=== PATIENT | female | born 1955 | race Caucasian/White ===

== ENCOUNTER → 2017-06-08 | Outpatient (CLI) | payer OTHER ==
[~2017-06-08] MED LIST: ATV/1 PO; FLUO40CA8 PO; HYDR-5688 PO; HYZ/10015 PO; IBUP-103 PO; LEVO75TA5 PO; MCRK20 PO; METO25TA56 PO; OLAN-111 PO; SDMC1 PO; ZOLP5TAB6 PO
[2017-06-08 17:36] LABS: BASO % 0.5 %; BASO ABS # 0.07 K/uL (0-0.2); COMPLETE YES; EOS % 1.4 %; IG% 0.3 %; LYMPH % 11.7 %; LYMPH ABS # 1.63 K/uL (1.2-3.4); MEAN CELL VOLUME 84.7 fL (80-100); MEAN CORPUSCULAR HEMOGLOBIN 28.7 pg (25-34); MEAN CORPUSCULAR HGB CONC 33.9 g/dl (32-36); MEAN PLATELET VOLUME 10.4 fL (7.4-10.4); MONO % 6.4 %; NEUT % 79.7 %; PLATELET COUNT 408 K/uL (130-400); RED BLOOD COUNT 4.84 M/uL (4.2-5.4); WHITE BLOOD COUNT 13.99 K/uL (4.8-10.8)
[2017-06-08 17:52] LABS: BLOOD UREA NITROGEN 14 mg/dl (7-18); BUN/CREATININE RATIO 10.7 (10-20); CALCIUM 9.6 mg/dl (8.5-10.1); CARBON DIOXIDE 23 mmol/L (21-32); CHLORIDE 100 mmol/L (98-107); GLUCOSE 103 mg/dl (70-99); POTASSIUM 3.4 mmol/L (3.5-5.1); SODIUM 132 mmol/L (136-145)
[2017-06-08 18:03] LABS: ALB/GLOB RATIO 1.1 (0.9-2); ALKALINE PHOSPHATASE 142 U/L (45-117); ALT/SGPT 18 U/L (12-78); AST/SGOT 12 U/L (15-37); CHOLESTEROL 125 mg/dl (0-200); HDL CHOLESTEROL 64 mg/dl; LDL CHOLESTEROL CALCULATED 40 mg/dl; TRIGLYCERIDES 103 mg/dl (0-150); VERY LOW DENSITY LIPOPROT CALC 21 mg/dl
== END | disposition home or self-care (01) ==
LOC: C.LABPBG 15:35
PROVIDERS: ATTEND Neuromusculoskeletal Medicine & OMM
DX: Z00.00 Encounter for general adult medical examination without abnormal findings (principal); Z01.818 Encounter for other preprocedural examination

== ENCOUNTER 2017-07-04 16:07 | Emergency (ER) | payer OTHER ==
[~2017-07-04] VITALS: Ht 167.6 cm; Wt 66.0 kg
[2017-07-04 16:11] VITALS: TEMP 36.5; Ht 167.6 cm; Wt 66.0 kg
[2017-07-04] MEDS ORDERED: ATV/1 PO (16:51)
[2017-07-04] MEDS ORDERED: HYDR-5688 PO (16:51)
[2017-07-04] MEDS ORDERED: FLUO40CA8 PO (16:51)
[2017-07-04] MEDS ORDERED: OLAN-111 PO (16:51)
[2017-07-04] MEDS ORDERED: LEVO75TA5 PO (16:51)
[2017-07-04] MEDS ORDERED: METO25TA56 PO (16:56)
[2017-07-04] MEDS ORDERED: ZOLP5TAB6 PO (16:56)
[2017-07-04] MEDS ORDERED: HYZ/10015 PO (16:56)
[2017-07-04] MEDS ORDERED: IBUP-103 PO (17:12)
--- NOTE | 2017-07-04 17:15 | DIAGNOSTIC IMAGING REPORT ---
LEFT KNEE 3 VIEWS CLINICAL HISTORY: Left knee replacement 10 yrs. Ago, recent fall, knee pain trauma. Pain. COMPARISON: None. DISCUSSION: Fracture distal femur with evidence for prior total joint replacement. Lateral displacement of the medial femoral condyle. Joint effusion with multiple radiopaque densities present. Probable mild impaction of the distal femur in relation to the femoral prosthetic. Mild lucency surrounding the tibial prosthetic possibly secondary to a component of early loosening. IMPRESSION: Comminuted fracture distal femur with evidence for a total left knee prosthetic. Joint effusion with multiple radiopaque loose bodies within the effusion. Potential early loosening of the tibial prosthetic. The above report was generated using voice recognition software. It may contain grammatical, syntax or spelling errors. Electronically signed by: Hernan Thrasher M.D. 07/04/2017 5:14 PM Dictated Date/Time: 07/04/2017 5:12 PM
[2017-07-04 18:32] VITALS: BP 142/94; PULSE 78; O2SAT 96
--- NOTE | 2017-07-04 18:44 | EMERGENCY ROOM VISIT NOTE ---
History First contact with patient: 16:24 Chief Complaint: KNEEPAIN Stated Complaint: LEFT KNEE FX History of Present Illness The patient is a 62 year old female who presents to the Emergency Room via private vehicle with complaints of "left knee fracture". The patient states that she has a left knee total joint replacement which was performed 10 years ago in [place]. She states that she has been following with Dr. Hernan Hatfield DO. The patient states that this past Monday, she was tried use her walker, and twisted her left knee causing her to fall. She notes pain in the left knee rated as an 8/10. She states that she is to follow-up with [facility] as recommended by Dr. Hatfield. She indicated that he does not feel comfortable with the complexity of the fracture, therefore recommended higher level of care. Review of Systems A complete 6-point Review of Systems was discussed with the patient, with pertinent positives and negatives listed in the History of Present Illness. All remaining Review of Systems questions can be considered negative unless otherwise specified. Past Medical/Surgical History Total left knee replacement Family History No pertinent. Social History Smoking Status: Current Every Day Smoker Patient lives locally and has recently moved to the area. Current/Historical Medications Scheduled Fluoxetine (Prozac), 40 MG PO DAILY Hctz/Losartan (Hyzaar 25MG/100MG), 1 TAB PO DAILY Levothyroxine Sodium (Levothyroxine Sodium), 75 MCG PO DAILY Metoprolol Tartrate (Lopressor) (Lopressor), 25 MG PO DAILY Zolpidem Tartrate (Zolpidem Tartrate), 5 MG PO HS Scheduled PRN Hydrocodone/Acetaminophen 5MG/325MG ([place] 5MG/325MG), 1 TABLET PO Q4H PRN for Pain Ibuprofen Tab (Advil), 600-800 MG PO Q8 PRN for Pain Lorazepam (Ativan), 1 MG PO Q8 PRN for Anxiety Physical Exam Vital Signs Date Time Temp Pulse Resp B/P (MAP) Pulse Ox O2 Delivery O2 Flow Rate FiO2 07/04/17 18:32 78 20 142/94 96 Room Air 07/04/17 16:11 36.5 89 18 130/84 95 Room Air Physical Exam VITAL SIGNS - Vital signs and nursing notes were reviewed. Afebrile, blood pressure 130/84, non-tachycardic and is saturating well on room air at 95%. GENERAL -62-year-old female appearing her stated age who is in no acute distress. Communicates well with provider and answers questions appropriately. SKIN - Without rashes. Skin overlying the left knee is edematous, but not erythematous. EXTREMITIES - obvious deformity of the left knee secondary to diffuse edema. The leg is in anatomical alignment. There is warmth to touch of the left knee joint. No evidence of infection. She is neurovascularly intact in this region. Limited range of motion. +5/5 strength noted in UE/LE bilaterally. Medical Decision & Procedures ER Provider Diagnostic Interpretation: LEFT KNEE 3 VIEWS CLINICAL HISTORY: Left knee replacement 10 yrs. Ago, recent fall, knee pain trauma. Pain. COMPARISON: None. DISCUSSION: Fracture distal femur with evidence for prior total joint replacement. Lateral displacement of the medial femoral condyle. Joint effusion with multiple radiopaque densities present. Probable mild impaction of the distal femur in relation to the femoral prosthetic. Mild lucency surrounding the tibial prosthetic possibly secondary to a component of early loosening. IMPRESSION: Comminuted fracture distal femur with evidence for a total left knee prosthetic. Joint effusion with multiple radiopaque loose bodies within the effusion. Potential early loosening of the tibial prosthetic. The above report was generated using voice recognition software. It may contain grammatical, syntax or spelling errors. Electronically signed by: Hernan Thrasher M.D. 07/04/2017 5:14 PM Dictated Date/Time: 07/04/2017 5:12 PM Medical Decision Patient was seen and evaluated as above. She presents to us today with left knee pain. She notes that she took one of her prescribed pain medications prior to coming here therefore declines pain medication. X-ray was obtained with results as above. There is a periprosthetic knee fracture. Case was discussed with the on-call orthopedic doctor, Dr. Dobbins who indicated that the current plan by Dr. Hatfield is appropriate, and he indicates he does not feel comfortable intervening in the patient's care. I do believe that follow-up with the indicated individuals is appropriate, and after a good deal of time into the patient's stay she indicated that she has an appointment on the seventh with a person in [place] which was set up by Dr. Hatfield. The people that accompanying her thought that that was a long drive, and brought her here instead. I informed that although I was sorry that it is a long drive to those places, I believe that the orthopedic surgeon that they've seen previously referred him there as they're able to provide a higher level of care in complexity for this joint. They then verbalizes understanding. She appears stable for outpatient management. She'll he has any immobilizer which appears appropriate. She is to be nonweightbearing and was given a walker. She is to return with worsening. There appears to be no emergent surgery necessary today. She was educated upon worrisome symptoms which to return, had questions by discharge, and was discharged home in good condition. In the evaluation and treatment of this patient, the following differential diagnoses were considered: Patellar Fracture, Tibial Plateau Fracture, Distal Femur Fracture, ACL Injury, PCL Injury, Collateral Ligament Injury, Pes Anserine Bursitis, [place]uve Fracture. Impression Primary Impression: Knee fracture Departure Information Dispostion Home / Self-Care Condition GOOD Referrals Berto Meza D.OCuong (PCP) Patient Instructions My [facility] Additional Instructions You have been treated in the Emergency Department for Knee Pain. If this is a recent injury (<24 hrs), ice can be applied to the area of pain for the first 3 days to help decrease pain and inflammation. Ice massages can be performed by freezing water in a paper cup, peeling back the cup to expose the ice and then massaging over the affected area. You have been provided the number for an Orthopaedic Surgeon. You should call this number as soon as possible to establish a follow-up visit from today's Emergency Department visit. Keep the knee brace in place until cleared by Orthopedics. Use the walker you have been provided to keep ALL weight off of the knee until weight bearing is tolerable. Please call the knee doctor at [place] tomorrow to verify your appointment. Please also call [place] to verify your appointment. Return to the Emergency Department if your current symptoms worsen despite treatment course outlined above. Please return to emergency department with any new/concerning symptoms.
== END 2017-07-04 18:56 | disposition home or self-care (01) ==
LOC: C.EDB 16:08 → C.EDD 18:56
DX: S72.402A Unspecified fracture of lower end of left femur, initial encounter for closed fracture (principal); Z96.652 Presence of left artificial knee joint; W19.XXXA Unspecified fall, initial encounter; Y92.9 Unspecified place or not applicable; F17.210 Nicotine dependence, cigarettes, uncomplicated; Z79.899 Other long term (current) drug therapy

== ENCOUNTER 2017-07-20 10:40 | Inpatient (IN) | payer OTHER ==
[~2017-07-20] VITALS: Ht 167.6 cm; Wt 66.0 kg
[~2017-07-20 10:40] MED LIST changes: -MCRK20 PO; -OLAN-111 PO; -SDMC1 PO
[2017-07-20] MEDS ORDERED: SODIUM CHLORIDE 0.9% 1000ML 1,000 ML IV STA (10:46)
--- NOTE | 2017-07-20 11:36 | EMERGENCY ROOM VISIT NOTE ---
History First contact with patient: 10:45 Chief Complaint: ABNORMAL LABS Stated Complaint: ABNORMAL LABS History of Present Illness The patient is a 62 year old female who presents to the Emergency Room with complaints of abnormal labs. The patient also notes the following associated symptoms, left knee pain. The patient had a knee replacement 10yrs ago. She fell 10 months ago and loosened the hardware. She then suffered femur fx 3 weeks ago. She denied trauma for the event. She went to [place] and was told the fracture occurred because of loose hardware. This visit was 2 days ago. She had the knee aspirated and was told it was infected. She was scheduled for surgery today. She had preop labs done and was told the labs were all abnormal. The patient has been using percocet for relieving factors. Pt denies LOC, headache, fevers, chills, diaphoresis, visual changes, neck pain, chest pain, breathing difficulties, nausea, vomiting, abdominal pain, back pain, melena, hematochezia, urinary symptoms, numbness, weakness, lymphadenopathy, rash, or other complaints. Review of Systems See HPI for pertinent positives and negatives. A total of ten systems were reviewed and were otherwise negative. Past Medical/Surgical History Medical Problems: (1) Hyponatremia Social History Smoking Status: Unknown if Ever Smoked Current/Historical Medications Scheduled Fluoxetine (Prozac), 40 MG PO DAILY Hctz/Losartan (Hyzaar 25MG/100MG), 1 TAB PO DAILY Levothyroxine Sodium (Levothyroxine Sodium), 75 MCG PO DAILY Metoprolol Tartrate (Lopressor) (Lopressor), 25 MG PO DAILY Zolpidem Tartrate (Zolpidem Tartrate), 5 MG PO HS Scheduled PRN Hydrocodone/Acetaminophen 5MG/325MG ([place] 5MG/325MG), 1 TABLET PO Q4H PRN for Pain Ibuprofen Tab (Advil), 600-800 MG PO Q8 PRN for Pain Lorazepam (Ativan), 1 MG PO Q8 PRN for Anxiety Physical Exam Vital Signs Date Time Temp Pulse Resp B/P (MAP) Pulse Ox O2 Delivery O2 Flow Rate FiO2 07/20/17 13:44 72 20 125/80 97 Room Air 07/20/17 12:19 70 14 119/79 97 Room Air 07/20/17 11:12 72 07/20/17 11:09 74 16 113/74 97 Room Air 07/20/17 10:38 37.1 75 18 126/76 97 Room Air Physical Exam GENERAL: Awake, alert, uncomfortable appearing, in no distress HENT: Normocephalic, atraumatic. Oropharynx unremarkable. EYES: Normal conjunctiva. Sclera non-icteric. NECK: Supple. No nuchal rigidity. FROM. No JVD. RESPIRATORY: Clear to auscultation. CARDIAC: Regular rate, normal rhythm. Extremities warm and well perfused. Pulses equal. ABDOMEN: Soft, non-distended. No tenderness to palpation. No rebound or guarding. No masses. RECTAL: Deferred. MUSCULOSKELETAL: Chest examination reveals no tenderness. The back is symmetrical on inspection without obvious abnormality. There is no CVA tenderness to palpation. No joint edema. LOWER EXTREMITIES: Calves are equal size bilaterally and non-tender. No edema. No discoloration. TTP of the left knee without erythema. NEURO: Normal sensorium. No sensory or motor deficits noted. SKIN: No rash or jaundice noted. Medical Decision & Procedures Laboratory Results 07/20/17 11:08 Red Blood Count 4.61, Mean Corpuscular Volume 80.5, Mean Corpuscular Hemoglobin 28.0, Mean Corpuscular Hemoglobin Concent 34.8, Mean Platelet Volume 10.2, Neutrophils (%) (Auto) 76.6, Lymphocytes (%) (Auto) 11.1, Monocytes (%) (Auto) 8.7, Eosinophils (%) (Auto) 2.8, Basophils (%) (Auto) 0.5, Neutrophils # (Auto) 9.66, Lymphocytes # (Auto) 1.40, Monocytes # (Auto) 1.09, Eosinophils # (Auto) 0.35, Basophils # (Auto) 0.06 07/20/17 11:08 Test 07/20/17 11:08 07/20/17 15:12 White Blood Count 12.60 K/uL (4.8-10.8) Red Blood Count 4.61 M/uL (4.2-5.4) Hemoglobin 12.9 g/dL (12.0-16.0) Hematocrit 37.1 % (37-47) Mean Corpuscular Volume 80.5 fL (80-100) Mean Corpuscular Hemoglobin 28.0 pg (25-34) Mean Corpuscular Hemoglobin Concent 34.8 g/dl (32-36) Platelet Count 345 K/uL (130-400) Mean Platelet Volume 10.2 fL (7.4-10.4) Neutrophils (%) (Auto) 76.6 % Lymphocytes (%) (Auto) 11.1 % Monocytes (%) (Auto) 8.7 % Eosinophils (%) (Auto) 2.8 % Basophils (%) (Auto) 0.5 % Neutrophils # (Auto) 9.66 K/uL (1.4-6.5) Lymphocytes # (Auto) 1.40 K/uL (1.2-3.4) Monocytes # (Auto) 1.09 K/uL (0.11-0.59) Eosinophils # (Auto) 0.35 K/uL (0-0.5) Basophils # (Auto) 0.06 K/uL (0-0.2) RDW Standard Deviation 40.4 fL (36.4-46.3) RDW Coefficient of Variation 13.7 % (11.5-14.5) Immature Granulocyte % (Auto) 0.3 % Immature Granulocyte # (Auto) 0.04 K/uL (0.00-0.02) Anion Gap 11.0 mmol/L (3-11) Est Creatinine Clear Calc Drug Dose 39.0 ml/min Estimated GFR () 46.6 Estimated GFR (Non- 40.2 BUN/Creatinine Ratio 9.6 (10-20) Calcium Level 9.2 mg/dl (8.5-10.1) Total Bilirubin 0.5 mg/dl (0.2-1) Direct Bilirubin 0.2 mg/dl (0-0.2) Aspartate Amino Transf (AST/SGOT) 26 U/L (15-37) Alanine Aminotransferase (ALT/SGPT) 20 U/L (12-78) Alkaline Phosphatase 203 U/L (45-117) Total Protein 6.8 gm/dl (6.4-8.2) Albumin 3.6 gm/dl (3.4-5.0) Lipase 253 U/L (73-393) Medications Administered Medications (Trade) Dose Ordered Sig/Juliocesar Route Start Time Stop Time Status Last Admin Dose Admin Sodium Chloride 1,000 ml @ 125 mls/hr Q8H STAT IV 07/20/17 10:46 07/20/17 18:45 07/20/17 11:15 125 MLS/HR Hydromorphone HCl (Dilaudid Inj) 0.5 mg NOW STAT IV 07/20/17 12:22 07/20/17 12:23 DC 07/20/17 12:37 0.5 MG Potassium Chloride (Kcl 10 Meq / Wtr) 10 meq NOW STAT IV 07/20/17 12:23 07/20/17 12:24 DC 07/20/17 12:37 10 MEQ Potassium Chloride (Klor-Con M10) 20 meq NOW STAT PO 07/20/17 12:23 07/20/17 12:24 DC 07/20/17 12:37 20 MEQ ECG Indication: other (abnormal labs) Rate (beats per minute): 69 Rhythm: normal sinus Findings: nonspecific-ST abn, no acute ischemic change, no ectopy Medical Decision Triage Nursing notes reviewed. The patient's presentation and history were concerning for abnormal labs. Etiologies such as metabolic, infection, hypo/hyperglycemia, electrolyte abnormalities, cardiac sources, intracerebral event, toxicologic, neurologic, as well as others were entertained. The patient was evaluated. Blood work was obtained and old records were pulled from the [facility] EMR. She had a sodium of 121 and potassium of 2.6 as an outpatient. Blood work from today revealed that she had a slight leukocytosis as well as hyponatremia of 124 and a potassium of 2.8. The patient was hydrated with normal saline gently and was given IV and oral potassium. She received IV Dilaudid for pain control. The patient was reassessed. She was doing well. The patient was scheduled for surgery however this cannot be completed as she has significant laboratory abnormalities that need corrected. Because of this internal medicine was consulted. The patient was evaluated in the emergency department and admitted for further treatment. Impression Primary Impression: Hypokalemia Additional Impressions: Hyponatremia Periprosthetic fracture around internal prosthetic left knee joint, subsequent encounter Departure Information Dispostion Being Evaluated By Hospitalist Referrals Berto Meza D.O. (PCP) Patient Instructions My [facility] Problem Qualifiers
[2017-07-20 11:38] LABS: BUN/CREATININE RATIO 9.6 (10-20); CALCIUM 9.2 mg/dl (8.5-10.1); CREATININE 1.4 mg/dl (0.60-1.20); POTASSIUM 2.8 mmol/L (3.5-5.1)
[2017-07-20 11:56] LABS: BASO % 0.5 %; BASO ABS # 0.06 K/uL (0-0.2); COMPLETE YES; EOS % 2.8 %; HEMATOCRIT 37.1 % (37-47); IG% 0.3 %; LYMPH % 11.1 %; MEAN CELL VOLUME 80.5 fL (80-100); MEAN CORPUSCULAR HGB CONC 34.8 g/dl (32-36); MEAN PLATELET VOLUME 10.2 fL (7.4-10.4); MONO % 8.7 %; NEUT % 76.6 %; PLATELET COUNT 345 K/uL (130-400); RED BLOOD COUNT 4.61 M/uL (4.2-5.4)
[2017-07-20] MEDS ORDERED: HYDROmorphone INJ 0.5 MG/0.5 ML SYR IV STA (12:22)
[2017-07-20] MEDS ORDERED: POTASSIUM CHLORIDE 10 MEQ TABCR PO STA (12:23)
[2017-07-20] MEDS ORDERED: POTASSIUM CHLORIDE 10 MEQ / 100ML WTR IV STA (12:23)
[2017-07-20] MEDS ORDERED: ONDANSETRON INJ 2 MG/ML 2 ML VIAL IV PRN (14:30)
--- NOTE | 2017-07-20 14:32 | History and Physical ---
History & Physical Date & Time of Service: Jul 20, 2017 at 14:21 Chief Complaint: Abnormal Labs Primary Care Physician: Berto Meza D.O. History of Present Illness Source: patient Pt is a 62 yo female who presents to the ER as a referral for abnormals labs from [place]. Pt has a hx of a left knee replacement 10 yrs ago and follows up at [place] for follow up care as pt sustained a fall 10 months ago and loosened the hardware. Pt reports she also suffered a femur fx but is uncertain of the cause. She followed up at [place] 2 days in which at that time she had her left knee aspirated and was told it was infected. She was schedule for surgery tomorrow but was told her preop labs were abnormal for low sodium and low potassium in addition to kidney and was referred to go to ER for further evaluation. Pt reports left knee pain and hip pain. Denies any fevers, chills, N/V/D, abd pain or urinary sx. Pt reports poor PO intake and dehydration past few days. Social History Smoking Status: Current Every Day Smoker (1 ppd for past 30 yrs) Alcohol Use: socially Drug Use: none Marital Status: single Housing status: lives alone Allergies Coded Allergies: No Known Allergies (Unverified , 07/20/17) Home Medications Scheduled Fluoxetine (Prozac), 40 MG PO DAILY Hctz/Losartan (Hyzaar 25MG/100MG), 1 TAB PO DAILY Levothyroxine Sodium (Levothyroxine Sodium), 75 MCG PO DAILY Metoprolol Tartrate (Lopressor) (Lopressor), 25 MG PO DAILY Zolpidem Tartrate (Zolpidem Tartrate), 5 MG PO HS Scheduled PRN Hydrocodone/Acetaminophen 5MG/325MG ([place] 5MG/325MG), 1 TABLET PO Q4H PRN for Pain Ibuprofen Tab (Advil), 600-800 MG PO Q8 PRN for Pain Lorazepam (Ativan), 1 MG PO Q8 PRN for Anxiety Review of Systems Constitutional: + weakness, + fatigue, No fever, No chills, No sweats ENT: No hearing loss, No unusual epistaxis, No nasal symptoms, No sore throat Respiratory: No cough, No sputum, No wheezing, No shortness of breath Cardiovascular: No chest pain, No orthopnea, No PND, No edema Abdomen: No pain, No nausea, No vomiting, No diarrhea Musculoskeletal: + joint pain (left knee pain, left hip pain), No muscle pain, No swelling, No calf pain Genitourinary - Female: No dysuria, No urinary frequency, No urinary urgency, No urinary incontinence Neurologic: No memory loss, No paralysis, No weakness, No numbness/tingling Psychiatric: No depression symptoms, No anhedonism, No anxiety Endocrine: No fatigue, No excessive thirst, No excessive urination Hematologic / Lymphatic: No abnormal bleeding/bruising, No clotting problems Integumentary: No rash, No itch Physical Exam Vital Signs Date Time Temp Pulse Resp B/P (MAP) Pulse Ox O2 Delivery O2 Flow Rate FiO2 07/20/17 13:44 72 20 125/80 97 Room Air 07/20/17 12:19 70 14 119/79 97 Room Air 07/20/17 11:12 72 07/20/17 11:09 74 16 113/74 97 Room Air 07/20/17 10:38 37.1 75 18 126/76 97 Room Air General Appearance: WD/WN, + mild distress Head: normocephalic, atraumatic Eyes: normal inspection, PERRL, EOMI, sclerae normal Neck: supple, no adenopathy, thyroid normal, no JVD Respiratory/Chest: chest non-tender, lungs clear, normal breath sounds, no respiratory distress Cardiovascular: no edema, no gallop, no JVD, no murmur Abdomen/GI: normal bowel sounds, non tender, soft, no organomegaly Extremities/Musculoskelatal: no calf tenderness, no pedal edema, + pertinent finding (left knee pain on palpation) Neurologic/Psych: no motor/sensory deficits, alert, normal mood/affect, oriented x 3 Skin: normal color, warm/dry, no rash Lymphatic: no adenopathy Diagnostics Laboratory Results Results Past 24 Hours Test 07/20/17 11:08 Range/Units White Blood Count 12.60 4.8-10.8 K/uL Red Blood Count 4.61 4.2-5.4 M/uL Hemoglobin 12.9 12.0-16.0 g/dL Hematocrit 37.1 37-47 % Mean Corpuscular Volume 80.5 80-100 fL Mean Corpuscular Hemoglobin 28.0 25-34 pg Mean Corpuscular Hemoglobin Concent 34.8 32-36 g/dl Platelet Count 345 130-400 K/uL Mean Platelet Volume 10.2 7.4-10.4 fL Neutrophils (%) (Auto) 76.6 % Lymphocytes (%) (Auto) 11.1 % Monocytes (%) (Auto) 8.7 % Eosinophils (%) (Auto) 2.8 % Basophils (%) (Auto) 0.5 % Neutrophils # (Auto) 9.66 1.4-6.5 K/uL Lymphocytes # (Auto) 1.40 1.2-3.4 K/uL Monocytes # (Auto) 1.09 0.11-0.59 K/uL Eosinophils # (Auto) 0.35 0-0.5 K/uL Basophils # (Auto) 0.06 0-0.2 K/uL RDW Standard Deviation 40.4 36.4-46.3 fL RDW Coefficient of Variation 13.7 11.5-14.5 % Immature Granulocyte % (Auto) 0.3 % Immature Granulocyte # (Auto) 0.04 0.00-0.02 K/uL Sodium Level 124 136-145 mmol/L Potassium Level 2.8 3.5-5.1 mmol/L Chloride Level 87 98-107 mmol/L Carbon Dioxide Level 26 21-32 mmol/L Anion Gap 11.0 3-11 mmol/L Blood Urea Nitrogen 13 7-18 mg/dl Creatinine 1.40 0.60-1.20 mg/dl Est Creatinine Clear Calc Drug Dose 39.0 ml/min Estimated GFR () 46.6 Estimated GFR (Non- 40.2 BUN/Creatinine Ratio 9.6 10-20 Random Glucose 93 70-99 mg/dl Calcium Level 9.2 8.5-10.1 mg/dl Total Bilirubin 0.5 0.2-1 mg/dl Direct Bilirubin 0.2 0-0.2 mg/dl Aspartate Amino Transf (AST/SGOT) 26 15-37 U/L Alanine Aminotransferase (ALT/SGPT) 20 12-78 U/L Alkaline Phosphatase 203 45-117 U/L Total Protein 6.8 6.4-8.2 gm/dl Albumin 3.6 3.4-5.0 gm/dl Lipase 253 73-393 U/L Impression Assessment and Plan Pt is a 62 yo female referred to ER for abnormal preop labs Hyponatremia/hypokalemia in the setting of acute on CKD stage 3 likely related to dehydration. Will place on observation at this time. Will hold HCTZ/losartan at this time. Likely prerenal in nature. Start on IVF at this time. Cont to trend PRP Left knee pain - pt reports recent aspiration at [place] 2 days ago and was told it was infected. Edema noted around joint. No redness but pain on palpation. [place] 5/325 q 4hrs PRN pain. Obtain records from [place]. Surgery will have to be rescheduled due to above. Anxiety/Depression - Cont prozac HTN - Controlled, cont metoprolol only, cont to hold losartan/hctz. Pt is DNR VTE Prophylaxis VTE Risk Assessment Done? Y/N: Yes Risk Level: Moderate
[2017-07-20 15:44] LABS: PARTIAL THROMBOPLASTIN RATIO 1.2; PROTHROMBIN TIME (PATIENT) 10.7 SECONDS (9.0-12.0)
[2017-07-20 15:46] VITALS: BP 143/89; PULSE 71; TEMP 36.7; TEMP 39.7; O2SAT 97
[2017-07-20] MEDS ORDERED: IV FLUIDS COMPLETED PRN (16:15)
[2017-07-20 16:17] LABS: URINE APPEARANCE CLEAR (CLEAR); URINE BILIRUBIN NEG (NEG); URINE COLOR YELLOW; URINE NITRITE NEG (NEG); URINE PH 6.5 (4.5-7.5); URINE SPECIFIC GRAVITY 1.011 (1.000-1.030); UROBILINOGEN NEG (NEG); ZZUR CULT IF INDIC CLEAN CATCH NO
[2017-07-20 16:20] VITALS: BP 143/89; PULSE 71; TEMP 36.7; TEMP 39.7; Ht 167.6 cm; Wt 66.0 kg
[2017-07-20 16:20] LABS: MANUAL MICROSCOPIC REQUIRED? NO; REVIEW REQ? NO
[2017-07-20] MEDS ORDERED: POTASSIUM CHLORIDE 20 MEQ TABCR PO ONE (17:00)
[2017-07-20] MEDS: SODIUM CHLORIDE 0.9% 1000ML 1,000 ML IV SCH (17:16)
[2017-07-20] MEDS: HYDROCODONE/ACETAMOPHEN 5/325MG TAB PO PRN ×2 (17:18→21:20)
[2017-07-20] MEDS: HEPARIN SOD 5000 UNIT/0.5 ML CARP SQ SCH (21:06)
[2017-07-20] MEDS: LORAZEPAM 1 MG TAB PO PRN (21:07)
[2017-07-20] MEDS: POTASSIUM CHLORIDE 20 MEQ TABCR PO SCH (21:36)
[2017-07-20] MEDS: ZOLPIDEM TARTRATE 5 MG TAB PO SCH (21:36)
[2017-07-20 23:33] VITALS: BP 144/79; PULSE 70; TEMP 36.4; O2SAT 98
[2017-07-21] MEDS: SODIUM CHLORIDE 0.9% 1000ML 1,000 ML IV SCH ×2 (00:43→10:46)
[2017-07-21] MEDS: HYDROCODONE/ACETAMOPHEN 5/325MG TAB PO PRN ×5 (02:27→21:02)
[2017-07-21] MEDS: LEVOTHYROXINE 75 MCG TAB PO SCH (05:50)
[2017-07-21] MEDS: HEPARIN SOD 5000 UNIT/0.5 ML CARP SQ SCH ×3 (05:53→21:04)
[2017-07-21 07:22] VITALS: BP 125/77; PULSE 78; TEMP 36.6; O2SAT 96
[2017-07-21 07:44] LABS: BASO % 0.9 %; BASO ABS # 0.07 K/uL (0-0.2); COMPLETE YES; EOS % 7.2 %; HEMATOCRIT 32.3 % (37-47); IG% 0.1 %; LYMPH % 24.4 %; LYMPH ABS # 1.94 K/uL (1.2-3.4); MEAN CELL VOLUME 80.5 fL (80-100); MEAN CORPUSCULAR HEMOGLOBIN 27.9 pg (25-34); MEAN CORPUSCULAR HGB CONC 34.7 g/dl (32-36); MEAN PLATELET VOLUME 9.8 fL (7.4-10.4); MONO % 10.2 %; NEUT % 57.2 %; PLATELET COUNT 272 K/uL (130-400); RED BLOOD COUNT 4.01 M/uL (4.2-5.4); WHITE BLOOD COUNT 7.95 K/uL (4.8-10.8)
[2017-07-21 07:50] VITALS: O2SAT 96
[2017-07-21] MEDS: POTASSIUM CHLORIDE 20 MEQ TABCR PO SCH ×2 (07:58→21:03)
[2017-07-21] MEDS: METOPROLOL TARTRATE 25 MG TAB PO SCH (07:58)
[2017-07-21] MEDS: FLUOXETINE HCL 20 MG CAP PO SCH (07:58)
[2017-07-21 08:15] LABS: BUN/CREATININE RATIO 10.4 (10-20); CALCIUM 8.1 mg/dl (8.5-10.1); POTASSIUM 3.2 mmol/L (3.5-5.1)
[2017-07-21] MEDS ORDERED: SODIUM CHLORIDE 1 GM TAB PO ONE (10:00)
[2017-07-21] MEDS ORDERED: POTASSIUM CHLORIDE 20 MEQ TABCR PO STA (10:00)
--- NOTE | 2017-07-21 13:00 | Hospitalist Progress Note ---
Hospitalist Progress Note Date of Service Jul 21, 2017. Subjective Pt evaluation today including: conversation w/ patient, physical exam, chart review, lab review, review of studies, review of inpatient medication list Patient seen and evaluated. Na and K slowly improving. Reports no previous issues with electrolytes Serum osm low with urine osm pending. May possibly be SIADH given SSRI use. Reporting that she was due for surgery today but couldn't due to labs. She states she was told her knee is infected but has not been on antibiotics. Constitutional: No fever, No chills Respiratory: No cough, No shortness of breath Cardiovascular: No chest pain Abdomen: No pain, No nausea, No vomiting, No diarrhea, No constipation Musculoskeletal: + joint pain (L knee pain), No calf pain Female : No dysuria Heme: No abnormal bleeding/bruising Medications Current Inpatient Medications Medications (Trade) Dose Ordered Sig/Juliocesar Route Start Time Stop Time Status Last Admin Dose Admin Heparin Sodium (Porcine) (Heparin Sq 5000 Unit/0.5ml) 5,000 unit Q8 SQ 07/20/17 22:00 08/19/17 21:59 07/21/17 05:53 5,000 UNIT Acetaminophen (Tylenol Tab) 650 mg Q4H PRN PO 07/20/17 14:30 08/19/17 14:29 Ondansetron HCl (Zofran Inj) 4 mg Q6H PRN IV 07/20/17 14:30 08/19/17 14:29 Sodium Chloride 1,000 ml @ 100 mls/hr Q10H IV 07/20/17 14:30 08/19/17 14:29 07/21/17 10:46 100 MLS/HR Potassium Chloride (Klor-Con Tab) 20 meq BID PO 07/20/17 20:00 08/19/17 20:59 07/21/17 07:58 20 MEQ Fluoxetine HCl (Prozac Cap) 40 mg DAILY PO 07/21/17 08:00 08/20/17 08:59 07/21/17 07:58 40 MG Acetaminophen/ Hydrocodone Bitart ([place] 5/325 Tab) 1 tab Q4H PRN PO 07/20/17 14:30 08/03/17 14:29 07/21/17 12:30 1 TAB Levothyroxine Sodium (Synthroid Tab) 75 mcg DAILYBB PO 07/21/17 06:30 08/20/17 06:59 07/21/17 05:50 75 MCG Lorazepam (Ativan Tab) 1 mg Q8 PRN PO 07/20/17 14:30 08/19/17 14:29 07/20/17 21:07 1 MG Metoprolol Tartrate (Lopressor Tab) 25 mg DAILY PO 07/21/17 08:00 08/20/17 08:59 07/21/17 07:58 25 MG Zolpidem Tartrate (Ambien Tab) 5 mg HS PO 07/20/17 21:00 08/19/17 20:59 07/20/17 21:36 5 MG Miscellaneous (Iv Fluids Completed) 1 ea PRN PRN N/A 07/20/17 16:15 07/20/18 16:14 Sodium Chloride (Sodium Chloride Tab) 1 gm DAILY PO 07/22/17 08:00 08/21/17 07:59 Objective Vital Signs Date Time Temp Pulse Resp B/P (MAP) Pulse Ox O2 Delivery O2 Flow Rate FiO2 07/21/17 07:50 96 Room Air 07/21/17 07:22 36.6 78 16 125/77 (93) 96 Room Air 07/20/17 23:45 Room Air 07/20/17 23:33 36.4 70 18 144/79 (100) 98 Room Air 07/20/17 16:20 36.7 71 20 143/89 07/20/17 15:46 36.7 71 20 143/89 (107) 97 Room Air 07/20/17 15:29 69 14 134/83 96 07/20/17 15:24 69 14 134/83 96 Room Air 07/20/17 13:44 72 20 125/80 97 Room Air Physical Exam General Appearance: WD/WN, no apparent distress Eyes: sclerae normal ENT: hearing grossly normal Neck: supple, no JVD, trachea midline Respiratory/Chest: lungs clear, normal breath sounds, no respiratory distress, no accessory muscle use Laboratory Results Last 24 Hours Test 07/20/17 15:50 07/21/17 07:26 07/21/17 10:10 Urine Color YELLOW Urine Appearance CLEAR Urine pH 6.5 Urine Specific [place] 1.011 Urine Protein NEG Urine Glucose (UA) NEG Urine Ketones NEG Urine Occult Blood NEG Urine Nitrite NEG Urine Bilirubin NEG Urine Urobilinogen NEG Urine Leukocyte Esterase NEG White Blood Count 7.95 K/uL Red Blood Count 4.01 M/uL Hemoglobin 11.2 g/dL Hematocrit 32.3 % Mean Corpuscular Volume 80.5 fL Mean Corpuscular Hemoglobin 27.9 pg Mean Corpuscular Hemoglobin Concent 34.7 g/dl Platelet Count 272 K/uL Mean Platelet Volume 9.8 fL Neutrophils (%) (Auto) 57.2 % Lymphocytes (%) (Auto) 24.4 % Monocytes (%) (Auto) 10.2 % Eosinophils (%) (Auto) 7.2 % Basophils (%) (Auto) 0.9 % Neutrophils # (Auto) 4.55 K/uL Lymphocytes # (Auto) 1.94 K/uL Monocytes # (Auto) 0.81 K/uL Eosinophils # (Auto) 0.57 K/uL Basophils # (Auto) 0.07 K/uL RDW Standard Deviation 40.5 fL RDW Coefficient of Variation 13.7 % Immature Granulocyte % (Auto) 0.1 % Immature Granulocyte # (Auto) 0.01 K/uL Sodium Level 126 mmol/L Potassium Level 3.2 mmol/L Chloride Level 94 mmol/L Carbon Dioxide Level 25 mmol/L Anion Gap 7.0 mmol/L Blood Urea Nitrogen 10 mg/dl Creatinine 1.00 mg/dl Est Creatinine Clear Calc Drug Dose 54.6 ml/min Estimated GFR () 69.9 Estimated GFR (Non- 60.3 BUN/Creatinine Ratio 10.4 Random Glucose 80 mg/dl Calcium Level 8.1 mg/dl Osmolality 259 mOsm/kg Assessment and Plan Pt is a 62 yo female referred to ER for abnormal preop labs Hyponatremia/Hypokalemia: - Improving slowly with fluids and will replete orally - May be SIADH given SSRI use and may be related to HCTZ Acute on Chronic CKD Stage III: RESOLVED - Continue to monitor - likely prerenal L Knee Pain: Possible Infection? - Awaiting records from [place] - minimal redness of knee but significant edema - reports not placed on Abx Anxiety/Depression: - Prozac 40 mg daily HTN: - Lopressor 25 mg daily Disposition: - Repeat labs this afternoon - possible D/C today vs tomorrow Continued [facility] stay due to: multiple IV medications needed Discharge planning: home
[2017-07-21 15:02] LABS: BUN/CREATININE RATIO 12.1 (10-20); CALCIUM 8.2 mg/dl (8.5-10.1); CREATININE 0.9 mg/dl (0.60-1.20); MAGNESIUM 1.7 mg/dl (1.8-2.4); POTASSIUM 3.6 mmol/L (3.5-5.1)
[2017-07-21 15:16] VITALS: BP 118/79; PULSE 67; TEMP 36.4; O2SAT 97
[2017-07-21] MEDS: ZOLPIDEM TARTRATE 5 MG TAB PO SCH (21:49)
[2017-07-21] MEDS: LORAZEPAM 1 MG TAB PO PRN (21:49)
[2017-07-21 23:38] VITALS: BP 133/80; PULSE 73; TEMP 36.6; O2SAT 96
[2017-07-22] MEDS: HYDROCODONE/ACETAMOPHEN 5/325MG TAB PO PRN ×5 (03:23→22:36)
[2017-07-22] MEDS: HEPARIN SOD 5000 UNIT/0.5 ML CARP SQ SCH ×3 (06:23→21:19)
[2017-07-22] MEDS: LEVOTHYROXINE 75 MCG TAB PO SCH (06:24)
[2017-07-22 07:02] VITALS: BP 147/93; PULSE 66; TEMP 36.6; O2SAT 96
[2017-07-22] MEDS ORDERED: SODIUM CHLORIDE 1 GM TAB PO SCH (08:00)
[2017-07-22] MEDS: FLUOXETINE HCL 20 MG CAP PO SCH (08:55)
[2017-07-22] MEDS: POTASSIUM CHLORIDE 20 MEQ TABCR PO SCH ×2 (08:55→20:52)
[2017-07-22] MEDS: LORAZEPAM 1 MG TAB PO PRN ×2 (08:55→20:52)
[2017-07-22] MEDS: METOPROLOL TARTRATE 25 MG TAB PO SCH (08:56)
[2017-07-22 09:08] LABS: BASO % 0.8 %; BASO ABS # 0.07 K/uL (0-0.2); COMPLETE YES; EOS % 7.1 %; HEMATOCRIT 38.7 % (37-47); IG% 0.1 %; LYMPH % 27.3 %; LYMPH ABS # 2.43 K/uL (1.2-3.4); MEAN CORPUSCULAR HEMOGLOBIN 27.5 pg (25-34); MEAN CORPUSCULAR HGB CONC 33.6 g/dl (32-36); MEAN PLATELET VOLUME 9.6 fL (7.4-10.4); MONO % 8.9 %; NEUT % 55.8 %; PLATELET COUNT 350 K/uL (130-400); RED BLOOD COUNT 4.72 M/uL (4.2-5.4); WHITE BLOOD COUNT 8.91 K/uL (4.8-10.8)
[2017-07-22 09:49] LABS: BUN/CREATININE RATIO 9.4 (10-20); CALCIUM 9.2 mg/dl (8.5-10.1); CREATININE 0.82 mg/dl (0.60-1.20); POTASSIUM 3.9 mmol/L (3.5-5.1)
--- NOTE | 2017-07-22 14:28 | Progress Note ---
Subjective Date of Service: Jul 22, 2017. Subjective Pt evaluation today including: conversation w/ patient, physical exam, chart review, lab review, review of studies, review of inpatient medication list Pain: none PO Intake: restricted because of hyponatermia Voiding: no voiding problems, no incontinence pt is seen and examined by me. Pt is completely asymptomatic. Pt is setting comfortably in bed and eating her lunch. Pt denies nausea, vomiting, muscle weakness, dizziness, palpitation, and would like to know if she can go home today. Problem List Medical Problems: (1) Hypokalemia Status: Acute (2) Knee fracture Status: Acute (3) Periprosthetic fracture around internal prosthetic left knee joint, subsequent encounter Status: Acute Review of Systems All Other Systems: Reviewed and Negative Medications Medications (Trade) Dose Ordered Sig/Juliocesar Route Start Time Stop Time Status Last Admin Dose Admin Sodium Chloride (Sodium Chloride Tab) 1 gm DAILY PO 07/22/17 08:00 08/21/17 07:59 07/22/17 08:55 1 GM Objective Vital Signs Date Time Temp Pulse Resp B/P (MAP) Pulse Ox O2 Delivery O2 Flow Rate FiO2 07/22/17 08:00 Room Air 07/22/17 07:02 36.6 66 18 147/93 (111) 96 Room Air 07/22/17 00:00 Room Air 07/21/17 23:38 36.6 73 16 133/80 (97) 96 Room Air 07/21/17 17:39 Room Air 07/21/17 15:16 36.4 67 20 118/79 (92) 97 Room Air Physical Exam General Appearance: WD/WN, no apparent distress Cardiovascular: regular rate, rhythm, no edema, no murmur Abdomen: normal bowel sounds, non tender, soft Extremities: non-tender, no pedal edema Neurologic/Psychiatric: alert, normal mood/affect, oriented x 3 Skin: no rash Lymphatic: no adenopathy Laboratory Results Last 24 Hours Test 07/22/17 08:44 White Blood Count 8.91 K/uL Red Blood Count 4.72 M/uL Hemoglobin 13.0 g/dL Hematocrit 38.7 % Mean Corpuscular Volume 82.0 fL Mean Corpuscular Hemoglobin 27.5 pg Mean Corpuscular Hemoglobin Concent 33.6 g/dl Platelet Count 350 K/uL Mean Platelet Volume 9.6 fL Neutrophils (%) (Auto) 55.8 % Lymphocytes (%) (Auto) 27.3 % Monocytes (%) (Auto) 8.9 % Eosinophils (%) (Auto) 7.1 % Basophils (%) (Auto) 0.8 % Neutrophils # (Auto) 4.98 K/uL Lymphocytes # (Auto) 2.43 K/uL Monocytes # (Auto) 0.79 K/uL Eosinophils # (Auto) 0.63 K/uL Basophils # (Auto) 0.07 K/uL RDW Standard Deviation 41.7 fL RDW Coefficient of Variation 13.8 % Immature Granulocyte % (Auto) 0.1 % Immature Granulocyte # (Auto) 0.01 K/uL Sodium Level 126 mmol/L Potassium Level 3.9 mmol/L Chloride Level 94 mmol/L Carbon Dioxide Level 29 mmol/L Anion Gap 3.0 mmol/L Blood Urea Nitrogen 8 mg/dl Creatinine 0.82 mg/dl Est Creatinine Clear Calc Drug Dose 66.5 ml/min Estimated GFR () 88.9 Estimated GFR (Non- 76.7 BUN/Creatinine Ratio 9.4 Random Glucose 83 mg/dl Calcium Level 9.2 mg/dl Assessment and Plan Pt is a 62 yo female referred to ER for abnormal preop labs Hyponatremia: - unclear etiology maybe primary polydispsia vs medications such as SSRI. - Na trended downward from 130 to 126, pt completely asymptomatic, renal is consulted. - Pt is taking same blood pressure for years with out any problems. Acute on Chronic CKD Stage III: RESOLVED - Continue to monitor - likely prerenal L Knee Pain: Possible Infection? - Awaiting records from [place] - minimal redness of knee but significant edema - reports not placed on Abx Anxiety/Depression: - Prozac 40 mg daily HTN: - Lopressor 25 mg daily Continued [facility] stay due to: multiple IV medications needed Discharge planning: home
--- NOTE | 2017-07-22 14:52 | Nephrology Consultation ---
Nephrology Consultation Date & Providers Date of Consultation: Jul 22, 2017. Primary Care Provider: Berto Meza D.O. Referring Provider: Reason for Consultation Hyponatremia History of Present Illness Sulma Greenwood is a 62-year-old female who was admitted to [facility] on 07/20/17 with acute renal insufficiency, hypokalemia and hyponatremia. Nephrology consultation was requested today to assist with management of hyponatremia. Inpatient and office medical records were reviewed today. These include evaluation by her PCP (Dr. Meza) in May. As well as preoperative cardiac evaluation. Laboratory abnormalities were identified on blood work obtained for preoperative testing. Sulma has infection and loosening of hardware in her left knee. She was scheduled washout and revision. Preoperative testing including DSE/echocardiogram were completed. Surgery was postponed due laboratory abnormalities. Hypokalemia improved with replacement. KYLE was consistent with prerenal azotemia and improved with IVF. Hyponatremia initially showed improvement with IVF saline. Unfortunately, serum sodium dropped within the past 24 hours. Urine osmolality was checked yesterday and found to be 280. Sulma feels well. She reports recent loose stool. Approximately 2 loose bowel movements per day. Her appetite has been decreased but overall acceptable. She is eating 3 meals per day. She denies any nausea. She denies abdominal pain. She denies lightheadedness or dizziness. Activities are limited due to knee pain. She has not experienced shortness of breath. She denies palpitations or chest pain. Medical history is notable for a reported history of PTSD. Sulma has anxiety and depression which she manages with Prozac and lorazepam PRN. Neither of these medications are new. She did recently start zolpidem for insomnia. She has hypertension. She had been maintained on Losartan/HCTZ for several years. Metoprolol was recently added in May. She has been on a stable dose of levothyroxine. Sulma is a smoker. She states that she quit approximately 1 week ago. Past Medical/Surgical History Medical: Hypertension, generalized anxiety disorder/depression, PTSD, osteoarthritis, tobacco abuse, hypothyroidism Surgical: L TKA Allergies Coded Allergies: No Known Allergies (Unverified , 07/20/17) Inpatient Medications Current Inpatient Medications Medications (Trade) Dose Ordered Sig/Juliocesar Route Start Time Stop Time Status Last Admin Dose Admin Heparin Sodium (Porcine) (Heparin Sq 5000 Unit/0.5ml) 5,000 unit Q8 SQ 07/20/17 22:00 08/19/17 21:59 07/22/17 13:39 5,000 UNIT Acetaminophen (Tylenol Tab) 650 mg Q4H PRN PO 07/20/17 14:30 08/19/17 14:29 Ondansetron HCl (Zofran Inj) 4 mg Q6H PRN IV 07/20/17 14:30 08/19/17 14:29 Potassium Chloride (Klor-Con Tab) 20 meq BID PO 07/20/17 20:00 08/19/17 20:59 07/22/17 08:55 20 MEQ Fluoxetine HCl (Prozac Cap) 40 mg DAILY PO 07/21/17 08:00 08/20/17 08:59 07/22/17 08:55 40 MG Acetaminophen/ Hydrocodone Bitart ([place] 5/325 Tab) 1 tab Q4H PRN PO 07/20/17 14:30 08/03/17 14:29 07/22/17 13:38 1 TAB Levothyroxine Sodium (Synthroid Tab) 75 mcg DAILYBB PO 07/21/17 06:30 08/20/17 06:59 07/22/17 06:24 75 MCG Lorazepam (Ativan Tab) 1 mg Q8 PRN PO 07/20/17 14:30 08/19/17 14:29 07/22/17 08:55 1 MG Metoprolol Tartrate (Lopressor Tab) 25 mg DAILY PO 07/21/17 08:00 08/20/17 08:59 07/22/17 08:56 25 MG Zolpidem Tartrate (Ambien Tab) 5 mg HS PO 07/20/17 21:00 08/19/17 20:59 07/21/17 21:49 5 MG Miscellaneous (Iv Fluids Completed) 1 ea PRN PRN N/A 07/20/17 16:15 07/20/18 16:14 07/21/17 13:04 1 EA Sodium Chloride (Sodium Chloride Tab) 1 gm DAILY PO 07/22/17 08:00 08/21/17 07:59 07/22/17 08:55 1 GM Social History Smoking Status: Current Every Day Smoker Alcohol Use: socially Drug Use: none Marital Status: single Housing Status: lives alone Review of Systems A complete review of systems was performed. Pertinent positives are noted above. All other systems are negative. Physical Exam Date Time Temp Pulse Resp B/P (MAP) Pulse Ox O2 Delivery O2 Flow Rate FiO2 07/22/17 08:00 Room Air 07/22/17 07:02 36.6 66 18 147/93 (111) 96 Room Air 07/22/17 00:00 Room Air 07/21/17 23:38 36.6 73 16 133/80 (97) 96 Room Air 07/21/17 17:39 Room Air 07/21/17 15:16 36.4 67 20 118/79 (92) 97 Room Air General Appearance: no apparent distress, + thin Head: normocephalic, atraumatic Eyes: normal inspection, sclerae normal, + pertinent finding (conjunctiva slightly dry) ENT: normal ENT inspection, pharynx normal Neck: supple, no JVD Respiratory/Chest: lungs clear, no respiratory distress, no accessory muscle use Cardiovascular: regular rate, rhythm, no gallop, no murmur Abdomen/GI: non tender, soft Back: no CVA tenderness Extremities/Musculoskelatal: normal inspection, no pedal edema Neurologic/Psych: alert, normal mood/affect Skin: warm/dry Laboratory Results Last 24 Hours Test 07/22/17 08:44 White Blood Count 8.91 K/uL Red Blood Count 4.72 M/uL Hemoglobin 13.0 g/dL Hematocrit 38.7 % Mean Corpuscular Volume 82.0 fL Mean Corpuscular Hemoglobin 27.5 pg Mean Corpuscular Hemoglobin Concent 33.6 g/dl Platelet Count 350 K/uL Mean Platelet Volume 9.6 fL Neutrophils (%) (Auto) 55.8 % Lymphocytes (%) (Auto) 27.3 % Monocytes (%) (Auto) 8.9 % Eosinophils (%) (Auto) 7.1 % Basophils (%) (Auto) 0.8 % Neutrophils # (Auto) 4.98 K/uL Lymphocytes # (Auto) 2.43 K/uL Monocytes # (Auto) 0.79 K/uL Eosinophils # (Auto) 0.63 K/uL Basophils # (Auto) 0.07 K/uL RDW Standard Deviation 41.7 fL RDW Coefficient of Variation 13.8 % Immature Granulocyte % (Auto) 0.1 % Immature Granulocyte # (Auto) 0.01 K/uL Sodium Level 126 mmol/L Potassium Level 3.9 mmol/L Chloride Level 94 mmol/L Carbon Dioxide Level 29 mmol/L Anion Gap 3.0 mmol/L Blood Urea Nitrogen 8 mg/dl Creatinine 0.82 mg/dl Est Creatinine Clear Calc Drug Dose 66.5 ml/min Estimated GFR () 88.9 Estimated GFR (Non- 76.7 BUN/Creatinine Ratio 9.4 Random Glucose 83 mg/dl Calcium Level 9.2 mg/dl Impression (1) KYLE (acute kidney injury) (2) Hypokalemia (3) Hypothyroidism (4) Hyponatremia Sulma Greenwood is a 62-year-old female with a history of hypertension, hypothyroidism, depression/CARLOS ALBERTO, history of tobacco abuse and osteoarthritis. She was admitted with KYLE, hypokalemia and hyponatremia. Presentation consistent with dehydration and poor oral intake. KYLE consistent with prerenal azotemia improved with IVF. Hypokalemia responded to oral replacement. She describes some loose stools recently but no significant diarrhea. Appetite is reported as good. She does not have orthostatic symptoms. Physical exam suggests that she remains slightly hypovolemic. At this time, it is difficult to say if she has SAIDH or persistent volume depletion. She has been started on oral NaCl tablets. I would avoid excessive fluid restriction at this time as long as sodium/solute intake is good. Urine osmolality was no dramatically elevated. Repeat laboratory studies including renal profile and TSH have been ordered for this afternoon. Thiazide diuretic should continue to be held. I would also suggest continuing to hold the ARB. Blood pressure is acceptable. Recommendations -- NaCl 2 grams twice daily -- Liberalize fluid restriction -- Document I/O's (including monitoring bowel movement frequency) -- Repeat metabolic profile this afternoon -- Encourage nutrition -- Hold HCTZ/losartan -- Avoid NSAIDs -- Check TSH with next blood work
[2017-07-22 14:58] VITALS: BP 126/82; PULSE 67; TEMP 36.6; O2SAT 99
[2017-07-22 17:41] LABS: BUN/CREATININE RATIO 13.3 (10-20); CALCIUM 8.8 mg/dl (8.5-10.1); CREATININE 0.83 mg/dl (0.60-1.20); POTASSIUM 4.3 mmol/L (3.5-5.1)
[2017-07-22 17:52] LABS: PHOSPHORUS 3.2 mg/dl (2.5-4.9); THYROID STIMULATING HORMONE 2.3 uIu/ml (0.300-4.500)
[2017-07-22 19:45] LABS: BUN/CREATININE RATIO 14.3 (10-20); CALCIUM 9.3 mg/dl (8.5-10.1); CREATININE 0.88 mg/dl (0.60-1.20); POTASSIUM 4.2 mmol/L (3.5-5.1)
[2017-07-22] MEDS: ZOLPIDEM TARTRATE 5 MG TAB PO SCH (20:52)
[2017-07-22] MEDS: SODIUM CHLORIDE 1 GM TAB PO SCH (20:53)
[2017-07-22] MEDS: ACETAMINOPHEN 325 MG TAB PO PRN (20:58)
[2017-07-22 23:27] VITALS: BP 130/76; PULSE 66; TEMP 36.6; O2SAT 95
[2017-07-23] MEDS: HYDROCODONE/ACETAMOPHEN 5/325MG TAB PO PRN ×3 (02:57→11:53)
[2017-07-23] MEDS: HEPARIN SOD 5000 UNIT/0.5 ML CARP SQ SCH ×3 (06:16→21:43)
[2017-07-23] MEDS: LEVOTHYROXINE 75 MCG TAB PO SCH (06:17)
[2017-07-23 07:22] VITALS: BP 151/85; PULSE 65; TEMP 36.6; O2SAT 98
[2017-07-23] MEDS: METOPROLOL TARTRATE 25 MG TAB PO SCH (07:33)
[2017-07-23] MEDS: FLUOXETINE HCL 20 MG CAP PO SCH (07:33)
[2017-07-23] MEDS: POTASSIUM CHLORIDE 20 MEQ TABCR PO SCH ×2 (07:33→21:41)
[2017-07-23 08:09] LABS: BASO % 1.3 %; COMPLETE YES; EOS % 8.5 %; HEMATOCRIT 35.4 % (37-47); IG% 0.1 %; LYMPH % 29.7 %; MEAN CELL VOLUME 81.6 fL (80-100); MEAN CORPUSCULAR HEMOGLOBIN 27.9 pg (25-34); MEAN CORPUSCULAR HGB CONC 34.2 g/dl (32-36); MEAN PLATELET VOLUME 9.4 fL (7.4-10.4); MONO % 9.4 %; PLATELET COUNT 299 K/uL (130-400); RED BLOOD COUNT 4.34 M/uL (4.2-5.4); WHITE BLOOD COUNT 7.41 K/uL (4.8-10.8)
[2017-07-23] MEDS: SODIUM CHLORIDE 1 GM TAB PO SCH ×2 (08:21→21:39)
[2017-07-23 08:38] LABS: BUN/CREATININE RATIO 12.8 (10-20); CALCIUM 9.1 mg/dl (8.5-10.1); CREATININE 0.81 mg/dl (0.60-1.20)
[2017-07-23 08:54] LABS: POTASSIUM 4.4 mmol/L (3.5-5.1)
[2017-07-23 09:54] VITALS: BP 128/80; PULSE 60
[2017-07-23 09:55] VITALS: BP 138/86; PULSE 66
[2017-07-23 09:56] VITALS: BP 121/79; PULSE 64
--- NOTE | 2017-07-23 11:57 | Nephrology Progress Note ---
Nephrology Progress Note Date of Service Jul 23, 2017. Chief Complaint Hyponatremia Subjective No acute events overnight. Sulma continues to struggle with pain control but overall feels well. She is not orthostatic. Appetite is good. She denies nausea. She is breathing comfortably. She had another loose stool this morning but denies significant diarrhea. Review of Systems A complete review of systems was performed. Pertinent positives are noted above. All other systems are negative. Vital Signs Last 8 Hrs Date Time Temp Pulse Resp B/P (MAP) Pulse Ox O2 Delivery O2 Flow Rate FiO2 07/23/17 09:56 64 121/79 (93) 07/23/17 09:55 66 138/86 (103) 07/23/17 09:54 60 128/80 (96) 07/23/17 08:00 Room Air 07/23/17 07:22 36.6 65 18 151/85 (107) 98 Room Air Last Recorded Weight Weight (Kilograms): 66.000 Physical Exam General Appearance: WD/WN, no apparent distress Head: normocephalic, atraumatic Eyes: normal inspection, sclerae normal ENT: normal ENT inspection, pharynx normal Neck: supple, no JVD Respiratory/Chest: lungs clear, no respiratory distress, no accessory muscle use Cardiovascular: regular rate, rhythm, no gallop Abdomen/GI: non tender, soft Extremities/Musculoskelatal: normal inspection, no pedal edema Neurologic/Psych: alert, oriented x 3 Social History Alcohol Use: socially Drug Use: none Marital Status: single Housing Status: lives alone Laboratory Results Past 24 Hours 07/23/17 07:46 Red Blood Count 4.34, Mean Corpuscular Volume 81.6, Mean Corpuscular Hemoglobin 27.9, Mean Corpuscular Hemoglobin Concent 34.2, Mean Platelet Volume 9.4, Neutrophils (%) (Auto) 51.0, Lymphocytes (%) (Auto) 29.7, Monocytes (%) (Auto) 9.4, Eosinophils (%) (Auto) 8.5, Basophils (%) (Auto) 1.3, Neutrophils # (Auto) 3.77, Lymphocytes # (Auto) 2.20, Monocytes # (Auto) 0.70, Eosinophils # (Auto) 0.63, Basophils # (Auto) 0.10 07/22/17 16:57 07/22/17 18:49 07/23/17 07:46 Test 07/22/17 16:57 07/22/17 18:49 07/23/17 07:46 Anion Gap 7.0 mmol/L (3-11) 7.0 mmol/L (3-11) 8.0 mmol/L (3-11) Est Creatinine Clear Calc Drug Dose 65.7 ml/min 62.0 ml/min 67.4 ml/min Estimated GFR () 87.6 81.6 90.2 Estimated GFR (Non- 75.6 70.4 77.8 BUN/Creatinine Ratio 13.3 (10-20) 14.3 (10-20) 12.8 (10-20) Calcium Level 8.8 mg/dl (8.5-10.1) 9.3 mg/dl (8.5-10.1) 9.1 mg/dl (8.5-10.1) Phosphorus Level 3.2 mg/dl (2.5-4.9) Albumin 2.9 gm/dl (3.4-5.0) Thyroid Stimulating Hormone (TSH) 2.300 uIu/ml (0.300-4.500) White Blood Count 7.41 K/uL (4.8-10.8) Red Blood Count 4.34 M/uL (4.2-5.4) Hemoglobin 12.1 g/dL (12.0-16.0) Hematocrit 35.4 % (37-47) Mean Corpuscular Volume 81.6 fL (80-100) Mean Corpuscular Hemoglobin 27.9 pg (25-34) Mean Corpuscular Hemoglobin Concent 34.2 g/dl (32-36) Platelet Count 299 K/uL (130-400) Mean Platelet Volume 9.4 fL (7.4-10.4) Neutrophils (%) (Auto) 51.0 % Lymphocytes (%) (Auto) 29.7 % Monocytes (%) (Auto) 9.4 % Eosinophils (%) (Auto) 8.5 % Basophils (%) (Auto) 1.3 % Neutrophils # (Auto) 3.77 K/uL (1.4-6.5) Lymphocytes # (Auto) 2.20 K/uL (1.2-3.4) Monocytes # (Auto) 0.70 K/uL (0.11-0.59) Eosinophils # (Auto) 0.63 K/uL (0-0.5) Basophils # (Auto) 0.10 K/uL (0-0.2) RDW Standard Deviation 42.6 fL (36.4-46.3) RDW Coefficient of Variation 14.1 % (11.5-14.5) Immature Granulocyte % (Auto) 0.1 % Immature Granulocyte # (Auto) 0.01 K/uL (0.00-0.02) Allergies Coded Allergies: No Known Allergies (Unverified , 07/20/17) Medications Current Inpatient Medications Medications (Trade) Dose Ordered Sig/Juliocesar Route Start Time Stop Time Status Last Admin Dose Admin Heparin Sodium (Porcine) (Heparin Sq 5000 Unit/0.5ml) 5,000 unit Q8 SQ 07/20/17 22:00 08/19/17 21:59 07/23/17 06:16 5,000 UNIT Acetaminophen (Tylenol Tab) 650 mg Q4H PRN PO 07/20/17 14:30 08/19/17 14:29 07/22/17 20:58 650 MG Ondansetron HCl (Zofran Inj) 4 mg Q6H PRN IV 07/20/17 14:30 08/19/17 14:29 Potassium Chloride (Klor-Con Tab) 20 meq BID PO 07/20/17 20:00 08/19/17 20:59 07/23/17 07:33 20 MEQ Fluoxetine HCl (Prozac Cap) 40 mg DAILY PO 07/21/17 08:00 08/20/17 08:59 07/23/17 07:33 40 MG Acetaminophen/ Hydrocodone Bitart ([place] 5/325 Tab) 1 tab Q4H PRN PO 07/20/17 14:30 08/03/17 14:29 07/23/17 07:32 1 TAB Levothyroxine Sodium (Synthroid Tab) 75 mcg DAILYBB PO 07/21/17 06:30 08/20/17 06:59 07/23/17 06:17 75 MCG Lorazepam (Ativan Tab) 1 mg Q8 PRN PO 07/20/17 14:30 08/19/17 14:29 07/22/17 20:52 1 MG Metoprolol Tartrate (Lopressor Tab) 25 mg DAILY PO 07/21/17 08:00 08/20/17 08:59 07/23/17 07:33 25 MG Zolpidem Tartrate (Ambien Tab) 5 mg HS PO 07/20/17 21:00 08/19/17 20:59 07/22/17 20:52 5 MG Miscellaneous (Iv Fluids Completed) 1 ea PRN PRN N/A 07/20/17 16:15 07/20/18 16:14 07/21/17 13:04 1 EA Sodium Chloride (Sodium Chloride Tab) 1 gm BID PO 07/22/17 20:00 08/21/17 07:59 07/23/17 08:21 1 GM Impression (1) KYLE (acute kidney injury) (2) Hypokalemia (3) Hypothyroidism (4) Hyponatremia Sulma Gerenwood is a 62-year-old female with a history of hypertension, hypothyroidism, depression/CARLOS ALBERTO, history of tobacco abuse and osteoarthritis. She was admitted with KYLE, hypokalemia and hyponatremia. Presentation consistent with dehydration and poor oral intake. KYLE consistent with prerenal azotemia improved with IVF. Hypokalemia responded to oral replacement. She describes some loose stools recently but no significant diarrhea. Appetite is reported as good. She does not have orthostatic changes in vitals. Physical exam today appears more euvolemic. At this time, it is difficult to say if she has SAIDH or persistent volume depletion. She continues on oral NaCl supplements. Repeat laboratory have been ordered for this afternoon. Thiazide diuretic should continue to be held. I would also suggest continuing to hold the ARB. Blood pressure is acceptable. Recommendations -- NaCl 1 grams twice daily -- Maintain 2L daily fluid restriction -- Document I/O's (including monitoring bowel movement frequency) -- Repeat metabolic profile this afternoon -- Encourage nutrition -- Hold HCTZ/losartan -- Avoid NSAIDs -- TSH appropriate
[2017-07-23] MEDS ORDERED: MoRPHine SULFATE 2 MG/ML CARP IV STA (13:30)
--- NOTE | 2017-07-23 13:36 | Progress Note ---
Subjective Date of Service: Jul 23, 2017. Subjective Pt evaluation today including: conversation w/ patient, conversation w/ family , physical exam, chart review, lab review, review of studies, review of inpatient medication list Pain: left knee pain Voiding: no voiding problems Pt is seen and examined by me. Pt is c/o of left knee pain 05/08. pt is schedule for surgery on , pending medical clearance. Nephro saw the patient for hyponatremia . Na is stable.Pt denies nausea, vomiting and diarrhea. Problem List Medical Problems: (1) Hypokalemia Status: Acute (2) Knee fracture Status: Acute (3) Periprosthetic fracture around internal prosthetic left knee joint, subsequent encounter Status: Acute Review of Systems All Other Systems: Reviewed and Negative Objective Vital Signs Date Time Temp Pulse Resp B/P (MAP) Pulse Ox O2 Delivery O2 Flow Rate FiO2 07/23/17 09:56 64 121/79 (93) 07/23/17 09:55 66 138/86 (103) 07/23/17 09:54 60 128/80 (96) 07/23/17 08:00 Room Air 07/23/17 07:22 36.6 65 18 151/85 (107) 98 Room Air 07/23/17 00:10 Room Air 07/22/17 23:27 36.6 66 18 130/76 (94) 95 Room Air 07/22/17 18:30 Room Air 07/22/17 14:58 36.6 67 18 126/82 (97) 99 Room Air Physical Exam Comments: eneral Appearance: WD/WN, no apparent distress Head: normocephalic, atraumatic Eyes: normal inspection, sclerae normal ENT: normal ENT inspection, pharynx normal Neck: supple, no JVD Respiratory/Chest: lungs clear, no respiratory distress, no accessory muscle use Cardiovascular: regular rate, rhythm, no gallop Abdomen/GI: non tender, soft Extremities/Musculoskelatal: normal inspection, no pedal edema Neurologic/Psych: alert, oriented x 3 Laboratory Results Last 24 Hours Test 07/22/17 16:57 07/22/17 18:49 07/23/17 07:46 Sodium Level 129 mmol/L 130 mmol/L 129 mmol/L Potassium Level 4.3 mmol/L 4.2 mmol/L 4.4 mmol/L Chloride Level 97 mmol/L 96 mmol/L 97 mmol/L Carbon Dioxide Level 25 mmol/L 27 mmol/L 24 mmol/L Anion Gap 7.0 mmol/L 7.0 mmol/L 8.0 mmol/L Blood Urea Nitrogen 11 mg/dl 13 mg/dl 10 mg/dl Creatinine 0.83 mg/dl 0.88 mg/dl 0.81 mg/dl Est Creatinine Clear Calc Drug Dose 65.7 ml/min 62.0 ml/min 67.4 ml/min Estimated GFR () 87.6 81.6 90.2 Estimated GFR (Non- 75.6 70.4 77.8 BUN/Creatinine Ratio 13.3 14.3 12.8 Random Glucose 101 mg/dl 94 mg/dl 80 mg/dl Calcium Level 8.8 mg/dl 9.3 mg/dl 9.1 mg/dl Phosphorus Level 3.2 mg/dl Albumin 2.9 gm/dl Thyroid Stimulating Hormone (TSH) 2.300 uIu/ml White Blood Count 7.41 K/uL Red Blood Count 4.34 M/uL Hemoglobin 12.1 g/dL Hematocrit 35.4 % Mean Corpuscular Volume 81.6 fL Mean Corpuscular Hemoglobin 27.9 pg Mean Corpuscular Hemoglobin Concent 34.2 g/dl Platelet Count 299 K/uL Mean Platelet Volume 9.4 fL Neutrophils (%) (Auto) 51.0 % Lymphocytes (%) (Auto) 29.7 % Monocytes (%) (Auto) 9.4 % Eosinophils (%) (Auto) 8.5 % Basophils (%) (Auto) 1.3 % Neutrophils # (Auto) 3.77 K/uL Lymphocytes # (Auto) 2.20 K/uL Monocytes # (Auto) 0.70 K/uL Eosinophils # (Auto) 0.63 K/uL Basophils # (Auto) 0.10 K/uL RDW Standard Deviation 42.6 fL RDW Coefficient of Variation 14.1 % Immature Granulocyte % (Auto) 0.1 % Immature Granulocyte # (Auto) 0.01 K/uL Assessment and Plan Pt is a 62 yo female referred to ER for abnormal preop labs Hyponatremia: - unclear etiology maybe primary polydipsia vs medications such as SSRI. - Na trended downward from 130 to 126 and slightly improved 129, pt completely asymptomatic, renal recommendation appreciated - Hold ARB and HCTZ. - salt tablet 1 mg po bid, fluid restriction, encourage diet. Acute on Chronic CKD Stage III: RESOLVED - Continue to monitor - likely prerenal L Knee Pain: Possible Infection? 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
[2017-07-23 15:01] VITALS: BP 147/90; PULSE 63; TEMP 36.3; O2SAT 98
[2017-07-23 17:56] LABS: BUN/CREATININE RATIO 12.9 (10-20); CALCIUM 9.8 mg/dl (8.5-10.1); CREATININE 0.86 mg/dl (0.60-1.20)
[2017-07-23 18:01] LABS: PHOSPHORUS 4.2 mg/dl (2.5-4.9)
[2017-07-23] MEDS: ZOLPIDEM TARTRATE 5 MG TAB PO SCH (21:39)
[2017-07-23] MEDS: LORAZEPAM 1 MG TAB PO PRN (21:40)
[2017-07-23 23:14] VITALS: BP 143/88; PULSE 66; TEMP 36.3; O2SAT 97
[2017-07-24] MEDS: HEPARIN SOD 5000 UNIT/0.5 ML CARP SQ SCH ×3 (05:47→21:52)
[2017-07-24] MEDS: LEVOTHYROXINE 75 MCG TAB PO SCH (05:48)
[2017-07-24] MEDS: HYDROCODONE/ACETAMOPHEN 5/325MG TAB PO PRN ×4 (05:54→20:30)
[2017-07-24 07:20] VITALS: BP 137/83; PULSE 67; TEMP 36.6; O2SAT 97
[2017-07-24 08:00] VITALS: O2SAT 97
[2017-07-24] MEDS ORDERED: SODIUM CHLORIDE 1 GM TAB PO SCH (08:00)
[2017-07-24] MEDS: FLUOXETINE HCL 20 MG CAP PO SCH (08:36)
[2017-07-24] MEDS: POTASSIUM CHLORIDE 20 MEQ TABCR PO SCH ×2 (08:36→20:25)
[2017-07-24] MEDS: METOPROLOL TARTRATE 25 MG TAB PO SCH (08:36)
[2017-07-24 08:41] LABS: BASO ABS # 0.09 K/uL (0-0.2); COMPLETE YES; EOS % 5.7 %; HEMATOCRIT 36.2 % (37-47); IG% 0.2 %; LYMPH % 18.5 %; LYMPH ABS # 1.65 K/uL (1.2-3.4); MEAN CELL VOLUME 82.6 fL (80-100); MEAN CORPUSCULAR HEMOGLOBIN 28.5 pg (25-34); MEAN CORPUSCULAR HGB CONC 34.5 g/dl (32-36); MEAN PLATELET VOLUME 9.5 fL (7.4-10.4); MONO % 8.2 %; NEUT % 66.4 %; PLATELET COUNT 300 K/uL (130-400); RED BLOOD COUNT 4.38 M/uL (4.2-5.4); WHITE BLOOD COUNT 8.93 K/uL (4.8-10.8)
[2017-07-24 09:04] LABS: BUN/CREATININE RATIO 12.3 (10-20); CALCIUM 9.3 mg/dl (8.5-10.1); CREATININE 0.83 mg/dl (0.60-1.20); POTASSIUM 4.8 mmol/L (3.5-5.1)
--- NOTE | 2017-07-24 10:08 | Nephrology Progress Note ---
Nephrology Progress Note Date of Service Jul 24, 2017. Chief Complaint Hyponatremia Subjective No acute events overnight. Sulma reports that pain is reasonably controlled. Appetite fair but not great. Sulma denies abdominal pain or nausea. No bowel movement in past 24 hours. No fevers or chills. Voiding urine without difficulty. Review of Systems A complete review of systems was performed. Pertinent positives are noted above. All other systems are negative. Vital Signs Last 8 Hrs Date Time Temp Pulse Resp B/P (MAP) Pulse Ox O2 Delivery O2 Flow Rate FiO2 07/24/17 08:00 97 Room Air 07/24/17 07:20 36.6 67 18 137/83 (101) 97 Room Air Last Recorded Weight Weight (Kilograms): 66.000 Physical Exam General Appearance: WD/WN, no apparent distress Head: normocephalic, atraumatic Eyes: normal inspection, sclerae normal ENT: normal ENT inspection, pharynx normal Neck: supple, no JVD Respiratory/Chest: lungs clear, no respiratory distress, no accessory muscle use Cardiovascular: regular rate, rhythm, no gallop, no murmur Abdomen/GI: non tender, soft Extremities/Musculoskelatal: normal inspection, no pedal edema Neurologic/Psych: alert, normal mood/affect Social History Alcohol Use: socially Drug Use: none Marital Status: single Housing Status: lives alone Laboratory Results Past 24 Hours 07/24/17 08:25 Red Blood Count 4.38, Mean Corpuscular Volume 82.6, Mean Corpuscular Hemoglobin 28.5, Mean Corpuscular Hemoglobin Concent 34.5, Mean Platelet Volume 9.5, Neutrophils (%) (Auto) 66.4, Lymphocytes (%) (Auto) 18.5, Monocytes (%) (Auto) 8.2, Eosinophils (%) (Auto) 5.7, Basophils (%) (Auto) 1.0, Neutrophils # (Auto) 5.93, Lymphocytes # (Auto) 1.65, Monocytes # (Auto) 0.73, Eosinophils # (Auto) 0.51, Basophils # (Auto) 0.09 07/23/17 17:17 07/24/17 08:25 Test 07/23/17 17:17 07/24/17 08:25 Anion Gap 8.0 mmol/L (3-11) 7.0 mmol/L (3-11) Est Creatinine Clear Calc Drug Dose 63.5 ml/min 65.7 ml/min Estimated GFR () 83.9 87.6 Estimated GFR (Non- 72.4 75.6 BUN/Creatinine Ratio 12.9 (10-20) 12.3 (10-20) Calcium Level 9.8 mg/dl (8.5-10.1) 9.3 mg/dl (8.5-10.1) Phosphorus Level 4.2 mg/dl (2.5-4.9) Albumin 3.4 gm/dl (3.4-5.0) White Blood Count 8.93 K/uL (4.8-10.8) Red Blood Count 4.38 M/uL (4.2-5.4) Hemoglobin 12.5 g/dL (12.0-16.0) Hematocrit 36.2 % (37-47) Mean Corpuscular Volume 82.6 fL (80-100) Mean Corpuscular Hemoglobin 28.5 pg (25-34) Mean Corpuscular Hemoglobin Concent 34.5 g/dl (32-36) Platelet Count 300 K/uL (130-400) Mean Platelet Volume 9.5 fL (7.4-10.4) Neutrophils (%) (Auto) 66.4 % Lymphocytes (%) (Auto) 18.5 % Monocytes (%) (Auto) 8.2 % Eosinophils (%) (Auto) 5.7 % Basophils (%) (Auto) 1.0 % Neutrophils # (Auto) 5.93 K/uL (1.4-6.5) Lymphocytes # (Auto) 1.65 K/uL (1.2-3.4) Monocytes # (Auto) 0.73 K/uL (0.11-0.59) Eosinophils # (Auto) 0.51 K/uL (0-0.5) Basophils # (Auto) 0.09 K/uL (0-0.2) RDW Standard Deviation 42.4 fL (36.4-46.3) RDW Coefficient of Variation 14.0 % (11.5-14.5) Immature Granulocyte % (Auto) 0.2 % Immature Granulocyte # (Auto) 0.02 K/uL (0.00-0.02) Allergies Coded Allergies: No Known Allergies (Unverified , 07/20/17) Medications Current Inpatient Medications Medications (Trade) Dose Ordered Sig/Juliocesar Route Start Time Stop Time Status Last Admin Dose Admin Heparin Sodium (Porcine) (Heparin Sq 5000 Unit/0.5ml) 5,000 unit Q8 SQ 07/20/17 22:00 08/19/17 21:59 07/24/17 05:47 5,000 UNIT Acetaminophen (Tylenol Tab) 650 mg Q4H PRN PO 07/20/17 14:30 08/19/17 14:29 07/22/17 20:58 650 MG Ondansetron HCl (Zofran Inj) 4 mg Q6H PRN IV 07/20/17 14:30 08/19/17 14:29 07/23/17 21:40 4 MG Potassium Chloride (Klor-Con Tab) 20 meq BID PO 07/20/17 20:00 08/19/17 20:59 07/24/17 08:36 20 MEQ Fluoxetine HCl (Prozac Cap) 40 mg DAILY PO 07/21/17 08:00 08/20/17 08:59 07/24/17 08:36 40 MG Acetaminophen/ Hydrocodone Bitart ([place] 5/325 Tab) 1 tab Q4H PRN PO 07/20/17 14:30 08/03/17 14:29 07/24/17 05:54 1 TAB Levothyroxine Sodium (Synthroid Tab) 75 mcg DAILYBB PO 07/21/17 06:30 08/20/17 06:59 07/24/17 05:48 75 MCG Lorazepam (Ativan Tab) 1 mg Q8 PRN PO 07/20/17 14:30 08/19/17 14:29 07/23/17 21:40 1 MG Metoprolol Tartrate (Lopressor Tab) 25 mg DAILY PO 07/21/17 08:00 08/20/17 08:59 07/24/17 08:36 25 MG Zolpidem Tartrate (Ambien Tab) 5 mg HS PO 07/20/17 21:00 08/19/17 20:59 07/23/17 21:39 5 MG Miscellaneous (Iv Fluids Completed) 1 ea PRN PRN N/A 07/20/17 16:15 07/20/18 16:14 07/21/17 13:04 1 EA Sodium Chloride (Sodium Chloride Tab) 2 gm BID PO 07/24/17 08:00 08/21/17 07:59 07/24/17 08:36 2 GM Sodium Chloride 340 meq/Sterile Water 1,136 ml @ 100 mls/hr [id number] IV 07/24/17 10:00 07/25/17 09:59 UNV Impression (1) KYLE (acute kidney injury) (2) Hypokalemia (3) Hypothyroidism (4) Hyponatremia Sulma Greenwood is a 62-year-old female with a history of hypertension, hypothyroidism, depression/CARLOS ALBERTO, history of tobacco abuse and osteoarthritis. She was admitted with KYLE, hypokalemia and hyponatremia. Presentation consistent with dehydration, thiazide diuretic use and poor oral intake. I cannot exclude underlying SIADH. KYLE consistent with prerenal azotemia improved with IVF. Hypokalemia responded to oral replacement. She describes some loose stools recently but no significant diarrhea. Appetite is reported as good. She does not have orthostatic changes in vitals. Physical exam today appears euvolemic. This would be consistent with SIADH. Unfortunately, serum sodium continues to fall despite oral NaCl tablets and fluid restriction. Less than 1 L daily fluid restriction and 3 grams of oral NaCl yesterday. Reason for decline in serum sodium remains unclear but I would expect with either dehydration or SIADH, there to be response to hypertonic saline. 2% saline @ 100 ml/hr ordered for this morning. Expect serum sodium to correct approximately 5 mEq/L for each liter. Starting rate 100 ml/hr with close monitoring for serum sodium. Level ordered for repeat this afternoon @ 2 PM. Repeat laboratory have been ordered for this afternoon. Thiazide diuretic should continue to be held. I would also suggest continuing to hold the ARB. Blood pressure is acceptable. Recommendations -- Hold oral NaCl tablets -- Start 2% saline @ 100 ml/hr -- Monitor serum sodium closely (~Q4-6 hours while on infusion) -- Repeat metabolic profile ordered for 2 PM -- Repeat urine studies pending -- Document I/O's (including monitoring bowel movement frequency) -- Encourage nutrition -- Hold HCTZ/losartan -- Avoid NSAIDs
[2017-07-24] MEDS: STERILE WATER IV SCH ×2 (11:22→21:53)
[2017-07-24] MEDS: SODI CHLOR IV SCH ×2 (11:22→21:53)
[2017-07-24] MEDS: LORAZEPAM 1 MG TAB PO PRN ×2 (11:24→20:26)
--- NOTE | 2017-07-24 14:07 | Hospitalist Progress Note ---
Hospitalist Progress Note Date of Service Jul 24, 2017. Subjective Pt evaluation today including: conversation w/ patient, physical exam, lab review, review of studies, conversation w/ architecture consultant (Dr. Downs ), review of inpatient medication list Voiding: no voiding problems Patient states she is feeling well. Eating and drinking OK. Denies h/o hyponatremia. Had diarrhea last week, but has since resolved. States last BM was before the weekend. Prolonged h/o on/off diarrhea. Denies recent antibiotic treatment. No h/o c.diff Was planning for knee surgery last , but was cancelled due to hyponatremia. Planning for this , 07/26 in [place]. Patient denies any fever, chills, sweats, lightheadedness, dizziness, vision changes, CP, palpitations, edema, SOB, wheezing, cough, abdominal pain, nausea, vomiting, diarrhea, urinary symptoms, melena, numbness/tingling, weakness, muscle/joint pain, anxiety/depression, active bleeding, or new skin discoloration/changes. Medications Current Inpatient Medications Medications (Trade) Dose Ordered Sig/Juliocesar Route Start Time Stop Time Status Last Admin Dose Admin Heparin Sodium (Porcine) (Heparin Sq 5000 Unit/0.5ml) 5,000 unit Q8 SQ 07/20/17 22:00 08/19/17 21:59 07/24/17 05:47 5,000 UNIT Acetaminophen (Tylenol Tab) 650 mg Q4H PRN PO 07/20/17 14:30 08/19/17 14:29 07/22/17 20:58 650 MG Ondansetron HCl (Zofran Inj) 4 mg Q6H PRN IV 07/20/17 14:30 08/19/17 14:29 07/23/17 21:40 4 MG Potassium Chloride (Klor-Con Tab) 20 meq BID PO 07/20/17 20:00 08/19/17 20:59 07/24/17 08:36 20 MEQ Fluoxetine HCl (Prozac Cap) 40 mg DAILY PO 07/21/17 08:00 08/20/17 08:59 07/24/17 08:36 40 MG Acetaminophen/ Hydrocodone Bitart ([place] 5/325 Tab) 1 tab Q4H PRN PO 07/20/17 14:30 08/03/17 14:29 07/24/17 11:30 1 TAB Levothyroxine Sodium (Synthroid Tab) 75 mcg DAILYBB PO 07/21/17 06:30 08/20/17 06:59 07/24/17 05:48 75 MCG Lorazepam (Ativan Tab) 1 mg Q8 PRN PO 07/20/17 14:30 08/19/17 14:29 07/24/17 11:24 1 MG Metoprolol Tartrate (Lopressor Tab) 25 mg DAILY PO 07/21/17 08:00 08/20/17 08:59 07/24/17 08:36 25 MG Zolpidem Tartrate (Ambien Tab) 5 mg HS PO 07/20/17 21:00 08/19/17 20:59 07/23/17 21:39 5 MG Miscellaneous (Iv Fluids Completed) 1 ea PRN PRN N/A 07/20/17 16:15 07/20/18 16:14 07/21/17 13:04 1 EA Sodium Chloride (Sodium Chloride Tab) 2 gm BID PO 07/24/17 08:00 08/21/17 07:59 Future Hold 07/24/17 08:36 2 GM Sodium Chloride 340 meq/Sterile Water 1,136 ml @ 100 mls/hr [id number] IV 07/24/17 11:00 07/25/17 09:59 07/24/17 11:22 100 MLS/HR Objective Vital Signs Date Time Temp Pulse Resp B/P (MAP) Pulse Ox O2 Delivery O2 Flow Rate FiO2 07/24/17 08:00 97 Room Air 07/24/17 07:20 36.6 67 18 137/83 (101) 97 Room Air 07/23/17 23:50 Room Air 07/23/17 23:14 36.3 66 18 143/88 (106) 97 Room Air 07/23/17 18:00 Room Air 07/23/17 15:01 36.3 63 20 147/90 (109) 98 Room Air Physical Exam General Appearance: no apparent distress Eyes: normal inspection, PERRL ENT: hearing grossly normal Neck: supple Respiratory/Chest: lungs clear, no respiratory distress, no accessory muscle use Cardiovascular: regular rate, rhythm Abdomen: normal bowel sounds, non tender, soft Extremities: no pedal edema, no calf tenderness Neurologic/Psychiatric: alert, normal mood/affect, oriented x 3 Skin: normal color, warm/dry, no rash Laboratory Results Last 24 Hours Test 07/23/17 17:17 07/24/17 08:25 07/24/17 11:32 Sodium Level 127 mmol/L 126 mmol/L Potassium Level 5.0 mmol/L 4.8 mmol/L Chloride Level 94 mmol/L 94 mmol/L Carbon Dioxide Level 25 mmol/L 25 mmol/L Anion Gap 8.0 mmol/L 7.0 mmol/L Blood Urea Nitrogen 11 mg/dl 10 mg/dl Creatinine 0.86 mg/dl 0.83 mg/dl Est Creatinine Clear Calc Drug Dose 63.5 ml/min 65.7 ml/min Estimated GFR () 83.9 87.6 Estimated GFR (Non- 72.4 75.6 BUN/Creatinine Ratio 12.9 12.3 Random Glucose 88 mg/dl 84 mg/dl Calcium Level 9.8 mg/dl 9.3 mg/dl Phosphorus Level 4.2 mg/dl Albumin 3.4 gm/dl White Blood Count 8.93 K/uL Red Blood Count 4.38 M/uL Hemoglobin 12.5 g/dL Hematocrit 36.2 % Mean Corpuscular Volume 82.6 fL Mean Corpuscular Hemoglobin 28.5 pg Mean Corpuscular Hemoglobin Concent 34.5 g/dl Platelet Count 300 K/uL Mean Platelet Volume 9.5 fL Neutrophils (%) (Auto) 66.4 % Lymphocytes (%) (Auto) 18.5 % Monocytes (%) (Auto) 8.2 % Eosinophils (%) (Auto) 5.7 % Basophils (%) (Auto) 1.0 % Neutrophils # (Auto) 5.93 K/uL Lymphocytes # (Auto) 1.65 K/uL Monocytes # (Auto) 0.73 K/uL Eosinophils # (Auto) 0.51 K/uL Basophils # (Auto) 0.09 K/uL RDW Standard Deviation 42.4 fL RDW Coefficient of Variation 14.0 % Immature Granulocyte % (Auto) 0.2 % Immature Granulocyte # (Auto) 0.02 K/uL Urine Osmolality 349 mOms/kg Urine Random Sodium 102 mEq/L Urine Random Potassium 33.0 mEq/L Assessment and Plan Patient is a 62 yo female referred to ER for abnormal preop labs. Hyponatremia, etiology uncertain- ?SIADH vs dehydration: - Nephrology consulted, appreciate recommendations -- 2% saline @ 100 ml/hr -- Hold HCTZ/Losartan -- Avoid NSAIDs - Follow PRP Hypokalemia- RESOLVED: Continue Klor-Con 20 mEq BID Acute KYLE on CKD, stage III: RESOLVED: Follow PRP Anxiety/depression: Prozac 40 mg daily and Ativan q8 hrs PRN HTN- STABLE: Lopressor 25 mg daily Hypothyroidism: Continue Synthroid 75 mcg daily DVT Prophylaxis: Heparin SQ TID Code Status: LEVEL V, DNR Disposition: Discharge to home once medically stable
[2017-07-24 14:38] LABS: CALCIUM 9.3 mg/dl (8.5-10.1); CREATININE 0.89 mg/dl (0.60-1.20); POTASSIUM 4.8 mmol/L (3.5-5.1)
[2017-07-24 15:24] VITALS: BP 138/85; PULSE 68; TEMP 36.1; O2SAT 95
[2017-07-24 19:47] LABS: BUN/CREATININE RATIO 13.1 (10-20); CALCIUM 8.9 mg/dl (8.5-10.1); CREATININE 0.89 mg/dl (0.60-1.20)
[2017-07-24] MEDS: ZOLPIDEM TARTRATE 5 MG TAB PO SCH (20:26)
[2017-07-25 00:32] VITALS: BP_SYST 108; BP_SYST 130; BP_SYST 142; BP_DIAS 69; BP_DIAS 78; BP_DIAS 90; PULSE 67; PULSE 73; PULSE 74; TEMP 36.6; O2SAT 96
[2017-07-25] MEDS: HYDROCODONE/ACETAMOPHEN 5/325MG TAB PO PRN ×4 (02:44→22:12)
[2017-07-25] MEDS: LEVOTHYROXINE 75 MCG TAB PO SCH (05:33)
[2017-07-25] MEDS: HEPARIN SOD 5000 UNIT/0.5 ML CARP SQ SCH ×3 (05:34→21:11)
[2017-07-25] MEDS: LORAZEPAM 1 MG TAB PO PRN ×2 (05:34→16:18)
[2017-07-25 07:36] VITALS: BP 145/83; PULSE 68; TEMP 36.6; O2SAT 100
[2017-07-25 08:00] VITALS: O2SAT 100
[2017-07-25] MEDS: METOPROLOL TARTRATE 25 MG TAB PO SCH (08:35)
[2017-07-25] MEDS: POTASSIUM CHLORIDE 20 MEQ TABCR PO SCH ×2 (08:35→20:03)
[2017-07-25] MEDS: FLUOXETINE HCL 20 MG CAP PO SCH (08:35)
[2017-07-25 09:04] LABS: BASO % 0.9 %; BASO ABS # 0.07 K/uL (0-0.2); COMPLETE YES; EOS % 7.4 %; HEMATOCRIT 37.8 % (37-47); IG% 0.1 %; LYMPH % 20.7 %; LYMPH ABS # 1.63 K/uL (1.2-3.4); MEAN CELL VOLUME 82.7 fL (80-100); MEAN CORPUSCULAR HEMOGLOBIN 28.4 pg (25-34); MEAN CORPUSCULAR HGB CONC 34.4 g/dl (32-36); MEAN PLATELET VOLUME 9.4 fL (7.4-10.4); MONO % 8.1 %; NEUT % 62.8 %; PLATELET COUNT 303 K/uL (130-400); RED BLOOD COUNT 4.57 M/uL (4.2-5.4); WHITE BLOOD COUNT 7.86 K/uL (4.8-10.8)
[2017-07-25 09:27] LABS: BUN/CREATININE RATIO 12.7 (10-20); CALCIUM 9.2 mg/dl (8.5-10.1); CREATININE 0.83 mg/dl (0.60-1.20); POTASSIUM 4.7 mmol/L (3.5-5.1)
--- NOTE | 2017-07-25 10:41 | Nephrology Progress Note ---
Nephrology Progress Note Date of Service Jul 25, 2017. Chief Complaint Hyponatremia Subjective No acute events overnight. No complaints this morning. Denies pain. Appetite remains poor. Denies nausea. No shortness of breath. Continues to struggle with knee pain. No fevers or chills. Review of Systems A complete review of systems was performed. Pertinent positives are noted above. All other systems are negative. Vital Signs Last 8 Hrs Date Time Temp Pulse Resp B/P (MAP) Pulse Ox O2 Delivery O2 Flow Rate FiO2 07/25/17 08:00 100 Room Air 07/25/17 07:36 36.6 68 18 145/83 (103) 100 Last Recorded Weight Weight (Kilograms): 66.000 Physical Exam General Appearance: no apparent distress, + thin Head: normocephalic, atraumatic Eyes: normal inspection, sclerae normal ENT: normal ENT inspection, pharynx normal Neck: supple, no JVD Respiratory/Chest: lungs clear, no respiratory distress, no accessory muscle use Cardiovascular: regular rate, rhythm, no gallop Abdomen/GI: non tender, soft Extremities/Musculoskelatal: normal inspection, no pedal edema Neurologic/Psych: alert, normal mood/affect Social History Alcohol Use: socially Drug Use: none Marital Status: single Housing Status: lives alone Laboratory Results Past 24 Hours 07/25/17 08:48 Red Blood Count 4.57, Mean Corpuscular Volume 82.7, Mean Corpuscular Hemoglobin 28.4, Mean Corpuscular Hemoglobin Concent 34.4, Mean Platelet Volume 9.4, Neutrophils (%) (Auto) 62.8, Lymphocytes (%) (Auto) 20.7, Monocytes (%) (Auto) 8.1, Eosinophils (%) (Auto) 7.4, Basophils (%) (Auto) 0.9, Neutrophils # (Auto) 4.93, Lymphocytes # (Auto) 1.63, Monocytes # (Auto) 0.64, Eosinophils # (Auto) 0.58, Basophils # (Auto) 0.07 07/24/17 14:02 07/24/17 19:07 07/25/17 08:48 Test 07/24/17 11:32 07/24/17 14:02 07/24/17 19:07 07/25/17 08:48 Urine Osmolality 349 mOms/kg (500-800) Urine Random Sodium 102 mEq/L Urine Random Potassium 33.0 mEq/L Anion Gap 9.0 mmol/L (3-11) 7.0 mmol/L (3-11) 8.0 mmol/L (3-11) Est Creatinine Clear Calc Drug Dose 61.3 ml/min 61.3 ml/min 65.7 ml/min Estimated GFR () 80.5 80.5 87.6 Estimated GFR (Non- 69.5 69.5 75.6 BUN/Creatinine Ratio 13.0 (10-20) 13.1 (10-20) 12.7 (10-20) Calcium Level 9.3 mg/dl (8.5-10.1) 8.9 mg/dl (8.5-10.1) 9.2 mg/dl (8.5-10.1) White Blood Count 7.86 K/uL (4.8-10.8) Red Blood Count 4.57 M/uL (4.2-5.4) Hemoglobin 13.0 g/dL (12.0-16.0) Hematocrit 37.8 % (37-47) Mean Corpuscular Volume 82.7 fL (80-100) Mean Corpuscular Hemoglobin 28.4 pg (25-34) Mean Corpuscular Hemoglobin Concent 34.4 g/dl (32-36) Platelet Count 303 K/uL (130-400) Mean Platelet Volume 9.4 fL (7.4-10.4) Neutrophils (%) (Auto) 62.8 % Lymphocytes (%) (Auto) 20.7 % Monocytes (%) (Auto) 8.1 % Eosinophils (%) (Auto) 7.4 % Basophils (%) (Auto) 0.9 % Neutrophils # (Auto) 4.93 K/uL (1.4-6.5) Lymphocytes # (Auto) 1.63 K/uL (1.2-3.4) Monocytes # (Auto) 0.64 K/uL (0.11-0.59) Eosinophils # (Auto) 0.58 K/uL (0-0.5) Basophils # (Auto) 0.07 K/uL (0-0.2) RDW Standard Deviation 43.3 fL (36.4-46.3) RDW Coefficient of Variation 14.4 % (11.5-14.5) Immature Granulocyte % (Auto) 0.1 % Immature Granulocyte # (Auto) 0.01 K/uL (0.00-0.02) Allergies Coded Allergies: No Known Allergies (Unverified , 07/20/17) Medications Current Inpatient Medications Medications (Trade) Dose Ordered Sig/Juliocesar Route Start Time Stop Time Status Last Admin Dose Admin Heparin Sodium (Porcine) (Heparin Sq 5000 Unit/0.5ml) 5,000 unit Q8 SQ 07/20/17 22:00 08/19/17 21:59 07/25/17 05:34 5,000 UNIT Acetaminophen (Tylenol Tab) 650 mg Q4H PRN PO 07/20/17 14:30 08/19/17 14:29 07/22/17 20:58 650 MG Ondansetron HCl (Zofran Inj) 4 mg Q6H PRN IV 07/20/17 14:30 08/19/17 14:29 07/23/17 21:40 4 MG Potassium Chloride (Klor-Con Tab) 20 meq BID PO 07/20/17 20:00 08/19/17 20:59 07/25/17 08:35 20 MEQ Fluoxetine HCl (Prozac Cap) 40 mg DAILY PO 07/21/17 08:00 08/20/17 08:59 07/25/17 08:35 40 MG Acetaminophen/ Hydrocodone Bitart ([place] 5/325 Tab) 1 tab Q4H PRN PO 07/20/17 14:30 08/03/17 14:29 07/25/17 10:08 1 TAB Levothyroxine Sodium (Synthroid Tab) 75 mcg DAILYBB PO 07/21/17 06:30 08/20/17 06:59 07/25/17 05:33 75 MCG Lorazepam (Ativan Tab) 1 mg Q8 PRN PO 07/20/17 14:30 08/19/17 14:29 07/25/17 05:34 1 MG Metoprolol Tartrate (Lopressor Tab) 25 mg DAILY PO 07/21/17 08:00 08/20/17 08:59 07/25/17 08:35 25 MG Zolpidem Tartrate (Ambien Tab) 5 mg HS PO 07/20/17 21:00 08/19/17 20:59 07/24/17 20:26 5 MG Miscellaneous (Iv Fluids Completed) 1 ea PRN PRN N/A 07/20/17 16:15 07/20/18 16:14 07/21/17 13:04 1 EA Sodium Chloride (Sodium Chloride Tab) 2 gm BID PO 07/24/17 08:00 08/21/17 07:59 Future Hold 07/24/17 08:36 2 GM Impression (1) KYLE (acute kidney injury) (2) Hypokalemia (3) Hypothyroidism (4) Hyponatremia Sulma Greenwood is a 62-year-old female with a history of hypertension, hypothyroidism, depression/CARLOS ALBERTO, history of tobacco abuse and osteoarthritis. She was admitted with KYLE, hypokalemia and hyponatremia. Presentation consistent with dehydration, thiazide diuretic use and poor oral intake. I cannot exclude underlying SIADH. KYLE consistent with prerenal azotemia improved with IVF. Hypokalemia responded to oral replacement. She describes some loose stools recently but no significant diarrhea. Appetite is reported as good. She does not have orthostatic changes in vitals. Physical exam continues to suggest euvolemic. This would be consistent with SIADH. Unfortunately, serum sodium continues to fall. She did not respond well to oral NaCl tablets and fluid restriction. Reason for decline in serum sodium remains unclear, but response was appropriate to hypertonic saline. 2% saline @ 100 ml/hr ordered to restart this morning. I would continue the infusion with monitoring of serum sodium q 4-6 hours pending transfer to [facility] [place] her intended [place]. Repeat laboratory have been ordered for this afternoon. Thiazide diuretic should continue to be held. I would also suggest continuing to hold the ARB. Blood pressure is acceptable. Recommendations -- Hold oral NaCl tablets -- Restart 2% saline @ 100 ml/hr -- Monitor serum sodium closely (~Q4-6 hours while on infusion) -- Repeat metabolic profile ordered for 1 PM -- Repeat urine studies pending -- Document I/O's (including monitoring bowel movement frequency) -- Encourage nutrition -- Hold HCTZ/losartan -- Avoid NSAIDs -- Etiology of SIADH may be related to her knee pain and infection, cannot exclude intrapulmonary process (patient does have a smoking history), SSRI also to be considered. At this time, it would be appropriate to check CXR
--- NOTE | 2017-07-25 12:18 | Hospitalist Progress Note ---
Hospitalist Progress Note Date of Service Jul 25, 2017. Subjective Pt evaluation today including: conversation w/ patient, physical exam, lab review, review of inpatient medication list Voiding: no voiding problems Patient states she is feeling well. Eating and drinking OK. +L knee pain. Patient denies any fever, chills, sweats, lightheadedness, dizziness, vision changes, CP, palpitations, edema, SOB, wheezing, cough, abdominal pain, nausea, vomiting, diarrhea, urinary symptoms, melena, numbness/tingling, weakness, anxiety/depression, active bleeding, or new skin discoloration/changes. Received a call from Dr. Nunez (orthopedics surgeon) from [place]. He would like patient to be transferred to [place] on 07/27 to proceed with her L knee surgery due to infection. He will be the accepting physician. Would like her there before 10AM. After procedure, she will be admitted to their hospitalist unit. Patient is in agreement with plan. client services account manager and nurse airfreight loading supervisor aware- will setup transportation tomorrow. Medications Current Inpatient Medications Medications (Trade) Dose Ordered Sig/Juliocesar Route Start Time Stop Time Status Last Admin Dose Admin Heparin Sodium (Porcine) (Heparin Sq 5000 Unit/0.5ml) 5,000 unit Q8 SQ 07/20/17 22:00 08/19/17 21:59 07/25/17 05:34 5,000 UNIT Acetaminophen (Tylenol Tab) 650 mg Q4H PRN PO 07/20/17 14:30 08/19/17 14:29 07/22/17 20:58 650 MG Ondansetron HCl (Zofran Inj) 4 mg Q6H PRN IV 07/20/17 14:30 08/19/17 14:29 07/23/17 21:40 4 MG Potassium Chloride (Klor-Con Tab) 20 meq BID PO 07/20/17 20:00 08/19/17 20:59 07/25/17 08:35 20 MEQ Fluoxetine HCl (Prozac Cap) 40 mg DAILY PO 07/21/17 08:00 08/20/17 08:59 07/25/17 08:35 40 MG Acetaminophen/ Hydrocodone Bitart ([place] 5/325 Tab) 1 tab Q4H PRN PO 07/20/17 14:30 08/03/17 14:29 07/25/17 10:08 1 TAB Levothyroxine Sodium (Synthroid Tab) 75 mcg DAILYBB PO 07/21/17 06:30 08/20/17 06:59 07/25/17 05:33 75 MCG Lorazepam (Ativan Tab) 1 mg Q8 PRN PO 07/20/17 14:30 08/19/17 14:29 07/25/17 05:34 1 MG Metoprolol Tartrate (Lopressor Tab) 25 mg DAILY PO 07/21/17 08:00 08/20/17 08:59 07/25/17 08:35 25 MG Zolpidem Tartrate (Ambien Tab) 5 mg HS PO 07/20/17 21:00 08/19/17 20:59 07/24/17 20:26 5 MG Miscellaneous (Iv Fluids Completed) 1 ea PRN PRN N/A 07/20/17 16:15 07/20/18 16:14 07/21/17 13:04 1 EA Sodium Chloride (Sodium Chloride Tab) 2 gm BID PO 07/24/17 08:00 08/21/17 07:59 Future Hold 07/24/17 08:36 2 GM Sodium Chloride 340 meq/Sterile Water 1,136 ml @ 100 mls/hr [id number] IV 07/25/17 10:45 07/26/17 10:44 UNV Objective Vital Signs Date Time Temp Pulse Resp B/P (MAP) Pulse Ox O2 Delivery O2 Flow Rate FiO2 07/25/17 08:00 100 Room Air 07/25/17 07:36 36.6 68 18 145/83 (103) 100 07/25/17 00:32 36.6 67 18 142/78 (99) 96 Room Air 74 130/90 (103) 73 108/69 (82) 07/24/17 23:36 Room Air 07/24/17 21:00 Room Air 07/24/17 15:24 36.1 68 18 138/85 (102) 95 Room Air Physical Exam General Appearance: no apparent distress Eyes: normal inspection, PERRL ENT: hearing grossly normal Neck: supple Respiratory/Chest: lungs clear, no respiratory distress, no accessory muscle use Cardiovascular: regular rate, rhythm Abdomen: normal bowel sounds, non tender, soft Extremities: no pedal edema, no calf tenderness Neurologic/Psychiatric: alert, normal mood/affect, oriented x 3 Skin: normal color, warm/dry, no rash Laboratory Results Last 24 Hours Test 07/24/17 14:02 07/24/17 19:07 07/25/17 08:48 Sodium Level 129 mmol/L 132 mmol/L 130 mmol/L Potassium Level 4.8 mmol/L 5.0 mmol/L 4.7 mmol/L Chloride Level 97 mmol/L 100 mmol/L 98 mmol/L Carbon Dioxide Level 23 mmol/L 25 mmol/L 24 mmol/L Anion Gap 9.0 mmol/L 7.0 mmol/L 8.0 mmol/L Blood Urea Nitrogen 12 mg/dl 12 mg/dl 11 mg/dl Creatinine 0.89 mg/dl 0.89 mg/dl 0.83 mg/dl Est Creatinine Clear Calc Drug Dose 61.3 ml/min 61.3 ml/min 65.7 ml/min Estimated GFR () 80.5 80.5 87.6 Estimated GFR (Non- 69.5 69.5 75.6 BUN/Creatinine Ratio 13.0 13.1 12.7 Random Glucose 100 mg/dl 97 mg/dl 84 mg/dl Calcium Level 9.3 mg/dl 8.9 mg/dl 9.2 mg/dl White Blood Count 7.86 K/uL Red Blood Count 4.57 M/uL Hemoglobin 13.0 g/dL Hematocrit 37.8 % Mean Corpuscular Volume 82.7 fL Mean Corpuscular Hemoglobin 28.4 pg Mean Corpuscular Hemoglobin Concent 34.4 g/dl Platelet Count 303 K/uL Mean Platelet Volume 9.4 fL Neutrophils (%) (Auto) 62.8 % Lymphocytes (%) (Auto) 20.7 % Monocytes (%) (Auto) 8.1 % Eosinophils (%) (Auto) 7.4 % Basophils (%) (Auto) 0.9 % Neutrophils # (Auto) 4.93 K/uL Lymphocytes # (Auto) 1.63 K/uL Monocytes # (Auto) 0.64 K/uL Eosinophils # (Auto) 0.58 K/uL Basophils # (Auto) 0.07 K/uL RDW Standard Deviation 43.3 fL RDW Coefficient of Variation 14.4 % Immature Granulocyte % (Auto) 0.1 % Immature Granulocyte # (Auto) 0.01 K/uL Assessment and Plan Patient is a 62 yo female referred to ER for abnormal preop labs. Hyponatremia, etiology uncertain- likely secondary to SIADH from ?infected L knee vs intrapulmonary process vs SSRI- STABLE: - Nephrology consulted, appreciate recommendations -- 2% saline @ 100 ml/hr -- Hold HCTZ/Losartan -- Avoid NSAIDs - Follow PRP - CXR to r/o intrapulmonary process- smoking history Hypokalemia- RESOLVED: Continue Klor-Con 20 mEq BID Acute KYLE on CKD, stage III: RESOLVED: Follow PRP Anxiety/depression: Prozac 40 mg daily and Ativan q8 hrs PRN HTN- STABLE: Lopressor 25 mg daily Hypothyroidism: Continue Synthroid 75 mcg daily DVT Prophylaxis: Heparin SQ TID Code Status: LEVEL V, DNR Disposition: Plan is for patient to be transferred to [facility] on 07/27 - accepting physician will be Dr. Nunez- manager social responsibility following Dr. Nunez phone # [phone]
[2017-07-25] MEDS: STERILE WATER IV SCH (13:11)
[2017-07-25] MEDS: SODI CHLOR IV SCH (13:11)
--- NOTE | 2017-07-25 13:21 | DIAGNOSTIC IMAGING REPORT ---
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 Concern for possible paraneoplastic process. COMPARISON: None available. TECHNIQUE: Frontal and lateral views of the chest FINDINGS: Cardiac silhouette is within normal limits. There is atherosclerosis of the aorta. There is no pneumothorax. Reticular opacities are present within the perihilar distributions, upper lobes and bilateral lung bases with hazy lingular opacity suggesting atelectasis or scarring. No definite pulmonary mass identified. Lungs are mildly hyperinflated. Degenerative changes are seen about the bilateral shoulders. Multilevel degenerative changes are seen throughout the spine with bone demineralization. Surgical clips are seen within the right upper abdomen. IMPRESSION: 1. Hyperinflation without acute cardiopulmonary process identified. 2. Reticular opacities within the upper and lower lobes as well as the perihilar distributions suggest chronic interstitial changes, however no comparison is available to assess chronicity. The above report was generated using voice recognition software. It may contain grammatical, syntax or spelling errors. Electronically signed by: Kenn Mackey M.D. 07/25/2017 1:19 PM Dictated Date/Time: 07/25/2017 1:16 PM
[2017-07-25] MEDS: ACETAMINOPHEN 325 MG TAB PO PRN (13:25)
[2017-07-25 14:58] VITALS: BP 129/77; PULSE 64; TEMP 36.7; O2SAT 98
[2017-07-25 17:10] LABS: BUN/CREATININE RATIO 15.2 (10-20); CALCIUM 8.7 mg/dl (8.5-10.1); CREATININE 0.92 mg/dl (0.60-1.20); POTASSIUM 4.8 mmol/L (3.5-5.1)
[2017-07-25] MEDS ORDERED: NURSING VERBAL MED ORDER ONE (17:30)
[2017-07-25] MEDS ORDERED: HYDROCODONE/ACETAMOPHEN 5/325MG TAB PO ONE (17:45)
[2017-07-25] MEDS: ZOLPIDEM TARTRATE 5 MG TAB PO SCH (22:15)
[2017-07-26 00:10] VITALS: BP 143/82; PULSE 73; TEMP 36.7; O2SAT 97
[2017-07-26] MEDS: STERILE WATER IV SCH ×2 (00:16→11:55)
[2017-07-26] MEDS: SODI CHLOR IV SCH ×2 (00:16→11:55)
[2017-07-26] MEDS: LORAZEPAM 1 MG TAB PO PRN ×3 (00:30→22:17)
[2017-07-26] MEDS: HEPARIN SOD 5000 UNIT/0.5 ML CARP SQ SCH ×3 (06:25→22:23)
[2017-07-26] MEDS: LEVOTHYROXINE 75 MCG TAB PO SCH (06:27)
[2017-07-26] MEDS: HYDROCODONE/ACETAMOPHEN 5/325MG TAB PO PRN ×2 (06:29→10:54)
[2017-07-26] MEDS: FLUOXETINE HCL 20 MG CAP PO SCH (07:50)
[2017-07-26] MEDS: POTASSIUM CHLORIDE 20 MEQ TABCR PO SCH ×2 (07:50→19:25)
[2017-07-26] MEDS: METOPROLOL TARTRATE 25 MG TAB PO SCH (07:50)
[2017-07-26 08:00] VITALS: O2SAT 97
[2017-07-26 08:49] LABS: BASO ABS # 0.08 K/uL (0-0.2); COMPLETE YES; EOS % 7.4 %; IG% 0.1 %; LYMPH % 18.3 %; LYMPH ABS # 1.54 K/uL (1.2-3.4); MEAN CELL VOLUME 84.1 fL (80-100); MEAN CORPUSCULAR HEMOGLOBIN 27.9 pg (25-34); MEAN CORPUSCULAR HGB CONC 33.1 g/dl (32-36); MEAN PLATELET VOLUME 9.1 fL (7.4-10.4); MONO % 8.4 %; NEUT % 64.8 %; PLATELET COUNT 292 K/uL (130-400); RED BLOOD COUNT 4.16 M/uL (4.2-5.4); WHITE BLOOD COUNT 8.41 K/uL (4.8-10.8)
[2017-07-26 09:20] LABS: CALCIUM 8.6 mg/dl (8.5-10.1); CREATININE 0.82 mg/dl (0.60-1.20); POTASSIUM 4.8 mmol/L (3.5-5.1)
--- NOTE | 2017-07-26 10:38 | Nephrology Progress Note ---
Nephrology Progress Note Date of Service Jul 26, 2017. Chief Complaint Hyponatremia Subjective No acute events overnight. No complaints this morning. Appetite fair. No diarrhea. Fluid intake reported less than 1 liter per day. Pain control appropriate. Review of Systems A complete review of systems was performed. Pertinent positives are noted above. All other systems are negative. Vital Signs Last 8 Hrs Date Time Temp Pulse Resp B/P (MAP) Pulse Ox O2 Delivery O2 Flow Rate FiO2 07/26/17 08:00 97 Room Air Last Recorded Weight Weight (Kilograms): 66.000 Physical Exam General Appearance: WD/WN, no apparent distress Head: normocephalic, atraumatic Eyes: normal inspection, sclerae normal ENT: normal ENT inspection, pharynx normal Neck: supple, no JVD Respiratory/Chest: lungs clear, no respiratory distress, no accessory muscle use Cardiovascular: regular rate, rhythm, normal peripheral pulses Abdomen/GI: non tender, soft Extremities/Musculoskelatal: no pedal edema, + pertinent finding (knee tender) Neurologic/Psych: alert, normal mood/affect Social History Alcohol Use: socially Drug Use: none Marital Status: single Housing Status: lives alone Laboratory Results Past 24 Hours 07/26/17 08:35 Red Blood Count 4.16, Mean Corpuscular Volume 84.1, Mean Corpuscular Hemoglobin 27.9, Mean Corpuscular Hemoglobin Concent 33.1, Mean Platelet Volume 9.1, Neutrophils (%) (Auto) 64.8, Lymphocytes (%) (Auto) 18.3, Monocytes (%) (Auto) 8.4, Eosinophils (%) (Auto) 7.4, Basophils (%) (Auto) 1.0, Neutrophils # (Auto) 5.45, Lymphocytes # (Auto) 1.54, Monocytes # (Auto) 0.71, Eosinophils # (Auto) 0.62, Basophils # (Auto) 0.08 07/25/17 16:04 07/26/17 08:35 Test 07/25/17 12:50 07/25/17 16:04 07/26/17 08:35 Urine Osmolality 478 mOms/kg (500-800) Urine Random Sodium 158 mEq/L Urine Random Potassium 42.8 mEq/L Anion Gap 8.0 mmol/L (3-11) 7.0 mmol/L (3-11) Est Creatinine Clear Calc Drug Dose 59.3 ml/min 66.5 ml/min Estimated GFR () 77.3 88.9 Estimated GFR (Non- 66.7 76.7 BUN/Creatinine Ratio 15.2 (10-20) 12.0 (10-20) Calcium Level 8.7 mg/dl (8.5-10.1) 8.6 mg/dl (8.5-10.1) White Blood Count 8.41 K/uL (4.8-10.8) Red Blood Count 4.16 M/uL (4.2-5.4) Hemoglobin 11.6 g/dL (12.0-16.0) Hematocrit 35.0 % (37-47) Mean Corpuscular Volume 84.1 fL (80-100) Mean Corpuscular Hemoglobin 27.9 pg (25-34) Mean Corpuscular Hemoglobin Concent 33.1 g/dl (32-36) Platelet Count 292 K/uL (130-400) Mean Platelet Volume 9.1 fL (7.4-10.4) Neutrophils (%) (Auto) 64.8 % Lymphocytes (%) (Auto) 18.3 % Monocytes (%) (Auto) 8.4 % Eosinophils (%) (Auto) 7.4 % Basophils (%) (Auto) 1.0 % Neutrophils # (Auto) 5.45 K/uL (1.4-6.5) Lymphocytes # (Auto) 1.54 K/uL (1.2-3.4) Monocytes # (Auto) 0.71 K/uL (0.11-0.59) Eosinophils # (Auto) 0.62 K/uL (0-0.5) Basophils # (Auto) 0.08 K/uL (0-0.2) RDW Standard Deviation 44.6 fL (36.4-46.3) RDW Coefficient of Variation 14.5 % (11.5-14.5) Immature Granulocyte % (Auto) 0.1 % Immature Granulocyte # (Auto) 0.01 K/uL (0.00-0.02) Allergies Coded Allergies: No Known Allergies (Unverified , 07/20/17) Medications Current Inpatient Medications Medications (Trade) Dose Ordered Sig/Juliocesar Route Start Time Stop Time Status Last Admin Dose Admin Heparin Sodium (Porcine) (Heparin Sq 5000 Unit/0.5ml) 5,000 unit Q8 SQ 07/20/17 22:00 08/19/17 21:59 07/26/17 06:25 5,000 UNIT Acetaminophen (Tylenol Tab) 650 mg Q4H PRN PO 07/20/17 14:30 08/19/17 14:29 07/25/17 13:25 650 MG Ondansetron HCl (Zofran Inj) 4 mg Q6H PRN IV 07/20/17 14:30 08/19/17 14:29 07/23/17 21:40 4 MG Potassium Chloride (Klor-Con Tab) 20 meq BID PO 07/20/17 20:00 08/19/17 20:59 07/26/17 07:50 20 MEQ Fluoxetine HCl (Prozac Cap) 40 mg DAILY PO 07/21/17 08:00 08/20/17 08:59 07/26/17 07:50 40 MG Acetaminophen/ Hydrocodone Bitart ([place] 5/325 Tab) 1 tab Q4H PRN PO 07/20/17 14:30 08/03/17 14:29 07/26/17 06:29 1 TAB Levothyroxine Sodium (Synthroid Tab) 75 mcg DAILYBB PO 07/21/17 06:30 08/20/17 06:59 07/26/17 06:27 75 MCG Lorazepam (Ativan Tab) 1 mg Q8 PRN PO 07/20/17 14:30 08/19/17 14:29 07/26/17 00:30 1 MG Metoprolol Tartrate (Lopressor Tab) 25 mg DAILY PO 07/21/17 08:00 08/20/17 08:59 07/26/17 07:50 25 MG Zolpidem Tartrate (Ambien Tab) 5 mg HS PO 07/20/17 21:00 08/19/17 20:59 07/25/17 22:15 5 MG Miscellaneous (Iv Fluids Completed) 1 ea PRN PRN N/A 07/20/17 16:15 07/20/18 16:14 07/21/17 13:04 1 EA Sodium Chloride (Sodium Chloride Tab) 2 gm BID PO 07/24/17 08:00 08/21/17 07:59 Future Hold 07/24/17 08:36 2 GM Sodium Chloride 340 meq/Sterile Water 1,136 ml @ 100 mls/hr [id number] IV 07/25/17 12:45 07/26/17 12:44 07/26/17 00:16 100 MLS/HR Impression (1) KYLE (acute kidney injury) (2) Hypokalemia (3) Hypothyroidism (4) Hyponatremia Sulma Greenwood is a 62-year-old female with a history of hypertension, hypothyroidism, depression/CARLOS ALBERTO, history of tobacco abuse and osteoarthritis. She was admitted with KYLE, hypokalemia and hyponatremia. Presentation consistent with dehydration, thiazide diuretic use and poor oral intake. I cannot exclude underlying SIADH. KYLE consistent with prerenal azotemia improved with IVF. Hypokalemia responded to oral replacement. She describes some loose stools recently but no significant diarrhea. Appetite is reported as good. She does not have orthostatic changes in vitals. Physical exam continues to suggest euvolemic. This would be consistent with SIADH. Unfortunately, serum sodium continued to fall once IVF was stopped. She did not respond well to oral NaCl tablets and fluid restriction. Reason for decline in serum sodium remains unclear, but response was appropriate to hypertonic saline. 2% saline @ 100 ml/hr provided to normalize serum sodium. Repeat laboratory have been ordered for this afternoon. Thiazide diuretic should continue to be held. I would also suggest continuing to hold the ARB. Blood pressure is acceptable. Recommendations -- Complete IVF once current infusion complete -- Repeat metabolic profile this afternoon -- Once IVF complete, restart oral NaCl -- Document I/O's (including monitoring bowel movement frequency) -- Encourage nutrition -- Hold HCTZ/losartan -- Avoid NSAIDs -- CXR reviewed: no obvious pathology
--- NOTE | 2017-07-26 12:08 | Hospitalist Progress Note ---
Hospitalist Progress Note Date of Service Jul 26, 2017. Subjective Pt evaluation today including: conversation w/ patient, physical exam, lab review, review of studies, review of inpatient medication list Patient feeling well. +L knee discomfort. Eating and drinking OK. Patient denies any fever, chills, sweats, lightheadedness, dizziness, vision changes, CP, palpitations, edema, SOB, wheezing, cough, abdominal pain, nausea, vomiting, diarrhea, urinary symptoms, melena, numbness/tingling, weakness, anxiety/depression, active bleeding, or new skin discoloration/changes. Medications Current Inpatient Medications Medications (Trade) Dose Ordered Sig/Juliocesar Route Start Time Stop Time Status Last Admin Dose Admin Heparin Sodium (Porcine) (Heparin Sq 5000 Unit/0.5ml) 5,000 unit Q8 SQ 07/20/17 22:00 08/19/17 21:59 07/26/17 06:25 5,000 UNIT Acetaminophen (Tylenol Tab) 650 mg Q4H PRN PO 07/20/17 14:30 08/19/17 14:29 07/25/17 13:25 650 MG Ondansetron HCl (Zofran Inj) 4 mg Q6H PRN IV 07/20/17 14:30 08/19/17 14:29 07/23/17 21:40 4 MG Potassium Chloride (Klor-Con Tab) 20 meq BID PO 07/20/17 20:00 08/19/17 20:59 07/26/17 07:50 20 MEQ Fluoxetine HCl (Prozac Cap) 40 mg DAILY PO 07/21/17 08:00 08/20/17 08:59 07/26/17 07:50 40 MG Acetaminophen/ Hydrocodone Bitart ([place] 5/325 Tab) 1 tab Q4H PRN PO 07/20/17 14:30 08/03/17 14:29 07/26/17 10:54 1 TAB Levothyroxine Sodium (Synthroid Tab) 75 mcg DAILYBB PO 07/21/17 06:30 08/20/17 06:59 07/26/17 06:27 75 MCG Lorazepam (Ativan Tab) 1 mg Q8 PRN PO 07/20/17 14:30 08/19/17 14:29 07/26/17 11:55 1 MG Metoprolol Tartrate (Lopressor Tab) 25 mg DAILY PO 07/21/17 08:00 08/20/17 08:59 07/26/17 07:50 25 MG Zolpidem Tartrate (Ambien Tab) 5 mg HS PO 07/20/17 21:00 08/19/17 20:59 07/25/17 22:15 5 MG Miscellaneous (Iv Fluids Completed) 1 ea PRN PRN N/A 07/20/17 16:15 07/20/18 16:14 07/21/17 13:04 1 EA Sodium Chloride (Sodium Chloride Tab) 2 gm BID PO 07/24/17 08:00 08/21/17 07:59 Future Hold 07/24/17 08:36 2 GM Sodium Chloride 340 meq/Sterile Water 1,136 ml @ 100 mls/hr [id number] IV 07/25/17 12:45 07/26/17 12:44 07/26/17 11:55 100 MLS/HR Objective Vital Signs Date Time Temp Pulse Resp B/P (MAP) Pulse Ox O2 Delivery O2 Flow Rate FiO2 07/26/17 08:00 97 Room Air 07/26/17 00:10 36.7 73 18 143/82 (102) 97 Room Air 07/26/17 00:00 Room Air 07/25/17 16:10 Room Air 07/25/17 14:58 36.7 64 20 129/77 (94) 98 Physical Exam General Appearance: no apparent distress Eyes: normal inspection, PERRL ENT: hearing grossly normal Neck: supple Respiratory/Chest: lungs clear, no respiratory distress, no accessory muscle use Cardiovascular: regular rate, rhythm Abdomen: normal bowel sounds, non tender, soft Extremities: no pedal edema, no calf tenderness Neurologic/Psychiatric: alert, normal mood/affect, oriented x 3 Skin: normal color, warm/dry, no rash Laboratory Results Last 24 Hours Test 07/25/17 12:50 07/25/17 16:04 07/26/17 08:35 Urine Osmolality 478 mOms/kg Urine Random Sodium 158 mEq/L Urine Random Potassium 42.8 mEq/L Sodium Level 132 mmol/L 135 mmol/L Potassium Level 4.8 mmol/L 4.8 mmol/L Chloride Level 101 mmol/L 107 mmol/L Carbon Dioxide Level 23 mmol/L 21 mmol/L Anion Gap 8.0 mmol/L 7.0 mmol/L Blood Urea Nitrogen 14 mg/dl 10 mg/dl Creatinine 0.92 mg/dl 0.82 mg/dl Est Creatinine Clear Calc Drug Dose 59.3 ml/min 66.5 ml/min Estimated GFR () 77.3 88.9 Estimated GFR (Non- 66.7 76.7 BUN/Creatinine Ratio 15.2 12.0 Random Glucose 95 mg/dl 84 mg/dl Calcium Level 8.7 mg/dl 8.6 mg/dl White Blood Count 8.41 K/uL Red Blood Count 4.16 M/uL Hemoglobin 11.6 g/dL Hematocrit 35.0 % Mean Corpuscular Volume 84.1 fL Mean Corpuscular Hemoglobin 27.9 pg Mean Corpuscular Hemoglobin Concent 33.1 g/dl Platelet Count 292 K/uL Mean Platelet Volume 9.1 fL Neutrophils (%) (Auto) 64.8 % Lymphocytes (%) (Auto) 18.3 % Monocytes (%) (Auto) 8.4 % Eosinophils (%) (Auto) 7.4 % Basophils (%) (Auto) 1.0 % Neutrophils # (Auto) 5.45 K/uL Lymphocytes # (Auto) 1.54 K/uL Monocytes # (Auto) 0.71 K/uL Eosinophils # (Auto) 0.62 K/uL Basophils # (Auto) 0.08 K/uL RDW Standard Deviation 44.6 fL RDW Coefficient of Variation 14.5 % Immature Granulocyte % (Auto) 0.1 % Immature Granulocyte # (Auto) 0.01 K/uL Assessment and Plan Patient is a 62 yo female referred to ER for abnormal preop labs. Hyponatremia, etiology uncertain- likely secondary to SIADH from ?infected L knee vs intrapulmonary process vs SSRI- IMPROVING: - Nephrology consulted, appreciate recommendations -- 2% saline @ 100 ml/hr- resume NaCl supplement after IVF completed -- Hold HCTZ/Losartan -- Avoid NSAIDs - Follow PRP - CXR to r/o intrapulmonary process- smoking history- negative for acute findings L knee pain, secondary to fracture/infection: - [place] PRN for pain management - Transfer to [facility] on 07/27 to proceed with surgical procedure by Dr. Garcia Hypokalemia- RESOLVED: Continue Klor-Con 20 mEq BID Acute KYLE on CKD, stage III: RESOLVED: Follow PRP Anxiety/depression: Prozac 40 mg daily and Ativan q8 hrs PRN HTN- STABLE: Lopressor 25 mg daily Hypothyroidism: Continue Synthroid 75 mcg daily DVT Prophylaxis: Heparin SQ TID Code Status: LEVEL V, DNR Disposition: Transferred to [facility] on 07/27- accepting physician will be Dr. Nunez- social worker clinical following Dr. Nunez phone # [phone]
[2017-07-26] MEDS ORDERED: SDMC1 PO (12:09)
[2017-07-26] MEDS ORDERED: MCRK20 PO (12:09)
--- NOTE | 2017-07-26 12:14 | Discharge Instructions ---
Discharge Instructions Date of Service Jul 26, 2017. Admission Reason for Admission: Hyponatremia Discharge Discharge Diagnosis / Problem: Hyponatremia Discharge Goals Goal(s): Decrease discomfort, Improve function, Improve disease control, Learn about illness, Diagnostic testing, Therapeutic intervention, Prevent Disease Progression Activity Recommendations Activity Limitations: as noted below . Instructions / Follow-Up Instructions / Follow-Up You were admitted to [facility] due to hyponatremia (low sodium) found through preoperative labs. You were treated with IV fluids and sodium tablets. Your sodium level improved. Dr. Garcia, at [facility], suggest you be transferred to their facility on 07/27 to continue with your planned left knee surgery. You were in agreement with plan. At this time, the cause of your low sodium is not known. After your procedure, you will be admitted to their medical facility for continued treatment/investigation of hyponatremia. Please refer to [facility] discharge instructions once discharged from their facility. Current Hospital Diet Patient's current hospital diet: Regular Diet Discharge Diet Recommended Diet: Regular Diet Pending Studies Studies pending at discharge: no Laboratory Results Lipid Panel Test 06/08/17 15:40 Range/Units Triglycerides Level 103 0-150 mg/dl Cholesterol Level 125 0-200 mg/dl HDL Cholesterol 64 mg/dl Cholesterol/HDL Ratio 2.0 LDL Cholesterol, Calculated 40 mg/dl Medical Emergencies . Who to Call and When: Medical Emergencies: If at any time you feel your situation is an emergency, please call 911 immediately. . Non-Emergent Contact Non-Emergency issues call your: Primary Care Provider . . "Provider Documentation" section prepared by Jeannine Denson. . VTE Core Measure Inpt VTE Proph given/why not?: Unfractionated heparin RENEE, Shayne Gallardo, SCD 's
[2017-07-26] MEDS ORDERED: HYDROCODONE/ACETAMOPHEN 5/325MG TAB PO PRN ×2 (12:15→17:15)
--- NOTE | 2017-07-26 12:19 | Discharge Summary ---
Discharge Summary Date of Service Jul 26, 2017. 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 Concern for possible paraneoplastic process. COMPARISON: None available. TECHNIQUE: Frontal and lateral views of the chest FINDINGS: Cardiac silhouette is within normal limits. There is atherosclerosis of the aorta. There is no pneumothorax. Reticular opacities are present within the perihilar distributions, upper lobes and bilateral lung bases with hazy lingular opacity suggesting atelectasis or scarring. No definite pulmonary mass identified. Lungs are mildly hyperinflated. Degenerative changes are seen about the bilateral shoulders. Multilevel degenerative changes are seen throughout the spine with bone demineralization. Surgical clips are seen within the right upper abdomen. IMPRESSION: 1. Hyperinflation without acute cardiopulmonary process identified. 2. Reticular opacities within the upper and lower lobes as well as the perihilar distributions suggest chronic interstitial changes, however no comparison is available to assess chronicity. The above report was generated using voice recognition software. It may contain grammatical, syntax or spelling errors. Electronically signed by: Kenn Mackey M.D. 07/25/2017 1:19 PM Dictated Date/Time: 07/25/2017 1:16 PM The status of this report is Signed. Draft = Not yet reviewed or approved by Radiologist. Signed = Reviewed and approved by Radiologist. Consultations: Nephrology- Dr. Downs Medication Reconciliation New Medications: Potassium Chloride (Klor-Con M20) 20 Meq Tabcr 20 MEQ PO BID for 30 Days Sodium Chloride (Sodium Chloride) 1 Gm Tab 2 GM PO BID for 30 Days, TAB Continued Medications: Fluoxetine (Prozac) 40 Mg Cap 40 MG PO DAILY, CAP Hydrocodone/Acetaminophen 5MG/325MG (Greenwood 5MG/325MG) Tab 1 TABLET PO Q4H PRN for Pain, TAB Levothyroxine Sodium (Levothyroxine Sodium) 75 Mcg Tab 75 MCG PO DAILY, TAB Lorazepam (Ativan) 1 Mg Tab 1 MG PO Q8 PRN for Anxiety, TAB Metoprolol Tartrate (Lopressor) (Lopressor) 25 Mg Tab 25 MG PO DAILY, TAB Zolpidem Tartrate (Zolpidem Tartrate) 5 Mg Tab 5 MG PO HS, TAB Discontinued Medications: Hctz/Losartan (Hyzaar 25MG/100MG) Tab 1 TAB PO DAILY, TAB Ibuprofen Tab (Advil) 200 Mg Tab 600-800 MG PO Q8 PRN for Pain, TAB Hospital Course Admission H&P: Pt is a 62 yo female who presents to the ER as a referral for abnormals labs from [facility]. Pt has a hx of a left knee replacement 10 yrs ago and follows up at [facility] for follow up care as pt sustained a fall 10 months ago and loosened the hardware. Pt reports she also suffered a femur fx but is uncertain of the cause. She followed up at [facility] 2 days in which at that time she had her left knee aspirated and was told it was infected. She was schedule for surgery tomorrow but was told her preop labs were abnormal for low sodium and low potassium in addition to kidney and was referred to go to ER for further evaluation. Pt reports left knee pain and hip pain. Denies any fevers, chills, N/V/D, abd pain or urinary sx. Pt reports poor PO intake and dehydration past few days. Physical Exam Vital Signs Date Time Temp Pulse Resp B/P (MAP) Pulse Ox O2 Delivery O2 Flow Rate FiO2 07/20/17 13:44 72 20 125/80 97 Room Air 07/20/17 12:19 70 14 119/79 97 Room Air 07/20/17 11:12 72 07/20/17 11:09 74 16 113/74 97 Room Air 07/20/17 10:38 37.1 75 18 126/76 97 Room Air General Appearance: WD/WN, + mild distress Head: normocephalic, atraumatic Eyes: normal inspection, PERRL, EOMI, sclerae normal Neck: supple, no adenopathy, thyroid normal, no JVD Respiratory/Chest: chest non-tender, lungs clear, normal breath sounds, no respiratory distress Cardiovascular: no edema, no gallop, no JVD, no murmur Abdomen/GI: normal bowel sounds, non tender, soft, no organomegaly Extremities/Musculoskelatal: no calf tenderness, no pedal edema, + pertinent finding (left knee pain on palpation) Neurologic/Psych: no motor/sensory deficits, alert, normal mood/affect, oriented x 3 Skin: normal color, warm/dry, no rash Lymphatic: no adenopathy Hospital Course: Patient is a 62 yo female referred to ER for abnormal preop labs. Hyponatremia, etiology uncertain- likely secondary to SIADH from ?infected L knee vs intrapulmonary process vs SSRI- IMPROVING: - Nephrology consulted, appreciate recommendations -- 2% saline @ 100 ml/hr- resume NaCl supplement after IVF completed -- Hold HCTZ/Losartan -- Avoid NSAIDs - Follow PRP - CXR to r/o intrapulmonary process- smoking history- negative for acute findings L knee pain, secondary to fracture/infection: - Greenwood PRN for pain management - Transfer to [facility] on 07/27 to proceed with surgical procedure by Dr. Garcia Hypokalemia- RESOLVED: Continue Klor-Con 20 mEq BID Acute KYLE on CKD, stage III: RESOLVED: Follow PRP Anxiety/depression: Prozac 40 mg daily and Ativan q8 hrs PRN HTN- STABLE: Lopressor 25 mg daily Hypothyroidism: Continue Synthroid 75 mcg daily DVT Prophylaxis: Heparin SQ TID Code Status: LEVEL V, DNR Disposition: Transferred [facility]- accepting physician will be Dr. Nunez Total Time Spent: Greater than 30 minutes This includes examination of the patient, discharge planning, medication reconciliation, and communication with other providers. Discharge Instructions Please refer to the electronic Patient Visit Report (Discharge Instructions) for additional information. Follow-Up Follow-up with [facility] provider within 24-48 hours Additional Copies To Berto Meza D.O.
[2017-07-26 15:04] VITALS: BP 156/93; PULSE 75; TEMP 36.7; O2SAT 99
[2017-07-26] MEDS ORDERED: HydrALAZINE HCL 20 MG/ML VIAL IV. PRN (15:30)
[2017-07-26] MEDS ORDERED: SODIUM CHLORIDE 1 GM TAB PO ONE (16:30)
[2017-07-26] MEDS ORDERED: NURSING VERBAL MED ORDER ONE (16:45)
[2017-07-26] MEDS ORDERED: HYDROCODONE/ACETAMOPHEN 5/325MG TAB PO ONE (17:00)
[2017-07-26] MEDS: ZOLPIDEM TARTRATE 5 MG TAB PO SCH (22:17)
[2017-07-27 00:29] VITALS: BP 164/90; PULSE 62; TEMP 36.5; O2SAT 97
[2017-07-27] MEDS: HEPARIN SOD 5000 UNIT/0.5 ML CARP SQ SCH (06:00)
[2017-07-27] MEDS: LEVOTHYROXINE 75 MCG TAB PO SCH (06:14)
[2017-07-27 07:25] VITALS: BP 164/90; PULSE 62; TEMP 36.5; O2SAT 97
[2017-07-27 07:31] VITALS: BP 122/84; PULSE 78; TEMP 36.4; O2SAT 97
[2017-07-27 07:36] VITALS: BP 122/84; PULSE 78; TEMP 36.4; O2SAT 97
[2017-07-27] MEDS ORDERED: SODIUM CHLORIDE 1 GM TAB PO SCH (08:15)
--- NOTE | 2017-07-27 11:13 | Progress Note ---
Progress Note Date of Service Jul 27, 2017. Progress Note Patient discharged before could be seen this AM. Transferred to [facility]. Discharge paperwork completed on 07/26 in preparation for scheduled morning transfer today.
== END 2017-07-27 08:30 | disposition short-term general hospital (02) | DRG 683 ==
LOC: EDBD 10:40 → C.EDC 10:41 → C.MS4W 14:18 → ENRESERV 14:46 → C.MS4W 16:22 → UNDOADMOB 16:22 → OBSVTOIN 07-21 15:48
PROVIDERS: ADMIT Hospitalist; ATTEND Hospitalist
DX: N17.9 Acute kidney failure, unspecified (principal); E87.1 Hypo-osmolality and hyponatremia; M25.562 Pain in left knee; E87.6 Hypokalemia; I12.9 Hypertensive chronic kidney disease with stage 1 through stage 4 chronic kidney disease, or unspecified chronic kidney disease; N18.3 Chronic kidney disease, stage 3 (moderate); F32.9 Major depressive disorder, single episode, unspecified; F41.1 Generalized anxiety disorder; F17.200 Nicotine dependence, unspecified, uncomplicated; Z66 Do not resuscitate; Z79.899 Other long term (current) drug therapy

== ENCOUNTER 2017-11-22 15:31 | Emergency (ER) | payer OTHER ==
[~2017-11-22] VITALS: Ht 167.6 cm; Wt 64.5 kg
[~2017-11-22 15:31] MED LIST changes: -HYZ/10015 PO; -IBUP-103 PO; +MCRK20 PO; +SDMC1 PO
[2017-11-22 15:49] VITALS: TEMP 36.6; Ht 167.6 cm; Wt 64.5 kg
[2017-11-22] MEDS ORDERED: MoRPHine SULFATE 4 MG/ML 1 ML CARP\\VIAL IV STA (17:04)
[2017-11-22] MEDS ORDERED: ASPI81TA28 PO (17:14)
[2017-11-22] MEDS ORDERED: KFL/250 PO (17:16)
[2017-11-22] MEDS ORDERED: [UNRECOGNIZED DRUG - CODE] PO (17:19)
[2017-11-22] MEDS ORDERED: MELA1TAB5 PO (17:20)
[2017-11-22] MEDS ORDERED: OXYC1CAP5 PO (17:22)
[2017-11-22] MEDS ORDERED: ACET-1311 PO (17:23)
[2017-11-22] MEDS ORDERED: ASCO250T5 PO (17:24)
[2017-11-22] MEDS ORDERED: FERR325T5 PO (17:26)
[2017-11-22] MEDS ORDERED: PRENTAB26 PO (17:27)
[2017-11-22] MEDS ORDERED: OLAN-111 PO (17:28)
[2017-11-22] MEDS ORDERED: SENN-61 PO (17:28)
[2017-11-22] MEDS ORDERED: ONDA4TAB46 PO (17:29)
[2017-11-22] MEDS ORDERED: DOXY100C76 PO (17:31)
[2017-11-22] MEDS ORDERED: SULF800T23 PO (17:31)
[2017-11-22 17:39] LABS: BASO % 0.6 %; BASO ABS # 0.07 K/uL (0-0.2); EOS % 6.5 %; EOS ABS # 0.72 K/uL (0-0.5); HEMATOCRIT 34.2 % (37-47); HEMOGLOBIN 11.3 g/dL (12.0-16.0); IG# 0.03 K/uL (0.00-0.02); LYMPH % 15.5 %; LYMPH ABS # 1.71 K/uL (1.2-3.4); MEAN CELL VOLUME 85.3 fL (80-100); MEAN CORPUSCULAR HEMOGLOBIN 28.2 pg (25-34); MEAN PLATELET VOLUME 10.4 fL (7.4-10.4); MONO % 8.5 %; MONO ABS # 0.94 K/uL (0.11-0.59); NEUT % 68.6 %; NEUT ABS # 7.57 K/uL (1.4-6.5); PLATELET COUNT 300 K/uL (130-400); RED CELL DISTRIBUTION WIDTH CV 16.7 % (11.5-14.5); RED CELL DISTRIBUTION WIDTH SD 52.5 fL (36.4-46.3); WHITE BLOOD COUNT 11.04 K/uL (4.8-10.8)
[2017-11-22 17:53] LABS: CALCIUM 9.3 mg/dl (8.5-10.1); CREATININE 1.17 mg/dl (0.60-1.20); POTASSIUM 4.2 mmol/L (3.5-5.1)
--- NOTE | 2017-11-22 18:08 | DIAGNOSTIC IMAGING REPORT ---
LEFT KNEE 3 VIEWS CLINICAL HISTORY: Left knee erythema and swelling. FINDINGS: AP, crosstable lateral, and sunrise views of the left knee are compared to study dated 07/04/2017. The Skeletal structures are osteopenic. Chronic posttraumatic deformity is seen in the distal femur. A hinged left knee arthroplasty is in near-anatomic alignment. There are long femoral and tibial stems. No periprosthetic lucency is identified. There is no evidence of acute fracture. There is no periostitis or bony erosion. There has been undersurface remodeling of the patella which is diminutive. There is a large joint effusion, with small foci of calcific debris in the joint space. Significant soft tissue edema is present around the knee. IMPRESSION: 1. Osteopenia, left knee arthroplasty, and chronic posttraumatic deformity as above. No acute bony abnormality is identified. 2. Marked soft tissue edema is present around the knee. 3. There is a large joint effusion with small foci of calcific debris. Electronically signed by: Duke Johnson M.D. 11/22/2017 6:07 PM Dictated Date/Time: 11/22/2017 6:01 PM
[2017-11-22] MEDS ORDERED: SODIUM CHLORIDE 0.9% 1000ML 1,000 ML IV STA (18:25)
--- NOTE | 2017-11-22 18:31 | EMERGENCY ROOM VISIT NOTE ---
History First contact with patient: 16:56 Chief Complaint: INFECTION Stated Complaint: SWOLLOEN AND PAINFUL KNEE Nursing Triage Summary: Patient c/o of left knee redness, warm, swollen since Monday. Left knee replaced 10/20/17. Developed an infection after the procedure. History of Present Illness The patient is a 62 year old female who presents to the Emergency Room via private vehicle accompanied by male and female with complaints of "swollen painful knee". The patient states that she has undergone surgery of the left knee on 10/20/2017. She states that she had prior to this antibiotic spacer placed between the broken femur in the existing artificial knee, and then states that she had the surgery and has been on IV antibiotics and oral antibiotics. She currently takes Keflex, Bactrim and doxycycline daily. She states that she has been doing well, however notes that she began with redness overlying the left anterior and medial aspect of her left knee that is not warm to the touch. She denies any fevers, chills, chest pain, shortness of breath. Review of Systems A complete 10-point Review of Systems was discussed with the patient, with pertinent positives and negatives listed in the History of Present Illness. All remaining Review of Systems questions can be considered negative unless otherwise specified. Past Medical/Surgical History Medical Problems: (1) KYLE (acute kidney injury) (2) Hypokalemia (3) Hyponatremia (4) Hypothyroidism Social History Smoking Status: Former Smoker Drug Use: none Marital Status: single Current/Historical Medications Scheduled Ascorbic Acid (Ascorbic Acid), 250 MG PO QAM Aspirin (Aspirin Ec), 81 MG PO BID Cephalexin Monohydrate (Keflex), 250 MG PO QID Doxycycline Monohydrate (Monodox), 100 MG PO Q12H Ferrous Sulfate (Ferrous Sulfate), 325 MG PO QAM Fluoxetine (Prozac), 40 MG PO DAILY Levothyroxine Sodium (Levothyroxine Sodium), 75 MCG PO DAILY Melatonin (Kp Melatonin), 3 MG PO HS Metoprolol Tartrate (Lopressor) (Lopressor), 25 MG PO DAILY Multivit/Min/Iron/Fol Ac/Pren ( Vitamin), 1 TAB PO DAILY Olanzapine (Zyprexa), 5 MG PO DAILY Sodium Chloride (Sodium Chloride), 2 GM PO BID Sulfa/Trimethoprim (Bactrim Ds 800MG/160MG), 1 TAB PO BID Zolpidem Tartrate (Zolpidem Tartrate), 5 MG PO HS Scheduled PRN Acetaminophen (Tylenol), 650 MG PO Q4H PRN for Pain Lorazepam (Ativan), 1 MG PO HS PRN for Anxiety Morphine Sulfate (Morphine Sulfate), 30 MG PO Q12H PRN for Pain Ondansetron Hcl (Zofran), 4 MG PO Q4H PRN for Nausea Oxycodone Hcl (Oxycodone Hcl), 10 MG PO Q4H PRN for Pain Senna (Senokot), 2 TAB PO HS PRN for Constipation Physical Exam Vital Signs Date Time Temp Pulse Resp B/P (MAP) Pulse Ox O2 Delivery O2 Flow Rate FiO2 11/22/17 21:08 76 18 122/80 98 11/22/17 18:50 68 18 168/97 100 Room Air 11/22/17 17:42 65 16 114/62 97 11/22/17 15:49 36.6 89 18 120/65 92 Room Air Physical Exam VITAL SIGNS - Vital signs and nursing notes were reviewed. Stable. GENERAL - 62-year-old female appearing her stated age who is in no acute distress. Communicates well with provider and answers questions appropriately. SKIN - Without rashes. L anterior/medial patellar region of L knee reveals erythema, edema and warmth. Incision is healing well. No dehiscence. HEAD - NC/AT. EXTREMITIES - No clubbing or peripheral cyanosis. L leg edema, with localized 5cm in diameter erythema overlying L anterior/medial patella. +5/5 strength noted in UE/LE bilaterally. Medical Decision & Procedures ER Provider Diagnostic Interpretation: LEFT KNEE 3 VIEWS CLINICAL HISTORY: Left knee erythema and swelling. FINDINGS: AP, crosstable lateral, and sunrise views of the left knee are compared to study dated 07/04/2017. The Skeletal structures are osteopenic. Chronic posttraumatic deformity is seen in the distal femur. A hinged left knee arthroplasty is in near-anatomic alignment. There are long femoral and tibial stems. No periprosthetic lucency is identified. There is no evidence of acute fracture. There is no periostitis or bony erosion. There has been undersurface remodeling of the patella which is diminutive. There is a large joint effusion, with small foci of calcific debris in the joint space. Significant soft tissue edema is present around the knee. IMPRESSION: 1. Osteopenia, left knee arthroplasty, and chronic posttraumatic deformity as above. No acute bony abnormality is identified. 2. Marked soft tissue edema is present around the knee. 3. There is a large joint effusion with small foci of calcific debris. Electronically signed by: Duke Johnson M.D. Laboratory Results 11/22/17 17:15 Red Blood Count 4.01, Mean Corpuscular Volume 85.3, Mean Corpuscular Hemoglobin 28.2, Mean Corpuscular Hemoglobin Concent 33.0, Mean Platelet Volume 10.4, Neutrophils (%) (Auto) 68.6, Lymphocytes (%) (Auto) 15.5, Monocytes (%) (Auto) 8.5, Eosinophils (%) (Auto) 6.5, Basophils (%) (Auto) 0.6, Neutrophils # (Auto) 7.57, Lymphocytes # (Auto) 1.71, Monocytes # (Auto) 0.94, Eosinophils # (Auto) 0.72, Basophils # (Auto) 0.07 11/22/17 17:15 Test 11/22/17 17:15 11/22/17 20:29 White Blood Count 11.04 K/uL (4.8-10.8) Red Blood Count 4.01 M/uL (4.2-5.4) Hemoglobin 11.3 g/dL (12.0-16.0) Hematocrit 34.2 % (37-47) Mean Corpuscular Volume 85.3 fL (80-100) Mean Corpuscular Hemoglobin 28.2 pg (25-34) Mean Corpuscular Hemoglobin Concent 33.0 g/dl (32-36) Platelet Count 300 K/uL (130-400) Mean Platelet Volume 10.4 fL (7.4-10.4) Neutrophils (%) (Auto) 68.6 % Lymphocytes (%) (Auto) 15.5 % Monocytes (%) (Auto) 8.5 % Eosinophils (%) (Auto) 6.5 % Basophils (%) (Auto) 0.6 % Neutrophils # (Auto) 7.57 K/uL (1.4-6.5) Lymphocytes # (Auto) 1.71 K/uL (1.2-3.4) Monocytes # (Auto) 0.94 K/uL (0.11-0.59) Eosinophils # (Auto) 0.72 K/uL (0-0.5) Basophils # (Auto) 0.07 K/uL (0-0.2) RDW Standard Deviation 52.5 fL (36.4-46.3) RDW Coefficient of Variation 16.7 % (11.5-14.5) Immature Granulocyte % (Auto) 0.3 % Immature Granulocyte # (Auto) 0.03 K/uL (0.00-0.02) Erythrocyte Sedimentation Rate 28 mm/hr (0-21) Est Creatinine Clear Calc Drug Dose 46.6 ml/min Estimated GFR () 57.8 Estimated GFR (Non- 49.9 BUN/Creatinine Ratio 15.0 (10-20) Lactic Acid Level 0.9 mmol/L (0.4-2.0) Calcium Level 9.3 mg/dl (8.5-10.1) C-Reactive Protein 14.80 mg/dl (0-0.29) Bedside Hemoglobin 10.9 g/dl (12.0-16.0) Bedside Hematocrit 32 % (37-47) Bedside Sodium 132 mEq/L (135-144) Bedside Potassium 4.3 mEq/L (3.3-5.0) Bedside Chloride 101 mEq/L (101-112) Bedside Total CO2 21 mEq/l (24-31) Anion Gap 16.0 mmol/L (16-25) Bedside Blood Urea Nitrogen 17 mg/dl (7-18) Bedside Creatinine 1.2 mg/dl (0.6-1.3) Bedside Glucose (other) 100 mg/dl (70-99) Bedside Ionized Calcium (Monika) 1.11 mmol/l (1.12-1.32) Medications Administered Medications (Trade) Dose Ordered Sig/Juliocesar Route Start Time Stop Time Status Last Admin Dose Admin Morphine Sulfate (MoRPHine SULFATE INJ) 4 mg NOW STAT IV 11/22/17 17:04 11/22/17 17:05 DC 11/22/17 17:41 4 MG Sodium Chloride 1,000 ml @ 999 mls/hr Q1H1M STAT IV 11/22/17 18:25 11/22/17 19:25 DC 11/22/17 18:50 999 MLS/HR Medical Decision Patient was seen and evaluated as above. She presents to us today with left knee pain. She is nontoxic on exam. She is afebrile. She is hemodynamically stable. The concern on exam as there is overlying cellulitis just medial to the incision overlying the left knee. With the amount of edema, and patient stated pain level I question if this could be a septic joint. IV access was initiated, and the above workup was performed. Blood Cultures were obtained. CBC reveals leukocytosis of 11.04. Anemia with hemoglobin 11.3. ESR high at 28. Patient's metabolic panel reveals sodium low at 128. No evidence of kidney failure. C-reactive protein high at 14.8. X-ray results as above. There is a large knee effusion. Ultrasound reveals no evidence of DVT. She was informed upon the findings. I spoke with the attending physician regarding the case also personally evaluated the patient, and the decision was made to contact orthopedic surgeon who was on-call the performed the patient's surgery. I then spoke with Dr. Abner Reyes orthopedic surgery who was telecommunication systems designer for the physician who performed the surgery. We discussed the case. He recommended no antibiotics being added, and discharging the patient home so the patient may call the orthopedic surgeon who performed the surgery first thing tomorrow morning and schedule follow-up in the office during clinic tomorrow. I believe this is reasonable. Vancomycin was canceled. This was so that the patient could have arthrocentesis performed and have appropriate sensitivity and culture results. Blood cultures are pending. She appears stable for outpatient management. She was given morphine here for pain. The patient was educated upon management, educated upon worrisome symptoms in which to return, had questions answered prior to discharge, and was discharged home in good condition. She is to call her family doctor to schedule follow-up and repeat of her hyponatremia. An i-STAT was performed after 1 L of normal saline and it appeared to improve to 132. She is to have basic labs repeated with the family doctor. She is to call both the family doctor and orthopedic surgeon tomorrow. In the evaluation and treatment of this patient the following differential diagnoses were entertained: Septic joint, sepsis, fracture, cellulitis, among others. Medication list reviewed. Blood pressure found to be elevated I believe secondary to situation. Impression Primary Impression: Cellulitis of knee, left Additional Impressions: Anemia Hyponatremia Departure Information Dispostion Home / Self-Care Condition GOOD Referrals Berto Meza D.O. (PCP) Patient Instructions [facility] Additional Instructions You have been treated in the Emergency Department for Knee Pain. You have received pain medicine in the emergency department which impairs your ability to operate a vehicle. It is illegal for you to drive after receiving these medicines. As we discussed I think you have an infection of your knee. I spoke with Dr. Levine of [facility] who was covering for your orthopedic doctor and he recommends no antibiotics from here, and call your orthopedic surgeon first thing tomorrow morning to schedule follow-up. They believe he is in the clinic tomorrow. Phone number they gave me is [phone]. If you have any problems please call back here at [phone] For pain control, you can use the following [id number] medicines (if >12 yo): - Regular strength (325mg/tab) Tylenol (acetaminophen) 2 tabs every 4-6 hours as needed. Do not exceed 12 tablets in a 24 hour period. Avoid taking more than 3 grams (3000 mg) of Tylenol per day. This includes any other sources of acetaminophen you may take on a regular basis. - Regular strength (200 mg/tab) Advil (ibuprofen) 1-2 tabs every 4-6 hours as needed. Do not exceed a dose of 3200 mg per day. If this is a recent injury (<24 hrs), ice can be applied to the area of pain for the first 3 days to help decrease pain and inflammation. Ice massages can be performed by freezing water in a paper cup, peeling back the cup to expose the ice and then massaging over the affected area. Return to the Emergency Department if your current symptoms worsen despite treatment course outlined above. (fevers, more redness, etc) Please return with any new/concerning symptoms. LEFT KNEE 3 VIEWS CLINICAL HISTORY: Left knee erythema and swelling. FINDINGS: AP, crosstable lateral, and sunrise views of the left knee are compared to study dated 07/04/2017. The Skeletal structures are osteopenic. Chronic posttraumatic deformity is seen in the distal femur. A hinged left knee arthroplasty is in near-anatomic alignment. There are long femoral and tibial stems. No periprosthetic lucency is identified. There is no evidence of acute fracture. There is no periostitis or bony erosion. There has been undersurface remodeling of the patella which is diminutive. There is a large joint effusion, with small foci of calcific debris in the joint space. Significant soft tissue edema is present around the knee. IMPRESSION: 1. Osteopenia, left knee arthroplasty, and chronic posttraumatic deformity as above. No acute bony abnormality is identified. 2. Marked soft tissue edema is present around the knee. 3. There is a large joint effusion with small foci of calcific debris. Electronically signed by: Duke Johnson M.D. ULTRASOUND LEFT LOWER EXTREMITY VENOUS CLINICAL HISTORY: Left leg erythema and swelling. COMPARISON STUDY: No priors. TECHNIQUE: Real-time, grayscale, and color Doppler sonography of the deep veins of the left lower extremity was performed from the inguinal crease to the calf. Compression and augmentation were utilized. FINDINGS: There is no sonographic evidence of deep venous thrombosis identified in the left lower extremity. The common femoral, superficial femoral, and popliteal veins are patent and normally compressible. The greater saphenous vein and the profunda femoris vein at the junction with the common femoral vein are clear. There is no flow identified within the proximal greater saphenous vein, likely resenting superficial venous thrombus. The visualized calf veins are patent. Prominent lymph nodes in the left groin are likely reactive. There are indeterminant complex foci identified in the popliteal fossa which measure up to 3.7 cm. The surrounding vascular and may represent complex popliteal cyst. IMPRESSION: 1. There is no sonographic evidence of deep venous thrombosis identified in the left lower extremity. 2. Suspect age indeterminant superficial venous thrombus within the proximal greater saphenous vein. 3. Complex nonvascular foci in the popliteal fossa likely represent complex popliteal cysts. Clinical correlation will be required. 4. Prominent lymph nodes in left groin are likely reactive. Electronically signed by: Duke Johnson M.D. 11/22/2017 6:50 PM Dictated Date/Time: 11/22/2017 6:47 PM Problem Qualifiers
--- NOTE | 2017-11-22 18:51 | DIAGNOSTIC IMAGING REPORT ---
ULTRASOUND LEFT LOWER EXTREMITY VENOUS CLINICAL HISTORY: Left leg erythema and swelling. COMPARISON STUDY: No priors. TECHNIQUE: Real-time, grayscale, and color Doppler sonography of the deep veins of the left lower extremity was performed from the inguinal crease to the calf. Compression and augmentation were utilized. FINDINGS: There is no sonographic evidence of deep venous thrombosis identified in the left lower extremity. The common femoral, superficial femoral, and popliteal veins are patent and normally compressible. The greater saphenous vein and the profunda femoris vein at the junction with the common femoral vein are clear. There is no flow identified within the proximal greater saphenous vein, likely resenting superficial venous thrombus. The visualized calf veins are patent. Prominent lymph nodes in the left groin are likely reactive. There are indeterminant complex foci identified in the popliteal fossa which measure up to 3.7 cm. The surrounding vascular and may represent complex popliteal cyst. IMPRESSION: 1. There is no sonographic evidence of deep venous thrombosis identified in the left lower extremity. 2. Suspect age indeterminant superficial venous thrombus within the proximal greater saphenous vein. 3. Complex nonvascular foci in the popliteal fossa likely represent complex popliteal cysts. Clinical correlation will be required. 4. Prominent lymph nodes in left groin are likely reactive. Electronically signed by: Duke Johnson M.D. 11/22/2017 6:50 PM Dictated Date/Time: 11/22/2017 6:47 PM
[2017-11-22] MEDS ORDERED: VANCOMYCIN 1GM/270ML NSS IV STA (19:09)
[2017-11-22] MEDS ORDERED: VANCOMYCIN INJ 1,500 MG in SODIUM CHLORIDE 0.9% 500ML 500 ML IV ONE (19:30)
[2017-11-22 20:40] LABS: ISTAT CREATININE 1.2 mg/dl (0.6-1.3); ISTAT IONIZED CALCIUM 1.11 mmol/l (1.12-1.32); ISTAT POTASSIUM 4.3 mEq/L (3.3-5.0)
[2017-11-22 21:08] VITALS: BP 122/80; PULSE 76; O2SAT 98
== END 2017-11-22 21:09 | disposition home or self-care (01) ==
LOC: C.EDB 15:32 → C.EDC 21:09
DX: L03.116 Cellulitis of left lower limb (principal); D64.9 Anemia, unspecified; E87.1 Hypo-osmolality and hyponatremia; D72.829 Elevated white blood cell count, unspecified; M25.462 Effusion, left knee; Z96.652 Presence of left artificial knee joint; E87.6 Hypokalemia; E03.9 Hypothyroidism, unspecified; Z79.82 Long term (current) use of aspirin

== ENCOUNTER → 2017-11-30 | Outpatient (CLI) | payer OTHER ==
[~2017-11-30] MED LIST changes: +ACET-1311 PO; +ASCO250T5 PO; +ASPI81TA28 PO; +DOXY100C76 PO; +FERR325T5 PO; -HYDR-5688 PO; +KFL/250 PO; -MCRK20 PO; +MELA1TAB5 PO; +OLAN-111 PO; +ONDA4TAB46 PO; +OXYC1CAP5 PO; +PRENTAB26 PO; +SENN-61 PO; +SULF800T23 PO; +[UNRECOGNIZED DRUG - CODE] PO
[2017-11-30 13:01] LABS: BLOOD UREA NITROGEN 15 mg/dl (7-18); CALCIUM 9.4 mg/dl (8.5-10.1); CARBON DIOXIDE 23 mmol/L (21-32); CREATININE 1.57 mg/dl (0.60-1.20); GLUCOSE 95 mg/dl (70-99); POTASSIUM 4.5 mmol/L (3.5-5.1); SODIUM 129 mmol/L (136-145)
== END | disposition home or self-care (01) ==
LOC: C.LABPBG 09:53
PROVIDERS: ATTEND Family Medicine
DX: E87.1 Hypo-osmolality and hyponatremia (principal); E03.9 Hypothyroidism, unspecified

== ENCOUNTER → 2018-02-15 | Outpatient (CLI) | payer OTHER ==
[2018-02-15 17:37] LABS: BLOOD UREA NITROGEN 11 mg/dl (7-18); CALCIUM 9.3 mg/dl (8.5-10.1); CARBON DIOXIDE 26 mmol/L (21-32); CREATININE 1.15 mg/dl (0.60-1.20); GLUCOSE 99 mg/dl (70-99); SODIUM 138 mmol/L (136-145)
== END | disposition home or self-care (01) ==
LOC: C.LABPBG 14:58
PROVIDERS: ATTEND Family Medicine
DX: E87.6 Hypokalemia (principal)

== ENCOUNTER 2018-10-24 11:45 | Inpatient (IN) ==
--- NOTE | 2018-10-24 12:46 | XRay Report ---
XR chest 1V portable CLINICAL HISTORY: sob COMPARISON STUDY: 07/25/2017 FINDINGS: There is radiographic evidence of underlying pulmonary emphysema. The heart is borderline e nlarged. There is mild elevation interstitium suggesting mild superimposed pulmonary vascular congest ion. There is airspace opacities left lateral lung base, atelectatic versus inflammatory[ IMPRESSION: 1. Emphysema and mild portal vascular congestion 2. Airspace opacity at left lateral lung base, atelectasis versus infectious/inflammatory. Electronically signed by: Noe Chan M.D. 10/24/2018 12:45 PM
[2018-10-24 12:47] LABS: Basophils # (auto) 0.09 K/uL (0-0.2); Basophils % (auto) 0.7 %; Eosinophils # (auto) 0.48 K/uL (0-0.5); Eosinophils % (auto) 3.7 %; Hematocrit (blood only) 38.9 % (37-47); Hemoglobin 13.4 g/dL (12.0-16.0); Immature Granulocytes # (auto) 0.03 K/uL (0.00-0.02); Immature Granulocytes % (auto) 0.2 %; Lymphocytes # (auto) 1.41 K/uL (1.2-3.4); Lymphocytes % (auto) 10.9 %; Mean Corpuscular Hgb Conc 34.4 g/dL (32-36); Mean Corpuscular Volume 87.8 fL (80-100); Mean Platelet Volume 10.3 fL (7.4-10.4); Monocytes # (auto) 0.94 K/uL (0.11-0.59); Monocytes % (auto) 7.3 %; Neutrophils # (auto) 9.94 K/uL (1.4-6.5); Neutrophils % (auto) 77.2 %; Platelet Count 249 K/uL (130-400); RDW Coefficient of Variation 13.3 % (11.5-14.5); RDW Standard Deviation 42.7 fL (36.4-46.3); Red Blood Count 4.43 M/uL (4.2-5.4); White Blood Count 12.89 K/uL (4.8-10.8)
[2018-10-24 13:03] LABS: Albumin Level 3.6 gm/dl (3.4-5.0); Calcium 8.7 mg/dl (8.5-10.1); Creatinine Clr Calc Pharmacy 73.7 ml/min; Est GFR (African American) 92.3; Est GFR (Non-African American) 79.7; Potassium 3.7 mmol/L (3.5-5.1)
[2018-10-24 13:06] LABS: Albumin Globulin Ratio 1.1 (0.9-2); Bilirubin,Total 0.7 mg/dl (0.1-1); Globulin 3.3 gm/dl (2.5-4.0); Total Protein 6.9 gm/dl (6.4-8.2)
[2018-10-24 13:07] LABS: INR 1.1 (0.9-1.1); Partial Thromboplastin Ratio 1.1; Partial Thromboplastin Time 29.7 Seconds (21.0-31.0); Prothrombin Time 10.7 Seconds (9.0-12.0)
[2018-10-24] MEDS ORDERED: ALBUT/IPRATROP 3MG/0.5MG NEB 3 ML VIAL NEB STA (13:13)
[2018-10-24] MEDS ORDERED: methylPREDNISolone 125 MG/2 ML VIAL IV STA (13:35)
[2018-10-24] MEDS ORDERED: MAGNESIUM SULFATE / D5W 1 GM/100 ML BAG IV ONE (13:35)
[2018-10-24] MEDS ORDERED: ALBUT/IPRATROP 3MG/0.5MG NEB 3 ML VIAL NEB ONE (13:35)
[2018-10-24 13:57] LABS: Magnesium 1.9 mg/dl (1.8-2.4); NT Pro B Type Natriuretic Pept 2681 pg/ml (0-900); Troponin I < 0.015 ng/ml (0-0.045)
[2018-10-24] MEDS ORDERED: LEVOFLOXACIN/D5W 750 MG/150 ML BAG IV STA (15:36)
[2018-10-24] MEDS ORDERED: ACETAMINOPHEN 325 MG TAB PO STA (16:01)
[2018-10-24] MEDS ORDERED: FUROSEMIDE 40 MG/4 ML VIAL IV STA (16:01)
[2018-10-24] MEDS ORDERED: POTASSIUM CHLORIDE 20 MEQ TABCR PO STA (16:01)
--- NOTE | 2018-10-24 16:26 | History & Physical Report ---
Date of Service October 24, 2018 Assessment & Plan (1) COPD (chronic obstructive pulmonary disease): Patient is acute on chronic respiratory failure on presentation there is no associated hypoxia at this point in time she is markedly short of breath and dyspneic she has audible expiratory wheezes that were heard She may or may not have a mild left lower lobe infiltrate she will be treated for pneumonia though Patient be given intravenous steroids frequent bronchodilators levofloxacin 750 mg daily and Mucinex (2) Hypertension: Patient typically is treated for hypertension with metoprolol this will be maintained at 25 once a day (3) KYLE (acute kidney injury): (4) Hyponatremia: Patient has chronic hyponatremia usually worsened when she is ill her sodium is 126 today. We will give her some saline overnight and follow this if it is a persistent problem we will fluid restrict her and check her for SIADH (5) DVT prophylaxis: Lovenox will be used for DVT prevention (6) Tobacco abuse counseling: Patient states she smokes about a pack a day. She is interested in stopping we will provide tobacco cessation counseling and a nicotine patch while she is here History of Present Illness Primary Care Provider: Olivia Gomez Patient had a one-month history of increasing shortness of breath nonproductive cough she feels her mucus is thick and she can get it out. Despite this fact she has been smoking at home. She has not had any fevers or chills diarrhea or dysuria she presented today because of inability to catch her breath and wheezing In the ER she has had frequent nebulizers magnesium and Solu-Medrol she is still on have had great improvement. The patient may have some mild pulmonary vascular congestion on her chest x-ray however clinically she appears dehydrated initially were going to use some Lasix therapy but will hold this at this time we will however also get a echocardiogram to evaluate her systolic function and also for pulmonary hypertension Allergies Allergy/AdvReac Type Severity Reaction Status Date / Time No Known Allergies Allergy Unverified 10/24/18 13:57 Home Medications Home Medications Medication Instructions Recorded Confirmed Type PNV cmb#95-ferrous fumarate-FA 1 tab PO DAILY 10/24/18 10/24/18 History [] ascorbic acid (vitamin C) [Vitamin 250 mg PO DAILY 10/24/18 10/24/18 History C] cholecalciferol (vitamin D3) 2,000 unit PO DAILY 10/24/18 10/24/18 History [Vitamin D3] ferrous sulfate 324 mg PO DAILY 10/24/18 10/24/18 History fluoxetine 40 mg PO DAILY 10/24/18 10/24/18 History levothyroxine 75 mcg PO DAILY 10/24/18 10/24/18 History lorazepam 0.5 mg PO DAILYBL 10/24/18 10/24/18 History lorazepam 1 mg PO AMPM 10/24/18 10/24/18 History metoprolol succinate 25 mg PO DAILY 10/24/18 10/24/18 History phentermine 37.5 mg PO DAILY 10/24/18 10/24/18 History Past Med/Surg History Medical History Hypertension (Chronic) COPD (chronic obstructive pulmonary disease) (Chronic) Family History Unknown Hypertension Other No significant family history Social History Feels Safe at Home: Yes Smoking Status: Current every day smoker Review of Systems ROS: well nourished well developed. Patient is obviously having difficulty breathing No double vision blurry vision No problems with speech or swallowing No palpitations, chest pain or pressure Having wheezing dyspnea cannot speak in full sentences No abdominal pain nausea vomiting diarrhea changes in appetite or weight No burning urine urine frequency or changes in color No focal joint pain or muscle pain No skin rashes or oral lesions No unusual bruising or bleeding No focused back pain or numbness or loss of strength No changes in memory or confusion Physical Exam 2 Vital Signs (Past 24 Hours): Last Vital Signs Temp 36.5 C 10/24/18 11:57 Pulse 99 H 10/24/18 15:50 Resp 23 10/24/18 15:50 BP 185/97 H 10/24/18 15:14 Pulse Ox 99 10/24/18 15:20 The patient appeared in mild to moderate distress but well nourished and normally developed. Vital signs as documented. She is tachypneic Head exam is unremarkable. No scleral icterus or corneal arcus noted Neck is with jugular venous distension, thyromegaly, or lymphademopathy Lungs are poor air movement throughout audible wheezing in all lung ferreira no focal air loss no egophony Cardiac exam reveals Rhythm is tachycardic and regular. First and second heart sounds normal. Abdominal exam reveals normal bowel sounds, no masses, no organomegaly Extremities are nonedematous and both pedal pulses are normal. Neurologic exam is A&Ox3, no focal deficits, strength is equal bilateral Skin is warm Dry without bruises or lesions Results & Data Diagnostic Findings Chest x-rayIMPRESSION: 1. Emphysema and mild portal vascular congestion 2. Airspace opacity at left lateral lung base, atelectasis versus infectious/ inflammatory. ECG Rhythm: sinus rhythm
[2018-10-24] MEDS ORDERED: fentaNYL citrate 100 MCG/2 ML VIAL IV STA (16:28)
[2018-10-24] MEDS ORDERED: ONDANSETRON INJ 2 MG/ML 2 ML VIAL IV PRN (18:25)
[2018-10-24] MEDS ORDERED: SODIUM CHLORIDE 0.9% 1000ML 1,000 ML IV SCH (19:30)
[2018-10-24] MEDS: ALBUT/IPRATROP 3MG/0.5MG NEB 3 ML VIAL NEB SCH ×2 (19:39→23:12)
[2018-10-24] MEDS: ACETAMINOPHEN 325 MG TAB PO PRN (19:56)
[2018-10-24] MEDS: FORMOTEROL 20 MCG/2 ML VIAL NEB SCH (20:49)
[2018-10-24] MEDS ORDERED: LORazepam 1 MG TAB PO SCH (21:00)
[2018-10-24] MEDS ORDERED: KETOROLAC TROMETHAMINE 15 MG/ML VIAL IV ONE (21:47)
[2018-10-24] MEDS: LORazepam 2 MG TAB PO SCH (21:58)
[2018-10-24] MEDS: ENOXAPARIN INJ 40 MG/0.4 ML SYR SQ SCH (21:59)
[2018-10-24] MEDS: guaiFENesin 600 MG TABCR PO SCH (22:00)
[2018-10-24] MEDS: methylPREDNISolone 40 MG in SYRINGE 0 ML IV SCH (22:07)
[2018-10-25] MEDS: ALBUT/IPRATROP 3MG/0.5MG NEB 3 ML VIAL NEB SCH ×5 (03:31→19:08)
[2018-10-25] MEDS: LEVOTHYROXINE SODIUM 75 MCG TABLET PO SCH (06:04)
[2018-10-25] MEDS: methylPREDNISolone 40 MG in SYRINGE 0 ML IV SCH ×3 (06:04→20:25)
[2018-10-25 06:31] LABS: Hematocrit (blood only) 37.4 % (37-47); Hemoglobin 12.8 g/dL (12.0-16.0); Mean Corpuscular Hgb Conc 34.2 g/dL (32-36); Mean Corpuscular Volume 87.2 fL (80-100); Mean Platelet Volume 10.3 fL (7.4-10.4); Platelet Count 231 K/uL (130-400); RDW Coefficient of Variation 13.5 % (11.5-14.5); RDW Standard Deviation 42.6 fL (36.4-46.3); Red Blood Count 4.29 M/uL (4.2-5.4); White Blood Count 9.23 K/uL (4.8-10.8)
[2018-10-25] MEDS: ACETAMINOPHEN 325 MG TAB PO PRN (06:43)
[2018-10-25 07:01] LABS: BUN Creatinine Ratio 12.5 (10-20); Calcium 8.5 mg/dl (8.5-10.1); Creatinine Clr Calc Pharmacy 68.5 ml/min; Est GFR (African American) 84.5; Est GFR (Non-African American) 72.9; Potassium 3.4 mmol/L (3.5-5.1)
[2018-10-25] MEDS ORDERED: METOPROLOL SUCC 25MG EXT REL TAB PO SCH (09:00)
[2018-10-25] MEDS: guaiFENesin 600 MG TABCR PO SCH ×2 (09:10→20:25)
[2018-10-25] MEDS: FLUOXETINE HCL 20 MG CAP PO SCH (09:11)
[2018-10-25] MEDS: LORazepam 2 MG TAB PO SCH ×2 (09:11→20:25)
[2018-10-25] MEDS: NICOTINE 14 MG/24 HR PATCH TD SCH (09:16)
[2018-10-25] MEDS: LEVOFLOXACIN/D5W 750 MG/150 ML BAG IV SCH (09:17)
[2018-10-25] MEDS: METOPROLOL SUCC 50MG EXT REL TAB PO SCH (09:49)
[2018-10-25] MEDS ORDERED: LORazepam 1 MG TAB PO SCH (10:30)
[2018-10-25] MEDS ORDERED: MoRPHine SULFATE 4 MG/ML 1 ML CARP\\VIAL IV PRN (10:58)
[2018-10-25] MEDS ORDERED: MoRPHine SULFATE 2 MG/ML CARP IV PRN (10:59)
--- NOTE | 2018-10-25 11:53 | Hospitalist Progress Note ---
Date of Service October 25, 2018 Assessment & Plan (1) COPD (chronic obstructive pulmonary disease): Patient is acute on chronic respiratory failure on presentation there is no associated hypoxia at this point in time she is markedly short of breath and dyspneic she has audible expiratory wheezes that were heard left lower lobe infiltrate treated with levaquin will transition to po 10/25 Patient be given intravenous steroids frequent bronchodilators and Mucinex (2) Hypertension: metoprolol will be increased due to elevated blood pressure and pulse( this maybe due to headache) (3) KYLE (acute kidney injury): (4) Hyponatremia: Patient has chronic hyponatremia her sodium is 126 again 10/25, will check random urine sodium and fluid restrict to 1800 ml a day (5) DVT prophylaxis: Lovenox will be used for DVT prevention (6) Tobacco abuse counseling: Patient states she smokes about a pack a day. She remains interested in stopping we did provide tobacco cessation counseling and a nicotine patch (7) Headache: could be tension or cafiene withdrawal, will treat with prn parenteral opiates Subjective Patient's breathing is improved today although not back to its baseline she is a substantial bifrontal headache. She states she is drinking less caffeine during her hospital stay than she typically drinks at home. She mostly drinks soda or cola type beverages Her cough is nonproductive she has no visual changes diplopia or focal neurological changes with the headache Review of Systems ROS: well nourished well developed. Appears to have moderate pain No double vision blurry vision No problems with speech or swallowing No palpitations, chest pain or pressure Persistent dyspnea and wheezing No abdominal pain nausea vomiting diarrhea changes in appetite or weight No burning urine urine frequency or changes in color No focal joint pain or muscle pain No skin rashes or oral lesions No unusual bruising or bleeding No focused back pain or numbness or loss of strength No changes in memory or confusion Physical Exam 2 Vital Signs (Past 24 Hours): Last Vital Signs Temp 36.4 C L 10/25/18 11:26 Pulse 91 H 10/25/18 11:26 Resp 16 10/25/18 11:26 BP 151/93 H 10/25/18 11:26 Pulse Ox 96 10/25/18 11:26 The patient appeared well nourished and normally developed. She appears to be in mild discomfort from headache Vital signs as documented. Head exam is unremarkable. No scleral icterus or corneal arcus noted Neck is without jugular venous distension, thyromegaly, or lymphademopathy Lungs prolonged expiratory phase with scant wheezing in all lung ferreira but improved from admission Cardiac exam reveals Rhythm is regular. First and second heart sounds normal. Systolic ejection murmur is heard Abdominal exam reveals normal bowel sounds, no masses, no organomegaly Extremities are nonedematous and both pedal pulses are normal. Neurologic exam is A&Ox3, no focal deficits, strength is equal bilateral Skin is warm Dry without bruises or lesions
[2018-10-25] MEDS: FORMOTEROL 20 MCG/2 ML VIAL NEB SCH ×2 (11:57→19:08)
[2018-10-25] MEDS: ENOXAPARIN INJ 40 MG/0.4 ML SYR SQ SCH (20:25)
[2018-10-26] MEDS: ALBUT/IPRATROP 3MG/0.5MG NEB 3 ML VIAL NEB SCH ×6 (00:26→19:31)
[2018-10-26] MEDS: LEVOTHYROXINE SODIUM 75 MCG TABLET PO SCH (05:51)
[2018-10-26] MEDS: methylPREDNISolone 40 MG in SYRINGE 0 ML IV SCH ×2 (05:52→14:26)
[2018-10-26] MEDS: FORMOTEROL 20 MCG/2 ML VIAL NEB SCH ×2 (07:13→19:31)
[2018-10-26 07:36] LABS: Hematocrit (blood only) 41.1 % (37-47); Hemoglobin 14.2 g/dL (12.0-16.0); Mean Corpuscular Hgb Conc 34.5 g/dL (32-36); Mean Corpuscular Volume 87.6 fL (80-100); Mean Platelet Volume 10.5 fL (7.4-10.4); Platelet Count 259 K/uL (130-400); RDW Coefficient of Variation 13.8 % (11.5-14.5); RDW Standard Deviation 43.2 fL (36.4-46.3); Red Blood Count 4.69 M/uL (4.2-5.4); White Blood Count 21.12 K/uL (4.8-10.8)
[2018-10-26 07:59] LABS: BUN Creatinine Ratio 19.5 (10-20); Calcium 8.9 mg/dl (8.5-10.1); Creatinine Clr Calc Pharmacy 68.9 ml/min; Potassium 3.8 mmol/L (3.5-5.1)
[2018-10-26] MEDS: METOPROLOL SUCC 50MG EXT REL TAB PO SCH (08:22)
[2018-10-26] MEDS: guaiFENesin 600 MG TABCR PO SCH (08:22)
[2018-10-26] MEDS: FLUOXETINE HCL 20 MG CAP PO SCH (08:22)
[2018-10-26] MEDS: LEVOFLOXACIN/D5W 750 MG/150 ML BAG IV SCH (08:22)
[2018-10-26] MEDS: LORazepam 2 MG TAB PO SCH (08:25)
[2018-10-26] MEDS: NICOTINE 14 MG/24 HR PATCH TD SCH (09:54)
[2018-10-26 13:06] VITALS: O2SAT 96
--- NOTE | 2018-10-26 13:21 | Discharge Summary ---
Date of Service October 26, 2018 Admission HPI Per Admitting Provider Patient had a one-month history of increasing shortness of breath nonproductive cough she feels her mucus is thick and she can get it out. Despite this fact she has been smoking at home. She has not had any fevers or chills diarrhea or dysuria she presented today because of inability to catch her breath and wheezing In the ER she has had frequent nebulizers magnesium and Solu-Medrol she is still on have had great improvement. The patient may have some mild pulmonary vascular congestion on her chest x-ray however clinically she appears dehydrated initially were going to use some Lasix therapy but will hold this at this time we will however also get a echocardiogram to evaluate her systolic function and also for pulmonary hypertension Principal Diagnosis copd exacerbation, pneumonia, tobacco abuse Discharge Exam The patient appeared well nourished and normally developed. Vital signs as documented. she is dyspneic but not hypoxic Head exam is unremarkable. No scleral icterus or corneal arcus noted Neck is without jugular venous distension, thyromegaly, or lymphademopathy Lungs are clear to auscultation but has some prolongued expiratory phase. Cardiac exam reveals Rhythm is regular. First and second heart sounds normal. No murmurs, rubs or gallops. Abdominal exam reveals normal bowel sounds, no masses, no organomegaly Extremities are nonedematous and both pedal pulses are normal. Neurologic exam is A&Ox3, no focal deficits, strength is equal bilateral Skin is warm Dry without bruises or lesions Discharge Data Allergies Allergy/AdvReac Type Severity Reaction Status Date / Time No Known Allergies Allergy Unverified 10/24/18 13:57 Consultations 10/24/18 15:45 ED Decision to Admit Stat 10/24/18 18:25 Consult Case Management - Discharge Planning Routine Hospital Course (1) COPD (chronic obstructive pulmonary disease): Patient is acute on chronic respiratory failure on presentation there is no associated hypoxia left lower lobe pneumonia treated with levaquin will transition to po 10/25 and Mucinex (2) Hypertension: metoprolol will be increased due to elevated blood pressure and pulse( this maybe due to headache) (3) KYLE (acute kidney injury): (4) Hyponatremia: Patient has chronic hyponatremia (5) Tobacco abuse counseling: Patient states she smokes about a pack a day. She remains interested in stopping we did provide tobacco cessation counseling (6) Headache: could be tension or cafiene withdrawal, improved Total Time Total Time Spent Total Time Spent (In Minutes): greater than 30 minutes were required to prepare discharge Discharge Plan Discharge Items Patient Disposition: Home - Home Health Services Reason For Visit: ACUTE ON CHRONIC RESPIRATORY FAILURE Discharge Diagnosis: copd flare up and bronchitis Discharge Goals: Decrease discomfort Activity: Resume your previous activity Non-emergency contact: Primary Care Provider Call non-emergency contact if: you have any medication questions Diet: Regular Addtl Provider Instructions: please work hard to stop smoking Prescriptions: New ipratropium-albuterol 0.5 mg-3 mg(2.5 mg base)/3 mL Solution For Nebulization 3 ml NEB .qidr Qty: 180 RF: 2 guaifenesin [Mucinex] 600 mg Tablet Extended Release 12hr 1,200 mg PO Q12 Qty: 60 RF: 0 prednisone 10 mg tablet 10 mg PO UD Qty: 42 RF: 0 levofloxacin [Levaquin] 750 mg tablet 750 mg PO DAILY 5 Days Qty: 5 RF: 0 Continue fluoxetine 40 mg capsule 40 mg PO DAILY RF: 0 levothyroxine 75 mcg tablet 75 mcg PO DAILY RF: 0 ascorbic acid (vitamin C) [Vitamin C] 250 mg Tablet 250 mg PO DAILY RF: 0 metoprolol succinate 25 mg tablet extended release 24 hr 25 mg PO DAILY RF: 0 lorazepam 1 mg tablet 1 mg PO AMPM RF: 0 lorazepam 1 mg tablet 0.5 mg PO DAILYBL RF: 0 ferrous sulfate 324 mg (65 mg iron) Tablet,Delayed Release (Dr/Ec) 324 mg PO DAILY RF: 0 cholecalciferol (vitamin D3) [Vitamin D3] 2,000 unit Capsule 2,000 unit PO DAILY RF: 0 PNV cmb#95-ferrous fumarate-FA [] 28 mg iron- 800 mcg Tablet 1 tab PO DAILY RF: 0 Discontinued phentermine 37.5 mg tablet 37.5 mg PO DAILY RF: 0 Stand-Alone Forms: [facility] Discharge Orders: Discharge Order (Routine); Ordered 10/26/18 Ordered By: Alfred Zepeda Admission Data Admit Date/Time: 10/24/18 15:55 Attending Provider: Alfred Zepeda Admit Provider: Alfred Zepeda Primary Care Provider: Olivia Gomez Other Providers: Alfred Zepeda Service: Telemetry
[2018-10-26 14:58] VITALS: BP 143/72; TEMP 97.9
[2018-10-26] MEDS: ACETAMINOPHEN 325 MG TAB PO PRN (15:21)
[2018-10-26 18:05] VITALS: PULSE 75
--- NOTE | 2018-10-27 13:45 | Emergency Department Note ---
Entered by Jennifer Crawford acting as a scribe for Amy Urbina DO History of Present Illness General Chief complaint: Respiratory Problems Stated complaint: CONGESTION, WHEEZING, SOB Time Seen by Provider: 10/24/18 13:03 Source: patient History of Present Illness Onset (ago): month(s) 1 Location: chest (dyspnea) Pain Consistency: + intermittent Maximum Pain Intensity: 8 Relieved By: + none Associated symptoms: + denies other symptoms and + other (leg swelling); no fever/chills The patient is a 63 year old F who presents to the Emergency Room with complaints of intermittent dyspnea occurring one month ago. She states that she did not come into the ED earlier because she thought she would get better. She states that she is not on oxygen at home. She doesn't have any home MDI/nebs. She is still smoking. She notes that she has never had this problem before and she does not have a history of asthma. She states that she has a history of COPD and hypertension. She denies having fevers, leg swelling, or any other problems. No known sick contacts, no recent travel. Home Medications Home Medications Medication Instructions Recorded Confirmed Type PNV cmb#95-ferrous fumarate-FA 1 tab PO DAILY 10/24/18 10/24/18 History [] ascorbic acid (vitamin C) [Vitamin 250 mg PO DAILY 10/24/18 10/24/18 History C] cholecalciferol (vitamin D3) 2,000 unit PO DAILY 10/24/18 10/24/18 History [Vitamin D3] ferrous sulfate 324 mg PO DAILY 10/24/18 10/24/18 History fluoxetine 40 mg PO DAILY 10/24/18 10/24/18 History levothyroxine 75 mcg PO DAILY 10/24/18 10/24/18 History lorazepam 0.5 mg PO DAILYBL 10/24/18 10/24/18 History lorazepam 1 mg PO AMPM 10/24/18 10/24/18 History metoprolol succinate 25 mg PO DAILY 10/24/18 10/24/18 History guaifenesin [Mucinex] 1,200 mg PO Q12 #60 tab 10/26/18 Rx ipratropium-albuterol 3 ml NEB .qidr #180 ml 10/26/18 Rx levofloxacin [Levaquin] 750 mg PO DAILY 5 Days #5 tab 10/26/18 Rx prednisone 10 mg PO UD #42 tab 10/26/18 Rx Allergies Allergy/AdvReac Type Severity Reaction Status Date / Time No Known Allergies Allergy Unverified 10/24/18 13:57 Past Med/Surg History Medical History Hypertension (Chronic) COPD (chronic obstructive pulmonary disease) (Chronic) Family History Unknown Hypertension Other No significant family history Social History marital status: Current Living Situation: Alone Other Information That Helps Us Care for You: No Feels Safe at Home: Yes Safety Concerns: Feels Safe At This Time Smoking Status: Current every day smoker Tobacco Type: cigarettes Cigarettes per Day: 1/2 ppd Do You Dip or Chew Tobacco: No Hx Alcohol Use: Yes Alcohol type: other Alcohol Intake Frequency: holidays/ special occasions only Hx Substance Use: No Beliefs That Will Affect Care: None Preferred Language: [place] Review of Systems See HPI for pertinent positives & negatives. and A total of 10 systems reviewed and were otherwise negative Physical Exam Vital Signs Vital Signs - 24 hr 10/26/18 14:57 10/26/18 15:00 10/26/18 15:38 Temperature 36.6 C Temperature Source Oral Pulse Rate 90 Pulse Rate [Apical] Pulse Rate [Brachial] 86 86 Respiratory Rate 18 18 Respiratory Effort / Characteristics Respiratory Depth Respiratory Pattern Blood Pressure [Left Arm] Blood Pressure [Right Arm] 143/72 H Blood Pressure Mean [Right Arm] 95 Blood Pressure Position [Right Arm] Lying Pulse Oximetry 96 96 Oxygen Delivery Method Room Air Room Air 10/26/18 15:56 10/26/18 18:04 Temperature 36.6 C Temperature Source Pulse Rate Pulse Rate [Apical] 75 Pulse Rate [Brachial] 86 Respiratory Rate 18 Respiratory Effort / Characteristics Non-Labored Respiratory Depth Normal Respiratory Pattern Regular Blood Pressure [Left Arm] 138/86 Blood Pressure [Right Arm] 143/72 H Blood Pressure Mean [Right Arm] Blood Pressure Position [Right Arm] Pulse Oximetry 96 Oxygen Delivery Method Room Air GENERAL: alert, well appearing, well nourished, no distress, non-toxic, appears older than stated age EYE EXAM: normal conjunctiva, PERRL and EOM's grossly intact OROPHARYNX: no exudate, no erythema, lips, buccal mucosa, and tongue normal and mucous membranes are dry NECK: supple, no nuchal rigidity, no adenopathy, non-tender LUNGS: Diffuse bilateral expiratory wheezing, no rhonchi, no rales. Normal chest wall mechanics, barrel chested, increased WOB HEART: no murmurs, S1 normal and S2 normal ABDOMEN: abdomen soft, non-tender, normo-active bowel sounds, no masses, no rebound or guarding. BACK: Back is symmetrical on inspection and there is no deformity, no midline tenderness, no CVA tenderness. SKIN: no rashes and no bruising UPPER EXTREMITIES: upper extremities are grossly normal. FROM, nml pulses b/l. LOWER EXTREMITIES: No pitting edema. FROM, nml pulses b/l. NEURO EXAM: Normal sensorium, cranial nerves II-XII grossly intact, normal speech, no gross weakness of arms, no gross weakness of legs. No drift. Finger to nose intact. Gross sensation intact. Course 1321: Past medical records reviewed. The patient was evaluated in room A3, and a complete history and physical examination were performed. 1525: I re-rechecked the patient. She reports that there are no improvement in her symptoms. She notes significant bilateral wheezing. 1545: I reviewed the patient's case with Dr. Zepeda, [facility] Hospitalist. He will evaluate the patient for further management. Consultations Consultation #1: I reviewed the patient's case with Dr. Zepeda, [facility] Hospitalist. He will evaluate the patient for further management. Time: 15:45 Administered Medications Discontinued Medications Acetaminophen (Tylenol) 650 mg PO NOW STA Stop: 10/24/18 16:02 Last Admin: 10/24/18 16:56 Dose: 650 mg Acetaminophen (Tylenol) 650 mg PO Q4H PRN PRN Reason: Pain or Fever Stop: 11/23/18 18:24 Last Admin: 10/26/18 15:21 Dose: 650 mg Admin: 10/25/18 06:43 Dose: 650 mg Admin: 10/24/18 19:56 Dose: 650 mg Albuterol (Duoneb) 3 ml NEB NOW STA Stop: 10/24/18 13:14 Last Admin: 10/24/18 13:17 Dose: 3 ml Albuterol (Duoneb) 12 ml NEB ONE ONE Stop: 10/24/18 13:36 Last Admin: 10/24/18 14:13 Dose: 12 ml Albuterol (Duoneb) 3 ml NEB Q4R ALAN Stop: 11/23/18 19:59 Last Admin: 10/26/18 19:31 Dose: Not Given Admin: 10/26/18 15:38 Dose: 3 ml Admin: 10/26/18 10:55 Dose: 3 ml Admin: 10/26/18 07:13 Dose: Not Given Admin: 10/26/18 03:31 Dose: Not Given Admin: 10/26/18 00:26 Dose: Not Given Admin: 10/25/18 19:08 Dose: 3 ml Admin: 10/25/18 14:59 Dose: 3 ml Admin: 10/25/18 11:57 Dose: Not Given Admin: 10/25/18 11:07 Dose: 3 ml Admin: 10/25/18 03:31 Dose: 3 ml Admin: 10/24/18 23:12 Dose: 3 ml Admin: 10/24/18 19:39 Dose: 3 ml Enoxaparin Sodium (Lovenox) 40 mg SQ Q24H ALAN Stop: 11/23/18 21:59 Last Admin: 10/25/18 20:25 Dose: 40 mg Admin: 10/24/18 21:59 Dose: 40 mg Fentanyl Citrate (Fentanyl Citrate) 50 mcg IV NOW STA Stop: 10/24/18 16:29 Last Admin: 10/24/18 16:57 Dose: 50 mcg Fluoxetine HCl (Prozac) 40 mg PO DAILY ALAN Stop: 11/24/18 08:59 Last Admin: 10/26/18 08:22 Dose: 40 mg Admin: 10/25/18 09:11 Dose: 40 mg Formoterol Fumarate (Perforomist) 20 mcg NEB BID ALAN Stop: 11/23/18 20:59 Last Admin: 10/26/18 19:31 Dose: Not Given Admin: 10/26/18 07:13 Dose: 20 mcg Admin: 10/25/18 19:08 Dose: 20 mcg Admin: 10/25/18 11:57 Dose: 20 mcg Admin: 10/24/18 20:49 Dose: 20 mcg Furosemide (Lasix) 40 mg IV NOW STA Stop: 10/24/18 16:02 Last Admin: 10/24/18 16:57 Dose: 40 mg Guaifenesin (Mucinex) 1,200 mg PO Q12 ALAN Stop: 11/23/18 20:59 Last Admin: 10/26/18 08:22 Dose: 1,200 mg Admin: 10/25/18 20:25 Dose: 1,200 mg Admin: 10/25/18 09:10 Dose: 1,200 mg Admin: 10/24/18 22:00 Dose: 1,200 mg Magnesium Sulfate/Dextrose (Magnesium Sulfate / D5w) 1 gm in 100 mls @ 100 mls/ hr IV ONE ONE Stop: 10/24/18 14:34 Last Infusion: 10/24/18 15:04 Dose: 0 mls/hr Admin: 10/24/18 14:18 Dose: 100 mls/hr Levofloxacin/Dextrose (Levaquin/D5w) 750 mg in 150 mls @ 100 mls/hr IV ONCE STA Stop: 10/24/18 17:05 Last Infusion: 10/24/18 17:50 Dose: 0 mls/hr Admin: 10/24/18 15:48 Dose: 100 mls/hr Sodium Chloride (Nss 1000ml) 1,000 mls @ 100 mls/hr IV .Q10H ALAN Stop: 10/25/18 05:29 Last Infusion: 10/25/18 06:05 Dose: 0 mls/hr Admin: 10/24/18 19:46 Dose: 100 mls/hr Levofloxacin/Dextrose (Levaquin/D5w) 750 mg in 150 mls @ 100 mls/hr IV Q24H ALAN ; Protocol Stop: 11/01/18 08:59 Last Infusion: 10/26/18 10:00 Dose: 0 mls/hr Admin: 10/26/18 08:22 Dose: 100 mls/hr Infusion: 10/25/18 11:24 Dose: 0 mls/hr Admin: 10/25/18 09:17 Dose: 100 mls/hr Methylprednisolone 40 mg/ (Syringe) 0.64 mls @ 1.5 mls/min IV Q8H ALAN Stop: 11/23/18 21:59 Last Admin: 10/26/18 14:26 Dose: 1.5 mls/min Admin: 10/26/18 05:52 Dose: 1.5 mls/min Admin: 10/25/18 20:25 Dose: 1.5 mls/min Admin: 10/25/18 14:08 Dose: 1.5 mls/min Admin: 10/25/18 06:04 Dose: 1.5 mls/min Admin: 10/24/18 22:07 Dose: 1.5 mls/min Ketorolac Tromethamine (Toradol) 15 mg IV ONE ONE Stop: 10/24/18 21:48 Last Admin: 10/24/18 21:58 Dose: 15 mg Levothyroxine Sodium (Synthroid) 75 mcg PO DAILYBB [facility] Stop: 11/24/18 06:29 Last Admin: 10/26/18 05:51 Dose: 75 mcg Admin: 10/25/18 06:04 Dose: 75 mcg Lorazepam (Ativan) 1 mg PO BID ALAN Stop: 11/23/18 20:59 Last Admin: 10/24/18 23:19 Dose: Not Given Lorazepam (Ativan) 2 mg PO BID [facility] Stop: 11/23/18 21:59 Last Admin: 10/26/18 08:25 Dose: 2 mg Admin: 10/25/18 20:25 Dose: 2 mg Admin: 10/25/18 09:11 Dose: 2 mg Admin: 10/24/18 21:58 Dose: 2 mg Methylprednisolone (Solumedrol) 125 mg IV NOW STA Stop: 10/24/18 13:36 Last Admin: 10/24/18 13:47 Dose: 125 mg Metoprolol Succinate (Toprol Xl) 50 mg PO DAILY [facility] Stop: 11/24/18 08:59 Last Admin: 10/26/18 08:22 Dose: 50 mg Admin: 10/25/18 09:49 Dose: 50 mg Morphine Sulfate (Morphine Sulfate) 2 mg IV Q4 PRN PRN Reason: Pain rating 1-5 Stop: 11/08/18 10:58 Last Admin: 10/25/18 11:24 Dose: 2 mg Nicotine (Nicoderm Cq) 14 mg TD QAM ALAN Stop: 11/24/18 08:59 Last Admin: 10/26/18 09:54 Dose: 14 mg Admin: 10/25/18 09:16 Dose: 14 mg Potassium Chloride (Klor-Con M20) 40 meq PO NOW STA Stop: 10/24/18 16:02 Last Admin: 10/24/18 16:57 Dose: 40 meq Medical Decision Making Differential Diagnosis Differential diagnoses includes but is not limited to pneumonia, bronchitis, COPD/Asthma exacerbation, pneumothorax, pulmonary embolism, congestive heart failure, acute coronary syndrome Medical Records Attestation: I reviewed the patient's medical records. Home Medications Current Medication List: was personally reviewed by me Laboratory Data Attestation: I reviewed the patient's lab results. Result diagrams: 10/26/18 07:05 10/26/18 07:05 Lab Results 10/24/18 10/24/18 10/24/18 Range/Units 12:36 12:36 12:36 WBC 12.89 H (4.8-10.8) K/uL RBC 4.43 (4.2-5.4) M/uL Hgb 13.4 (12.0-16.0) g/dL Hct 38.9 (37-47) % MCV 87.8 (80-100) fL MCH 30.2 (25-34) pg MCHC 34.4 (32-36) g/dL RDW Std Deviation 42.7 (36.4-46.3) fL RDW Coeff of Vahid 13.3 (11.5-14.5) % Plt Count 249 (130-400) K/uL MPV 10.3 (7.4-10.4) fL Immature Gran % (Auto) 0.2 % Neut % (Auto) 77.2 % Lymph % (Auto) 10.9 % Clinch % (Auto) 7.3 % Eos % (Auto) 3.7 % Baso % (Auto) 0.7 % Immature Gran # (Auto) 0.03 H (0.00-0.02) K/uL Neut # (Auto) 9.94 H (1.4-6.5) K/uL Lymph # (Auto) 1.41 (1.2-3.4) K/uL Clinch # (Auto) 0.94 H (0.11-0.59) K/uL Eos # (Auto) 0.48 (0-0.5) K/uL Baso # (Auto) 0.09 (0-0.2) K/uL PT 10.7 (9.0-12.0) Seconds INR 1.1 (0.9-1.1) APTT 29.7 (21.0-31.0) Seconds PTT Ratio 1.1 Sodium 126 L (136-145) mmol/L Potassium 3.7 (3.5-5.1) mmol/L Chloride 92 L (98-107) mmol/L Carbon Dioxide 24 (21-32) mmol/L Anion Gap 10.0 (3-11) BUN 9 (7-18) mg/dl Creatinine 0.79 (0.6-1.2) mg/dl Est Cr Clr Drug Dosing 73.7 ml/min Est GFR ( Amer) 92.3 Est GFR (Non-Af Amer) 79.7 BUN/Creatinine Ratio 11.0 (10-20) Glucose 92 (70-99) mg/dl Calcium 8.7 (8.5-10.1) mg/dl Magnesium (1.8-2.4) mg/dl Total Bilirubin 0.7 (0.1-1) mg/dl AST 30 (15-37) U/L ALT 34 (12-78) U/L Alkaline Phosphatase 152 H (45-117) U/L POC Troponin I (0-0.045) ng/ml Troponin I (0-0.045) ng/ml NT-Pro-B Natriuret Pep (0-900) pg/ml Total Protein 6.9 (6.4-8.2) gm/dl Albumin 3.6 (3.4-5.0) gm/dl Globulin 3.3 (2.5-4.0) gm/dl Albumin/Globulin Ratio 1.1 (0.9-2) Ur Random Sodium mmol/L 10/24/18 10/24/18 10/25/18 Range/Units 12:36 12:41 06:17 WBC 9.23 (4.8-10.8) K/uL RBC 4.29 (4.2-5.4) M/uL Hgb 12.8 (12.0-16.0) g/dL Hct 37.4 (37-47) % MCV 87.2 (80-100) fL MCH 29.8 (25-34) pg MCHC 34.2 (32-36) g/dL RDW Std Deviation 42.6 (36.4-46.3) fL RDW Coeff of Vahid 13.5 (11.5-14.5) % Plt Count 231 (130-400) K/uL MPV 10.3 (7.4-10.4) fL Immature Gran % (Auto) % Neut % (Auto) % Lymph % (Auto) % Clinch % (Auto) % Eos % (Auto) % Baso % (Auto) % Immature Gran # (Auto) (0.00-0.02) K/uL Neut # (Auto) (1.4-6.5) K/uL Lymph # (Auto) (1.2-3.4) K/uL Clinch # (Auto) (0.11-0.59) K/uL Eos # (Auto) (0-0.5) K/uL Baso # (Auto) (0-0.2) K/uL PT (9.0-12.0) Seconds INR (0.9-1.1) APTT (21.0-31.0) Seconds PTT Ratio Sodium (136-145) mmol/L Potassium (3.5-5.1) mmol/L Chloride (98-107) mmol/L Carbon Dioxide (21-32) mmol/L Anion Gap (3-11) BUN (7-18) mg/dl Creatinine (0.6-1.2) mg/dl Est Cr Clr Drug Dosing ml/min Est GFR ( Amer) Est GFR (Non-Af Amer) BUN/Creatinine Ratio (10-20) Glucose (70-99) mg/dl Calcium (8.5-10.1) mg/dl Magnesium 1.9 (1.8-2.4) mg/dl Total Bilirubin (0.1-1) mg/dl AST (15-37) U/L ALT (12-78) U/L Alkaline Phosphatase (45-117) U/L POC Troponin I < 0.03 (0-0.045) ng/ml Troponin I < 0.015 (0-0.045) ng/ml NT-Pro-B Natriuret Pep 2681 H (0-900) pg/ml Total Protein (6.4-8.2) gm/dl Albumin (3.4-5.0) gm/dl Globulin (2.5-4.0) gm/dl Albumin/Globulin Ratio (0.9-2) Ur Random Sodium mmol/L 10/25/18 10/25/18 10/26/18 Range/Units 06:17 12:30 07:05 WBC 21.12 H (4.8-10.8) K/uL RBC 4.69 (4.2-5.4) M/uL Hgb 14.2 (12.0-16.0) g/dL Hct 41.1 (37-47) % MCV 87.6 (80-100) fL MCH 30.3 (25-34) pg MCHC 34.5 (32-36) g/dL RDW Std Deviation 43.2 (36.4-46.3) fL RDW Coeff of Vahid 13.8 (11.5-14.5) % Plt Count 259 (130-400) K/uL MPV 10.5 H (7.4-10.4) fL Immature Gran % (Auto) % Neut % (Auto) % Lymph % (Auto) % Clinch % (Auto) % Eos % (Auto) % Baso % (Auto) % Immature Gran # (Auto) (0.00-0.02) K/uL Neut # (Auto) (1.4-6.5) K/uL Lymph # (Auto) (1.2-3.4) K/uL Clinch # (Auto) (0.11-0.59) K/uL Eos # (Auto) (0-0.5) K/uL Baso # (Auto) (0-0.2) K/uL PT (9.0-12.0) Seconds INR (0.9-1.1) APTT (21.0-31.0) Seconds PTT Ratio Sodium 126 L (136-145) mmol/L Potassium 3.4 L (3.5-5.1) mmol/L Chloride 92 L (98-107) mmol/L Carbon Dioxide 23 (21-32) mmol/L Anion Gap 12.0 H (3-11) BUN 11 (7-18) mg/dl Creatinine 0.85 (0.6-1.2) mg/dl Est Cr Clr Drug Dosing 68.5 ml/min Est GFR ( Amer) 84.5 Est GFR (Non-Af Amer) 72.9 BUN/Creatinine Ratio 12.5 (10-20) Glucose 162 H (70-99) mg/dl Calcium 8.5 (8.5-10.1) mg/dl Magnesium (1.8-2.4) mg/dl Total Bilirubin (0.1-1) mg/dl AST (15-37) U/L ALT (12-78) U/L Alkaline Phosphatase (45-117) U/L POC Troponin I (0-0.045) ng/ml Troponin I (0-0.045) ng/ml NT-Pro-B Natriuret Pep (0-900) pg/ml Total Protein (6.4-8.2) gm/dl Albumin (3.4-5.0) gm/dl Globulin (2.5-4.0) gm/dl Albumin/Globulin Ratio (0.9-2) Ur Random Sodium 58 mmol/L 10/26/18 Range/Units 07:05 WBC (4.8-10.8) K/uL RBC (4.2-5.4) M/uL Hgb (12.0-16.0) g/dL Hct (37-47) % MCV (80-100) fL MCH (25-34) pg MCHC (32-36) g/dL RDW Std Deviation (36.4-46.3) fL RDW Coeff of Vahid (11.5-14.5) % Plt Count (130-400) K/uL MPV (7.4-10.4) fL Immature Gran % (Auto) % Neut % (Auto) % Lymph % (Auto) % Clinch % (Auto) % Eos % (Auto) % Baso % (Auto) % Immature Gran # (Auto) (0.00-0.02) K/uL Neut # (Auto) (1.4-6.5) K/uL Lymph # (Auto) (1.2-3.4) K/uL Clinch # (Auto) (0.11-0.59) K/uL Eos # (Auto) (0-0.5) K/uL Baso # (Auto) (0-0.2) K/uL PT (9.0-12.0) Seconds INR (0.9-1.1) APTT (21.0-31.0) Seconds PTT Ratio Sodium 127 L (136-145) mmol/L Potassium 3.8 (3.5-5.1) mmol/L Chloride 92 L (98-107) mmol/L Carbon Dioxide 24 (21-32) mmol/L Anion Gap 10.0 (3-11) BUN 16 (7-18) mg/dl Creatinine 0.83 (0.6-1.2) mg/dl Est Cr Clr Drug Dosing 68.9 ml/min Est GFR ( Amer) 87.0 Est GFR (Non-Af Amer) 75.0 BUN/Creatinine Ratio 19.5 (10-20) Glucose 119 H (70-99) mg/dl Calcium 8.9 (8.5-10.1) mg/dl Magnesium (1.8-2.4) mg/dl Total Bilirubin (0.1-1) mg/dl AST (15-37) U/L ALT (12-78) U/L Alkaline Phosphatase (45-117) U/L POC Troponin I (0-0.045) ng/ml Troponin I (0-0.045) ng/ml NT-Pro-B Natriuret Pep (0-900) pg/ml Total Protein (6.4-8.2) gm/dl Albumin (3.4-5.0) gm/dl Globulin (2.5-4.0) gm/dl Albumin/Globulin Ratio (0.9-2) Ur Random Sodium mmol/L Imaging Data Radiologist's Impression: Radiology results as stated below per my review and the radiologist's interpretation: XR chest 1V portable CLINICAL HISTORY: sob COMPARISON STUDY: 07/25/2017 FINDINGS: There is radiographic evidence of underlying pulmonary emphysema. The heart is borderline enlarged. There is mild elevation interstitium suggesting mild superimposed pulmonary vascular congestion. There is airspace opacities left lateral lung base, atelectatic versus inflammatory[ IMPRESSION: 1. Emphysema and mild portal vascular congestion 2. Airspace opacity at left lateral lung base, atelectasis versus infectious/ inflammatory. Electronically signed by: Noe Chan M.D. 10/24/2018 12:45 PM Blood Pressure Blood Pressure Findings: Elevated blood pressure Blood Pressure Disposition: further management by hospitalist MDM Narrative Pt ill appearing here with increased WOB. Pt started on hour long nebulizer, solumedrol, magnesium, IVF initially. Labs and imaging performed. Possible pneumonia vs copd exacerbation. Pt is a chronic smoker, no home oxygen, no home MDI/nebs. Given persistence of significant increased expiratory phase and WOB, persistence b/l wheezing, discussed with her use of bipap and additional evaluation by hospitalist. She was in agreement. RT came and placed bipap on the patient. No significant hypoxia, but pt in need of additional airway support to prevent fatigue and respiratory failure. Impression & Plan COPD exacerbation, Hypokalemia, Hyponatremia, Acute dyspnea, Tobacco abuse Critical Care Time I have personally spent 35 minutes of critical care time in the direct management of this patient. This includes bedside care, interpretation of diagnostic studies, and testing, discussion with consultants, patient, and family members, and other required patient management activities. This 35 minutes is in excess of all separately billable procedures. Critical Care Time: Yes Total Critical Care Time: 35 Discharge Plan Visit Data *Final* Discharge Date/Time: 10/24/18 18:15 Chief Complaint: Respiratory Problems Stated Complaint: CONGESTION, WHEEZING, SOB ED Provider: Amy Urbina Discharge Problem: COPD exacerbation, Hypokalemia, Hyponatremia, Acute dyspnea, Tobacco abuse Patient Disposition: Admitted As Inpatient Condition: Fair Discharge Instructions Interventions: ED Discharge Assessment Last Done: 10/24/18 18:15 The scribe's documentation has been prepared under my direction and personally reviewed by me in its entirety. I confirm that the note above accurately reflects all work, treatment, procedures, and medical decision making performed by me.
== END 2018-10-26 19:47 | disposition home or self-care (01) | DRG 190 ==
LOC: ED 11:45 → 2W 15:55

== ENCOUNTER 2019-08-08 17:49 | Inpatient (IN) ==
[2019-08-08] MEDS ORDERED: methylPREDNISolone 125 MG/2 ML VIAL IV STA (18:19)
[2019-08-08] MEDS ORDERED: ALBUT/IPRATROP 3MG/0.5MG NEB 3 ML VIAL INH STA (18:19)
[2019-08-08 18:56] LABS: Basophils # (auto) 0.04 K/uL (0-0.2); Basophils % (auto) 0.2 %; Eosinophils # (auto) 0.04 K/uL (0-0.5); Eosinophils % (auto) 0.2 %; Hematocrit (blood only) 37.5 % (37-47); Hemoglobin 13.1 g/dL (12.0-16.0); Immature Granulocytes # (auto) 0.06 K/uL (0.00-0.02); Immature Granulocytes % (auto) 0.4 %; Lymphocytes # (auto) 1.57 K/uL (1.2-3.4); Lymphocytes % (auto) 9.4 %; Mean Corpuscular Hemoglobin 27.5 pg (25-34); Mean Corpuscular Hgb Conc 34.9 g/dL (32-36); Mean Corpuscular Volume 78.6 fL (80-100); Mean Platelet Volume 10.9 fL (7.4-10.4); Monocytes # (auto) 1.31 K/uL (0.11-0.59); Monocytes % (auto) 7.8 %; Neutrophils # (auto) 13.69 K/uL (1.4-6.5); Platelet Count 352 K/uL (130-400); RDW Coefficient of Variation 16.3 % (11.5-14.5); Red Blood Count 4.77 M/uL (4.2-5.4); White Blood Count 16.71 K/uL (4.8-10.8)
[2019-08-08 18:59] LABS: Alanine Aminotransferase 61 U/L (12-78); Albumin Level 3.2 gm/dl (3.4-5.0); Aspartate Aminotransferase 29 U/L (15-37); BUN Creatinine Ratio 18.1 (10-20); Blood Urea Nitrogen 15 mg/dl (7-18); Calcium 9.1 mg/dl (8.5-10.1); Carbon Dioxide 21 mmol/L (21-32); Chloride 103 mmol/L (98-107); Est GFR (African American) 86.4; Est GFR (Non-African American) 74.5; Glucose 109 mg/dl (70-99); Magnesium 1.5 mg/dl (1.8-2.4); Potassium 3.5 mmol/L (3.5-5.1); Sodium 135 mmol/L (136-145)
[2019-08-08 19:01] LABS: INR 1.2 (0.9-1.1); Partial Thromboplastin Ratio 1.1; Partial Thromboplastin Time 29.6 Seconds (21.0-31.0); Prothrombin Time 11.9 Seconds (9.0-12.0)
[2019-08-08 19:04] LABS: Alkaline Phosphatase 163 U/L (45-117); Bilirubin,Total 1.3 mg/dl (0.2-1); Globulin 3.2 gm/dl (2.5-4.0); Total Protein 6.4 gm/dl (6.4-8.2); Troponin I < 0.015 ng/ml (0-0.045)
--- NOTE | 2019-08-08 19:19 | XRay Report ---
XR chest 1V portable HISTORY: 64 years-old Female Dyspnea acute shortness of breath COMPARISON: Chest radiograph 10/24/2018 TECHNIQUE: Portable AP view the chest FINDINGS: Cardiac silhouette is enlarged. Mild pulmonary vascular congestion. Emphysema with chronic interstiti al coarsening. No pneumothorax or large pleural effusion. Asymmetric hazy opacities of the left midlu ng and left lung base. Degenerative changes of the shoulders and spine. IMPRESSION: 1. Cardiomegaly with pulmonary vascular congestion. 2. Emphysema with chronic fibrosis. 3. Asymmetric hazy opacities of the left midlung and left lung base suggest asymmetric pulmonary kavin a versus pneumonia. The above report was generated using voice recognition software. It may contain grammatical, syntax o r spelling errors. Electronically signed by: Kenn Mackey M.D. 08/08/2019 7:17 PM
[2019-08-08] MEDS ORDERED: MAGNESIUM SULFATE / D5W 1 GM/100 ML BAG IV ONE (19:26)
[2019-08-08] MEDS ORDERED: DOXYCYCLINE HYCLATE 100 MG in DEXTROSE 5% 100 ML IV STA (19:26)
[2019-08-08 19:40] LABS: Base Excess VBG -1.3 mEq/L; HCO3 VBG 21 mmol/L; PCO2 VBG 28 mmHg (38-50); PO2 VBG 28 mmHg; pH VBG 7.49 (7.36-7.41)
[2019-08-08 19:41] LABS: Oxygen Saturation VBG < 60.0 %
--- NOTE | 2019-08-08 20:04 | CT Scan Report ---
ABDOMEN AND PELVIS CT WITHOUT CONTRAST CT DOSE: 296.87 mGy.cm HISTORY: Acute vomiting with generalized abdominal pain vomiting, generalized abd pain, hypoxia TECHNIQUE: Multiaxial CT images of the abdomen and pelvis were performed without contrast. A dose lo wering technique was utilized adhering to the principles of ALARA. COMPARISON STUDY: Chest radiograph of same day. FINDINGS: Emphysema with bibasilar reticular opacities and groundglass densities compatible with fibrosis. Ther e is no pneumatosis or pneumoperitoneum. Study is mildly motion degraded. The imaged inferior cardiac chambers are mildly enlarged with coronary arterial calcifications. Limited evaluation of the solid abdominal organs without the use of IV contrast. Liver appears unremarkable. Cholecystectomy. Dilatio n of the common bile duct is likely on a postsurgical basis. Spleen, pancreas and right adrenal gland are unremarkable. Mild thickening of the left adrenal gland suggests hyperplasia. Kidneys, ureters, uterus and urinary bladder are unremarkable. No adnexal mass lesions identified. Severe calcified ventura que the abdominal aorta without aneurysm. No adenopathy. Small hiatal hernia. No bowel obstruction or bowel wall thickening. Colonic diverticulosis without ac [place] diverticulitis. The appendix appears surgically absent. No ascites or mesenteric inflammation. Th e soft tissues are unremarkable. Degenerative changes of the spine, pelvis and hips. Grade 1 anteroli sthesis L5 on S1 with severe facet arthropathy noted at this interspace. IMPRESSION: 1. No acute intra-abdominal or intrapelvic abnormality. 2. Prior cholecystectomy and appendectomy. 3. Emphysema with bibasilar reticular and groundglass opacities suggestive of chronic interstitial rajat ng disease. 4. Cardiomegaly. 5. Small hiatal hernia. 6. Additional findings as above. Electronically signed by: Kenn Mackey M.D. 08/08/2019 8:02 PM
[2019-08-08] MEDS ORDERED: LORazepam 1 MG TAB ONE (20:27)
[2019-08-08] MEDS ORDERED: LORazepam 1 MG TAB PO STA ×2 (20:28→21:26)
[2019-08-08] MEDS ORDERED: FUROSEMIDE 40 MG/4 ML VIAL IV STA (20:49)
--- NOTE | 2019-08-08 21:22 | History & Physical Report ---
Date of Service August 08, 2019 Assessment & Plan (1) COPD exacerbation: 64-year-old female with history of COPD, hypertension, hypothyroidism, [id number] smoking history presents with acute shortness of breath. Acute hypoxic respiratory distress, likely COPD exacerbation Continue Solu-Medrol, Doxy, DuoNeb treatments Continue supportive treatmentsoxygen, Mucinex, BiPAP if necessary Echo on 10/25/2019 showed EF of 65 to 70%, type I diastolic dysfunction Pulmonary edema and vascular congestion seen on chest x-raygive IV Lasix 40 mg Have a low suspicion for CHF, considering previous hospitalization for COPD had similar x-ray findings and clinical presentation Pneumonia, community-acquired Treating with doxycycline/ceftriaxone Hypothyroidism Continue levothyroxine Hypertension Continue amlodipine Anxiety/Depression Continue fluoxetine, Lorazepam Chavez.p.o. until less dyspneic CODE STATUSDNR/DNI DVT prophylaxisLovenox (2) Anxiety: (3) Depression: (4) Pneumonia: (5) Tobacco abuse: (6) Hypertension: (7) Hypothyroidism: (8) COPD (chronic obstructive pulmonary disease): (9) Hypoxia: History of Present Illness Primary Care Provider: Olivia Gomez DO 64-year-old female with history of COPD, hypertension, anxiety, hypothyroidism, 45 pack-year smoking history presents with acute shortness of breath. She states that her symptoms began 3 days ago. She denies any URI symptoms over the past couple days. She was initially dyspneic with walking across the room and has progressed to dyspnea at rest. Patient denies a past history of heart diseaseno diabetes, no hyperlipidemia, no known coronary artery disease or a cute coronary syndrome. She denies a family history of coronary artery disease. Review of systems Constitutional; denies fevers, chills, night sweats HEENT; denies sore throat, runny nose, sinus pressure CV; denies chest pain, palpitations Pulmonary; shortness of breath as described above, cough Abdomen; denies abdominal pain, reports chronic nausea and diarrhea Allergies Allergy/AdvReac Type Severity Reaction Status Date / Time No Known Allergies Allergy Verified 08/08/19 21:02 Home Medications Home Medications Medication Instructions Recorded Confirmed Type lorazepam 1 - 2 mg PO HS PRN 10/24/18 08/08/19 History lorazepam 1 mg PO DAILY PRN 10/24/18 08/08/19 History amlodipine 5 mg tablet 5 mg PO HS #90 tab 08/06/19 08/08/19 Rx fluoxetine 80 mg PO QAM 08/08/19 08/08/19 History gabapentin 100 mg PO TID 08/08/19 08/08/19 History levothyroxine 75 mcg PO QAM 08/08/19 08/08/19 History metoprolol succinate 25 mg PO HS 08/08/19 08/08/19 History Past Med/Surg History Medical History Vitamin D deficiency Renal insufficiency POD (perioral dermatitis) Overweight Nicotine abuse Insomnia GERD without esophagitis Depression Chronic pain Cheilitis Arthritis Anxiety Hypertension (Chronic) COPD (chronic obstructive pulmonary disease) (Chronic) Surgical History No significant past surgical history Family History Unknown Hypertension Mother Cancer Depression Gallbladder disease Father Alcohol abuse Sister Leukemia Colon cancer Other No significant family history Social History Preferred Language: Georgian Communication Ability: Effective 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 Beliefs That Will Affect Care: None marital status: Current Living Situation: Alone Other Information That Helps Us Care for You: No Feels Safe at Home: Yes Safety Concerns: Feels Safe At This Time Smoking Status: Current every day smoker Tobacco Type: cigarettes ; Cigarettes Per Day: 10 ; Do You Dip or Chew Tobacco: No ; Second Hand Exposure: No ; Tobacco Cessation Education Requested by Patient: No (Refused.) Hx Alcohol Use: Yes Alcohol type: hard liquor Hx Substance Use: No Review of Systems Review of Systems: All systems reviewed & are unremarkable except as noted in HPI & below Physical Exam Constitutional: WD/WN, vitals as above Eyes: PERRL, conjunctivae normal, anicteric sclerae ENMT: external ear and nose normal, oropharynx normal Neck: trachea midline, no thyromegaly Respiratory: + respiratory distress and + uses accessory muscles; + not able to speak in complete sentence Auscultation: + breath sounds absent Cardiovascular: RRR, no murmur, no edema Gastrointestinal (Abdomen): normal bowel sounds, soft, nontender, no hepatosplenomegaly Musculoskeletal: no cyanosis or clubbing, extremities motor strength 5/5 Skin: no rashes, warm and dry Neurologic: PERRL, EOMI, accommodation nl, no face palsy, no dysarthria Psychiatric: A+Ox3, euthymic affect Results & Data Vital Signs (Past 12 Hours) Vital Signs Temp Pulse Pulse Resp BP Pulse Ox 08/08/19 20:35 91 H 26 H 99 08/08/19 18:33 78 24 98 08/08/19 18:30 75 26 H 94 08/08/19 18:29 36.6 C 08/08/19 18:20 83 L 08/08/19 18:19 77 L 08/08/19 18:07 36.7 C 77 19 142/90 H 77 L Code Status & VTE Plan Code Status DNR/DNI Supervising Physician Co-Signing Physician Notes Patient was seen and examined by me personally. I reviewed the chart, the orders and discussed the case in detail with Dr. Daivd Reddy MD. I read this H&P and agree with its contents to entirety. PG Care Time/CCT Total # of Minutes Spent Total Time Spent with Patient: Total time spent is greater than 50% in coordination of care (as documented) at patient's floor/unit and/or counseling patient: Resident Activity Tracking Resident Involvement: Resident Care Provided Care Provided: Adult Hospital Medicine (1) COPD (chronic obstructive pulmonary disease) COPD type: unspecified COPD Qualified Code(s): J44.9 - Chronic obstructive pulmonary disease, unspecified (2) Pneumonia Laterality: left Lung location: lower lobe of lung Pneumonia type: due to unspecified organism Qualified Code(s): J18.1 - Lobar pneumonia, unspecified organism
[2019-08-08 22:42] LABS: Appearance Urine Clear (Clear); Bacteria Urine Automated Negative (Negative); Bilirubin Urine Negative (Negative); Blood Urine Negative (Negative); Color Urine Yellow; Glucose Urine UA Negative (Negative); Ketones Urine Negative (Negative); Leukocyte Esterase Urine Negative (Negative); Nitrite Urine Negative (Negative); Protein Urine Trace (Negative); RBC Urine Automated 0-4 /hpf (0-4); Specific Gravity Urine 1.011 (1.000-1.030); Urobilinogen Urine Negative (Negative); pH Urine 5.5 (4.5-7.5)
[2019-08-08] MEDS ORDERED: ONDANSETRON INJ 2 MG/ML 2 ML VIAL IV PRN (23:05)
[2019-08-08] MEDS ORDERED: POLYETHYLENE (MIRALAX) 17 GM PACK PO PRN (23:05)
[2019-08-08] MEDS ORDERED: cefTRIAXone SODIUM 350 MG/ML IM IM ONE (23:05)
[2019-08-09] MEDS ORDERED: PNEUMOCOCCAL POLYSACCHARIDES 25 MCG/0.5 ML VIAL/SYR IM ONE (01:00)
[2019-08-09] MEDS ORDERED: PNEUMOCOCCAL ADMINISTRATION CHARGE ONE (01:00)
[2019-08-09] MEDS: cefTRIAXone SODIUM 1,000 MG in DEXTROSE 5% 50 ML IV SCH ×2 (01:05→09:48)
[2019-08-09] MEDS: LORazepam 1 MG TAB PO PRN ×4 (01:11→21:36)
[2019-08-09] MEDS: ALBUT/IPRATROP 3MG/0.5MG NEB 3 ML VIAL NEB SCH ×7 (01:25→23:17)
--- NOTE | 2019-08-09 01:41 | Emergency Department Note ---
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 As per nursing staff, the patient was satting at 77% on RA when she walked into the ED. She does not normally wear oxygen at home and was last at the hospital for her breathing problems in September. The patient states the doctor who saw her in September told her she had asthma, emphysema, COPD, and pneumonia. She notes she began smoking again as well. The patient states she has a cough that makes her gag, and then she vomits. She notes she has abdominal pain which began months ago. She reports she has had a fever over the past couple of days. She has not taken any nebulizers or breathing treatments at home. Her PCP is Dr. Cage, [facility]. Pt denies LOC, headache, chills, diaphoresis, visual changes, neck pain, chest pain, nausea, back pain, melena, hematochezia, urinary symptoms, numbness, lymphadenopathy, rash, or other complaints. REVIEW OF SYSTEMS: See HPI for pertinent positives and negatives. A total of ten systems were reviewed and were otherwise negative. PMHx/PSHx: COPD GERD without esophagitis Depression Hypertension KYLE SOCIAL HISTORY: Patient lives at home. PHYSICAL EXAM: GENERAL: Awake, alert, uncomfortable-appearing, in moderate distress HENT: Normocephalic, atraumatic. Oropharynx unremarkable. EYES: PERRL. Normal conjunctiva. Sclera non-icteric. NECK: Inspection normal. Non-tender. Supple. No nuchal rigidity. FROM. No masses. RESPIRATORY: Increased work of breathing. Diminished breath sounds CARDIAC: Normal rate. Normal rhythm. No murmurs. No rubs. Extremities warm and well perfused. Pulses equal. No JVD. GI: Soft. No rebound or guarding. No masses. Mild and abnormal abdominal distention. Generalized tenderness RECTAL: Deferred. MUSCULOSKELETAL: Atraumatic. Chest examination reveals no tenderness. The back is symmetrical on inspection without obvious abnormality. There is no CVA tenderness to palpation. No joint edema. LOWER EXTREMITIES: Calves are equal size bilaterally and non-tender. No edema. No discoloration. NEURO: Normal sensorium. No sensory or motor deficits noted. SKIN: No rash or jaundice noted. EMERGENCY DEPARTMENT COURSE: 1817: The patient was evaluated in room A3, and a complete history and physical examination were performed. 1930: Discussed the patient's case Dr. Hoffmann, [facility] Hospitalist. The patient will be evaluated for further management. MEDICAL DECISION MAKING: A3 Prior records/ancillary studies reviewed. Triage Nursing notes reviewed and agree them. The patient's history was concerning for shortness of breath. Differential diagnosis: Etiologies such as pneumonia, COPD, reactive airway disease, CHF, cardiac is chemia, pulmonary embolism, pneumothorax, musculoskeletal, infections, gastrointestinal, as well as others were entertained. Physical examination: The patient was hypoxic. Increased work of breathing. ER treatment provided: Hour-long DuoNeb Solu-Medrol IV doxycycline Supplemental oxygen on reassessment the patient felt better. Diagnostic interpretation by me: The electrocardiogram was negative for ischemia change. The labs revealed mild leukocytosis on CBC. Chemistry panel was unremarkable except for mild hypomagnesemia. Troponin negative. Imaging studies: Chest x-ray concerning for left-sided pneumonia. Consultation: A consultation was placed with the hospitalist. The case was discussed and diagnostics were reviewed. The patient was evaluated in the ER for further treatment. IMPRESSION: Hypoxia Pneumonia COPD Hypomagnesemia PLAN: Being evaluated by hospitalist The scribe's documentation has been prepared under my direction and personally reviewed by me in its entirety. I confirm that the note above accurately reflects all work, treatment, procedures, and medical decision making performed by me. CRITICAL CARE: I have personally spent 45 minutes of critical care time in the direct management of this patient. This includes bedside care, interpretation of diagnostic studies, and testing, discussion with consultants, patient, and family members, and other required patient management activities. This 45 minutes is in excess of all separately billable procedures. Impression & Plan Hypoxia, Pneumonia, COPD (chronic obstructive pulmonary disease), Hypomagnesemia Past Med/Surg History Medical History Vitamin D deficiency Renal insufficiency POD (perioral dermatitis) Overweight Nicotine abuse Insomnia GERD without esophagitis Depression Chronic pain Cheilitis Arthritis Anxiety Hypertension (Chronic) COPD (chronic obstructive pulmonary disease) (Chronic) Surgical History No significant past surgical history Family History Unknown Hypertension Mother Cancer Depression Gallbladder disease Father Alcohol abuse Sister Leukemia Colon cancer Other No significant family history Social History Preferred Language: Turkmen Communication Ability: Effective 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 Beliefs That Will Affect Care: None marital status: Current Living Situation: Alone Other Information That Helps Us Care for You: No Feels Safe at Home: Yes Safety Concerns: Feels Safe At This Time Smoking Status: Current every day smoker Tobacco Type: cigarettes ; Cigarettes Per Day: 10 ; Do You Dip or Chew Tobacco: No ; Second Hand Exposure: No ; Tobacco Cessation Education Requested by Patient: No (Refused.) Hx Alcohol Use: Yes Alcohol type: hard liquor Hx Substance Use: No Results & Data Vital Signs Vital Signs - 24 hr 08/08/19 18:07 08/08/19 18:19 08/08/19 18:20 Temperature 36.7 C Temperature Source Oral Sepsis Recent Fever Within 48 Hours No Sepsis Action Taken by Nursing No Action Required Oxygen Flow Rate - Titration 6 10 Pulse Oximetry Post Tiitration 83 L 94 Pulse Rate 77 Pulse Rate [Apical] Respiratory Rate 19 Respiratory Effort / Characteristics Blood Pressure 142/90 H Blood Pressure Mean 107 Blood Pressure Position Sitting Pulse Oximetry 77 L 77 L 83 L Oxygen Delivery Method Room Air Room Air Nasal Cannula Nasal Cannula Oxymask Oxygen Flow Rate 6 08/08/19 18:29 08/08/19 18:30 08/08/19 18:33 Temperature 36.6 C Temperature Source Oral Sepsis Recent Fever Within 48 Hours Sepsis Action Taken by Nursing Oxygen Flow Rate - Titration Pulse Oximetry Post Tiitration Pulse Rate 75 Pulse Rate [Apical] 78 Respiratory Rate 26 H 24 Respiratory Effort / Characteristics Spontaneous Blood Pressure Blood Pressure Mean Blood Pressure Position Pulse Oximetry 94 98 Oxygen Delivery Method Oxymask Oxymask Oxygen Flow Rate 10 10 08/08/19 20:35 Temperature Temperature Source Sepsis Recent Fever Within 48 Hours Sepsis Action Taken by Nursing Oxygen Flow Rate - Titration Pulse Oximetry Post Tiitration Pulse Rate Pulse Rate [Apical] 91 H Respiratory Rate 26 H Respiratory Effort / Characteristics Blood Pressure Blood Pressure Mean Blood Pressure Position Pulse Oximetry 99 Oxygen Delivery Method Oxymask Oxygen Flow Rate 12 Home Medications Current Medication List: was personally reviewed by me Laboratory Data Attestation: I reviewed the patient's lab results. Result diagrams: 08/08/19 18:32 08/08/19 18:32 Lab Results 08/08/19 08/08/19 08/08/19 Range/Units 18:32 18:32 18:32 WBC 16.71 H (4.8-10.8) K/uL RBC 4.77 (4.2-5.4) M/uL Hgb 13.1 (12.0-16.0) g/dL Hct 37.5 (37-47) % MCV 78.6 L (80-100) fL MCH 27.5 (25-34) pg MCHC 34.9 (32-36) g/dL RDW Std Deviation 47.0 H (36.4-46.3) fL RDW Coeff of Vahid 16.3 H (11.5-14.5) % Plt Count 352 (130-400) K/uL MPV 10.9 H (7.4-10.4) fL Immature Gran % (Auto) 0.4 % Neut % (Auto) 82.0 % Lymph % (Auto) 9.4 % Centre % (Auto) 7.8 % Eos % (Auto) 0.2 % Baso % (Auto) 0.2 % Immature Gran # (Auto) 0.06 H (0.00-0.02) K/uL Neut # (Auto) 13.69 H (1.4-6.5) K/uL Lymph # (Auto) 1.57 (1.2-3.4) K/uL Centre # (Auto) 1.31 H (0.11-0.59) K/uL Eos # (Auto) 0.04 (0-0.5) K/uL Baso # (Auto) 0.04 (0-0.2) K/uL PT 11.9 (9.0-12.0) Seconds INR 1.2 H (0.9-1.1) APTT 29.6 (21.0-31.0) Seconds PTT Ratio 1.1 VBG pH (7.36-7.41) VBG pCO2 (38-50) mmHg VBG pO2 mmHg VBG HCO3 mmol/L VBG O2 Saturation % VBG Base Excess mEq/L Barometric Pressure mm/Hg Sodium 135 L (136-145) mmol/L Potassium 3.5 (3.5-5.1) mmol/L Chloride 103 (98-107) mmol/L Carbon Dioxide 21 (21-32) mmol/L Anion Gap 11.0 (3-11) BUN 15 (7-18) mg/dl Creatinine 0.83 (0.6-1.2) mg/dl Est Cr Clr Drug Dosing Not Reportable Est GFR ( Amer) 86.4 Est GFR (Non-Af Amer) 74.5 BUN/Creatinine Ratio 18.1 (10-20) Glucose 109 H (70-99) mg/dl POC Lactic Acid Gee (0.90-1.70) mmol/L Calcium 9.1 (8.5-10.1) mg/dl Magnesium 1.5 L (1.8-2.4) mg/dl Total Bilirubin 1.3 H (0.2-1) mg/dl AST 29 (15-37) U/L ALT 61 (12-78) U/L Alkaline Phosphatase 163 H (45-117) U/L Troponin I < 0.015 (0-0.045) ng/ml Total Protein 6.4 (6.4-8.2) gm/dl Albumin 3.2 L (3.4-5.0) gm/dl Globulin 3.2 (2.5-4.0) gm/dl Albumin/Globulin Ratio 1.0 (0.9-2) 08/08/19 08/08/19 Range/Units 18:37 19:16 WBC (4.8-10.8) K/uL RBC (4.2-5.4) M/uL Hgb (12.0-16.0) g/dL Hct (37-47) % MCV (80-100) fL MCH (25-34) pg MCHC (32-36) g/dL RDW Std Deviation (36.4-46.3) fL RDW Coeff of Vahid (11.5-14.5) % Plt Count (130-400) K/uL MPV (7.4-10.4) fL Immature Gran % (Auto) % Neut % (Auto) % Lymph % (Auto) % Centre % (Auto) % Eos % (Auto) % Baso % (Auto) % Immature Gran # (Auto) (0.00-0.02) K/uL Neut # (Auto) (1.4-6.5) K/uL Lymph # (Auto) (1.2-3.4) K/uL Centre # (Auto) (0.11-0.59) K/uL Eos # (Auto) (0-0.5) K/uL Baso # (Auto) (0-0.2) K/uL PT (9.0-12.0) Seconds INR (0.9-1.1) APTT (21.0-31.0) Seconds PTT Ratio VBG pH 7.49 H (7.36-7.41) VBG pCO2 28 L (38-50) mmHg VBG pO2 28 mmHg VBG HCO3 21 mmol/L VBG O2 Saturation < 60.0 % VBG Base Excess -1.3 mEq/L Barometric Pressure 736.9 mm/Hg Sodium (136-145) mmol/L Potassium (3.5-5.1) mmol/L Chloride (98-107) mmol/L Carbon Dioxide (21-32) mmol/L Anion Gap (3-11) BUN (7-18) mg/dl Creatinine (0.6-1.2) mg/dl Est Cr Clr Drug Dosing Est GFR ( Amer) Est GFR (Non-Af Amer) BUN/Creatinine Ratio (10-20) Glucose (70-99) mg/dl POC Lactic Acid Gee 1.84 H (0.90-1.70) mmol/L Calcium (8.5-10.1) mg/dl Magnesium (1.8-2.4) mg/dl Total Bilirubin (0.2-1) mg/dl AST (15-37) U/L ALT (12-78) U/L Alkaline Phosphatase (45-117) U/L Troponin I (0-0.045) ng/ml Total Protein (6.4-8.2) gm/dl Albumin (3.4-5.0) gm/dl Globulin (2.5-4.0) gm/dl Albumin/Globulin Ratio (0.9-2) Administered Medications Albuterol (Duoneb) 3 ml NEB Q4R ALAN Stop: 09/07/19 23:04 Last Admin: 08/09/19 01:25 Dose: Not Given Documented by: [id number] Ceftriaxone Sodium 1,000 mg/ (Dextrose) 60 mls @ 100 mls/hr IV DAILY ALAN; Protocol Stop: 08/16/19 00:29 Last Admin: 08/09/19 01:05 Dose: 100 mls/hr Documented by: [id number] Lorazepam (Ativan) 1 mg PO Q4H PRN PRN Reason: Anxiety Stop: 09/07/19 23:04 Last Admin: 08/09/19 01:11 Dose: 1 mg Documented by: [id number] Discontinued Medications Albuterol (Duoneb) 12 ml INH ONE STA Stop: 08/08/19 18:20 Last Admin: 08/08/19 18:29 Dose: 12 ml Documented by: [id number] Furosemide (Lasix) 40 mg IV NOW STA Stop: 08/08/19 20:50 Last Admin: 08/08/19 21:11 Dose: 40 mg Documented by: [id number] Magnesium Sulfate/Dextrose (Magnesium Sulfate / D5w) 1 gm in 100 mls @ 100 mls/hr IV ONE ONE Stop: 08/08/19 20:25 Last Infusion: 08/08/19 23:37 Dose: 0 mls/hr Documented by: [id number] Admin: 08/08/19 20:06 Dose: 100 mls/hr Documented by: [id number] Doxycycline Hyclate 100 mg/ (Dextrose) 110 mls @ 50 mls/hr IV NOW STA Stop: 08/08/19 21:37 Last Infusion: 08/08/19 23:37 Dose: 0 mls/hr Documented by: [id number] Admin: 08/08/19 20:06 Dose: 50 mls/hr Documented by: [id number] Lorazepam (Ativan) Confirm Administered Dose 1 mg .ROUTE .STK-MED ONE Stop: 08/08/19 20:28 Last Admin: 08/08/19 20:29 Dose: Not Given Documented by: [id number] Lorazepam (Ativan) 1 mg PO NOW STA Stop: 08/08/19 20:29 Last Admin: 08/08/19 20:29 Dose: 1 mg Documented by: [id number] Lorazepam (Ativan) 1 mg PO NOW STA Stop: 08/08/19 21:27 Last Admin: 08/08/19 21:42 Dose: Not Given Documented by: [id number] Methylprednisolone (Solumedrol) 125 mg IV NOW STA Stop: 08/08/19 18:20 Last Admin: 08/08/19 18:45 Dose: 125 mg Documented by: [id number] Imaging Data Radiologist's Impression: Radiology results as stated below per my review and the radiologist's interpretation: XR chest 1V portable HISTORY: 64 years-old Female Dyspnea acute shortness of breath COMPARISON: Chest radiograph 10/24/2018 TECHNIQUE: Portable AP view the chest FINDINGS: Cardiac silhouette is enlarged. Mild pulmonary vascular congestion. Emphysema with chronic interstitial coarsening. No pneumothorax or large pleural effusion. Asymmetric hazy opacities of the left midlung and left lung base. Degenerative changes of the shoulders and spine. IMPRESSION: 1. Cardiomegaly with pulmonary vascular congestion. 2. Emphysema with chronic fibrosis. 3. Asymmetric hazy opacities of the left midlung and left lung base suggest asymmetric pulmonary edema versus pneumonia. The above report was generated using voice recognition software. It may contain grammatical, syntax or spelling errors. Electronically signed by: Kenn Mackey M.D. 08/08/2019 7:17 PM ECG Data Attestation: I personally reviewed and interpreted this ECG as follows: Indication: SOB/dyspnea Rate (beats per minute): 75 Rhythm: sinus rhythm Findings: + other (normal QRS), + PVC and + prolonged QT; no ST elevation Blood Pressure Blood Pressure Findings: Elevated blood pressure Blood Pressure Disposition: further management by hospitalist Discharge Plan Visit Data *Final* Discharge Date/Time: 08/08/19 22:29 Chief Complaint: Respiratory Problems Stated Complaint: HARD TO BREATHE ED Provider: Blane Maldonado Discharge Problem: Hypoxia, Pneumonia, COPD (chronic obstructive pulmonary disease), Hypomagnesemia Patient Disposition: Admitted As Inpatient Discharge Instructions Interventions: ED Discharge Assessment Last Done: 08/08/19 22:29 Discharge Problem: Pneumonia Qualifiers: Pneumonia type: due to unspecified organism Laterality: left Lung location: lower lobe of lung Qualified Code(s): J18.1 - Lobar pneumonia, unspecified organism COPD (chronic obstructive pulmonary disease) Qualifiers: COPD type: unspecified COPD Qualified Code(s): J44.9 - Chronic obstructive pulmonary disease, unspecified The scribe's documentation has been prepared under my direction and personally reviewed by me in its entirety. I confirm that the note above accurately reflects all work, treatment, procedures, and medical decision making performed by me.
[2019-08-09] MEDS: LEVOTHYROXINE SODIUM 75 MCG TABLET PO SCH (06:10)
[2019-08-09] MEDS: methylPREDNISolone 60 MG in SYRINGE 0 ML IV SCH ×2 (09:20→18:44)
[2019-08-09] MEDS: DOXYCYCLINE HYCLATE 100 MG CAP PO SCH (10:21)
[2019-08-09] MEDS: FLUOXETINE HCL 20 MG CAP PO SCH (10:21)
[2019-08-09] MEDS: guaiFENesin 600 MG TABCR PO SCH ×2 (10:21→21:37)
[2019-08-09] MEDS: GABAPENTIN 100 MG CAP PO SCH ×3 (10:21→21:38)
[2019-08-09] MEDS: ENOXAPARIN INJ 40 MG/0.4 ML SYR SQ SCH (10:22)
--- NOTE | 2019-08-09 11:27 | XRay Report ---
SINGLE VIEW CHEST CLINICAL HISTORY: Respiratory failure. COPD. FINDINGS: An AP, portable, upright chest radiograph is compared to study dated 08/08/2019. The examin ation is degraded by portable technique, apical lordotic positioning, and patient rotation. The heart is enlarged and there is atherosclerotic calcification of the thoracic aorta. Advanced emphysema and chronic interstitial thickening is similar to previous. 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 No large pleural effusion or pneumothorax is seen. Asymmetric airspace opacities are again noted in the left midlung. The skeletal structures are osteopenic. The bony thor ax is grossly intact. Advanced degenerative change is noted in the shoulders and thoracic spine. IMPRESSION: 1. Cardiomegaly and advanced emphysema. 2. Suspect changes of superimposed interstitial lung disease. 3. Asymmetric hazy airspace opacities are again noted in the left midlung. Correlate clinically for e vidence of a superimposed infectious/inflammatory pneumonitis or less likely asymmetric edema. Electronically signed by: Duke Johnson M.D. 08/09/2019 11:26 AM
--- NOTE | 2019-08-09 12:25 | Hospitalist Progress Note ---
Date of Service August 09, 2019 Assessment & Plan (1) Acute respiratory failure with hypoxia: Multifactorial - COPD exacerbation, left-sided pneumonia, and question of volume overload. Steroids, nebs, BIPAP for COPD flare. Rocephin/doxy IV for pneumonia. s/p lasix IV yesterday for possible congestion. will give another dose of IV lasix today and follow response. consider echo. Will attempt to wean BIPAP later today; could transition to high-flow NC so patient can talk more easily, eat, etc. (2) COPD exacerbation: as above. cont steroids (no wean today), oxygen support/BIPAP, nebs, etc. (3) Pneumonia: left-sided; ?RLL as well. community-acquired. cont rocephin/doxy - day #2 of 7 today for abx course. follow cultures. (4) Volume overload: question of. does appear to have JVD on exam. s/p lasix yesterday in ER. will give another dose - 20mg IV x 1. follow response. labs am. consider echo. (last echo - 09/2018 - preserved EF, grade 1 diastolic dysfunction; normal valve function). (5) Anxiety: reports ativan use, 2-3x's/day, x 30 years. cont such to avoid withdrawal. (6) Depression: cont prozac (7) Tobacco abuse: prison classification counselor to quit. nicoderm patch 14mg/24 hrs. (8) Hypertension: cont norvasc. cont toprol xl. (9) Hypothyroidism: TSH 10/2018 wnl cont synthroid (10) Hypokalemia: replace repeat BMP am (11) Chronic kidney disease, stage II (mild): CrCl baseline low 60s BMP am in face of diuresis to ensure stability (12) DVT prophylaxis: lovenox once pulmonary status is improved will need PT/OT marium Subjective patient was on BIPAP all night. during my visit she was visibly dyspneic with minimal movement in the bed. she reported she was hungry and wanted to eat. she has had cough, dyspnea, orthopnea. continues to smoke at home - requests nicoderm patch. tele stable overnight w/o dysrhythmia. staff state they tried her on NC O2 and she could not tolerate, immediately desaturating down into the 70s. Review of Systems Constitutional: + fatigue; no fever Respiratory: + cough, + dyspnea, + dyspnea on exertion and + wheezing Cardiovascular: + orthopnea; no chest pain Gastrointestinal: no abdominal pain Physical Exam Constitutional: + acute distress (visibly dyspneic w/ increased work of breathing); no altered mental status ENMT: external ear and nose normal, oropharynx normal Respiratory: + respiratory distress, + labored breathing, + retractions and + uses accessory muscles Auscultation: + crackles (fine - bases) and + wheezes (extensive b/l ) Cardiovascular: Rate/Rhythm: regular rate and regular rhythm Heart Sounds: normal S1 and normal S2 Vessels: + JVD (mild), posterior tibial pulses present and dorsalis pedis pulses present Extremities: no edema Gastrointestinal (Abdomen): normal bowel sounds, soft, nontender, no hepatosplenomegaly Psychiatric: Orientation: alert and oriented x 3 Affect: + anxious affect Results & Data Vital Signs (Past 12 Hours) Vital Signs Temp Pulse Pulse Resp BP Pulse Ox 08/09/19 11:27 86 30 H 97 08/09/19 11:25 83 30 H 97 08/09/19 07:57 86 27 H 99 08/09/19 07:40 87 33 H 90 08/09/19 07:38 36.6 C 82 18 124/69 96 08/09/19 04:58 36.6 C 84 22 131/80 98 08/09/19 03:20 69 69 30 H 98 08/09/19 01:51 85 28 H 95 Laboratory Results Laboratory Results - last 24 hr 08/09/19 12:18 Sodium 137 Potassium 3.3 L Chloride 104 Carbon Dioxide 23 Anion Gap 10.0 BUN 18 Creatinine 0.82 Est Cr Clr Drug Dosing 62.4 Est GFR ( Amer) 87.6 Est GFR (Non-Af Amer) 75.6 BUN/Creatinine Ratio 22.2 H Glucose 128 H Calcium 8.6 Magnesium 2.1 Diagnostic Findings cxr - my reading - extensive airspace disease left lung; right base with infiltrate as well; ?mild pulm edema? PG Care Time/CCT Total # of Minutes Spent Total Time Spent with Patient: Total time spent is greater than 50% in coordination of care (as documented) at patient's floor/unit and/or counseling patient: (1) Depression Depression Type: other depression Qualified Code(s): F32.89 - Other specified depressive episodes (2) Hypothyroidism Hypothyroidism type: acquired Qualified Code(s): E03.9 - Hypothyroidism, unspecified (3) Hypertension Hypertension type: essential hypertension Qualified Code(s): I10 - Essential (primary) hypertension (4) Pneumonia Laterality: left Lung location: lower lobe of lung Pneumonia type: due to unspecified organism Qualified Code(s): J18.1 - Lobar pneumonia, unspecified organism (5) Volume overload Hypervolemia type: unspecified Qualified Code(s): E87.70 - Fluid overload, unspecified
[2019-08-09] MEDS ORDERED: FUROSEMIDE 20 MG in SYRINGE 0 ML IV ONE (12:30)
[2019-08-09 13:14] LABS: BUN Creatinine Ratio 22.2 (10-20); Calcium 8.6 mg/dl (8.5-10.1); Creatinine Clr Calc Pharmacy 62.4 ml/min; Est GFR (African American) 87.6; Est GFR (Non-African American) 75.6; Magnesium 2.1 mg/dl (1.8-2.4); Potassium 3.3 mmol/L (3.5-5.1)
[2019-08-09] MEDS: DOXYCYCLINE HYCLATE 100 MG in DEXTROSE 5% 100 ML IV SCH (13:30)
[2019-08-09] MEDS: METOPROLOL SUCC 25MG EXT REL TAB PO SCH (21:37)
[2019-08-09] MEDS: AMLODIPINE BESYLATE 5 MG TAB PO SCH (21:37)
[2019-08-09] MEDS: POTASSIUM CHLORIDE 20 MEQ TABCR PO SCH (21:42)
[2019-08-10] MEDS: DOXYCYCLINE HYCLATE 100 MG in DEXTROSE 5% 100 ML IV SCH (01:40)
[2019-08-10] MEDS: ALBUT/IPRATROP 3MG/0.5MG NEB 3 ML VIAL NEB SCH ×6 (03:10→23:03)
[2019-08-10] MEDS: LEVOTHYROXINE SODIUM 75 MCG TABLET PO SCH (07:03)
[2019-08-10 07:16] LABS: BUN Creatinine Ratio 33.9 (10-20); Calcium 8.6 mg/dl (8.5-10.1); Creatinine Clr Calc Pharmacy 54.4 ml/min; Est GFR (African American) 74.3; Est GFR (Non-African American) 64.1; Potassium 3.6 mmol/L (3.5-5.1)
[2019-08-10] MEDS: LORazepam 1 MG TAB PO PRN ×4 (08:15→20:49)
[2019-08-10] MEDS: POTASSIUM CHLORIDE 20 MEQ TABCR PO SCH ×3 (08:15→20:47)
[2019-08-10] MEDS: methylPREDNISolone 60 MG in SYRINGE 0 ML IV SCH (08:15)
[2019-08-10] MEDS: GABAPENTIN 100 MG CAP PO SCH ×3 (08:16→20:48)
[2019-08-10] MEDS: FLUOXETINE HCL 20 MG CAP PO SCH (08:16)
[2019-08-10] MEDS: guaiFENesin 600 MG TABCR PO SCH ×2 (08:16→20:47)
[2019-08-10] MEDS: cefTRIAXone SODIUM 1,000 MG in DEXTROSE 5% 50 ML IV SCH (08:17)
[2019-08-10] MEDS: ENOXAPARIN INJ 40 MG/0.4 ML SYR SQ SCH (08:17)
[2019-08-10] MEDS: NICOTINE 14 MG/24 HR PATCH TD SCH (08:18)
[2019-08-10] MEDS ORDERED: FUROSEMIDE 20 MG TAB PO ONE (12:15)
--- NOTE | 2019-08-10 20:19 | Hospitalist Progress Note ---
Date of Service August 10, 2019 Assessment & Plan (1) Acute respiratory failure with hypoxia: Multifactorial - COPD exacerbation, left-sided pneumonia, and question of volume overload. IMPROVED with Steroids, nebs, BIPAP, abx, high-flow NC, supportive care. Cont weaning of O2 support. (2) COPD exacerbation: IMPROVED. Wean steroids from 60mg q12h to 40mg q12h. Cont abx, oxygen support/BIPAP/HFNC, nebs, etc. (3) Pneumonia: IMPROVED. left-sided; ?RLL as well. community-acquired. cont rocephin/doxy - day #3 of 7 today for abx course. change doxy to PO. perhaps change rocephin to omnicef tomorrow. blood cx's negative. will repeat cxr in am. (4) Volume overload: suspected. acute/chronic diastolic CHF. s/p multiple doses IV lasix this admission. will give po lasix 20mg x 1 today. reassess in am. bmp am. last echo - 09/2018 - preserved EF, grade 1 diastolic dysfunction; normal valve function. defer on repeat echo for now. (5) Anxiety: ativan prn prozac daily (6) Depression: cont prozac (7) Tobacco abuse: counselling psychologist to quit. nicoderm patch 14mg/24 hrs. (8) Hypertension: cont norvasc. cont toprol xl. acceptable control. (9) Hypothyroidism: TSH 10/2018 wnl cont synthroid (10) Hypokalemia: replaced and normal today repeat BMP am (11) Chronic kidney disease, stage II (mild): CrCl baseline low 60s stable (12) DVT prophylaxis: lovenox ordered PT/OT evals overall status slowly improving Subjective patient overall feeling better today. less dyspneic. still w/ cough. reports anxiety. did wear BIPAP all night; now transitioned to high-flow NC for comfort. she is tolerating both. able to eat this am and had good appetite. tele stable overnight as well. Review of Systems Constitutional: no fever and no chills Respiratory: + cough, + chest congestion, + dyspnea, + dyspnea on exertion and + wheezing Cardiovascular: no chest pain, no orthopnea and no paroxysmal nocturnal dyspnea Gastrointestinal: no abdominal pain, no nausea and no vomiting Physical Exam Constitutional: + thin; no acute distress and no altered mental status looks better today ENMT: external ear and nose normal, oropharynx normal Respiratory: no respiratory distress, no labored breathing, no retractions and does not use accessory muscles Auscultation: + crackles (fine - bases; but improved today) and + wheezes (MUCH improved today) Cardiovascular: Rate/Rhythm: regular rate and regular rhythm Heart Sounds: normal S1 and normal S2 Vessels: + JVD (mild), posterior tibial pulses present and dorsalis pedis pulses present Extremities: no edema Gastrointestinal (Abdomen): normal bowel sounds, soft, nontender, no hepatosplenomegaly Psychiatric: Orientation: alert and oriented x 3 Affect: + anxious affect Results & Data Vital Signs (Past 12 Hours) Vital Signs Temp Pulse Resp BP Pulse Ox 08/10/19 20:13 36.7 C 81 24 138/83 85 L 08/10/19 19:47 81 20 08/10/19 19:45 81 20 08/10/19 16:14 36.7 C 78 20 123/76 85 L 08/10/19 15:32 66 18 95 08/10/19 15:27 66 18 95 08/10/19 12:05 36.6 C 69 18 119/78 94 08/10/19 11:04 61 18 95 Laboratory Results Laboratory Results - last 24 hr 08/10/19 06:20 Sodium 136 Potassium 3.6 Chloride 104 Carbon Dioxide 23 Anion Gap 9.0 BUN 32 H D Creatinine 0.94 Est Cr Clr Drug Dosing 54.4 Est GFR ( Amer) 74.3 Est GFR (Non-Af Amer) 64.1 BUN/Creatinine Ratio 33.9 H Glucose 128 H Calcium 8.6 PG Care Time/CCT Total # of Minutes Spent Total Time Spent with Patient: Total time spent is greater than 50% in coordination of care (as documented) at patient's floor/unit and/or counseling patient: (1) Depression Depression Type: other depression Qualified Code(s): F32.89 - Other specified depressive episodes (2) Hypothyroidism Hypothyroidism type: acquired Qualified Code(s): E03.9 - Hypothyroidism, unspecified (3) Hypertension Hypertension type: essential hypertension Qualified Code(s): I10 - Essential (primary) hypertension (4) Pneumonia Laterality: left Lung location: lower lobe of lung Pneumonia type: due to unspecified organism Qualified Code(s): J18.1 - Lobar pneumonia, unspecified organism (5) Volume overload Hypervolemia type: unspecified Qualified Code(s): E87.70 - Fluid overload, unspecified
[2019-08-10] MEDS: methylPREDNISolone 40 MG in SYRINGE 0 ML IV SCH (20:46)
[2019-08-10] MEDS: AMLODIPINE BESYLATE 5 MG TAB PO SCH (20:48)
[2019-08-10] MEDS: METOPROLOL SUCC 25MG EXT REL TAB PO SCH (20:48)
[2019-08-10] MEDS: DOXYCYCLINE HYCLATE 100 MG CAP PO SCH (20:49)
[2019-08-11] MEDS: LORazepam 1 MG TAB PO PRN ×5 (02:44→19:52)
[2019-08-11] MEDS: ALBUT/IPRATROP 3MG/0.5MG NEB 3 ML VIAL NEB SCH ×6 (02:52→23:18)
[2019-08-11] MEDS: ACETAMINOPHEN 325 MG TAB PO PRN ×2 (06:03→10:11)
[2019-08-11] MEDS: LEVOTHYROXINE SODIUM 75 MCG TABLET PO SCH (06:03)
--- NOTE | 2019-08-11 07:13 | XRay Report ---
XR chest 1V portable CLINICAL HISTORY: Respiratory failure, pneumonia COMPARISON STUDY: 08/09/2019 FINDINGS: The heart is mildly enlarged. There is no lobar consolidation. There is persistent intersti tial thickening/edema.[Diagnostic considerations include chronic interstitial lung disease, cardiogen ic interstitial edema, or a bilateral interstitial inflammatory process. There are no significant ple ural effusions. Underlying emphysema is suspected. IMPRESSION: 1. Persistent bilateral interstitial thickening/edema 2. No evidence of focal pulmonary consolidation Electronically signed by: Noe Chan M.D. 08/11/2019 7:12 AM
[2019-08-11 07:17] LABS: BUN Creatinine Ratio 40.6 (10-20); Calcium 8.5 mg/dl (8.5-10.1); Creatinine Clr Calc Pharmacy 56.2 ml/min; Est GFR (African American) 77.3; Est GFR (Non-African American) 66.7; Magnesium 1.9 mg/dl (1.8-2.4)
[2019-08-11 07:18] LABS: Phosphorus 3.1 mg/dl (2.5-4.9)
[2019-08-11] MEDS: guaiFENesin 600 MG TABCR PO SCH ×2 (07:48→20:13)
[2019-08-11] MEDS: FLUOXETINE HCL 20 MG CAP PO SCH (07:48)
[2019-08-11] MEDS: DOXYCYCLINE HYCLATE 100 MG CAP PO SCH ×2 (07:48→20:13)
[2019-08-11] MEDS: NICOTINE 14 MG/24 HR PATCH TD SCH (07:49)
[2019-08-11] MEDS: GABAPENTIN 100 MG CAP PO SCH ×3 (07:50→20:13)
[2019-08-11] MEDS: methylPREDNISolone 40 MG in SYRINGE 0 ML IV SCH ×2 (07:50→20:10)
[2019-08-11] MEDS: ENOXAPARIN INJ 40 MG/0.4 ML SYR SQ SCH (07:51)
[2019-08-11] MEDS: POTASSIUM CHLORIDE 20 MEQ TABCR PO SCH ×3 (07:51→20:13)
[2019-08-11] MEDS: cefTRIAXone SODIUM 1,000 MG in DEXTROSE 5% 50 ML IV SCH (10:11)
[2019-08-11] MEDS ORDERED: KETOROLAC TROMETHAMINE 15 MG/ML VIAL IV ONE (16:20)
[2019-08-11] MEDS: METOPROLOL SUCC 25MG EXT REL TAB PO SCH (20:13)
[2019-08-11] MEDS: AMLODIPINE BESYLATE 5 MG TAB PO SCH (20:13)
--- NOTE | 2019-08-11 21:30 | Hospitalist Progress Note ---
Date of Service August 11, 2019 Assessment & Plan (1) Acute respiratory failure with hypoxia: Multifactorial - COPD exacerbation, suspected left-sided pneumonia, and question of volume overload. Had IMPROVED with Steroids, nebs, BIPAP, abx, high-flow NC, supportive care but then had increasing high-flow NC requirements today. Despite the higher requirements she sounded similar to yesterday. Will obtain CT chest to r/o atypical lung process superimposed on COPD. Await echo to r/o pulmonary HTN. (2) COPD exacerbation: Had been improving, but unable to wean high-flow NC today. Leave solumedrol at 40mg IV q12h today. Cont abx, oxygen support/BIPAP/HFNC, nebs, etc. Needs more pulmonary toilet -- oob to chair, sit upright more frequently, flutter valve, incentive spirometry. x-rays have suggested presence of ILD. Will obtain CT chest for further characterization. Pulmonary consultation requested for additional recommendations. Added advair 250/50 1 puff BID. (3) Pneumonia: IMPROVED. x-rays had previously shown suspected left-sided pneumonia. cont rocephin/doxy - day #4 of 7 today for abx course. blood cx's negative. if CT fails to show an actual pneumonia process then will d/c rocephin and just use doxycycline. (4) Volume overload: suspected. acute/chronic diastolic CHF. s/p multiple doses IV and PO lasix this admission. at this point I don't see evidence of further volume overload and thus hold on additional diuretics. no orthopnea. no JVD, etc. last echo - 09/2018 - preserved EF, grade 1 diastolic dysfunction; normal valve function. repeat echo pending to check PA pressures. (5) Anxiety: ativan prn prozac daily (6) Depression: cont prozac (7) Tobacco abuse: counseled to quit. nicoderm patch 14mg/24 hrs. (8) Hypertension: cont norvasc. cont toprol xl. acceptable control. (9) Hypothyroidism: TSH 10/2018 wnl cont synthroid (10) Hypokalemia: replaced and normal today (11) Chronic kidney disease, stage II (mild): CrCl baseline low 60s -- stable (12) DVT prophylaxis: lovenox PT/OT slow progress await pulmonary consultation and additional recommendations Subjective patient overall feeling better. no orthopnea. still with ISSA. settings on high-flow NC had to be turned up today. did wear BIPAP some last night but not as much as previous night. appetite good. mild cough at best. tele stable overnight. Review of Systems Constitutional: + fatigue; no fever and no chills Respiratory: + cough, + dyspnea and + dyspnea on exertion; no wheezing Cardiovascular: no chest pain, no orthopnea, no paroxysmal nocturnal dyspnea and no edema Gastrointestinal: no abdominal pain, no nausea and no vomiting Physical Exam Constitutional: + thin; no acute distress and no altered mental status laying flat in bed w/o dyspnea / orthopnea ENMT: external ear and nose normal, oropharynx normal Respiratory: no respiratory distress, no labored breathing, no retractions and does not use accessory muscles Auscultation: + diminished lung sounds and + wheezes (minimal b/l today); no crackles Cardiovascular: Rate/Rhythm: regular rate and regular rhythm Heart Sounds: normal S1 and normal S2 Vessels: posterior tibial pulses present and dorsalis pedis pulses present; no JVD Extremities: no edema Gastrointestinal (Abdomen): normal bowel sounds, soft, nontender, no hepatosplenomegaly Skin: clubbing of fingernails Psychiatric: Orientation: alert and oriented x 3 Results & Data Vital Signs (Past 12 Hours) Vital Signs Temp Pulse Resp BP Pulse Ox 08/11/19 19:40 82 20 96 08/11/19 19:38 36.7 C 78 18 122/74 93 08/11/19 16:00 36.6 C 85 18 133/85 92 08/11/19 15:27 76 18 97 08/11/19 11:40 36.6 C 75 18 123/72 08/11/19 10:48 73 18 98 Laboratory Results Laboratory Results - last 24 hr 08/11/19 06:28 Sodium 132 L Potassium 4.0 Chloride 101 Carbon Dioxide 23 Anion Gap 8.0 BUN 37 H Creatinine 0.91 Est Cr Clr Drug Dosing 56.2 Est GFR ( Amer) 77.3 Est GFR (Non-Af Amer) 66.7 BUN/Creatinine Ratio 40.6 H Glucose 117 H Calcium 8.5 Phosphorus 3.1 Magnesium 1.9 PG Care Time/CCT Total # of Minutes Spent Total Time Spent with Patient: Total time spent is greater than 50% in coordination of care (as documented) at patient's floor/unit and/or counseling patient: (1) Depression Depression Type: other depression Qualified Code(s): F32.89 - Other specified depressive episodes (2) Hypothyroidism Hypothyroidism type: acquired Qualified Code(s): E03.9 - Hypothyroidism, unspecified (3) Hypertension Hypertension type: essential hypertension Qualified Code(s): I10 - Essential (primary) hypertension (4) Pneumonia Laterality: left Lung location: lower lobe of lung Pneumonia type: due to unspecified organism Qualified Code(s): J18.1 - Lobar pneumonia, unspecified organism (5) Volume overload Hypervolemia type: unspecified Qualified Code(s): E87.70 - Fluid overload, unspecified
--- NOTE | 2019-08-11 22:38 | CT Scan Report ---
CT chest wo con CLINICAL HISTORY: COPD, suspected ILD COMPARISON STUDY: Chest x-ray dated 08/11/2019 CT DOSE: 176.61 mGy.cm TECHNIQUE: CT of the thorax was performed from the thoracic inlet to the lung bases. Images are revi ewed in the axial, sagittal, and coronal planes. IV contrast was not administered for this examinatio n. A dose lowering technique was utilized adhering to the principles of ALARA. FINDINGS: Thyroid: Imaged portions of the thyroid gland are normal in appearance. Thoracic aorta: The ascending thoracic aorta measures 35 mm. Heart: The heart is normal in size. There is no pericardial effusion. There are coronary artery calci fications. Lungs and pleural spaces: There are no pleural effusions. There is pulmonary emphysema. There is mild subpleural reticulation. There is no focal pulmonary consolidation. There areas of lower lobe mucus plugging. Mediastinum: Mediastinal lymph nodes are the upper limits of normal in size. Maris: There is no evidence of pathologic hilar adenopathy given the limitations of a noncontrast stud y. Axilla: There is no evidence of pathologic axillary lymphadenopathy Upper abdomen: There is a 1 cm calcification within the right hepatic lobe, likely postinflammatory or dystrophic. Skeletal structures: There are no lytic or blastic osseous lesions. IMPRESSION: 1. Moderate to severe pulmonary emphysema 2. No evidence of focal pulmonary consolidation to indicate pneumonia 3. Areas of lower lobe mucus plugging. Electronically signed by: Noe Chan M.D. 08/11/2019 10:36 PM
[2019-08-12] MEDS: ALBUT/IPRATROP 3MG/0.5MG NEB 3 ML VIAL NEB SCH ×6 (03:00→22:58)
[2019-08-12] MEDS: LEVOTHYROXINE SODIUM 75 MCG TABLET PO SCH (05:35)
[2019-08-12 07:27] LABS: Hematocrit (blood only) 40.4 % (37-47); Hemoglobin 13.2 g/dL (12.0-16.0); Mean Corpuscular Hemoglobin 26.7 pg (25-34); Mean Corpuscular Hgb Conc 32.7 g/dL (32-36); Mean Corpuscular Volume 81.8 fL (80-100); Mean Platelet Volume 10.4 fL (7.4-10.4); Platelet Count 362 K/uL (130-400); RDW Coefficient of Variation 16.5 % (11.5-14.5); RDW Standard Deviation 49.2 fL (36.4-46.3); Red Blood Count 4.94 M/uL (4.2-5.4); White Blood Count 16.73 K/uL (4.8-10.8)
[2019-08-12 08:03] LABS: BUN Creatinine Ratio 36.5 (10-20); Calcium 8.6 mg/dl (8.5-10.1); Creatinine Clr Calc Pharmacy 59.5 ml/min; Est GFR (African American) 82.7; Est GFR (Non-African American) 71.4; Potassium 4.5 mmol/L (3.5-5.1)
[2019-08-12] MEDS: methylPREDNISolone 40 MG in SYRINGE 0 ML IV SCH ×2 (08:08→21:26)
[2019-08-12] MEDS: cefTRIAXone SODIUM 1,000 MG in DEXTROSE 5% 50 ML IV SCH (08:08)
[2019-08-12] MEDS: FLUTICASONE/SALMETEROL 250/50 (ADVAIR) 14 PUFF/1 INHALER INH SCH ×2 (08:08→20:08)
[2019-08-12] MEDS: DOXYCYCLINE HYCLATE 100 MG CAP PO SCH (08:10)
[2019-08-12] MEDS: NICOTINE 14 MG/24 HR PATCH TD SCH (08:10)
[2019-08-12] MEDS: GABAPENTIN 100 MG CAP PO SCH ×3 (08:11→20:10)
[2019-08-12] MEDS: FLUOXETINE HCL 20 MG CAP PO SCH (08:12)
[2019-08-12] MEDS: guaiFENesin 600 MG TABCR PO SCH ×2 (08:12→20:09)
[2019-08-12] MEDS: ENOXAPARIN INJ 40 MG/0.4 ML SYR SQ SCH (08:12)
[2019-08-12] MEDS: LORazepam 1 MG TAB PO PRN ×4 (08:24→22:09)
[2019-08-12] MEDS ORDERED: POTASSIUM CHLORIDE 20 MEQ TABCR PO SCH (09:00)
--- NOTE | 2019-08-12 12:56 | Hospitalist Progress Note ---
Date of Service August 12, 2019 Assessment & Plan (1) Acute respiratory failure with hypoxia: Secondary to COPD exacerbation. No pulmonary edema on imaging or exam, echo unremarkable No consolidation on CT - antibiotics changed to azithromycin alone for COPD exacerbation - will repeat EKG in AM to monitor for QT prolongation given QTc 538 ms on 08/08 EKG Appreciate pulmonology consult Will transfer to med/surg given improvement in O2 sats. Aim O2 sats > 88% (2) COPD exacerbation: Continue solumedrol at 40mg IV q12h Cont azithromycin, nebs Chest physio ordered to help with mucus secretion Continue new maintenance inhaler - Advair 250/50 1 puff BID. (3) Anxiety: ativan prn prozac daily (4) Depression: cont prozac (5) Tobacco abuse: discussed smoking cessation continue nicoderm patch 14mg/24 hrs. (6) Hypertension: cont norvasc. cont toprol xl. acceptable control. (7) Hypothyroidism: TSH 10/2018 wnl cont synthroid (8) Hypokalemia: will d/c supplementation as K now 4.5 (9) Hyponatremia: suspect from diuretic use this admission. Appears to be resolving. Will continue to monitor (10) DVT prophylaxis: lovenox 40mg SQ daily PT/OT Subjective Patient still feeling significantly short of breath with coughing. Much better than admission although concerned about potentially going home. No chest pain, orthopnea, palpitations or PND. Review of Systems Review of Systems: All systems reviewed & are unremarkable except as noted in HPI & below Physical Exam Constitutional: + thin; no acute distress and no altered mental status Eyes: + anicteric sclerae ENMT: external ear and nose normal, oropharynx normal Respiratory: + uses accessory muscles; + abnormal respiratory effort, no respiratory distress, no labored breathing, no retractions and not tachypneic Auscultation: + diminished lung sounds (throughout) and + wheezes (mild expiratory); no crackles Cardiovascular: Rate/Rhythm: regular rate and regular rhythm Heart Sounds: normal S1 and normal S2 Extremities: no edema Gastrointestinal (Abdomen): normal bowel sounds, soft, nontender, no hepatosplenomegaly Musculoskeletal: no cyanosis or clubbing, extremities motor strength 5/5 Psychiatric: Orientation: alert and oriented x 3 Affect: + anxious affect Results & Data Vital Signs (Past 12 Hours) Vital Signs Temp Pulse Pulse Resp BP BP Pulse Ox 08/12/19 11:15 83 18 96 08/12/19 10:58 97.9 F 66 20 134/88 94 08/12/19 10:56 65 18 94 08/12/19 08:00 64 08/12/19 07:51 98.4 F 68 22 122/72 96 08/12/19 07:09 68 20 98 08/12/19 03:40 98.1 F 66 18 123/77 96 08/12/19 03:22 69 20 97 08/12/19 03:00 69 20 97 PG Care Time/CCT Total # of Minutes Spent Total Time Spent with Patient: Total time spent is greater than 50% in coordination of care (as documented) at patient's floor/unit and/or counseling patient: (1) Depression Depression Type: other depression Qualified Code(s): F32.89 - Other specified depressive episodes (2) Hypothyroidism Hypothyroidism type: acquired Qualified Code(s): E03.9 - Hypothyroidism, unspecified (3) Hypertension Hypertension type: essential hypertension Qualified Code(s): I10 - Essential (primary) hypertension
[2019-08-12] MEDS: PANTOprazole 40 MG TAB PO SCH (15:06)
--- NOTE | 2019-08-12 15:39 | Pulmonary Consultation ---
Date of Consultation August 12, 2019 Assessment & Plan (1) Acute respiratory failure with hypoxia: Impression: 64-year-old female with extensive history of tobacco abuse and advanced radiographic evidence of emphysema admitted with shortness of breath. She is hypoxemic. Recommendations: 1. Acute exacerbation COPD: Continue Advair and as needed duo nebs. We will add Spiriva to her regimen to. Given the severity, treatment with azithromycin is recommended. Will discontinue Rocephin and doxycycline as there is no evidence of airspace opacity identified on her CT scan. Continue Solu-Medrol for now with anticipation of transition to prednisone within the next 12 to 24 hours based on clinical response. 2. Hypoxemic respiratory failure: Suspect related to advanced obstructive lung disease. The patient may well require oxygen at discharge. Increased activity as tolerated and wean oxygen as tolerated to keep saturations at or above 88%. 3. Tobacco abuse: Smoking cessation again recommended to the patient. 4. Yearly flu shot recommended. 5. The patient should follow-up in the pulmonary clinic after discharge. She lives in [place] so may want to follow-up with a pulmonary provider closer to home. Outpatient pulmonary function test may be appropriate. She may be a candidate for pulmonary rehab. We will continue to follow with you. Feel free to contact us with additional pulmonary questions or concerns. (2) COPD (chronic obstructive pulmonary disease): COPD type: unspecified COPD Qualified Code(s): J44.9 - Chronic obstructive pulmonary disease, unspecified History of Present Illness Reason for Consultation: COPD Attending Physician: Stpehane Gavin MD History of Present Illness Asked by hospitalist service to evaluate patient admitted with shortness of breath and likely obstructive lung disease. History is obtained from discussion with the patient as well as review the electronic medical record. The patient is a 64-year-old female with an approximately [id number] history of tobacco abuse he quit smoking 5 days prior to admission. She states she quit smoking because she could no longer breathe. She has not seen a block sealer previously and is never been formally diagnosed with obstructive lung disease. She does not use inhalers or supplemental oxygen at baseline. She was found to be hypoxemic on presentation. She was admitted and treated with steroids and bronchodilators. She had an increasing oxygen requirement yesterday which prompted pulmonary consultation. The patient states that she is breathing better today. She does report a cough which is dry nonproductive typically. She does not endorse significant amounts of copious phlegm. She denies any chest pain or palpitations or lower extremity edema. No nausea vomiting or diarrhea. The patient's remaining 12 point review of systems was completed and is negative except as noted above. Allergies Allergy/AdvReac Type Severity Reaction Status Date / Time No Known Allergies Allergy Verified 08/08/19 21:02 Home Medications Home Medications Medication Instructions Recorded Confirmed Type lorazepam 1 - 2 mg PO HS PRN 10/24/18 08/08/19 History lorazepam 1 mg PO DAILY PRN 10/24/18 08/08/19 History amlodipine 5 mg tablet 5 mg PO HS #90 tab 08/06/19 08/08/19 Rx fluoxetine 80 mg PO QAM 08/08/19 08/08/19 History gabapentin 100 mg PO TID 08/08/19 08/08/19 History levothyroxine 75 mcg PO QAM 08/08/19 08/08/19 History metoprolol succinate 25 mg PO HS 08/08/19 08/08/19 History Patient History Medical History Vitamin D deficiency Renal insufficiency POD (perioral dermatitis) Overweight Nicotine abuse Insomnia GERD without esophagitis Depression Chronic pain Cheilitis Arthritis Anxiety Hypertension (Chronic) COPD (chronic obstructive pulmonary disease) (Chronic) Surgical History No significant past surgical history Family History Unknown Hypertension Mother Cancer Depression Gallbladder disease Father Alcohol abuse Sister Leukemia Colon cancer Other No significant family history Social History Preferred Language: Swedish Communication Ability: Effective Certified Registered Nurse Practitioner Required: No Beliefs That Will Affect Care: None marital status: Current Living Situation: Alone Other Information That Helps Us Care for You: No Feels Safe at Home: Yes Safety Concerns: Feels Safe At This Time Smoking Status: Current every day smoker Tobacco Type: cigarettes ; Cigarettes Per Day: 10 ; Do You Dip or Chew Tobacco: No ; Second Hand Exposure: No ; Tobacco Cessation Education Requested by Patient: No (Refused.) Hx Alcohol Use: Yes Alcohol type: hard liquor Hx Substance Use: No Review of Systems Review of Systems: See HPI Physical Exam Constitutional: WD/WN, vitals as above Neck: trachea midline, no thyromegaly Respiratory: Breath sounds diminished bilaterally. No wheezing Cardiovascular: RRR, no murmur, no edema Gastrointestinal (Abdomen): normal bowel sounds, soft, nontender, no hepatosplenomegaly Skin: no rashes, warm and dry Psychiatric: A+Ox3, euthymic affect Results & Data Vital Signs (Past 12 Hours) Vital Signs Temp Pulse Pulse Pulse Resp BP BP 08/12/19 15:06 78 18 08/12/19 11:15 83 18 08/12/19 10:58 36.6 C 66 20 134/88 08/12/19 10:56 65 18 08/12/19 08:00 64 08/12/19 07:51 36.9 C 68 22 122/72 08/12/19 07:09 68 20 08/12/19 03:40 36.7 C 66 18 123/77 Pulse Ox 08/12/19 15:06 91 08/12/19 11:15 96 08/12/19 10:58 94 08/12/19 10:56 94 08/12/19 08:00 08/12/19 07:51 96 08/12/19 07:09 98 08/12/19 03:40 96 Laboratory Results 08/12/19 07:15 08/12/19 07:15 Diagnostic Findings Chest x-ray and CT of the chest independently reviewed. Chest x-ray demonstrates hyperinflation with paucity of lung markings at the apices. CT angiogram showed no evidence of thromboembolic disease. Significant centrilobular and paraseptal emphysematous changes were identified. This accentuates some of the septa but I do not believe this represents interstitial lung disease superimposed. No hayden airspace opacities identified. No suspici ous nodules or mediastinal or hilar adenopathy. PG Care Time/CCT Total # of Minutes Spent Total Time Spent with Patient: Total time spent is greater than 50% in coordination of care (as documented) at patient's floor/unit and/or counseling patient:
[2019-08-12] MEDS: TIOTROPIUM BROMIDE 5 PUFF/90 MCG INH INH SCH (17:42)
[2019-08-12] MEDS: ACETAMINOPHEN 325 MG TAB PO PRN (20:06)
[2019-08-12] MEDS: METOPROLOL SUCC 25MG EXT REL TAB PO SCH (20:12)
[2019-08-12] MEDS: AMLODIPINE BESYLATE 5 MG TAB PO SCH (20:12)
[2019-08-13] MEDS: ALBUT/IPRATROP 3MG/0.5MG NEB 3 ML VIAL NEB SCH ×6 (03:13→23:09)
[2019-08-13] MEDS: LEVOTHYROXINE SODIUM 75 MCG TABLET PO SCH (05:48)
[2019-08-13 06:41] LABS: Calcium 8.3 mg/dl (8.5-10.1); Creatinine Clr Calc Pharmacy 61.6 ml/min; Est GFR (African American) 86.4; Est GFR (Non-African American) 74.5; Potassium 4.3 mmol/L (3.5-5.1)
[2019-08-13 06:52] LABS: Thyroid Stimulating Hormone 1.08 uIu/ml (0.300-4.500)
[2019-08-13] MEDS: ENOXAPARIN INJ 40 MG/0.4 ML SYR SQ SCH (07:27)
[2019-08-13] MEDS: FLUTICASONE/SALMETEROL 250/50 (ADVAIR) 14 PUFF/1 INHALER INH SCH ×2 (07:27→21:14)
[2019-08-13] MEDS: methylPREDNISolone 40 MG in SYRINGE 0 ML IV SCH ×2 (07:27→21:13)
[2019-08-13] MEDS: TIOTROPIUM BROMIDE 5 PUFF/90 MCG INH INH SCH (07:28)
[2019-08-13] MEDS: guaiFENesin 600 MG TABCR PO SCH ×2 (07:28→21:14)
[2019-08-13] MEDS: FLUOXETINE HCL 20 MG CAP PO SCH (07:29)
[2019-08-13] MEDS: GABAPENTIN 100 MG CAP PO SCH ×3 (07:29→21:15)
[2019-08-13] MEDS: NICOTINE 14 MG/24 HR PATCH TD SCH (07:29)
[2019-08-13] MEDS: LORazepam 1 MG TAB PO PRN ×4 (07:36→21:22)
[2019-08-13] MEDS: PANTOprazole 40 MG TAB PO SCH (08:05)
[2019-08-13] MEDS: SODIUM CHLORIDE 0.9% 1000ML 1,000 ML IV SCH ×2 (08:47→21:14)
--- NOTE | 2019-08-13 09:43 | XRay Report ---
XR chest 2V PA/lateral CLINICAL HISTORY: Hypoxia, hyponatremia. Possible pulmonary edema. COMPARISON STUDY: 08/11/2019 FINDINGS: The cardiac and mediastinal contours remain stable. There is stable slightly asymmetric lef t greater than right interstitial thickening. There is no lobar consolidation. There are no large ple ural effusions.[ IMPRESSION: Stable bilateral interstitial thickening. No evidence of focal pulmonary consolidation Electronically signed by: Noe Chan M.D. 08/13/2019 9:42 AM
--- NOTE | 2019-08-13 11:26 | Pulmonology Progress Note ---
Date of Service August 13, 2019 Assessment & Plan (1) Acute respiratory failure with hypoxia: Impression: 64-year-old female with extensive history of tobacco abuse and advanced radiographic evidence of emphysema admitted with shortness of breath. She is hypoxemic. Recommendations: 1. Acute exacerbation COPD: Continue Advair and as needed duo nebs. We will continue Spiriva. Given the severity, treatment with azithromycin is recommended. We will transition to prednisone. She does not appear overtly bronchospastic this morning. Outpatient pulmonary rehabilitation may be a consideration when she is stable 2. Hypoxemic respiratory failure: Suspect related to advanced obstructive lung disease. The patient may well require oxygen at discharge. Increased activity as tolerated and wean oxygen as tolerated to keep saturations at or above 88%. 3. Tobacco abuse: Smoking cessation again recommended to the patient. 4. Yearly flu shot recommended. 5. The patient should follow-up in the pulmonary clinic after discharge. She lives in [place] so may want to follow-up with a pulmonary provider closer to home. Outpatient pulmonary function test may be appropriate. She may be a candidate for pulmonary rehab. She needs to increase her activity level and ambulate more. I recommended that she spend as much time out of bed with her lungs upright in a seated position to try and improve pulmonary mechanics We will continue to follow with you. Feel free to contact us with additional pulmonary questions or concerns. (2) COPD (chronic obstructive pulmonary disease): COPD type: unspecified COPD Qualified Code(s): J44.9 - Chronic obstructive pulmonary disease, unspecified Subjective Patient states her breathing is about the same as yesterday. She is not really been out of bed and continues to be fairly sedentary in the hospital. She is coughing but not expectorating any phlegm. She reports her wheezing is somewhat better. She is tolerated the medications without any adverse effect. Review of Systems Review of Systems: Unchanged from prior Physical Exam Constitutional: WD/WN, vitals as above Neck: trachea midline, no thyromegaly Cardiovascular: RRR, no murmur, no edema Gastrointestinal (Abdomen): normal bowel sounds, soft, nontender, no hepatospl enomegaly Skin: no rashes, warm and dry Psychiatric: A+Ox3, euthymic affect Results & Data Vital Signs (Past 12 Hours) Vital Signs Temp Pulse Resp BP Pulse Ox 08/13/19 10:55 114 H 20 84 L 08/13/19 07:09 36.5 C 68 18 126/74 90 08/13/19 07:06 68 18 90 08/13/19 03:14 70 20 94 Laboratory Results 08/12/19 07:15 08/13/19 05:36 PG Care Time/CCT Total # of Minutes Spent Total Time Spent with Patient: Total time spent is greater than 50% in coordination of care (as documented) at patient's floor/unit and/or counseling patient:
[2019-08-13 14:37] LABS: Albumin Level 2.8 gm/dl (3.4-5.0); BUN Creatinine Ratio 24.7 (10-20); Calcium 8.3 mg/dl (8.5-10.1); Creatinine Clr Calc Pharmacy 49.2 ml/min; Est GFR (African American) 65.8; Est GFR (Non-African American) 56.7; Potassium 4.3 mmol/L (3.5-5.1)
[2019-08-13 14:40] LABS: Bilirubin,Total 0.4 mg/dl (0.2-1); Globulin 2.7 gm/dl (2.5-4.0); Total Protein 5.5 gm/dl (6.4-8.2)
[2019-08-13] MEDS: ACETAMINOPHEN 325 MG TAB PO PRN (15:45)
--- NOTE | 2019-08-13 17:35 | Hospitalist Progress Note ---
Date of Service August 13, 2019 Assessment & Plan (1) Hyponatremia: Initially improved with dose of lasix in ER. However trending down since addition lasix on 08/10. Clinically not hypervolemic on exam or CXR. Has some chronic hyponatremia at baseline. Will start on NSS as concern more for hypovolemia on exam and will get serum/urine osm in AM. No excessive free water in last few days by history from patient. Possible SIADH. Stable on afternoon labs without worsening SOB or pulmonary edema on exam therefore will continue IV NSS at this time. Diagnosis remains uncertain given lack of diuretic use in the last few days. Current feeling of weakness likely secondary to this. (2) Acute respiratory failure with hypoxia: Secondary to COPD exacerbation. No pulmonary edema on imaging or exam, echo unremarkable Appreciate pulmonology consult Will transfer to med/surg given improvement in O2 sats. Aim O2 sats > 88% (3) COPD exacerbation: Continue solumedrol at 40mg IV q12h - will transition to prednisone tomorrow as per pulmonology plan Cont azithromycin, nebs Chest physio ordered to assist with mucus secretion Continue Advair 250/50 1 puff BID. (4) Prolonged QT interval: QTc improved to 503ms, ok to continue azithromycin. (5) Anxiety: ativan prn prozac daily (6) Depression: cont prozac (7) Tobacco abuse: discussed smoking cessation continue nicoderm patch 14mg/24 hrs. (8) Hypertension: Stable cont amlodipine + metoprolol XL (9) Hypothyroidism: TSH 1.08 cont synthroid (10) Hypokalemia: d/c supplementation now potassium WNL Monitor daily (11) DVT prophylaxis: lovenox 40mg SQ daily PT/OT Subjective No acute events overnight. Still significantly short of breath and not back to baseline. Feels generally weak and deconditioned. Weakness not lateralizing. Less wheezing noted Review of Systems Review of Systems: All systems reviewed & are unremarkable except as noted in HPI & below Physical Exam Constitutional: + thin; no acute distress and no altered mental status Eyes: + anicteric sclerae ENMT: external ear and nose normal, oropharynx normal Respiratory: normal respiratory effort; no respiratory distress, no retractions, does not use accessory muscles and not tachypneic Auscultation: + diminished lung sounds (throughout); no crackles and no wheezes Cardiovascular: Rate/Rhythm: regular rate and regular rhythm Heart Sounds: no murmur Extremities: no edema Gastrointestinal (Abdomen): normal bowel sounds, soft, nontender, no hepatosplenomegaly Musculoskeletal: no cyanosis or clubbing, extremities motor strength 5/5 Psychiatric: Orientation: alert and oriented x 3 Affect: + anxious affect Results & Data Vital Signs (Past 12 Hours) Vital Signs Temp Pulse Resp BP BP Pulse Ox 08/13/19 15:09 79 18 97 08/13/19 14:48 98.1 F 70 22 122/71 96 08/13/19 10:55 114 H 20 84 L 08/13/19 07:09 97.7 F 68 18 126/74 90 08/13/19 07:06 68 18 90 PG Care Time/CCT Total # of Minutes Spent Total Time Spent with Patient: Total time spent is greater than 50% in coordination of care (as documented) at patient's floor/unit and/or counseling patient: (1) Depression Depression Type: other depression Qualified Code(s): F32.89 - Other specified depressive episodes (2) Hypothyroidism Hypothyroidism type: acquired Qualified Code(s): E03.9 - Hypothyroidism, unspecified (3) Hypertension Hypertension type: essential hypertension Qualified Code(s): I10 - Essential (primary) hypertension
[2019-08-13] MEDS: AMLODIPINE BESYLATE 5 MG TAB PO SCH (21:16)
[2019-08-13] MEDS: METOPROLOL SUCC 25MG EXT REL TAB PO SCH (21:18)
[2019-08-13] MEDS ORDERED: predniSONE 20 MG TAB PO SCH (22:29)
[2019-08-14] MEDS: ALBUT/IPRATROP 3MG/0.5MG NEB 3 ML VIAL NEB SCH ×6 (03:08→23:04)
[2019-08-14] MEDS ORDERED: FAMOTIDINE 20 MG in SYRINGE 3 ML IV ONE (03:45)
[2019-08-14 04:45] LABS: BUN Creatinine Ratio 29.8 (10-20); Blood Urea Nitrogen 25 mg/dl (7-18); Carbon Dioxide 21 mmol/L (21-32); Chloride 98 mmol/L (98-107); Creatinine Clr Calc Pharmacy 60.2 ml/min; Est GFR (African American) 83.9; Est GFR (Non-African American) 72.4; Glucose 113 mg/dl (70-99); Potassium 4.4 mmol/L (3.5-5.1); Sodium 127 mmol/L (136-145)
[2019-08-14 04:50] LABS: Troponin I < 0.015 ng/ml (0-0.045)
[2019-08-14] MEDS: LEVOTHYROXINE SODIUM 75 MCG TABLET PO SCH (05:41)
--- NOTE | 2019-08-14 07:09 | XRay Report ---
XR chest 1V portable CLINICAL HISTORY: Chest pain. COMPARISON STUDY: Chest CT August 11, 2019. Chest radiograph August 13, 2019 at 9:30 AM. FINDINGS: Interstitial thickening is noted. Previous CT showed emphysema. There is no pneumothorax or pleural effusion. No superimposed consolidation is noted. Moderate cardiomegaly is noted. Osteoarthr itis of both glenohumeral joints is incidentally noted. IMPRESSION: 1. Emphysema. Mild superimposed pulmonary edema would be difficult to exclude. 2. No consolidation identified. Electronically signed by: Jorge L Parekh M.D. 08/14/2019 7:08 AM
[2019-08-14] MEDS: TIOTROPIUM BROMIDE 5 PUFF/90 MCG INH INH SCH (07:47)
[2019-08-14] MEDS: FLUTICASONE/SALMETEROL 250/50 (ADVAIR) 14 PUFF/1 INHALER INH SCH ×2 (07:47→21:12)
[2019-08-14] MEDS: guaiFENesin 600 MG TABCR PO SCH ×2 (07:49→21:12)
[2019-08-14] MEDS: PANTOprazole 40 MG TAB PO SCH (07:49)
[2019-08-14] MEDS: ENOXAPARIN INJ 40 MG/0.4 ML SYR SQ SCH (07:49)
[2019-08-14] MEDS: NICOTINE 14 MG/24 HR PATCH TD SCH (07:50)
[2019-08-14] MEDS: FLUOXETINE HCL 20 MG CAP PO SCH (07:50)
[2019-08-14] MEDS: GABAPENTIN 100 MG CAP PO SCH ×3 (07:50→21:14)
[2019-08-14] MEDS: LORazepam 1 MG TAB PO PRN ×4 (07:57→21:10)
[2019-08-14] MEDS ORDERED: SODIUM CHLORIDE 1 GM TABLET PO ONE (09:11)
[2019-08-14] MEDS: predniSONE 20 MG TAB PO SCH (10:23)
--- NOTE | 2019-08-14 10:41 | Pulmonology Progress Note ---
Date of Service August 14, 2019 Assessment & Plan (1) Acute respiratory failure with hypoxia: Impression: 64-year-old female with extensive history of tobacco abuse and advanced radiographic evidence of emphysema admitted with shortness of breath. She is hypoxemic. Recommendations: 1. Acute exacerbation COPD: Continue Advair and as needed duo nebs. We will continue Spiriva. Given the severity, treatment with azithromycin is recommended. Transition to oral prednisone 40 mg daily. Would continue for a total of 4 days and then discontinue. She does not appear overtly bronchospastic this morning. Outpatient pulmonary rehabilitation may be a consideration when she is stable 2. Hypoxemic respiratory failure: Suspect related to advanced obstructive lung disease. The patient may well require oxygen at discharge. Increased activity as tolerated and wean oxygen as tolerated to keep saturations at or above 88%. 3. Tobacco abuse: Smoking cessation again recommended to the patient. 4. Yearly flu shot recommended. The patient appears to be approaching maximum benefit from inpatient hospitalization. She definitely needs to get up and be more active. We would be happy to follow her up in pulmonary clinic at discharge. 5. The patient should follow-up in the pulmonary clinic after discharge. She lives in [place] so may want to follow-up with a pulmonary provider closer to home. Outpatient pulmonary function test may be appropriate. She may be a candidate for pulmonary rehab. She needs to increase her activity level and ambulate more. I recommended that she spend as much time out of bed with her lungs upright in a seated position to try and improve pulmonary mechanics We will continue to follow with you. Feel free to contact us with additional pulmonary questions or concerns. (2) COPD (chronic obstructive pulmonary disease): COPD type: unspecified COPD Qualified Code(s): J44.9 - Chronic obstructive pulmonary disease, unspecified Subjective Patient seen and examined. She is again sleeping in bed. She did wake easily. She states her breathing feels "tired". She does have occasional cough but is not expectorating any phlegm. She denies any chest pain or palpitations. She is tolerating a diet Review of Systems Review of Systems: Unchanged from prior Physical Exam Constitutional: WD/WN, vitals as above Neck: trachea midline, no thyromegaly Respiratory: Decreased breath sounds bilaterally without wheezing Cardiovascular: RRR, no murmur, no edema Gastrointestinal (Abdomen): normal bowel sounds, soft, nontender, no hepatosplenomegaly Skin: no rashes, warm and dry Psychiatric: A+Ox3, euthymic affect Results & Data Vital Signs (Past 12 Hours) Vital Signs Temp Pulse Pulse Resp BP BP Pulse Ox 08/14/19 07:21 74 20 98 08/14/19 07:10 36.4 C L 69 20 133/67 94 08/14/19 03:08 72 20 95 08/13/19 23:21 36.4 C L 74 16 143/88 H 98 08/13/19 23:09 74 19 97 08/13/19 22:42 70 22 94 PG Care Time/CCT Total # of Minutes Spent Total Time Spent with Patient: Total time spent is greater than 50% in coordination of care (as documented) at patient's floor/unit and/or counseling patient:
[2019-08-14] MEDS: SODIUM CHLORIDE 0.9% 1000ML 1,000 ML IV SCH (10:59)
[2019-08-14 13:27] LABS: Calcium 8.6 mg/dl (8.5-10.1); Creatinine Clr Calc Pharmacy 62.4 ml/min; Est GFR (African American) 87.6; Est GFR (Non-African American) 75.6; Potassium 3.8 mmol/L (3.5-5.1)
[2019-08-14] MEDS: SODIUM CHLORIDE 1 GM TABLET PO SCH ×2 (14:04→21:13)
--- NOTE | 2019-08-14 20:12 | Hospitalist Progress Note ---
Date of Service August 14, 2019 Assessment & Plan (1) SIADH (syndrome of inappropriate ADH production): Euvolemic on exam. Urine osm/Na consistent with this diagnosis. Improving with salt tabs + fluid restriction. Medically stable for discharge pending placement decision by patient. (2) Acute respiratory failure with hypoxia: Secondary to COPD exacerbation. No pulmonary edema on imaging or exam, echo unremarkable Appreciate pulmonology recommendations Continue to wean aim O2 sats > 88% (3) COPD exacerbation: Continue prednisone - will need to taper given prolonged course Cont nebs Continue Advair 250/50 1 puff BID. (4) Anxiety: ativan prn, will reduce frequency given very frequent use and weaned off as an outpatient prozac daily (5) Depression: cont prozac (6) Tobacco abuse: smoking cessation continue nicoderm patch 14mg/24 hrs. (7) Hypertension: Stable cont amlodipine + metoprolol XL (8) Hypothyroidism: TSH 1.08 cont synthroid (9) Hypokalemia: Monitor daily now off supplementation (10) DVT prophylaxis: lovenox 40mg SQ daily PT/OT, medically stable for discharge pending placement decision by patient. Highly recommended she does not go home as she lives alone. Subjective She feels her breathing is improving but generally deconditioned. Does not feel safe to be discharged home. She does feel less confused now her sodium is improving. Reports desire to never smoke again. Discussed patient lorazepam use - reports recently weaned off this with a new psychiatrist after being on it for years as prescribed by her PCP. Prozac had been increased by this new prescriber to offset this. Currently feels more anxious than normal due to hospital admission and shortness of breath therefore taking lorazepam regularly while she is here. Review of Systems Review of Systems: All systems reviewed & are unremarkable except as noted in HPI & below Physical Exam Constitutional: + thin; no acute distress and no altered mental status Eyes: + anicteric sclerae ENMT: external ear and nose normal, oropharynx normal Neck: trachea midline Respiratory: normal respiratory effort; no respiratory distress, no retractions, does not use accessory muscles and not tachypneic Auscultation: + diminished lung sounds (poor inspiratory effort, improved air movement); no crackles and no wheezes Cardiovascular: Rate/Rhythm: regular rate and regular rhythm Heart Sounds: no murmur Extremities: no edema Gastrointestinal (Abdomen): normal bowel sounds, soft, nontender, no hepatosplenomegaly Musculoskeletal: no cyanosis or clubbing, extremities motor strength 5/5 Skin: no rashes, warm and dry Psychiatric: Orientation: alert and oriented x 3 Affect: + anxious affect Results & Data Vital Signs (Past 12 Hours) Vital Signs Temp Pulse Resp BP Pulse Ox 08/14/19 18:57 77 18 94 08/14/19 16:17 97.9 F 77 18 127/76 90 08/14/19 14:53 77 16 94 08/14/19 11:17 79 20 93 PG Care Time/CCT Total # of Minutes Spent Total Time Spent with Patient: Total time spent is greater than 50% in coordination of care (as documented) at patient's floor/unit and/or counseling patient: (1) Depression Depression Type: other depression Qualified Code(s): F32.89 - Other specified depressive episodes (2) Hypothyroidism Hypothyroidism type: acquired Qualified Code(s): E03.9 - Hypothyroidism, unspecified (3) Hypertension Hypertension type: essential hypertension Qualified Code(s): I10 - Essential (primary) hypertension
[2019-08-14] MEDS: AMLODIPINE BESYLATE 5 MG TAB PO SCH (21:15)
[2019-08-14] MEDS: METOPROLOL SUCC 25MG EXT REL TAB PO SCH (21:16)
[2019-08-15] MEDS: ALBUT/IPRATROP 3MG/0.5MG NEB 3 ML VIAL NEB SCH ×6 (03:33→23:04)
[2019-08-15] MEDS: LEVOTHYROXINE SODIUM 75 MCG TABLET PO SCH (05:43)
[2019-08-15 06:29] LABS: Creatinine Clr Calc Pharmacy 58.1 ml/min; Est GFR (African American) 80.5; Est GFR (Non-African American) 69.4
[2019-08-15] MEDS: guaiFENesin 600 MG TABCR PO SCH ×2 (07:52→20:26)
[2019-08-15] MEDS: GABAPENTIN 100 MG CAP PO SCH ×3 (07:52→20:29)
[2019-08-15] MEDS: FLUOXETINE HCL 20 MG CAP PO SCH (07:52)
[2019-08-15] MEDS: SODIUM CHLORIDE 1 GM TABLET PO SCH ×3 (07:52→20:30)
[2019-08-15] MEDS: predniSONE 20 MG TAB PO SCH (07:53)
[2019-08-15] MEDS: FLUTICASONE/SALMETEROL 250/50 (ADVAIR) 14 PUFF/1 INHALER INH SCH ×2 (07:53→20:23)
[2019-08-15] MEDS: TIOTROPIUM BROMIDE 5 PUFF/90 MCG INH INH SCH (07:53)
[2019-08-15] MEDS: PANTOprazole 40 MG TAB PO SCH (07:53)
[2019-08-15] MEDS: ENOXAPARIN INJ 40 MG/0.4 ML SYR SQ SCH (07:54)
[2019-08-15] MEDS: NICOTINE 14 MG/24 HR PATCH TD SCH (07:54)
[2019-08-15] MEDS: LORazepam 1 MG TAB PO PRN ×3 (08:00→21:52)
--- NOTE | 2019-08-15 08:11 | Pulmonology Progress Note ---
Date of Service August 15, 2019 Assessment & Plan (1) Acute respiratory failure with hypoxia: Impression: 64-year-old female with extensive history of tobacco abuse and advanced radiographic evidence of emphysema admitted with shortness of breath. She is hypoxemic. Recommendations: 1. Acute exacerbation COPD: Continue Advair and as needed duo nebs. We will continue Spiriva. Given the severity, treatment with azithromycin is recommended. Transition to oral prednisone 40 mg daily. Would continue for a total of 4 days and then discontinue. From a pulmonary standpoint, she appears to have recovered significantly and is eligible to be dismissed from the hospital. 2. Hypoxemic respiratory failure: Suspect related to advanced obstructive lung disease. The patient may well require oxygen at discharge. Increased activity as tolerated and wean oxygen as tolerated to keep saturations at or above 88%. Two-step oxygen evaluation recommended 3. Tobacco abuse: Smoking cessation again recommended to the patient. 4. Yearly flu shot recommended. 5. The patient should follow-up in the pulmonary clinic after discharge. She lives in [place] so may want to follow-up with a pulmonary provider closer to home. Outpatient pulmonary function test are recommended. Consideration for pulmonary rehab is appropriate if the patient has a facility that makes this logistically feasible Available to see if needed. Call if questions. (2) COPD (chronic obstructive pulmonary disease): COPD type: unspecified COPD Qualified Code(s): J44.9 - Chronic obstructive pulmonary disease, unspecified Subjective Patient seen and examined. Electronic medical record reviewed. She is awake alert and sitting up this morning. She states her breathing is improved. She was able to ambulate. She is tolerating a diet. She continues to have some dry cough but is not producing any significant phlegm. Overall she looks and feels improved. Review of Systems Review of Systems: Unchanged from prior Physical Exam Constitutional: WD/WN, vitals as above Neck: trachea midline, no thyromegaly Cardiovascular: RRR, no murmur, no edema Gastrointestinal (Abdomen): normal bowel sounds, soft, nontender, no hepatosplenomegaly Skin: no rashes, warm and dry Psychiatric: A+Ox3, euthymic affect Results & Data Vital Signs (Past 12 Hours) Vital Signs Temp Pulse Pulse Resp BP BP Pulse Ox 08/15/19 07:31 36.6 C 72 20 132/81 90 08/15/19 07:09 70 16 97 08/14/19 23:04 81 18 95 08/14/19 22:50 36.4 C L 80 19 125/74 90 08/14/19 21:12 36.5 C 69 21 129/84 98 Laboratory Results 08/12/19 07:15 08/15/19 05:28 Diagnostic Findings No new imaging PG Care Time/CCT Total # of Minutes Spent Total Time Spent with Patient: Total time spent is greater than 50% in coordination of care (as documented) at patient's floor/unit and/or counseling patient:
[2019-08-15 08:55] LABS: BUN Creatinine Ratio 25.2 (10-20); Calcium 7.9 mg/dl (8.5-10.1); Creatinine Clr Calc Pharmacy 56.8 ml/min; Est GFR (African American) 78.3; Est GFR (Non-African American) 67.6; Potassium 3.9 mmol/L (3.5-5.1)
--- NOTE | 2019-08-15 17:55 | Hospitalist Progress Note ---
Date of Service August 15, 2019 Assessment & Plan (1) SIADH (syndrome of inappropriate ADH production): Suspect secondary to current illness rather than chronic medication. Euvolemic on exam. Urine osm/Na consistent with this diagnosis. Improving with salt tabs + fluid restriction. Medically stable for discharge pending placement decision by patient. (2) Acute respiratory failure with hypoxia: Secondary to COPD exacerbation. No pulmonary edema on imaging or exam, echo unremarkable Appreciate pulmonology recommendations Continue to wean aim O2 sats > 88% No need to 2 step since patient now wishes to go for inpatient rehab (3) COPD exacerbation: Continue prednisone - will taper over a week due to prolonged illness Cont nebs Continue Advair 250/50 1 puff BID. (4) Anxiety: Ativan prn (reducing frequency as not on this as outpatient), will start on quetiapine as per outpatient prescription when this can be confirmed with her psychiatrist. Prozac daily (5) Depression: cont prozac (6) Tobacco abuse: smoking cessation continue nicoderm patch 14mg/24 hrs. (7) Hypertension: Stable cont amlodipine + metoprolol XL (8) Hypothyroidism: TSH 1.08 cont synthroid (9) Hypokalemia: Monitor daily now off supplementation (10) DVT prophylaxis: lovenox 40mg SQ daily PT/OT - awaiting placement Subjective Discussed excessive lorazepam use again with patient and called her pharmacy to determine recent changes to her prescriptions. New medication prescribed by her psychiatrist is quitiapine 25mg QID and 150mg HS. However unable to confirm this with her psychiatrist as the office is closed today. She reports her main issue during hospitalization has been lack of sleep if she doesn't have any lorazepam. Ongoing dry cough. Shortness of breath on exertion but not at rest. No chest pain. Normal BM reported. Patient reports still not back to baseline but more open to going to rehabilitaion for physical therapy as she is just generally deconditioned at this stage Review of Systems Review of Systems: All systems reviewed & are unremarkable except as noted in HPI & below Physical Exam Constitutional: + thin; no acute distress and no altered mental status Eyes: + anicteric sclerae ENMT: external ear and nose normal, oropharynx normal Neck: trachea midline Respiratory: normal respiratory effort; no respiratory distress, no retractions, does not use accessory muscles and not tachypneic Auscultation: lungs clear to auscultation bilaterally; no diminished lung sounds, no crackles and no wheezes Cardiovascular: Rate/Rhythm: regular rate and regular rhythm Heart Sounds: no murmur Extremities: no edema Gastrointestinal (Abdomen): normal bowel sounds, soft, nontender, no hepatosplenomegaly Musculoskeletal: no cyanosis or clubbing, extremities motor strength 5/5 Skin: no rashes, warm and dry Psychiatric: Orientation: alert and oriented x 3 Affect: + anxious affect Results & Data Vital Signs (Past 12 Hours) Vital Signs Temp Pulse Pulse Resp BP Pulse Ox 08/15/19 15:27 74 16 94 08/15/19 15:18 98.2 F 80 19 127/76 94 08/15/19 11:04 86 16 92 08/15/19 07:31 97.9 F 72 20 132/81 90 08/15/19 07:09 70 16 97 PG Care Time/CCT Total # of Minutes Spent Total Time Spent with Patient: Total time spent is greater than 50% in coordination of care (as documented) at patient's floor/unit and/or counseling patient: (1) Depression Depression Type: other depression Qualified Code(s): F32.89 - Other specified depressive episodes (2) Hypothyroidism Hypothyroidism type: acquired Qualified Code(s): E03.9 - Hypothyroidism, unspecified (3) Hypertension Hypertension type: essential hypertension Qualified Code(s): I10 - Essential (primary) hypertension
[2019-08-15] MEDS: AMLODIPINE BESYLATE 5 MG TAB PO SCH (20:32)
[2019-08-15] MEDS: METOPROLOL SUCC 25MG EXT REL TAB PO SCH (20:32)
[2019-08-16] MEDS: ALBUT/IPRATROP 3MG/0.5MG NEB 3 ML VIAL NEB SCH ×3 (03:15→11:21)
[2019-08-16] MEDS: LEVOTHYROXINE SODIUM 75 MCG TABLET PO SCH (05:54)
[2019-08-16] MEDS: ACETAMINOPHEN 325 MG TAB PO PRN (07:42)
[2019-08-16] MEDS: LORazepam 1 MG TAB PO PRN ×2 (07:43→13:33)
[2019-08-16 08:09] LABS: Basophils # (auto) 0.01 K/uL (0-0.2); Basophils % (auto) 0.1 %; Eosinophils # (auto) 0.26 K/uL (0-0.5); Eosinophils % (auto) 1.5 %; Hematocrit (blood only) 37.9 % (37-47); Hemoglobin 12.5 g/dL (12.0-16.0); Immature Granulocytes # (auto) 0.32 K/uL (0.00-0.02); Immature Granulocytes % (auto) 1.8 %; Lymphocytes # (auto) 2.34 K/uL (1.2-3.4); Lymphocytes % (auto) 13.1 %; Mean Corpuscular Hemoglobin 26.8 pg (25-34); Mean Corpuscular Volume 81.2 fL (80-100); Mean Platelet Volume 10.4 fL (7.4-10.4); Monocytes # (auto) 1.56 K/uL (0.11-0.59); Monocytes % (auto) 8.7 %; Neutrophils # (auto) 13.43 K/uL (1.4-6.5); Neutrophils % (auto) 74.8 %; Platelet Count 308 K/uL (130-400); RDW Coefficient of Variation 17.6 % (11.5-14.5); RDW Standard Deviation 51.4 fL (36.4-46.3); Red Blood Count 4.67 M/uL (4.2-5.4); White Blood Count 17.92 K/uL (4.8-10.8)
[2019-08-16 08:40] LABS: Potassium 3.7 mmol/L (3.5-5.1)
[2019-08-16] MEDS: guaiFENesin 600 MG TABCR PO SCH (08:44)
[2019-08-16] MEDS: SODIUM CHLORIDE 1 GM TABLET PO SCH ×2 (08:44→13:33)
[2019-08-16 08:45] LABS: Albumin Level 2.6 gm/dl (3.4-5.0); BUN Creatinine Ratio 25.6 (10-20); Calcium 7.8 mg/dl (8.5-10.1); Creatinine Clr Calc Pharmacy 51.1 ml/min; Est GFR (Non-African American) 59.5
[2019-08-16] MEDS: predniSONE 20 MG TAB PO SCH (08:45)
[2019-08-16] MEDS: FLUTICASONE/SALMETEROL 250/50 (ADVAIR) 14 PUFF/1 INHALER INH SCH (08:45)
[2019-08-16] MEDS: FLUOXETINE HCL 20 MG CAP PO SCH (08:45)
[2019-08-16] MEDS: GABAPENTIN 100 MG CAP PO SCH ×2 (08:46→13:33)
[2019-08-16] MEDS: ENOXAPARIN INJ 40 MG/0.4 ML SYR SQ SCH (08:46)
[2019-08-16] MEDS: PANTOprazole 40 MG TAB PO SCH (08:46)
[2019-08-16] MEDS: NICOTINE 14 MG/24 HR PATCH TD SCH (08:47)
[2019-08-16 08:48] LABS: Albumin Globulin Ratio 1.1 (0.9-2); Bilirubin,Total 0.3 mg/dl (0.2-1); Globulin 2.3 gm/dl (2.5-4.0); Total Protein 4.9 gm/dl (6.4-8.2)
[2019-08-16] MEDS: TIOTROPIUM BROMIDE 5 PUFF/90 MCG INH INH SCH (08:48)
--- NOTE | 2019-08-16 10:44 | Pulmonology Progress Note ---
Date of Service August 16, 2019 Assessment & Plan (1) Acute respiratory failure with hypoxia: Impression: 64-year-old female with extensive history of tobacco abuse and advanced radiographic evidence of emphysema admitted with shortness of breath. She is hypoxemic. Recommendations: 1. Acute exacerbation COPD: Significantly improved. Continue Advair and as needed duo nebs. We will continue Spiriva. Given the severity, treatment with azithromycin is recommended. Transition to oral prednisone 40 mg daily. Would continue for a total of 4 days and then discontinue. From a pulmonary standpoint, she appears to have recovered significantly and is eligible to be dismissed from the hospital. 2. Hypoxemic respiratory failure: Suspect related to advanced obstructive lung disease. The patient may well require oxygen at discharge. Increased activity as tolerated and wean oxygen as tolerated to keep saturations at or above 88%. Two-step oxygen evaluation recommended 3. Tobacco abuse: Smoking cessation again recommended to the patient. 4. Yearly flu shot recommended. 5. The patient should follow-up in the pulmonary clinic after discharge. She lives in [place] so may want to follow-up with a pulmonary provider closer to home. Outpatient pulmonary function test are recommended. Consideration for pulmonary rehab is appropriate if the patient has a facility that makes this logistically feasible Again anticipate the patient can be dismissed from the hospital from a pulmonary perspective. Outpatient follow-up as noted. Will sign off, please reconsult if additional questions (2) COPD (chronic obstructive pulmonary disease): COPD type: unspecified COPD Qualified Code(s): J44.9 - Chronic obstructive pulmonary disease, unspecified Subjective Patient seen and examined. She is sitting up in a chair eating breakfast. She appears much more alert and conversant. She states her breathing has improved but she continues to feel short of breath with significant activity. No coughing wheezing or sputum production. She is tolerating the medications well without adverse effect Review of Systems Review of Systems: Unchanged from prior Physical Exam Constitutional: WD/WN, vitals as above Neck: trachea midline, no thyromegaly Respiratory: Diminished breath sounds bilaterally without wheezing Cardiovascular: RRR, no murmur, no edema Gastrointestinal (Abdomen): normal bowel sounds, soft, nontender, no hepatosplenomegaly Skin: no rashes, warm and dry Psychiatric: A+Ox3, euthymic affect Results & Data Vital Signs (Past 12 Hours) Vital Signs Temp Pulse Pulse Resp BP Pulse Ox 08/16/19 07:19 36.6 C 82 20 140/81 96 08/16/19 07:03 75 18 95 08/16/19 03:15 74 16 96 08/15/19 23:04 81 16 93 08/15/19 23:00 36.4 C L 78 20 130/71 91 Laboratory Results 08/16/19 07:48 08/16/19 07:48 PG Care Time/CCT Total # of Minutes Spent Total Time Spent with Patient: Total time spent is greater than 50% in coordi nation of care (as documented) at patient's floor/unit and/or counseling patient:
[2019-08-16] MEDS ORDERED: QUETIAPINE FUMARATE 25 MG TABLET PO STA (14:45)
[2019-08-16] MEDS ORDERED: LORazepam 1 MG TAB PO PRN (14:57)
[2019-08-16] MEDS ORDERED: QUETIAPINE FUMARATE 25 MG TABLET PO SCH (17:00)
[2019-08-16] MEDS ORDERED: QUETIAPINE FUMARATE 100 MG TABLET PO SCH (21:00)
--- NOTE | 2019-08-29 19:49 | Discharge Summary ---
Date of Service August 16, 2019 Admission HPI Per Admitting Provider 64-year-old female with history of COPD, hypertension, anxiety, hypothyroidism, 45 pack-year smoking history presents with acute shortness of breath. She states that her symptoms began 3 days ago. She denies any URI symptoms over the past couple days. She was initially dyspneic with walking across the room and has progressed to dyspnea at rest. Patient denies a past history of heart diseaseno diabetes, no hyperlipidemia, no known coronary artery disease or acute coronary syndrome. She denies a family history of coronary artery disease. Review of systems Constitutional; denies fevers, chills, night sweats HEENT; denies sore throat, runny nose, sinus pressure CV; denies chest pain, palpitations Pulmonary; shortness of breath as described above, cough Abdomen; denies abdominal pain, reports chronic nausea and diarrhea Admission Exam Per Admitting Provider Constitutional: WD/WN, vitals as above Eyes: PERRL, conjunctivae normal, anicteric sclerae ENMT: external ear and nose normal, oropharynx normal Neck: trachea midline, no thyromegaly Respiratory: + respiratory distress and + uses accessory muscles; + not able to speak in complete sentence Auscultation: + breath sounds absent Cardiovascular: RRR, no murmur, no edema Gastrointestinal (Abdomen): normal bowel sounds, soft, nontender, no hepatosplenomegaly Musculoskeletal: no cyanosis or clubbing, extremities motor strength 5/5 Skin: no rashes, warm and dry Neurologic: PERRL, EOMI, accommodation nl, no face palsy, no dysarthria Psychiatric: A+Ox3, euthymic affect Principal Diagnosis Acute hypoxic respiratory failure COPD exacerbation SIADH Anxiety and panic attacks Discharge Exam Constitutional + thin; no acute distress and no altered mental status Eyes + anicteric sclerae ENMT external ear and nose normal, oropharynx normal Neck trachea midline Respiratory normal respiratory effort; no respiratory distress, no retractions, does not use accessory muscles and not tachypneic Auscultation: lungs clear to auscultation bilaterally; no diminished lung sounds, no crackles and no wheezes Cardiovascular Rate/Rhythm: regular rate and regular rhythm Heart Sounds: no murmur Extremities: no edema Gastrointestinal (Abdomen) normal bowel sounds, soft, nontender, no hepatosplenomegaly Musculoskeletal no cyanosis or clubbing, extremities motor strength 5/5 Skin no rashes, warm and dry Psychiatric Orientation: alert and oriented x 3 Affect: + anxious affect Discharge Data Allergies Allergy/AdvReac Type Severity Reaction Status Date / Time No Known Allergies Allergy Verified 08/08/19 21:02 Consultations 08/08/19 19:26 ED Decision to Admit Stat 08/08/19 23:05 Consult Case Management - Discharge Planning Routine 08/11/19 19:28 Consult Pulmonology Routine Ordered Studies 08/08/19 18:25 CT abd pelvis wo con Stat 08/11/19 19:28 CT chest wo con Routine Hospital Course (1) Acute respiratory failure with hypoxia: Sulma Greenwood was admitted with shortness of breath at rest on August 08. She was initially treated with antibiotics due to concern for pneumonia but switched to azithromycin only once she had a CT scan showing no pneumonia present. She was diagnosed with acute hypoxic respiratory failure (she was not on oxygen prior to this admission) and has required oxygen throughout admission even at rest to maintain saturations > 88%. She is on 2L of oxygen at discharge at rest but requires 3-4L on exertion. Tobacco use disorder - feels she is able to quit smoking, 45 pack-year history. On nicotine patch while in hospital and recommend continuing on transfer. COPD exacerbation - no wheezing on auscultation on discharge. Recommend continuing regular nebulizers QID for 1-2 days then as needed. Prednisone will be weaned over the next 4 days to prevent adrenal insufficiency. Recommend referral to pulmonology clinic as outpatient, PFTS in 4-6 weeks, pulmonary rehabilitation if possible. [place] place follow up [place] [facility] [place] she may which to follow up closer to [place]. Anxiety and panic attacks - on prozac and quetiapine as outpatient - no changes were made however the quetiapine is a recent change and she was not initially receiving this while in hospital as was not on her medication list. She has actually been weaned off the lorazepam recently as an outpatient and is no longer prescribed this however she was having severe anxiety while in hospital therefore this was prescribed but should continue to weaned prior to discharge from [facility] as she does not have any as an outpatient. SIADH - Na 135 on discharge, improved with fluid restriction and salt tabs. Will reduce the salt tabs on discharge and can relax fluid restriction with repeat labs on Monday and if normal can likely stop both of these treatments. (2) SIADH (syndrome of inappropriate ADH production): (3) COPD exacerbation: (4) Anxiety: (5) Tobacco abuse: Total Time Total Time Spent Total Time Spent (In Minutes): 40 Total Time Includes: Examination of the Patient, Discharge Planning and Medication Reconciliation Discharge Plan Discharge Items Patient Disposition: Transfer Inpatient Rehab Fac Reason For Visit: COPD EXACERBATION Discharge Diagnosis: Acute hypoxic respiratory failure COPD exacerbation SIADH Anxiety and panic attacks Activity: Per Instructions section Lifting: Gradually increase as tolerated Bathing: No limitations Sexual Activity: When tolerated Exercise/Sports: None and Gradually increase as tolerated Weightbearing: Full weightbearing Non-emergency contact: Primary Care Provider Call non-emergency contact if: you have any medication questions, your symptoms worsen and your temperature is above 101.5 Follow-up/Referrals: Olivia Gomez DO [Primary Care Provider] - Glen Tate MD [Physician] - (approximately 4 -6 weeks) Diet: Regular Fluids: 1800ml (7 cups) Addtl Attending Provider Instructions: Sulma Greenwood was admitted with shortness of breath at rest on August 08. She was initially treated with antibiotics due to concern for pneumonia but switched to azithromycin only once she had a CT scan showing no pneumonia present. She was diagnosed with acute hypoxic respiratory failure (she was not on oxygen prior to this admission) and has required oxygen throughout admission even at rest to maintain saturations > 88%. She is on 2L of oxygen at discharge at rest but requires 3-4L on exertion. Tobacco use disorder - feels she is able to quit smoking, 45 pack-year history. On nicotine patch while in hospital and recommend continuing on transfer. COPD exacerbation - no wheezing on auscultation on discharge. Recommend continuing regular nebulizers QID for 1-2 days then as needed. Prednisone will be weaned over the next 4 days to prevent adrenal insufficiency. Recommend referral to pulmonology clinic as outpatient, PFTS in 4-6 weeks, pulmonary rehabilitation if possible. Will place follow up with provider in [facility] although she may which to follow up closer to [place]. Anxiety and panic attacks - on prozac and quetiapine as outpatient - no changes were made however the quetiapine is a recent change and she was not initially receiving this while in hospital as was not on her medication list. She has actually been weaned off the lorazepam recently as an outpatient and is no longer prescribed this however she was having severe anxiety while in hospital therefore this was prescribed but should continue to weaned prior to discharge from [facility] as she does not have any as an outpatient. SIADH - Na 135 on discharge, improved with fluid restriction and salt tabs. Will reduce the salt tabs on discharge and can relax fluid restriction with repeat labs on Monday and if normal can likely stop both of these treatments. Pending Studies at Discharge: No Stand-Alone Forms: My [facility] Skilled Items Patient informed of condition?: Yes DNR: Yes Discharge Level of Care: Acute rehab Communicable Disease: No Discharge Prognosis: Improving Lines: None Urinary Catheter: No Medications and DC Order Prescriptions: New fluticasone propion-salmeterol [Advair Diskus] 250-50 mcg/dose Blister With Device 2 puffs inhalation BID 30 Days Qty: 60 RF: 0 ipratropium-albuterol 0.5 mg-3 mg(2.5 mg base)/3 mL Solution For Nebulization 3 ml NEB QID Qty: 180 RF: 0 Spiriva with HandiHaler 18 mcg Capsule, W/Inhalation Device 1 cap inhalation QAM Qty: 30 RF: 0 prednisone 10 mg tablet See Rx Instructions .ROUTE .COMPLEX Qty: 6 RF: 0 quetiapine 25 mg Tablet 25 mg PO QID Qty: 120 RF: 0 pantoprazole 40 mg Tablet,Delayed Release (Dr/Ec) 40 mg PO QAM 14 Days Qty: 14 RF: 0 quetiapine 100 mg tablet 150 mg PO HS Qty: 30 RF: 0 lorazepam 1 mg tablet 1 mg PO Q12H PRN (Reason: anxiety) 14 Days Qty: 14 RF: 0 sodium chloride 1 gram tablet 1,000 mg PO TID Qty: 30 RF: 0 nicotine 14 mg/24 hr patch 24 hour 1 patch TD DAILY Qty: 28 RF: 0 Continued amlodipine 5 mg tablet 5 mg PO HS Qty: 90 RF: 3 fluoxetine 40 mg capsule 80 mg PO QAM RF: 0 levothyroxine 75 mcg tablet 75 mcg PO QAM RF: 0 gabapentin 100 mg capsule 100 mg PO TID RF: 0 metoprolol succinate 25 mg tablet extended release 24 hr 25 mg PO HS RF: 0 Discontinued lorazepam 1 mg tablet 1 - 2 mg PO HS PRN (Reason: Sleep) RF: 0 lorazepam 1 mg tablet 1 mg PO DAILY PRN (Reason: Anxiety) RF: 0 Discharge Orders: Discharge Order (Routine); Ordered 08/16/19 Ordered By: Stephane Gavin Admission Data Admit Date/Time: 08/08/19 21:31 Attending Provider: Stephane Gavin Admit Provider: Orquidea Reddy Primary Care Provider: Olivia Gomez Other Providers: Glen Tate Other Interventions: Discharge Summary Assessment (RN) Last Done: 08/16/19 15:33 DC Date/Time DO NOT enter until pt leaves facility: 08/16/19 17:36
--- NOTE | 2019-08-30 06:48 | Coding Query ---
To promote full compliance with coding requirements relating to patient care, provider participation is requested in all cases of manager technical training uncertainty. Please assist us with the question(s) below: Coding Question(s): The diagnosis(es) below was documented in the H&P and early Progress Notes by Dr. Martin ending 08/11, then subsequently fell off all further documentation. Please indicate if it is still a possible diagnosis or ruled out. Physician's Response(s): ACUTE/CHRONIC DIASTOLIC CHF (regarding the Acute CHF) ( X ) Diagnosed and POA - possible diagnosis ( ) Diagnosed and not POA ( ) Ruled out ( ) Other (please specify) PNEUMONIA ( X ) Diagnosed and POA - possible diagnosis ( ) Diagnosed and not POA ( ) Ruled out ( ) Other (please specify) MTDD
== END 2019-08-16 17:36 | DRG 189 ==
LOC: ED 17:49 → SUATTDRO 21:31 → 2S 21:31 → 4W 08-12 16:13

== ENCOUNTER 2019-10-03 15:44 | Inpatient (IN) ==
[2019-10-03] MEDS ORDERED: ALBUT/IPRATROP 3MG/0.5MG NEB 3 ML VIAL NEB STA ×2 (15:55→17:39)
[2019-10-03] MEDS ORDERED: methylPREDNISolone 125 MG/2 ML VIAL IV STA (15:55)
--- NOTE | 2019-10-03 16:02 | Emergency Department Note ---
Entered by Corina Walter acting as a scribe for Saw Quiroz DO History of Present Illness General Chief complaint: Shortness of Breath/Dyspnea Stated complaint: SOB Source: patient Mode of arrival: ambulatory Limitations: no limitations History of Present Illness Onset (ago): day(s) 1 Location: chest Radiation: non-radiation Pain Consistency: + constant Relieved By: + medication (inhaler, duoneb) Exacerbated By: + none Associated symptoms: + other (-pain or swelling in legs); no chest pain and no cough Treatments prior to arrival: other (DuoNeb, inhaler) The patient is a 64 year old female who presents to the ED with complaints of shortness of breath for the past 1 month. She was brought to the ED via EMS. She was diagnosed with COPD 1 month ago and was started on Advair, an inhaler and a DuoNeb. She was a smoker until approximately 1 month ago. She notes her breathing worsened last night and she has been unable to sleep. An inhaler and DuoNeb treatment provided no relief, so she called EMS. She denies any pain or swelling in the legs. Her breathing is not worsened by laying flat. She denies any chest pain or cough. She was recently treated here in the hospital for her breathing. The patient does wear 2L NC chronically. Home Medications Home Medications Medication Instructions Recorded Confirmed Type amlodipine 5 mg tablet 5 mg PO HS #90 tab 08/06/19 10/03/19 Rx fluoxetine 80 mg PO QAM 08/08/19 10/03/19 History gabapentin 100 mg PO TID 08/08/19 10/03/19 History levothyroxine 75 mcg PO QAM 08/08/19 10/03/19 History ipratropium-albuterol 3 ml NEB QID #180 ml 08/16/19 10/03/19 Rx sodium chloride 1,000 mg PO TID #30 tab 08/16/19 10/03/19 Rx Oxygen Home #1 ea 09/05/19 Rx nicotine 14 mg/24 hr daily 1 patch TD DAILY #28 ea 09/12/19 10/03/19 Rx transdermal patch Oxygen Home #1 ea 09/13/19 09/13/19 Rx lorazepam 1 mg tablet 1 mg PO BID #60 tab 09/30/19 10/03/19 Rx cholecalciferol (vitamin D3) 50,000 units PO WE 10/03/19 10/03/19 History fluticasone propion-salmeterol 1 inh INHALATION BID 10/03/19 10/03/19 History [Advair Diskus] metoprolol succinate 25 mg PO DAILY 10/03/19 10/03/19 History pantoprazole 40 mg PO DAILYBB 10/03/19 10/03/19 History Allergies Allergy/AdvReac Type Severity Reaction Status Date / Time No Known Allergies Allergy Verified 10/03/19 16:56 Past Med/Surg History Medical History Anxiety Arthritis Cheilitis Chronic pain COPD (chronic obstructive pulmonary disease) (Chronic) Depression GERD without esophagitis Hypertension (Chronic) Insomnia Nicotine abuse Overweight POD (perioral dermatitis) Renal insufficiency Vitamin D deficiency Surgical History History of knee replacement No significant past surgical history Status post cholecystectomy Status post tubal ligation Family History Unknown Hypertension Mother Cancer Depression Gallbladder disease Father Alcohol abuse Sister Leukemia Colon cancer Other No significant family history Social History Preferred Language: Faroese Communication Ability: Effective Telecommunications Field Technician Required: No Beliefs That Will Affect Care: None marital status: Current Living Situation: Alone Other Information That Helps Us Care for You: No Feels Safe at Home: Yes Safety Concerns: Feels Safe At This Time Smoking Status: Former smoker Tobacco Type: cigarettes ; Cigarettes Per Day: 10 ; Smoking End Date: july 2019 ; Second Hand Exposure: No ; Hx Alcohol Use: Yes Alcohol type: wine Hx Substance Use: No Review of Systems See HPI for pertinent positives & negatives. and A total of 10 systems reviewed and were otherwise negative Physical Exam Vital Signs Vital Signs - 24 hr 10/03/19 15:54 10/03/19 15:59 10/03/19 16:03 Temperature 37.3 C Temperature Source Oral Pulse Rate 75 85 Pulse Rate [Right Apical] Pulse Rate from SpO2 Sensor 75 Respiratory Rate 20 18 Respiratory Effort / Characteristics Blood Pressure 151/79 H 151/79 H Blood Pressure Mean 109 103 Pulse Oximetry 97 97 99 Oxygen Delivery Method Room Air Nasal Cannula Oxygen Flow Rate 2 Sepsis Recent Fever Within 48 Hours No Sepsis New/Unexplained Change in Mental Status No Sepsis Action Taken by Nursing No Action Required Oxygen Flow Rate - Titration 2 Pulse Oximetry Post Tiitration 99 10/03/19 16:05 10/03/19 17:39 10/03/19 17:58 Temperature Temperature Source Pulse Rate Pulse Rate [Right Apical] 74 82 Pulse Rate from SpO2 Sensor 81 Respiratory Rate 18 22 18 Respiratory Effort / Characteristics Non-Labored Spontaneous Non-Labored Spontaneous Blood Pressure 141/98 H Blood Pressure Mean 107 Pulse Oximetry 98 97 98 Oxygen Delivery Method Nasal Cannula Oxygen Flow Rate 2 2 2 Sepsis Recent Fever Within 48 Hours Sepsis New/Unexplained Change in Mental Status Sepsis Action Taken by Nursing Oxygen Flow Rate - Titration Pulse Oximetry Post Tiitration 10/03/19 18:00 10/03/19 19:00 Temperature Temperature Source Pulse Rate 82 Pulse Rate [Right Apical] Pulse Rate from SpO2 Sensor 79 74 Respiratory Rate 20 20 Respiratory Effort / Characteristics Blood Pressure 129/89 147/84 H Blood Pressure Mean 94 102 Pulse Oximetry 100 98 Oxygen Delivery Method Oxygen Flow Rate Sepsis Recent Fever Within 48 Hours Sepsis New/Unexplained Change in Mental Status Sepsis Action Taken by Nursing Oxygen Flow Rate - Titration Pulse Oximetry Post Tiitration GENERAL: Patient is awake alert in no acute distress patient is resting comfortably and showing no signs of anxiety EYES: The conjunctivae are clear. The pupils are round and reactive. EARS, NOSE, MOUTH AND THROAT: The nose is without any evidence of any deformity. Mucous membranes are moist tongue is midline NECK: The neck is nontender and supple. RESPIRATORY: Diminished breath sounds are noted throughout. Shallow respirations were noted. There is no conversational dyspnea appreciated. CARDIOVASCULAR: Regular rate and rhythm noted there no murmurs rubs or gallops normal S1 normal S2 GASTROINTESTINAL: The abdomen is soft. Abdomen is nontender MUSCULOSKELETAL/EXTREMITIES: There is no evidence of gross deformity full range of motion is noted in the hips and shoulders SKIN: There is no obvious evidence of any rash. No pedal edema or calf tenderness was appreciated. Clubbing of the fingers was noted. NEUROLOGIC: Patient is awake alert and oriented x3. Course Course 1553: The patient was evaluated in room C11A and a complete history and physical were performed. 1924: I reevaluated the patient. She is not feeling much better. I discussed her results and my recommendation she remain in the hospital for further evaluation and management and she is agreeable with the plan. 1944: I discussed the patients case with Dr. Hoffmann, [facility] Hospitalist. The patient will be further evaluated. Administered Medications Albuterol (Duoneb) 3 ml NEB QIDR [facility] Stop: 11/02/19 22:14 Last Admin: 10/04/19 15:41 Dose: 3 ml Documented by: [id number] Admin: 10/04/19 11:49 Dose: 3 ml Documented by: [id number] Admin: 10/04/19 07:30 Dose: 3 ml Documented by: [id number] Admin: 10/03/19 23:32 Dose: 3 ml Documented by: [id number] Amlodipine Besylate (Norvasc) 5 mg PO HS [facility] Stop: 11/02/19 22:14 Last Admin: 10/03/19 23:19 Dose: 5 mg Documented by: [id number] Enoxaparin Sodium (Lovenox) 40 mg SQ DAILY@2100 [facility] Stop: 11/02/19 20:59 Last Admin: 10/03/19 23:20 Dose: 40 mg Documented by: [id number] Fluoxetine HCl (Prozac) 80 mg PO QAM [facility] Stop: 11/03/19 08:59 Last Admin: 10/04/19 08:27 Dose: 80 mg Documented by: [id number] Ketorolac Tromethamine (Toradol) 15 mg IV Q6H PRN PRN Reason: Pain Stop: 10/09/19 11:32 Last Admin: 10/04/19 15:17 Dose: 15 mg Documented by: [id number] Levothyroxine Sodium (Synthroid) 75 mcg PO DAILYBB [facility] Stop: 11/03/19 06:29 Last Admin: 10/04/19 05:38 Dose: 75 mcg Documented by: [id number] Lorazepam (Ativan) 1 mg PO BID PRN PRN Reason: Anxiety Stop: 11/02/19 22:25 Last Admin: 10/04/19 15:17 Dose: 1 mg Documented by: [id number] Admin: 10/04/19 06:16 Dose: 1 mg Documented by: [id number] Admin: 10/03/19 23:17 Dose: 1 mg Documented by: [id number] Metoprolol Succinate (Toprol Xl) 25 mg PO DAILY [facility] Stop: 11/03/19 08:59 Last Admin: 10/04/19 08:28 Dose: 25 mg Documented by: [id number] Nicotine (Nicoderm Cq) 14 mg TD DAILY [facility] Stop: 11/02/19 22:59 Last Admin: 10/04/19 08:29 Dose: 14 mg Documented by: [id number] Admin: 10/03/19 23:19 Dose: 14 mg Documented by: [id number] Pantoprazole Sodium (Protonix) 40 mg PO DAILYBB [facility] Stop: 11/03/19 06:29 Last Admin: 10/04/19 05:38 Dose: 40 mg Documented by: [id number] Fluticasone/Salmeterol (Advair Diskus 250/50) 1 puffs INH BID [facility] Stop: 11/02/19 22:14 Last Admin: 10/04/19 08:26 Dose: 1 puffs Documented by: [id number] Admin: 10/03/19 23:19 Dose: 1 puffs Documented by: [id number] Sodium Chloride (Sodium Chloride) 1 gm PO TID [facility] Stop: 11/02/19 22:14 Last Admin: 10/04/19 15:17 Dose: 1 gm Documented by: [id number] Admin: 10/04/19 08:28 Dose: 1 gm Documented by: [id number] Admin: 10/03/19 23:20 Dose: 1 gm Documented by: [id number] Discontinued Medications Albuterol (Duoneb) 3 ml NEB NOW STA Stop: 10/03/19 15:56 Last Admin: 10/03/19 16:01 Dose: 3 ml Documented by: [id number] Albuterol (Duoneb) 3 ml NEB NOW STA Stop: 10/03/19 17:40 Last Admin: 10/03/19 17:56 Dose: 3 ml Documented by: [id number] Azithromycin (Zithromax) 500 mg PO NOW ONE Stop: 10/03/19 22:16 Last Admin: 10/03/19 23:20 Dose: 500 mg Documented by: [id number] Magnesium Sulfate/Dextrose (Magnesium Sulfate / D5w) 1 gm in 100 mls @ 100 mls/hr IV ONE ONE Stop: 10/03/19 18:23 Last Infusion: 10/03/19 19:13 Dose: 0 mls/hr Documented by: [id number] Admin: 10/03/19 17:35 Dose: 100 mls/hr Documented by: [id number] Magnesium Oxide (Mag-Ox) 400 mg PO ONE ONE Stop: 10/03/19 17:26 Last Admin: 10/03/19 17:36 Dose: 400 mg Documented by: [id number] Methylprednisolone (Solumedrol) 125 mg IV NOW STA Stop: 10/03/19 15:56 Last Admin: 10/03/19 16:25 Dose: 125 mg Documented by: [id number] Potassium Chloride (Klor-Con M20) 40 meq PO ONE ONE Stop: 10/03/19 22:16 Last Admin: 10/03/19 23:20 Dose: 40 meq Documented by: [id number] Medical Decision Making Differential Diagnosis Differential diagnoses includes but is not limited to pneumonia, bronchitis, COPD/Asthma exacerbation, pneumothorax, pulmonary embolism, congestive heart michael lure, acute coronary syndrome Medical Records Attestation: I reviewed the patient's medical records. Home Medications Current Medication List: was personally reviewed by me Laboratory Data Attestation: I reviewed the patient's lab results. Result diagrams: 10/03/19 16:20 10/04/19 06:07 Lab Results 10/03/19 10/03/19 10/03/19 Range/Units 16:20 16:20 16:20 WBC 9.46 (4.8-10.8) K/uL RBC 4.63 (4.2-5.4) M/uL Hgb 12.7 (12.0-16.0) g/dL Hct 37.1 (37-47) % MCV 80.1 (80-100) fL MCH 27.4 (25-34) pg MCHC 34.2 (32-36) g/dL RDW Std Deviation 48.7 H (36.4-46.3) fL RDW Coeff of Vahid 16.5 H (11.5-14.5) % Plt Count 247 (130-400) K/uL MPV 10.7 H (7.4-10.4) fL Immature Gran % (Auto) 0.2 % Neut % (Auto) 73.6 % Lymph % (Auto) 14.1 % [place] % (Auto) 8.8 % Eos % (Auto) 2.9 % Baso % (Auto) 0.4 % Immature Gran # (Auto) 0.02 (0.00-0.02) K/uL Neut # (Auto) 6.97 H (1.4-6.5) K/uL Lymph # (Auto) 1.33 (1.2-3.4) K/uL [place] # (Auto) 0.83 H (0.11-0.59) K/uL Eos # (Auto) 0.27 (0-0.5) K/uL Baso # (Auto) 0.04 (0-0.2) K/uL PT 12.1 H (9.0-12.0) Seconds INR 1.2 H (0.9-1.1) APTT 28.5 (21.0-31.0) Seconds PTT Ratio 1.1 VBG pH (7.36-7.41) VBG pCO2 (38-50) mmHg VBG pO2 mmHg VBG HCO3 mmol/L VBG O2 Saturation % VBG Base Excess mEq/L Barometric Pressure mm/Hg Sodium 128 L (136-145) mmol/L Potassium 3.0 L (3.5-5.1) mmol/L Chloride 99 (98-107) mmol/L Carbon Dioxide 20 L (21-32) mmol/L Anion Gap 10.0 (3-11) BUN 9 (7-18) mg/dl Creatinine 0.87 (0.6-1.2) mg/dl Est Cr Clr Drug Dosing 58.8 ml/min Est GFR ( Amer) 81.6 Est GFR (Non-Af Amer) 70.4 BUN/Creatinine Ratio 10.0 (10-20) Glucose 102 H (70-99) mg/dl Calcium 9.0 (8.5-10.1) mg/dl Magnesium 1.5 L (1.8-2.4) mg/dl Total Bilirubin 0.7 (0.2-1) mg/dl AST 16 (15-37) U/L ALT 16 (12-78) U/L Alkaline Phosphatase 105 (45-117) U/L Troponin I < 0.015 (0-0.045) ng/ml Total Protein 6.2 L (6.4-8.2) gm/dl Albumin 3.3 L (3.4-5.0) gm/dl Globulin 2.9 (2.5-4.0) gm/dl Albumin/Globulin Ratio 1.1 (0.9-2) 10/03/19 Range/Units 16:20 WBC (4.8-10.8) K/uL RBC (4.2-5.4) M/uL Hgb (12.0-16.0) g/dL Hct (37-47) % MCV (80-100) fL MCH (25-34) pg MCHC (32-36) g/dL RDW Std Deviation (36.4-46.3) fL RDW Coeff of Vahid (11.5-14.5) % Plt Count (130-400) K/uL MPV (7.4-10.4) fL Immature Gran % (Auto) % Neut % (Auto) % Lymph % (Auto) % [place] % (Auto) % Eos % (Auto) % Baso % (Auto) % Immature Gran # (Auto) (0.00-0.02) K/uL Neut # (Auto) (1.4-6.5) K/uL Lymph # (Auto) (1.2-3.4) K/uL [place] # (Auto) (0.11-0.59) K/uL Eos # (Auto) (0-0.5) K/uL Baso # (Auto) (0-0.2) K/uL PT (9.0-12.0) Seconds INR (0.9-1.1) APTT (21.0-31.0) Seconds PTT Ratio VBG pH 7.48 H (7.36-7.41) VBG pCO2 31 L (38-50) mmHg VBG pO2 26 mmHg VBG HCO3 23 mmol/L VBG O2 Saturation < 60.0 % VBG Base Excess 0 mEq/L Barometric Pressure 732.2 mm/Hg Sodium (136-145) mmol/L Potassium (3.5-5.1) mmol/L Chloride (98-107) mmol/L Carbon Dioxide (21-32) mmol/L Anion Gap (3-11) BUN (7-18) mg/dl Creatinine (0.6-1.2) mg/dl Est Cr Clr Drug Dosing ml/min Est GFR ( Amer) Est GFR (Non-Af Amer) BUN/Creatinine Ratio (10-20) Glucose (70-99) mg/dl Calcium (8.5-10.1) mg/dl Magnesium (1.8-2.4) mg/dl Total Bilirubin (0.2-1) mg/dl AST (15-37) U/L ALT (12-78) U/L Alkaline Phosphatase (45-117) U/L Troponin I (0-0.045) ng/ml Total Protein (6.4-8.2) gm/dl Albumin (3.4-5.0) gm/dl Globulin (2.5-4.0) gm/dl Albumin/Globulin Ratio (0.9-2) Imaging Data Radiologist's Impression: Radiology results as stated below per my review and the radiologist's interpretation: SINGLE VIEW CHEST CLINICAL HISTORY: Dyspnea. COPD. FINDINGS: An AP, portable, upright chest radiograph is compared to study dated 08/14/2019 and correlated with chest CT dated 08/11/2019. The examination is degraded by portable technique, apical lordotic positioning, and patient rotation. The heart is enlarged and there is atherosclerotic calcification of the thoracic aorta. The pulmonary vasculature is noncongested. Advanced emphysema and chronic interstitial thickening is similar to previous. There is likely superimposed changes of chronic interstitial lung disease. There is no evidence of superimposed airspace consolidation. No large pleural effusion or pneumothorax is seen. Scarring/atelectasis is noted at the lung bases. The skeletal structures are osteopenic. The bony thorax is grossly intact. Advanced degenerative change is noted in the shoulders and thoracic spine. IMPRESSION: 1. Cardiomegaly and advanced emphysema. 2. There is no evidence of superimposed airspace consolidation or large pleural effusion. Electronically signed by: Duke Johnson M.D. 10/03/2019 4:34 PM ECG Data Attestation: I personally reviewed and interpreted this ECG as follows: Indication: + SOB/dyspnea Rate (beats per minute): 73 Rhythm: + normal sinus ECG Findings: + Other (No acute ST segment changes); no PACs and no PVCs Comparison ECG Date: from (08/14/2019) Change: no significant change Blood Pressure Blood Pressure Findings: Elevated blood pressure Blood Pressure Disposition: further management by hospitalist FERD Ireland The patient is a 64-year-old female who presented to the emergency department for an evaluation of difficulty breathing and cough. The patient has a history of COPD. She stopped smoking approximately 1 month ago. Her history and physical exam appear to be consistent with COPD. She was treated with bronchodilators IV fluids and IV steroids. On subsequent reevaluation she was s ignificantly improved at rest but had very severe dyspnea upon any exertion. I discussed the patient's laboratory and radiographic studies with her. Because of her symptoms I discussed her case with the on-call [facility] hospitalist. They have agreed to evaluate the patient in the emergency department for further management disposition. Impression & Plan COPD exacerbation, Hyponatremia, Respiratory distress Discharge Plan Visit Data *Final* Discharge Date/Time: 10/03/19 22:05 Chief Complaint: Shortness of Breath/Dyspnea Stated Complaint: SOB ED Provider: Saw Quiroz Discharge Problem: COPD exacerbation, Hyponatremia, Respiratory distress Patient Disposition: Admitted As Inpatient Discharge Instructions Interventions: ED Discharge Assessment Last Done: 10/03/19 22:05 The scribe's documentation has been prepared under my direction and personally reviewed by me in its entirety. I confirm that the note above accurately reflects all work, treatment, procedures, and medical decision making performed by me.
[2019-10-03 16:29] LABS: Basophils # (auto) 0.04 K/uL (0-0.2); Basophils % (auto) 0.4 %; Eosinophils # (auto) 0.27 K/uL (0-0.5); Eosinophils % (auto) 2.9 %; Hematocrit (blood only) 37.1 % (37-47); Hemoglobin 12.7 g/dL (12.0-16.0); Immature Granulocytes # (auto) 0.02 K/uL (0.00-0.02); Immature Granulocytes % (auto) 0.2 %; Lymphocytes # (auto) 1.33 K/uL (1.2-3.4); Lymphocytes % (auto) 14.1 %; Mean Corpuscular Hemoglobin 27.4 pg (25-34); Mean Corpuscular Hgb Conc 34.2 g/dL (32-36); Mean Corpuscular Volume 80.1 fL (80-100); Mean Platelet Volume 10.7 fL (7.4-10.4); Monocytes # (auto) 0.83 K/uL (0.11-0.59); Monocytes % (auto) 8.8 %; Neutrophils # (auto) 6.97 K/uL (1.4-6.5); Neutrophils % (auto) 73.6 %; Platelet Count 247 K/uL (130-400); RDW Coefficient of Variation 16.5 % (11.5-14.5); RDW Standard Deviation 48.7 fL (36.4-46.3); Red Blood Count 4.63 M/uL (4.2-5.4); White Blood Count 9.46 K/uL (4.8-10.8)
[2019-10-03 16:31] LABS: Base Excess VBG 0 mEq/L; HCO3 VBG 23 mmol/L; PCO2 VBG 31 mmHg (38-50); PO2 VBG 26 mmHg; pH VBG 7.48 (7.36-7.41)
[2019-10-03 16:32] LABS: Oxygen Saturation VBG < 60.0 %
--- NOTE | 2019-10-03 16:36 | XRay Report ---
SINGLE VIEW CHEST CLINICAL HISTORY: Dyspnea. COPD. FINDINGS: An AP, portable, upright chest radiograph is compared to study dated 08/14/2019 and correla bhavani with chest CT dated 08/11/2019. The examination is degraded by portable technique, apical lordoti c positioning, and patient rotation. The heart is enlarged and there is atherosclerotic calcification of the thoracic aorta. The pulmonary vasculature is noncongested. Advanced emphysema and chronic int erstitial thickening is similar to previous. There is likely superimposed changes of chronic intersti tial lung disease. There is no evidence of superimposed airspace consolidation. No large pleural effu zeeshan or pneumothorax is seen. Scarring/atelectasis is noted at the lung bases. The skeletal structure s are osteopenic. The bony thorax is grossly intact. Advanced degenerative change is noted in the suly ulders and thoracic spine. IMPRESSION: 1. Cardiomegaly and advanced emphysema. 2. There is no evidence of superimposed airspace consolidation or large pleural effusion. Electronically signed by: Duke Johnson M.D. 10/03/2019 4:34 PM
[2019-10-03 16:47] LABS: Alanine Aminotransferase 16 U/L (12-78); Albumin Level 3.3 gm/dl (3.4-5.0); Aspartate Aminotransferase 16 U/L (15-37); Blood Urea Nitrogen 9 mg/dl (7-18); Carbon Dioxide 20 mmol/L (21-32); Chloride 99 mmol/L (98-107); Creatinine Clr Calc Pharmacy 58.8 ml/min; Est GFR (African American) 81.6; Est GFR (Non-African American) 70.4; Glucose 102 mg/dl (70-99); Magnesium 1.5 mg/dl (1.8-2.4); Sodium 128 mmol/L (136-145)
[2019-10-03 16:51] LABS: Albumin Globulin Ratio 1.1 (0.9-2); Alkaline Phosphatase 105 U/L (45-117); Bilirubin,Total 0.7 mg/dl (0.2-1); Globulin 2.9 gm/dl (2.5-4.0); INR 1.2 (0.9-1.1); Partial Thromboplastin Ratio 1.1; Partial Thromboplastin Time 28.5 Seconds (21.0-31.0); Prothrombin Time 12.1 Seconds (9.0-12.0); Total Protein 6.2 gm/dl (6.4-8.2); Troponin I < 0.015 ng/ml (0-0.045)
[2019-10-03] MEDS ORDERED: MAGNESIUM SULFATE / D5W 1 GM/100 ML BAG IV ONE (17:24)
[2019-10-03] MEDS ORDERED: MAGNESIUM OXIDE 400 MG TAB PO ONE (17:25)
--- NOTE | 2019-10-03 20:42 | History & Physical Report ---
Date of Service October 03, 2019 Assessment & Plan (1) COPD exacerbation: 64-year-old female was admitted on 03 October 2019 after complaining of shortness of breath. COPD exacerbation: Admitted for same in Jul 2019. Patient says that she continues to be SOB since her discharge, worse in the past 24 to 48 hours, partially related to anxiety. Says she has not run out of her Advair. Noted to be quite symptomatic on attempted ambulation in ED. - In ED, afebrile, not tachycardic, borderline hypertensive, without recorded desats on room air. WBC 9. VBG pH 7.48, CO2 31, bicarb 23. Troponin negative. pCXR notable for cardiomegaly, emphysema, without evidence of airspace consolidation. - In ED, treated with DuoNeb x2, Solu-Medrol 125 mg IV, 1 gm IV magnesium, and 400 mg p.o. magnesium. - Will keep on Solu-Medrol 40 mg IV twice daily. Continue home Advair. Add azithromycin. SIADH: Known history of same and at home is on 1 gm sodium chloride TID. Admit sodium 128, potassium 3.0, magnesium 1.5. - Seems relatively asymptomatic, so we will treat with fluid restriction and c ontinued sodium tabs for now. Will also give a small amount of potassium and recheck BMP in a.m. Anxiety/depression: Known history of the same. Patient notes significant worsening of anxiety after running out of her gabapentin and lorazepam. Also has multiple social stressors. - Continue home fluoxetine. - Will provide a small amount of lorazepam prn here. Needs ongoing discussions with pain management/PCP about this. Ongoing medical issues: - Hypertension: Continue home amlodipine, metoprolol. - GERD: Continue home pantoprazole. - Renal insufficiency: Admit creatinine 0.87. - Hypothyroidism: Continue home levothyroxine. Code status: Full code. Diet: Regular, 1500 mL fluid restriction. DVT prophy: Lovenox. PT/OT: Deferred. Disbo: Admit to MedSurg for observation. Consulted case management to see if they can help with care resources. (2) SIADH (syndrome of inappropriate ADH production): (3) Anxiety: (4) Hypertension: (5) GERD without esophagitis: (6) Hypothyroidism: History of Present Illness Primary Care Provider: Olivia Gomez DO 64-year-old female presents via EMS for shortness of breath. - In brief review of recent events, patient was admitted here in July 2019 for acute hypoxic respiratory failure, COPD exacerbation, anxiety and panic attacks, and SIADH. Patient says that she was discharged to [facility] and then returned home. Patient says she lives at home alone after relatively recently moving to "get away from family". - Patient says since her [facility] discharge she has continued to feel some level of shortness of breath. She thinks this is all related to anxiety. She says since discharge she has been out of both her gabapentin and her lorazepam. Apparently attempts at getting refills via her PCP or psychiatrist have been unsuccessful. - Most recently, in the past day or so she received a letter from the [employer] stating there may be some level of fraud related to her account. She says this made her anxiety and breathing far worse, so she called EMS. - She denies any recent concurrent chest pain, new cough, fever, feeling of illness, increase in her baseline home 2 L nasal cannula oxygen use, or other acute medical concerns. - Regarding her previous diagnosis of SIADH, patient seems unfamiliar with the specifics but does say that she has been taking her salt tablets 3 times a day as prescribed. She notes she has had some decreased urination over the past couple of days, for example only once today. - Past medical history includes COPD, anxiety, depression, arthritis, tubulitis, perioral dermatitis, chronic pain, GERD, hypertension, insomnia, renal insufficiency - Past surgical history includes cholecystectomy, tubal ligation, and left knee replacement. - Social history includes quitting smoking in August 2019 (45 pack year history), having quit heavy alcohol use about 8 years ago (with rare 1-2 drinks occasionally since). Lives at home alone. Allergies Allergy/AdvReac Type Severity Reaction Status Date / Time No Known Allergies Allergy Verified 10/03/19 16:56 Home Medications Home Medications Medication Instructions Recorded Confirmed Type amlodipine 5 mg tablet 5 mg PO HS #90 tab 08/06/19 10/03/19 Rx fluoxetine 80 mg PO QAM 08/08/19 10/03/19 History gabapentin 100 mg PO TID 08/08/19 10/03/19 History levothyroxine 75 mcg PO QAM 08/08/19 10/03/19 History ipratropium-albuterol 3 ml NEB QID #180 ml 08/16/19 10/03/19 Rx sodium chloride 1,000 mg PO TID #30 tab 08/16/19 10/03/19 Rx Oxygen Home #1 ea 09/05/19 Rx nicotine 14 mg/24 hr daily 1 patch TD DAILY #28 ea 09/12/19 10/03/19 Rx transdermal patch Oxygen Home #1 ea 09/13/19 09/13/19 Rx lorazepam 1 mg tablet 1 mg PO BID #60 tab 09/30/19 10/03/19 Rx cholecalciferol (vitamin D3) 50,000 units PO WE 10/03/19 10/03/19 History fluticasone propion-salmeterol 1 inh INHALATION BID 10/03/19 10/03/19 History [Advair Diskus] metoprolol succinate 25 mg PO DAILY 10/03/19 10/03/19 History pantoprazole 40 mg PO DAILYBB 10/03/19 10/03/19 History Past Med/Surg History Medical History Anxiety Arthritis Cheilitis Chronic pain COPD (chronic obstructive pulmonary disease) (Chronic) Depression GERD without esophagitis Hypertension (Chronic) Insomnia Nicotine abuse Overweight POD (perioral dermatitis) Renal insufficiency Vitamin D deficiency Surgical History History of knee replacement No significant past surgical history Status post cholecystectomy Status post tubal ligation Family History Unknown Hypertension Mother Cancer Depression Gallbladder disease Father Alcohol abuse Sister Leukemia Colon cancer Other No significant family history Social History Preferred Language: Cuban Communication Ability: Effective 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 Beliefs That Will Affect Care: None marital status: Current Living Situation: Alone Other Information That Helps Us Care for You: No Feels Safe at Home: Yes Safety Concerns: Feels Safe At This Time Smoking Status: Former smoker Tobacco Type: cigarettes ; Cigarettes Per Day: 10 ; Smoking End Date: july 2019 ; Second Hand Exposure: No ; Hx Alcohol Use: Yes Alcohol type: wine Hx Substance Use: No Review of Systems Review of Systems: Constitutional: Denies fevers, chills, focal weakness Eyes: Denies any visual loss or diplopia ENT: Denies any ear/nose/throat pain or difficulty speaking or swallowing Respiratory: Ongoing dyspnea and cough. Denies hemoptysis. Cardiovascular: Denies any chest pain or feeling of edema Gastrointestinal: Denies any abdominal pain, nausea/vomiting/diarrhea Musculoskeletal: Denies any acute extremity pains, myalgias, or focal weakness Skin: Denies any known acute rashes or lesions Neuro: Denies any headache, acute focal weakness or numbness, or difficulties with speech or swallow. Psych: Positive anxiety. Physical Exam Physical Exam: GENERAL: Awake, alert, well-appearing, in no acute distress. HENT: Normocephalic, atraumatic. Oropharynx unremarkable but mildly dry. EYES: Normal conjunctiva. Sclera non-icteric. NECK: Inspection normal. Supple and full ROM. No nuchal rigidity. CARDIAC: +S1S2 RRR, no murmurs. RESPIRATORY: Decreased breath sounds throughout without noted wheezing or rhonchi. Occasional dry cough. Generally can speak in full sentences. GI: +BS, soft, non-distended. No tenderness to palpation. No rebound or guarding. EXTREMITIES: No pedal edema or calf tenderness. Moving all extremities naturally and easily. NEURO: No gross neuro deficits. Results & Data Vital Signs (Past 12 Hours) Vital Signs Temp Pulse Pulse Resp BP Pulse Ox 10/03/19 17:58 82 18 98 10/03/19 17:39 22 141/98 H 97 10/03/19 16:05 74 18 98 10/03/19 16:03 99 10/03/19 15:59 37.3 C 85 18 151/79 H 97 10/03/19 15:54 75 20 151/79 H 97 Laboratory Results 10/03/19 10/03/19 10/03/19 Range/Units 16:20 16:20 16:20 WBC (4.8-10.8) K/uL RBC (4.2-5.4) M/uL Hgb (12.0-16.0) g/dL Hct (37-47) % MCV (80-100) fL MCH (25-34) pg MCHC (32-36) g/dL RDW Std Deviation (36.4-46.3) fL RDW Coeff of Vahid (11.5-14.5) % Plt Count (130-400) K/uL MPV (7.4-10.4) fL Immature Gran % (Auto) % Neut % (Auto) % Lymph % (Auto) % [place] % (Auto) % Eos % (Auto) % Baso % (Auto) % Immature Gran # (Auto) (0.00-0.02) K/uL Neut # (Auto) (1.4-6.5) K/uL Lymph # (Auto) (1.2-3.4) K/uL [place] # (Auto) (0.11-0.59) K/uL Eos # (Auto) (0-0.5) K/uL Baso # (Auto) (0-0.2) K/uL PT 12.1 H (9.0-12.0) Seconds INR 1.2 H (0.9-1.1) APTT 28.5 (21.0-31.0) Seconds PTT Ratio 1.1 VBG pH 7.48 H (7.36-7.41) VBG pCO2 31 L (38-50) mmHg VBG pO2 26 mmHg VBG HCO3 23 mmol/L VBG O2 Saturation < 60.0 % VBG Base Excess 0 mEq/L Barometric Pressure 732.2 mm/Hg Sodium 128 L (136-145) mmol/L Potassium 3.0 L (3.5-5.1) mmol/L Chloride 99 (98-107) mmol/L Carbon Dioxide 20 L (21-32) mmol/L Anion Gap 10.0 (3-11) BUN 9 (7-18) mg/dl Creatinine 0.87 (0.6-1.2) mg/dl Est Cr Clr Drug Dosing 58.8 ml/min Est GFR ( Amer) 81.6 Est GFR (Non-Af Amer) 70.4 BUN/Creatinine Ratio 10.0 (10-20) Glucose 102 H (70-99) mg/dl Calcium 9.0 (8.5-10.1) mg/dl Magnesium 1.5 L (1.8-2.4) mg/dl Total Bilirubin 0.7 (0.2-1) mg/dl AST 16 (15-37) U/L ALT 16 (12-78) U/L Alkaline Phosphatase 105 (45-117) U/L Troponin I < 0.015 (0-0.045) ng/ml Total Protein 6.2 L (6.4-8.2) gm/dl Albumin 3.3 L (3.4-5.0) gm/dl Globulin 2.9 (2.5-4.0) gm/dl Albumin/Globulin Ratio 1.1 (0.9-2) 10/03/19 Range/Units 16:20 WBC 9.46 (4.8-10.8) K/uL RBC 4.63 (4.2-5.4) M/uL Hgb 12.7 (12.0-16.0) g/dL Hct 37.1 (37-47) % MCV 80.1 (80-100) fL MCH 27.4 (25-34) pg MCHC 34.2 (32-36) g/dL RDW Std Deviation 48.7 H (36.4-46.3) fL RDW Coeff of Vahid 16.5 H (11.5-14.5) % Plt Count 247 (130-400) K/uL MPV 10.7 H (7.4-10.4) fL Immature Gran % (Auto) 0.2 % Neut % (Auto) 73.6 % Lymph % (Auto) 14.1 % [place] % (Auto) 8.8 % Eos % (Auto) 2.9 % Baso % (Auto) 0.4 % Immature Gran # (Auto) 0.02 (0.00-0.02) K/uL Neut # (Auto) 6.97 H (1.4-6.5) K/uL Lymph # (Auto) 1.33 (1.2-3.4) K/uL [place] # (Auto) 0.83 H (0.11-0.59) K/uL Eos # (Auto) 0.27 (0-0.5) K/uL Baso # (Auto) 0.04 (0-0.2) K/uL PT (9.0-12.0) Seconds INR (0.9-1.1) APTT (21.0-31.0) Seconds PTT Ratio VBG pH (7.36-7.41) VBG pCO2 (38-50) mmHg VBG pO2 mmHg VBG HCO3 mmol/L VBG O2 Saturation % VBG Base Excess mEq/L Barometric Pressure mm/Hg Sodium (136-145) mmol/L Potassium (3.5-5.1) mmol/L Chloride (98-107) mmol/L Carbon Dioxide (21-32) mmol/L Anion Gap (3-11) BUN (7-18) mg/dl Creatinine (0.6-1.2) mg/dl Est Cr Clr Drug Dosing ml/min Est GFR ( Amer) Est GFR (Non-Af Amer) BUN/Creatinine Ratio (10-20) Glucose (70-99) mg/dl Calcium (8.5-10.1) mg/dl Magnesium (1.8-2.4) mg/dl Total Bilirubin (0.2-1) mg/dl AST (15-37) U/L ALT (12-78) U/L Alkaline Phosphatase (45-117) U/L Troponin I (0-0.045) ng/ml Total Protein (6.4-8.2) gm/dl Albumin (3.4-5.0) gm/dl Globulin (2.5-4.0) gm/dl Albumin/Globulin Ratio (0.9-2) Medications Administered Discontinued Medications Albuterol (Duoneb) 3 ml NEB NOW STA Stop: 10/03/19 15:56 Last Admin: 10/03/19 16:01 Dose: 3 ml Documented by: [id number] Albuterol (Duoneb) 3 ml NEB NOW STA Stop: 10/03/19 17:40 Last Admin: 10/03/19 17:56 Dose: 3 ml Documented by: [id number] Magnesium Sulfate/Dextrose (Magnesium Sulfate / D5w) 1 gm in 100 mls @ 100 mls/hr IV ONE ONE Stop: 10/03/19 18:23 Last Infusion: 10/03/19 19:13 Dose: 0 mls/hr Documented by: [id number] Admin: 10/03/19 17:35 Dose: 100 mls/hr Documented by: [id number] Magnesium Oxide (Mag-Ox) 400 mg PO ONE ONE Stop: 10/03/19 17:26 Last Admin: 10/03/19 17:36 Dose: 400 mg Documented by: [id number] Methylprednisolone (Solumedrol) 125 mg IV NOW STA Stop: 10/03/19 15:56 Last Admin: 10/03/19 16:25 Dose: 125 mg Documented by: [id number] Code Status & VTE Plan Code Status Full code VTE Prophylaxis Plan VTE Prophylaxis will be ordered: Yes Supervising Physician Co-Signing Physician Notes Patient was seen and examined by me personally. I reviewed the chart, the orders and discussed the case in detail with Dr. Kenn Rodriguez MD . I read this H&P and agree with its contents to entirety. Resident Activity Tracking Resident Involvement: Resident Care Provided Care Provided: Adult Hospital Medicine (1) Hypothyroidism Hypothyroidism type: acquired Qualified Code(s): E03.9 - Hypothyroidism, unspecified (2) Hypertension Hypertension type: essential hypertension Qualified Code(s): I10 - Essential (primary) hypertension
[2019-10-03] MEDS ORDERED: AZITHROMYCIN 250 MG TAB PO ONE (22:15)
[2019-10-03] MEDS ORDERED: POTASSIUM CHLORIDE 20 MEQ TABCR PO ONE (22:15)
[2019-10-03] MEDS ORDERED: Nursing to Pharmacy Communication ONE (23:01)
[2019-10-03] MEDS: LORazepam 1 MG TAB PO PRN (23:17)
[2019-10-03] MEDS: AMLODIPINE BESYLATE 5 MG TAB PO SCH (23:19)
[2019-10-03] MEDS: FLUTICASONE/SALMETEROL 250/50 (ADVAIR) 14 PUFF/1 INHALER INH SCH (23:19)
[2019-10-03] MEDS: NICOTINE 14 MG/24 HR PATCH TD SCH (23:19)
[2019-10-03] MEDS: SODIUM CHLORIDE 1 GM TABLET PO SCH (23:20)
[2019-10-03] MEDS: ENOXAPARIN INJ 40 MG/0.4 ML SYR SQ SCH (23:20)
[2019-10-03] MEDS: ALBUT/IPRATROP 3MG/0.5MG NEB 3 ML VIAL NEB SCH (23:32)
--- NOTE | 2019-10-04 | Billing Data ---
Coding Level of Care Code 39199 OBS Care - Level 3
[2019-10-04] MEDS: LEVOTHYROXINE SODIUM 75 MCG TABLET PO SCH (05:38)
[2019-10-04] MEDS: PANTOprazole 40 MG TAB PO SCH (05:38)
[2019-10-04] MEDS: LORazepam 1 MG TAB PO PRN ×2 (06:16→15:17)
[2019-10-04 07:25] LABS: BUN Creatinine Ratio 10.7 (10-20); Calcium 9.2 mg/dl (8.5-10.1); Creatinine Clr Calc Pharmacy 66.4 ml/min; Est GFR (African American) 94.6; Est GFR (Non-African American) 81.6; Magnesium 1.8 mg/dl (1.8-2.4); Phosphorus 2.6 mg/dl (2.5-4.9); Potassium 3.6 mmol/L (3.5-5.1)
[2019-10-04] MEDS: ALBUT/IPRATROP 3MG/0.5MG NEB 3 ML VIAL NEB SCH ×4 (07:30→19:24)
[2019-10-04] MEDS: FLUTICASONE/SALMETEROL 250/50 (ADVAIR) 14 PUFF/1 INHALER INH SCH ×2 (08:26→20:53)
[2019-10-04] MEDS: FLUOXETINE HCL 20 MG CAP PO SCH (08:27)
[2019-10-04] MEDS: SODIUM CHLORIDE 1 GM TABLET PO SCH ×3 (08:28→20:58)
[2019-10-04] MEDS: METOPROLOL SUCC 25MG EXT REL TAB PO SCH (08:28)
[2019-10-04] MEDS: NICOTINE 14 MG/24 HR PATCH TD SCH (08:29)
[2019-10-04] MEDS ORDERED: NICOTINE 14 MG/24 HR PATCH TD SCH (09:00)
--- NOTE | 2019-10-04 11:39 | Hospitalist Progress Note ---
Date of Service October 04, 2019 Assessment & Plan (1) COPD exacerbation: CXR without acute process, shows emphysema - continue nebs, azithromycin - change solumedrol to po prednisone 40 mg - will swab for flu given complaints of body aches (2) SIADH (syndrome of inappropriate ADH production): Known history of same and at home is on 1 gm sodium chloride TID. Admit sodium 128, today 129 - Continue fluid restriction and continued sodium tabs - bmp am (3) Anxiety: Anxiety/depression: Known history of the same. Patient notes significant worsening of anxiety after running out of her gabapentin and lorazepam. Also has multiple social stressors. - Continue home fluoxetine. - fluoxetine contributing to SIADH? Could consider adjusting anti anxiety regimen but will hold off for now. Patient has somewhat recently come of quetiapine due to hyponatremia. She does work with a psychiatrist and will defer adjustments to them as long as Na continues to trend up with FR and sodium tablets (4) Neck pain: Musculoskeletal - neck and shoulder muscles on the left are tender to touch. K pad, toradol prn (5) Hypertension: stable Continue amlodipine, metoprolol (6) GERD without esophagitis: continue pantoprazole (7) Hypothyroidism: continue levothyroxine (8) DVT prophylaxis: enoxaparin Supervising Physician Co-Signing Physician Notes Attending Attestation: Chart reviewed, care plan d/w CASH APPLICATIONS MANAGER Rosaura Agudelo. I agree w/ the harden components of her documentation. 64yo with COPD exacerbation. Symptoms gradually improving with standard care including narrow-spectrum abx, steroids, nebs. Agree w/ flu PCR check. Vitals stable. Chronic hyponatremia stable (this is 2nd SIADH). Cont fluid restriction/salt t abs. D/c tomorrow ?? Stephane Martin MD Subjective Ms. Greenwood feels her breathing has improved, she is not coughing much. She says "everything hurts" and has general body aches which she reports happened last time she had a copd exacerbation. No sore throat or running now, afebrile. Requiring 2L NC. She is having neck pain that travels to the back of her head ongoing for about 3 weeks. ROS Constitutional: no chills, aches, sweats or fever Respiratory: see HPI Cardiac: no chest pain, palpitations, edema, orthopnea or lightheadedness GI: no abdominal pain, nausea, vomiting, diarrhea or constipation : no dysuria or hesitancy Extremities: no joint pain or weakness Skin: no rash All other systems reviewed and negative Physical Exam Physical Exam: General: no distress Eyes: normal inspection, PERLL Respiratory: chest non tender, clear to auscultation, normal breath sounds, no respiratory distress, no accessory muscle use Cardiac: regular rate and rhythm, no rub or gallop, no murmur, no edema, no jvd GI/: active bowel sounds, no abd pain or tenderness, soft, non distended Extremities: normal range of motion, normal strength, right neck/shoulder muscles tender to palpation Neuro/Psych: alert and oriented x 3, normal mood and affect Skin: normal color, dry Results & Data Vital Signs (Past 12 Hours) Vital Signs Temp Pulse Resp BP Pulse Ox 10/04/19 07:31 88 16 97 10/04/19 07:23 36.5 C 81 17 122/71 96 PG Care Time/CCT Total # of Minutes Spent Total Time Spent with Patient: Total time spent is greater than 50% in coordination of care (as documented) at patient's floor/unit and/or counseling patient: (1) Hypothyroidism Hypothyroidism type: acquired Qualified Code(s): E03.9 - Hypothyroidism, unspecified (2) Hypertension Hypertension type: essential hypertension Qualified Code(s): I10 - Essential (primary) hypertension
[2019-10-04] MEDS: KETOROLAC TROMETHAMINE 15 MG/ML VIAL IV PRN ×2 (15:17→21:49)
[2019-10-04 19:32] LABS: Influenza A virus by PCR Neg for Influ A (Neg); Influenza B virus by PCR Neg for Influ B (Neg)
[2019-10-04] MEDS: Magic Mouthwash 240mL PO PRN (20:00)
[2019-10-04] MEDS: ACETAMINOPHEN 325 MG TAB PO PRN (20:01)
[2019-10-04] MEDS: ENOXAPARIN INJ 40 MG/0.4 ML SYR SQ SCH (20:58)
[2019-10-04] MEDS: AZITHROMYCIN 250 MG TAB PO SCH (20:58)
[2019-10-04] MEDS: AMLODIPINE BESYLATE 5 MG TAB PO SCH (20:58)
[2019-10-04] MEDS: GABAPENTIN 100 MG CAP PO SCH (20:58)
[2019-10-05] MEDS: LORazepam 1 MG TAB PO PRN ×2 (02:41→07:43)
[2019-10-05] MEDS: LEVOTHYROXINE SODIUM 75 MCG TABLET PO SCH (05:41)
[2019-10-05] MEDS: PANTOprazole 40 MG TAB PO SCH (05:41)
[2019-10-05 06:00] LABS: Basophils # (auto) 0.04 K/uL (0-0.2); Basophils % (auto) 0.3 %; Eosinophils # (auto) 0.19 K/uL (0-0.5); Eosinophils % (auto) 1.5 %; Hematocrit (blood only) 36.4 % (37-47); Hemoglobin 11.9 g/dL (12.0-16.0); Immature Granulocytes # (auto) 0.02 K/uL (0.00-0.02); Immature Granulocytes % (auto) 0.2 %; Lymphocytes # (auto) 2.15 K/uL (1.2-3.4); Lymphocytes % (auto) 16.5 %; Mean Corpuscular Hemoglobin 27.4 pg (25-34); Mean Corpuscular Hgb Conc 32.7 g/dL (32-36); Mean Corpuscular Volume 83.9 fL (80-100); Mean Platelet Volume 10.4 fL (7.4-10.4); Monocytes # (auto) 0.96 K/uL (0.11-0.59); Monocytes % (auto) 7.4 %; Neutrophils # (auto) 9.68 K/uL (1.4-6.5); Neutrophils % (auto) 74.1 %; Platelet Count 253 K/uL (130-400); RDW Standard Deviation 52.1 fL (36.4-46.3); Red Blood Count 4.34 M/uL (4.2-5.4); White Blood Count 13.04 K/uL (4.8-10.8)
[2019-10-05 06:38] LABS: Albumin Globulin Ratio 1.1 (0.9-2); BUN Creatinine Ratio 16.9 (10-20); Bilirubin,Total 0.4 mg/dl (0.2-1); Calcium 8.7 mg/dl (8.5-10.1); Creatinine Clr Calc Pharmacy 49.2 ml/min; Est GFR (African American) 65.8; Est GFR (Non-African American) 56.7; Globulin 2.7 gm/dl (2.5-4.0); Potassium 3.6 mmol/L (3.5-5.1); Total Protein 5.7 gm/dl (6.4-8.2)
[2019-10-05] MEDS: ALBUT/IPRATROP 3MG/0.5MG NEB 3 ML VIAL NEB SCH ×4 (07:20→19:45)
[2019-10-05] MEDS: GABAPENTIN 100 MG CAP PO SCH ×3 (07:43→20:54)
[2019-10-05] MEDS: FLUTICASONE/SALMETEROL 250/50 (ADVAIR) 14 PUFF/1 INHALER INH SCH ×2 (07:43→20:54)
[2019-10-05] MEDS: METOPROLOL SUCC 25MG EXT REL TAB PO SCH (07:43)
[2019-10-05] MEDS: FLUOXETINE HCL 20 MG CAP PO SCH (07:44)
[2019-10-05] MEDS: NICOTINE 14 MG/24 HR PATCH TD SCH (07:44)
[2019-10-05] MEDS: SODIUM CHLORIDE 1 GM TABLET PO SCH ×3 (07:44→20:54)
[2019-10-05] MEDS ORDERED: predniSONE 20 MG TAB PO SCH (09:00)
[2019-10-05] MEDS ORDERED: methylPREDNISolone 40 MG in SYRINGE 0 ML IV SCH (09:00)
--- NOTE | 2019-10-05 13:43 | Hospitalist Progress Note ---
Date of Service October 05, 2019 Assessment & Plan (1) COPD exacerbation: * Improving -- complicated by increased anxiety and hyperventilation * CXR without acute process, shows emphysema. Flu swab negative. * Continue nebs, azithromycin * Decreased prednisone to 30mg in AM- likely contributing to increased anxiety. Patient currently 96% on RA (2) SIADH (syndrome of inappropriate ADH production): * Known history of same and at home is on 1 gm sodium chloride TID. Admit sodium 128 * Sodium currently 134 * Continue fluid restriction and continued sodium tabs * Repeat BMP in AM (3) Anxiety: * Known history of the same. Patient notes significant worsening of anxiety after running out of her gabapentin and lorazepam. Also has multiple social stressors. * Continue home fluoxetine- question if this is also contributing to SIADH? * Cautious use of any agents that would prolong QT, given EKG on admission and continued use of azithromycin * Psych consult- appreciate recs (4) Neck pain: * Resolved. MSK in origin to neck and shoulders. Reproducible. * Was given Kpad, toradol prn with resolution of symptoms (5) Hypertension: * Stable. Well controlled- currently 128/74 * Continue amlodipine, metoprolol * Continue to monitor (6) GERD without esophagitis: * Stable * continue pantoprazole (7) Hypothyroidism: * Stable. Last TSH 1.0 on 09/12 * Continue levothyroxine (8) DVT prophylaxis: * Enoxaparin while inpatient Dispo: possible d/c tomorrow Subjective Attempted to see patient this morning, but she was sleeping comfortably until around noon. Upon entry, patient appeared extremely anxious and voiced that she "had my life all put together when I had my PCP in [place]" with regards to a medication regimen for her anxiety but stated that her PCP office is "anti-narcotics" and she has not been allowed to continue her ativan. She states she previously used to take 1mg twice daily along with two 1mg tablets at night, or lunesta and something additional for PTSD. She states she has had a difficult time getting ativan and she had been on them from her last hospitalization in July and while at [facility], but she ran out on monday when she was supposed to see her family doctor and came to the emergency room because they would not fill them prior to her appointment. She states "I need a new PCP". She states that she has tried every medication for her anxiety, and when asked about vistaril, buspar, wellbutrin, lexapro or celexa, she states that she has "tried them all and nothing has worked" and "I've been on ativan for thirty years and had everything under control." She states that her primary care provider wanted her to see a psychiatrist if she wanted to continue being prescribed the ativan. Denies ever having tried longer acting medication such as klonopin. She states they put her on gabapentin and seroquel and those did nothing. She also mentions that she was told "seroquel stole my sodium....it's right there on the label. Why would they give that to me if I already have low sodium?" Confirms not on chronic narcotics and states the last time she took pain pills was two years ago after knee operation. When asked about her oxygen usage at home, she states that she was told she needed to be on it, but she tried to wean herself off at home and was able to be 97% on room air and called her doctor and they decided that it was ok for her to no longer use it. She states her breathing is worse when her anxiety acts up and she has had a lot of stress recently in her life. She denies any cough or sputum production at this time. She denies fevers or chills. States her neck and back pain have completely resolved with addition of heating pad last evening. Review of Systems Review of Systems: All systems reviewed & are unremarkable except as noted in HPI & below Constitutional: + fatigue; no fever and no chills Eyes: no diplopia and no photophobia Ear, Nose, Mouth, Throat: no ear pain and no dysphagia Respiratory: + dyspnea (when anxiety elevated); no cough Cardiovascular: + palpitations; no chest pain and no edema Gastrointestinal: no abdominal pain, no nausea and no vomiting Genitourinary: no dysuria and no urinary frequency Musculoskeletal: + neck pain (improved) Integumentary: no rash and no lesions Psychiatric: + anxiety and + panic attacks Physical Exam Physical Exam: General: WN/WD, no signs of acute distress. Appears anxious Eyes: normal inspection, PERLL Respiratory: chest non tender, lung sounds diminished, no respiratory distress, no accessory muscle use. without wheezes or rhonchi. Cardiac: regular rate and rhythm, no rub or gallop, no murmur, no edema, no jvd GI/: active bowel sounds, no abd pain or tenderness, soft, non distended Extremities: normal range of motion, normal strength Neuro/Psych: alert and oriented x 3, +anxious affect Skin: normal color, dry Results & Data Vital Signs (Past 12 Hours) Vital Signs Temp Pulse Resp BP Pulse Ox 10/05/19 11:38 89 16 90 10/05/19 07:46 36.5 C 89 16 133/82 94 10/05/19 07:21 89 17 91 Laboratory Results 10/05/19 10/05/19 10/04/19 Range/Units 05:37 05:37 Unknown WBC 13.04 H (4.8-10.8) K/uL RBC 4.34 (4.2-5.4) M/uL Hgb 11.9 L (12.0-16.0) g/dL Hct 36.4 L (37-47) % MCV 83.9 (80-100) fL MCH 27.4 (25-34) pg MCHC 32.7 (32-36) g/dL RDW Std Deviation 52.1 H (36.4-46.3) fL RDW Coeff of Vahid 17.0 H (11.5-14.5) % Plt Count 253 (130-400) K/uL MPV 10.4 (7.4-10.4) fL Immature Gran % (Auto) 0.2 % Neut % (Auto) 74.1 % Lymph % (Auto) 16.5 % [place] % (Auto) 7.4 % Eos % (Auto) 1.5 % Baso % (Auto) 0.3 % Immature Gran # (Auto) 0.02 (0.00-0.02) K/uL Neut # (Auto) 9.68 H (1.4-6.5) K/uL Lymph # (Auto) 2.15 (1.2-3.4) K/uL [place] # (Auto) 0.96 H (0.11-0.59) K/uL Eos # (Auto) 0.19 (0-0.5) K/uL Baso # (Auto) 0.04 (0-0.2) K/uL Sodium 135 L (136-145) mmol/L Potassium 3.6 (3.5-5.1) mmol/L Chloride 106 (98-107) mmol/L Carbon Dioxide 22 (21-32) mmol/L Anion Gap 8.0 (3-11) BUN 18 D (7-18) mg/dl Creatinine 1.04 (0.6-1.2) mg/dl Est Cr Clr Drug Dosing 49.2 ml/min Est GFR ( Amer) 65.8 Est GFR (Non-Af Amer) 56.7 BUN/Creatinine Ratio 16.9 (10-20) Glucose 93 (70-99) mg/dl Calcium 8.7 (8.5-10.1) mg/dl Total Bilirubin 0.4 (0.2-1) mg/dl AST 14 L (15-37) U/L ALT 16 (12-78) U/L Alkaline Phosphatase 85 (45-117) U/L Total Protein 5.7 L (6.4-8.2) gm/dl Albumin 3.0 L (3.4-5.0) gm/dl Globulin 2.7 (2.5-4.0) gm/dl Albumin/Globulin Ratio 1.1 (0.9-2) Influenza Type A (PCR) Neg for Influ A (Neg) Influenza Type B (PCR) Neg for Influ B (Neg) PG Care Time/CCT Total # of Minutes Spent Total Time Spent with Patient: Total time spent is greater than 50% in coordination of care (as documented) at patient's floor/unit and/or counseling patient: (1) Hypothyroidism Hypothyroidism type: acquired Qualified Code(s): E03.9 - Hypothyroidism, unspecified (2) Hypertension Hypertension type: essential hypertension Qualified Code(s): I10 - Essential (primary) hypertension
[2019-10-05] MEDS: Magic Mouthwash 240mL PO PRN ×2 (16:01→20:53)
[2019-10-05] MEDS ORDERED: LORazepam 0.5 MG TAB PO STA (16:09)
[2019-10-05] MEDS: AMLODIPINE BESYLATE 5 MG TAB PO SCH (20:54)
[2019-10-05] MEDS: ENOXAPARIN INJ 40 MG/0.4 ML SYR SQ SCH (20:54)
[2019-10-05] MEDS: AZITHROMYCIN 250 MG TAB PO SCH (20:54)
[2019-10-06 05:09] LABS: Hematocrit (blood only) 35.2 % (37-47); Hemoglobin 11.6 g/dL (12.0-16.0); Mean Corpuscular Hemoglobin 27.4 pg (25-34); Mean Platelet Volume 10.3 fL (7.4-10.4); Platelet Count 236 K/uL (130-400); RDW Coefficient of Variation 17.3 % (11.5-14.5); RDW Standard Deviation 52.4 fL (36.4-46.3); Red Blood Count 4.24 M/uL (4.2-5.4); White Blood Count 12.37 K/uL (4.8-10.8)
[2019-10-06 05:41] LABS: BUN Creatinine Ratio 22.4 (10-20); Calcium 8.6 mg/dl (8.5-10.1); Creatinine Clr Calc Pharmacy 68.2 ml/min; Est GFR (African American) 97.6; Est GFR (Non-African American) 84.2; Potassium 3.4 mmol/L (3.5-5.1)
[2019-10-06] MEDS: LEVOTHYROXINE SODIUM 75 MCG TABLET PO SCH (06:44)
[2019-10-06] MEDS: PANTOprazole 40 MG TAB PO SCH (06:44)
[2019-10-06] MEDS ORDERED: POTASSIUM CHLORIDE 20 MEQ TABCR PO STA (07:49)
[2019-10-06] MEDS: ALBUT/IPRATROP 3MG/0.5MG NEB 3 ML VIAL NEB SCH ×4 (07:50→19:23)
[2019-10-06] MEDS: KETOROLAC TROMETHAMINE 15 MG/ML VIAL IV PRN ×2 (08:43→18:49)
[2019-10-06] MEDS: LORazepam 1 MG TAB PO PRN (08:43)
[2019-10-06] MEDS: METOPROLOL SUCC 25MG EXT REL TAB PO SCH (08:44)
[2019-10-06] MEDS: FLUTICASONE/SALMETEROL 250/50 (ADVAIR) 14 PUFF/1 INHALER INH SCH ×2 (08:44→20:10)
[2019-10-06] MEDS: SODIUM CHLORIDE 1 GM TABLET PO SCH ×3 (08:45→20:09)
[2019-10-06] MEDS: NICOTINE 14 MG/24 HR PATCH TD SCH (08:45)
[2019-10-06] MEDS: GABAPENTIN 100 MG CAP PO SCH ×3 (08:45→20:09)
[2019-10-06] MEDS ORDERED: predniSONE 10 MG TABLET PO SCH (09:00)
[2019-10-06] MEDS ORDERED: FLUOXETINE HCL 20 MG CAP PO SCH (09:00)
[2019-10-06] MEDS ORDERED: MAGNESIUM HYDROXIDE SUSP 30 ML UDC PO PRN (12:25)
--- NOTE | 2019-10-06 12:25 | Hospitalist Progress Note ---
Date of Service October 06, 2019 Assessment & Plan (1) COPD exacerbation: * Improving -- complicated by increased anxiety and hyperventilation * CXR without acute process, shows emphysema. Flu swab negative. * Continue nebs, azithromycin * Will further decrease prednisone in AM to 20mg as decreasing dose with less anxiousness for patient, and patient without wheezing on exam. Patient currently 97% on Room Air. * Patient supposed to be on home O2, but per patient she weaned herself off * Was originally set up with pulmonary rehab but had to cancel --> should be set up on discharge (2) SIADH (syndrome of inappropriate ADH production): * Known history of same and at home is on 1 gm sodium chloride TID. Admit sodium 128 * Improved -- > Sodium currently 136 * Continue fluid restriction and continued sodium tabs 1g TID * Repeat BMP in AM (3) Anxiety: * Known history of the same. Patient notes significant worsening of anxiety after running out of her gabapentin and lorazepam. Also has multiple social stressors. * Continue home fluoxetine- question if this is also contributing to SIADH? * Cautious use of any agents that would prolong QT, given EKG on admission and continued use of azithromycin. * Psych consult- appreciate recs * Decreased prozac to 60mg this morning --- psych to make further medication adjustments per nursing (4) Neck pain: * Resolved. MSK in origin to neck and shoulders. Reproducible. * Was given Kpad, toradol prn with resolution of symptoms (5) Hypertension: * Stable. Well controlled- currently 138/72 * Continue amlodipine, metoprolol * Continue to monitor (6) GERD without esophagitis: * Stable * continue pantoprazole (7) Hypothyroidism: * Stable. Last TSH 1.0 on 09/12 * Continue levothyroxine (8) Constipation: * No BM since admission - per patient, uses milk of mag in the past --> ordered prn (9) Hypokalemia: * Initially low on admission at 3.0- given replacement with resulting K 3.6 * Currently 3.4 this morning -- given additional 20meq * Continue to monitor (10) DVT prophylaxis: * Enoxaparin while inpatient Dispo: possible d/c tomorrow after further medication adjustments and outpatient follow-up arranged Subjective Patient evaluated this morning. She appears calmer and states she only had one panic attack yesterday that was relieved with the one time dose of ativan. She states she did sleep better. States her breathing is approximately 40% of her baseline. Denies sputum production. No fevers or chills. Pain in her mouth improved with nystatin. Has not had BM since admission. States milk of magnesium has worked for her in the past. Voiced need for new PCP but would like that to remain somewhat close to [place] as she is currently working on transportation with the [facility]. Review of Systems Constitutional: + fatigue; no fever and no chills Ear, Nose, Mouth, Throat: sores of mouth improved Respiratory: + dyspnea (when anxiety elevated); no cough Cardiovascular: + palpitations (only when having an anxiety/panic attack); no chest pain and no edema Gastrointestinal: + constipation; no abdominal pain, no nausea and no vomiting Genitourinary: no dysuria and no hematuria Musculoskeletal: + neck pain (improved) Neurologic: no headache(s) and no confusion Psychiatric: + anxiety (slightly improved) and + panic attacks (x1 yesterday) Physical Exam Physical Exam: General: WN/WD, no signs of acute distress. Eyes: normal inspection, PERLL Respiratory: chest non tender, lung sounds diminished, no respiratory distress, no accessory muscle use. without wheezes or rhonchi. Cardiac: regular rate and rhythm, no rub or gallop, no murmur, no edema, no jvd GI/: active bowel sounds, no abd pain or tenderness, soft, non distended Extremities: normal range of motion, normal strength Neuro/Psych: alert and oriented x 3, less anxious than day before. tremor reduced Skin: normal color, dry Results & Data Vital Signs (Past 12 Hours) Vital Signs Temp Pulse Resp BP Pulse Ox 10/06/19 11:23 83 16 97 10/06/19 08:56 93 10/06/19 07:52 72 16 98 10/06/19 07:30 36.6 C 69 16 138/72 98 Laboratory Results 10/06/19 10/06/19 10/06/19 Range/Units 04:54 04:54 04:54 WBC 12.37 H (4.8-10.8) K/uL RBC 4.24 (4.2-5.4) M/uL Hgb 11.6 L (12.0-16.0) g/dL Hct 35.2 L (37-47) % MCV 83.0 (80-100) fL MCH 27.4 (25-34) pg MCHC 33.0 (32-36) g/dL RDW Std Deviation 52.4 H (36.4-46.3) fL RDW Coeff of Vahid 17.3 H (11.5-14.5) % Plt Count 236 (130-400) K/uL MPV 10.3 (7.4-10.4) fL Sodium 136 (136-145) mmol/L Potassium 3.4 L (3.5-5.1) mmol/L Chloride 106 (98-107) mmol/L Carbon Dioxide 25 (21-32) mmol/L Anion Gap 5.0 (3-11) BUN 17 (7-18) mg/dl Creatinine 0.75 (0.6-1.2) mg/dl Est Cr Clr Drug Dosing 68.2 ml/min Est GFR ( Amer) 97.6 Est GFR (Non-Af Amer) 84.2 BUN/Creatinine Ratio 22.4 H (10-20) Glucose 91 (70-99) mg/dl Calcium 8.6 (8.5-10.1) mg/dl TSH 0.122 L (0.300-4.500) uIu/ml PG Care Time/CCT Total # of Minutes Spent Total Time Spent with Patient: Total time spent is greater than 50% in coordination of care (as documented) at patient's floor/unit and/or counseling patient: (1) Hypertension Hypertension type: essential hypertension Qualified Code(s): I10 - Essential (primary) hypertension (2) Hypothyroidism Hypothyroidism type: acquired Qualified Code(s): E03.9 - Hypothyroidism, unspecified
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
[2019-10-06] MEDS: ENOXAPARIN INJ 40 MG/0.4 ML SYR SQ SCH (20:09)
[2019-10-06] MEDS: MIRTAZAPINE TAB 15 MG TAB PO SCH (20:09)
[2019-10-06] MEDS: AMLODIPINE BESYLATE 5 MG TAB PO SCH (20:09)
[2019-10-06] MEDS: AZITHROMYCIN 250 MG TAB PO SCH (20:09)
[2019-10-07] MEDS: LORazepam 1 MG TAB PO PRN ×2 (05:34→17:52)
[2019-10-07 05:56] LABS: BUN Creatinine Ratio 17.9 (10-20); Calcium 8.7 mg/dl (8.5-10.1); Creatinine Clr Calc Pharmacy 48.2 ml/min; Est GFR (African American) 64.3; Est GFR (Non-African American) 55.4; Potassium 3.4 mmol/L (3.5-5.1)
[2019-10-07] MEDS: PANTOprazole 40 MG TAB PO SCH (05:57)
[2019-10-07] MEDS: LEVOTHYROXINE SODIUM 75 MCG TABLET PO SCH (06:43)
[2019-10-07] MEDS: ALBUT/IPRATROP 3MG/0.5MG NEB 3 ML VIAL NEB SCH ×3 (07:16→19:34)
[2019-10-07] MEDS ORDERED: FLUOXETINE HCL 20 MG CAP PO ONE (08:00)
[2019-10-07] MEDS: SODIUM CHLORIDE 1 GM TABLET PO SCH ×3 (08:41→21:01)
[2019-10-07] MEDS: GABAPENTIN 100 MG CAP PO SCH ×3 (08:41→21:01)
[2019-10-07] MEDS: FLUTICASONE/SALMETEROL 250/50 (ADVAIR) 14 PUFF/1 INHALER INH SCH ×2 (08:42→21:00)
[2019-10-07] MEDS: METOPROLOL SUCC 25MG EXT REL TAB PO SCH (08:42)
[2019-10-07] MEDS: NICOTINE 14 MG/24 HR PATCH TD SCH (08:42)
[2019-10-07] MEDS ORDERED: predniSONE 20 MG TAB PO SCH (09:00)
[2019-10-07] MEDS: KETOROLAC TROMETHAMINE 15 MG/ML VIAL IV PRN (15:26)
[2019-10-07] MEDS: ENOXAPARIN INJ 40 MG/0.4 ML SYR SQ SCH (21:00)
[2019-10-07] MEDS: AMLODIPINE BESYLATE 5 MG TAB PO SCH (21:01)
[2019-10-07] MEDS: MIRTAZAPINE TAB 15 MG TAB PO SCH (21:01)
[2019-10-07] MEDS: AZITHROMYCIN 250 MG TAB PO SCH (21:01)
--- NOTE | 2019-10-07 21:06 | Hospitalist Progress Note ---
Date of Service October 07, 2019 Assessment & Plan (1) COPD exacerbation: -Improving -CXR without acute process, shows emphysema. Flu swab negative. -Change nebulizer to twice daily to see if this assist with anxiousness and tremor given improvement in respiratory status -Azithromycin 250 mg -Discontinue further steroids at this time -Originally set up for pulmonary rehab but she ultimately canceled-does report some transportation issues (2) SIADH (syndrome of inappropriate ADH production): -Sodium level stable -Continue fluid restriction and sodium tablets 3 times daily -May improve with removal of SSRI; will continue to monitor (3) Anxiety: -At this current time, seems to be her main complaint as it seems to be more driving her respiratory status then underlining pulmonary disease -Patient reports running out of gabapentin and lorazepam and due to noncompliance with follow-up appointments and requesting early refills of lorazepam, currently not being prescribed benzodiazepines -Reports her fluoxetine was increased from 20 mg to 80 mg when her lorazepam was discontinued -Tapering Prozac and opting for Remeron 15 mg nightly -Psychiatry following-appreciate assistance and working on outpatient establishment/follow-up (4) Hypertension: -Stable -Continue amlodipine 5 mg daily and metoprolol succinate 25 mg daily (5) Hypothyroidism: -TSH on 10/06 at 0.122 with free T4 1.49 -Given worsening anxiety and symptoms will reduce levothyroxine to 50 mcg daily and recommend repeat TSH/T4 in 6 weeks --Patient reports being on her normal home dose for a long time and typically does not require adjustments (6) DVT prophylaxis: Lovenox Disposition: Patient expresses increased anxiety about going home but given some new findings with TSH and medication adjustments will monitor today and plan for discharge tomorrow; awaiting callback for outpatient establishment with new psychiatric facility Subjective Patient reports ongoing anxiety today. She feels that her anxiety triggers her shortness of breath and not so much the other way around. She continues to ask about Ativan usage. Had a long conversation about her use of Ativan and plans for outpatient management. She states she has been on Ativan for approximately 30 years and it works the best for her. She understands the risks associated with this medication and does not feel that she needs to worry about this however does admit that she is rather dependent on it given her long use of it. Discussed currently that no provider will be giving her prescriptions for benzodiazepines and therefore we should find alternatives to help her anxiety. She does admit that utilizing the incentive spirometer seems to help her with smoking cravings as well as regulating her breathing. I told her this may be worth doing more often when she feels her breathing getting worse for her. Also discussed possible other causes of her increased anxiety. Her TSH is slightly low and therefore the possibility of her levothyroxine may be contributing to increased anxiety. In addition the steroids and nebulizer treatments could be contributing as well, and could be increasing her tremor. Awaiting establishment with new behavioral health agency. Patient does express concern about going home as she is afraid due to her anxiety. Made some adjustments with medications and treatments and will reevaluate symptoms tomorrow. Review of Systems Constitutional: + fatigue; no fever and no chills Ear, Nose, Mouth, Throat: sores of mouth improved Respiratory: + dyspnea (During increased levels of anxiety); no cough Cardiovascular: + palpitations (only when having an anxiety/panic attack); no chest pain and no edema Gastrointestinal: + constipation; no abdominal pain, no nausea and no vomiting Genitourinary: no dysuria Integumentary: no rash Psychiatric: + anhedonia, + abnormal sleep pattern and + anxiety (slightly improved) Physical Exam Constitutional: well developed and well nourished; no acute distress Eyes: + anicteric sclerae ENMT: Ears: no hearing impairment Neck: trachea midline Respiratory: normal respiratory effort, lungs clear to auscultation Cardiovascular: RRR, no murmur, no edema Gastrointestinal (Abdomen): Inspection/Auscultation: normal bowel sounds Percussion/Palpation: abdomen soft; abdomen nontender Skin: no rashes, warm and dry Neurologic: moves all extremities Psychiatric: Orientation: alert and oriented x 3 Eye Contact: good eye contact Motor Behavior: + tremor (Mild mostly bilateral hands) Speech: normal rate/rhythm/volume of speech Affect: + anxious affect Mood: + anxious mood Thought Content: + preoccupation (Will discuss arrange topics but quickly converts back to lorazepam) Suicidal Thoughts: + reports suicidal thoughts and + reports suicidal plan Insight: + limited insight Judgement: + limited judgement Results & Data Vital Signs (Past 12 Hours) Vital Signs Temp Pulse Resp BP Pulse Ox 10/07/19 19:35 99 H 22 90 10/07/19 15:22 36.6 C 81 18 130/80 92 10/07/19 11:06 82 20 92 PG Care Time/CCT Total # of Minutes Spent Total Time Spent with Patient: Total time spent is greater than 50% in coordination of care (as documented) at patient's floor/unit and/or counseling patient: (1) Hypertension Hypertension type: essential hypertension Qualified Code(s): I10 - Essential (primary) hypertension (2) Hypothyroidism Hypothyroidism type: acquired Qualified Code(s): E03.9 - Hypothyroidism, unspecified
[2019-10-08] MEDS: PANTOprazole 40 MG TAB PO SCH (06:04)
[2019-10-08] MEDS: LORazepam 1 MG TAB PO PRN ×2 (06:23→18:13)
[2019-10-08] MEDS: LEVOTHYROXINE SODIUM 50 MCG TABLET PO SCH (06:23)
[2019-10-08] MEDS: ALBUT/IPRATROP 3MG/0.5MG NEB 3 ML VIAL NEB SCH ×2 (07:16→19:48)
[2019-10-08] MEDS ORDERED: FLUOXETINE HCL 20 MG CAP PO ONE (08:00)
[2019-10-08] MEDS: SODIUM CHLORIDE 1 GM TABLET PO SCH ×3 (08:16→21:04)
[2019-10-08] MEDS: FLUTICASONE/SALMETEROL 250/50 (ADVAIR) 14 PUFF/1 INHALER INH SCH ×2 (08:16→21:05)
[2019-10-08] MEDS: NICOTINE 14 MG/24 HR PATCH TD SCH (08:17)
[2019-10-08] MEDS: GABAPENTIN 100 MG CAP PO SCH ×3 (08:17→21:04)
[2019-10-08] MEDS: METOPROLOL SUCC 25MG EXT REL TAB PO SCH (08:17)
[2019-10-08] MEDS: KETOROLAC TROMETHAMINE 15 MG/ML VIAL IV PRN (13:42)
[2019-10-08] MEDS: ENOXAPARIN INJ 40 MG/0.4 ML SYR SQ SCH (21:04)
[2019-10-08] MEDS: MIRTAZAPINE TAB 15 MG TAB PO SCH (21:04)
[2019-10-08] MEDS: AZITHROMYCIN 250 MG TAB PO SCH (21:04)
[2019-10-08] MEDS: AMLODIPINE BESYLATE 5 MG TAB PO SCH (21:04)
--- NOTE | 2019-10-08 22:09 | Hospitalist Progress Note ---
Date of Service October 08, 2019 Assessment & Plan (1) COPD exacerbation: -Improving -CXR without acute process, shows emphysema. Flu swab negative. -Change nebulizer to twice daily - seems this helped reduce tremors -Completed Azithromycin 250 mg -Discontinue further steroids on 10/07 -Originally set up for pulmonary rehab but she ultimately canceled-does report some transportation issues (2) SIADH (syndrome of inappropriate ADH production): -Sodium level stable -Continue fluid restriction and sodium tablets 3 times daily -May improve with removal of SSRI; will continue to monitor (3) Anxiety: -At this current time, seems to be her main complaint as it seems to be more driving her respiratory status then underlining pulmonary disease -Patient reports running out of gabapentin and lorazepam and due to noncompliance with follow-up appointments and requesting early refills of lorazepam, currently not being prescribed benzodiazepines -Reports her fluoxetine was increased from 20 mg to 80 mg when her lorazepam was discontinued -Tapering Prozac and opting for Remeron 15 mg nightly -Psychiatry following-appreciate assistance and working on outpatient establishment/follow-up (4) Hypertension: -Stable -Continue amlodipine 5 mg daily and metoprolol succinate 25 mg daily (5) Hypothyroidism: -TSH on 10/06 at 0.122 with free T4 1.49 -Given worsening anxiety and symptoms will reduce levothyroxine to 50 mcg daily and recommend repeat TSH/T4 in 6 weeks --Patient reports being on her normal home dose for a long time and typically does not require adjustments (6) DVT prophylaxis: Lovenox Disposition: Will discuss with psychiatry tomorrow to see if F/U appointment was made; plan to D/C home tomorrow Subjective Reports she thinks her anxiety is doing better today. She objectively appears to be more calm today as well. Discussed adjustments with Levothyroxine today. Again had a long conversation about Ativan today and how she feels this works the best for her. She understands that it can be addictive/dangerous but doesn't feel that it is an issue for her. She is thankful that we are listening to her concerns as she feels many people do not listen to her in regards to her anxiety. She does understand that she will not have this prescribed to her at this time. She is awaiting an appointment with a new psychiatry group and it is hard to say what the plan will be for her. She does agree if a better option can be found other then Ativan she is willing to try this. Explained how Ativan doesn't prevent anxiety and the goal is to try and prevent the anxiety from getting too high in the first place. She seemed to be receptive to my explanations or why a different option should be pursued but I am sure she will still want to be on Ativan. She does state that she did try to make a phone call today that was making her anxious and therefore decided to not further the call and to calm herself down and she states this helped. She seems like she is getting some handle on identifying some stressors and de-escalating them without Ativan. She does state normally she would just take Ativan and continue to phone call. She states she does have a ride home tomorrow from a friend and plans to discharge home tomorrow Review of Systems Constitutional: no fever and no chills Ear, Nose, Mouth, Throat: sores of mouth improved Respiratory: + dyspnea (During increased levels of anxiety); no cough Cardiovascular: + palpitations (only when having an anxiety/panic attack); no chest pain and no edema Gastrointestinal: + constipation; no abdominal pain, no nausea and no vomiting Musculoskeletal: + neck pain (improved) Psychiatric: + anhedonia, + abnormal sleep pattern and + anxiety (slightly improved) Physical Exam Constitutional: well developed and well nourished; no acute distress Eyes: + anicteric sclerae ENMT: Ears: no hearing impairment Neck: trachea midline Respiratory: normal respiratory effort, lungs clear to auscultation Cardiovascular: RRR, no murmur, no edema Gastrointestinal (Abdomen): Inspection/Auscultation: normal bowel sounds Percussion/Palpation: abdomen soft; abdomen nontender Skin: no rashes, warm and dry Neurologic: moves all extremities Psychiatric: Orientation: alert and oriented x 3 Eye Contact: good eye contact Motor Behavior: n tremor Speech: normal rate/rhythm/volume of speech Affect: euthymic affect Suicidal Thoughts: denies suicidal thoughts and denies suicidal plan please note for physical exam on 10/07 it should read that she DENIES suicidal thoughts/plan Results & Data Vital Signs (Past 12 Hours) Vital Signs Temp Pulse Resp BP Pulse Ox 10/08/19 21:03 72 117/73 10/08/19 19:48 69 16 93 10/08/19 14:56 36.6 C 69 16 131/81 96 PG Care Time/CCT Total # of Minutes Spent Total Time Spent with Patient: Total time spent is greater than 50% in coordination of care (as documented) at patient's floor/unit and/or counseling patient: (1) Hypertension Hypertension type: essential hypertension Qualified Code(s): I10 - Essential (primary) hypertension (2) Hypothyroidism Hypothyroidism type: acquired Qualified Code(s): E03.9 - Hypothyroidism, unspecified
[2019-10-09] MEDS: PANTOprazole 40 MG TAB PO SCH (05:20)
[2019-10-09] MEDS: LEVOTHYROXINE SODIUM 50 MCG TABLET PO SCH (05:20)
[2019-10-09] MEDS: ALBUT/IPRATROP 3MG/0.5MG NEB 3 ML VIAL NEB SCH ×2 (07:20→19:07)
[2019-10-09] MEDS: SODIUM CHLORIDE 1 GM TABLET PO SCH ×3 (07:51→21:25)
[2019-10-09] MEDS: GABAPENTIN 100 MG CAP PO SCH ×3 (07:51→21:25)
[2019-10-09] MEDS: METOPROLOL SUCC 25MG EXT REL TAB PO SCH (07:51)
[2019-10-09] MEDS: FLUTICASONE/SALMETEROL 250/50 (ADVAIR) 14 PUFF/1 INHALER INH SCH ×2 (07:52→21:25)
[2019-10-09] MEDS: LORazepam 1 MG TAB PO PRN (07:52)
[2019-10-09] MEDS: NICOTINE 14 MG/24 HR PATCH TD SCH (07:52)
[2019-10-09] MEDS: KETOROLAC TROMETHAMINE 15 MG/ML VIAL IV PRN (07:58)
[2019-10-09] MEDS ORDERED: ERGOCALCIFEROL 50,000 UNITS CAP PO SCH (09:00)
--- NOTE | 2019-10-09 14:26 | Psychiatric Progress Note ---
Date of Service October 09, 2019 Impression / Recommendations Impression 10/06/19 - 64 yo female with a history of anxiety who presents with hyponatremia, likely SIADH related at least in part to high end dose of SSRI. Primary team has already started Prozac taper. I would not recommend resuming benzos outside of the hospital as hx of overuse and can impact respiratory status. Reviewed with patient that Remeron may be less likely to contribute to SIADH and prolonged QTc and side effect profile includes improved sleep and appetite which are concerns for her. - Decrease Prozac by 20 mg daily until off, will continue to work out of her system given long t 1/2, in the meantime may begin Remeron 15 mg po qhs. She is agreeable to a referral to [facility] for psych services and liaison to facilitate. 10/09/19 - Pt seen for follow-up on psychiatric consult service, after review of case with [facility] managing her medical treatment. Increased anxiety is reported, and it is stated the patient responded poorly to recommendations that lorazepam not be continued after discharge. Recommendation for discontinuation of lorazepam was restated by this provider, and patient was informed that our service is in agreement with concern for ongoing use. Patient was educated on side effect profile with lorazepam, and concerned that it may have impact on her respiratory function, mental status, and may place her at increased fall risk. This provider also provided education on utilizing a daily antidepressive/antianxiety agent, in hopes of reducing the need for as needed "rescue" medications. Patient was informed her case was reviewed with the hospitalist team, and that we are upholding recommendations to utilize hydroxyzine 25 mg as needed for acute anxiety. Patient was also offered a titration of mirtazapine in order to better target her mood, with anticipated off label benefit for anxiety. Risks, benefits, and potential side effects were reviewed with the patient, who is agreeable with titrating her dose to 30 mg nightly. -Patient has verbalized that she is not interested in returning to her prior outpatient psychiatric provider. Psychiatric nurse liaison's have been assisting with referring the patient to alternative providers. Concerned that patient has a history of difficulty getting to appointments, which further increases the concern of her being on a controlled substance after discharge - and being unable to attend necessary follow-up visits to manage the medication appropriately. Initial recommendations that Lorazepam and other benzodiazepines be avoided outside of the inpatient setting is being upheld. 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 Psychiatric consultation was requested to evaluate for anxiety/hx of panic. She is seen for follow-up today after review of case with updates with [facility] on hospitalist service. Chief Complaint "I'm totally confused. All of my medications are messed up since I moved here." Review of Systems Notes Constitutional: denied Cardiovascular: denied Respiratory: reports mild exacerbations of SOB during times of anxiety Gastrointestinal: denied Neurological: denied Psychiatric: denies symptoms other than stated above Total of at least 10 systems reviewed, pertinent positives as above and in HPI. Subjective Subjective Patient's case was reviewed and discussed during morning report with psychiatric nurse liaison and supervising psychiatrist. The [facility] managing the patient's medical treatment requested to discuss the patient's case further, as there is concern for exacerbation of anxiety today. It was reviewed that patient had al ready been informed she would not be provided with lorazepam at discharge, and that hydroxyzine was being recommended as an alternative to manage her anxiety. Psychiatric follow-up consultation is requested to discuss these recommendations further with the patient. Patient is initially cooperative with interview, and admits that she is "totally confused." She informs this provider that since her move to the area "2 years ago" she has had several medication adjustments to target her persistent anxiety. Patient states that lorazepam has generally been effective for her anxiety, and "not having it leads me in here." She continues to report a history that suggests she has not had a consistent prescriber of the medication in quite some time. Recommendations from patient's initial psychiatric consultation were reviewed, which includes the tapering and discontinuation of fluoxetine, and initiation of mirtazapine. Patient states she has been tolerating these medication adjustments, but still requesting medication to utilize for panic attacks. Patient was informed that hydroxyzine is commonly used for this purpose, and the side effect profile is generally more desirable than long-term use of hydroxyzine. Patient was also educated that ideally mirtazapine will be more beneficial in the next few weeks, and may reduce her overall need to utilize a as needed medication for acute anxiety. Patient asked appropriate questions regarding these medication adjustments, but continued to verbalize a desire to remain on lorazepam. Risks of long-term use of the medication were reviewed, which included risk of respiratory suppression, confusion, risk of falls, and possibility for misuse/abuse. Patient was agreeable with trialing hydroxyzine in order to gauge its effectiveness for re ducing her anxiety. After reviewing risks, benefits, and potential side effects of mirtazapine, she was also agreeable with titrating her at bedtime dose to 30 mg. Patient does become increasingly irritable during our conversation, verbalizing concern she will be left without a medication to manage her panic attacks. Patient was informed that if hydroxyzine is effective, it would likely be provided to her at discharge. Patient does inform this provider that she is experiencing increased anxiety throughout our conversation. At one point, the patient does state "it is like I could just jump out the window." Saying that I am suicidal, because I am not suicidal." Patient was agreeable with discussing this, and further, and she denies any serious safety concerns or thoughts to harm herself or others. She denies that the statement was made with any suicidal ideation or intent. Patient denies other needs or concerns from our service at this time. Physical Exam Psychiatric Orientation: alert, oriented x 3 and + guarded Superficially cooperative to begin visit; however, became increasingly irritable and anxious Apperance: appropriately dressed, appropriately groomed and appeared stated age female of healthy-appearing weight, observed while laying in bed. Patient is appropriately dressed in hospital gown, wearing corrective lenses. Hair is neatly styled, patient wearing a headband. Level of grooming and hygiene appear adequate. Eye Contact: good eye contact Motor Behavior: no abnormal motor movements (Observed while laying in bed) and + psychomotor agitation (Mild restlessness of legs observed) Speech: normal rate/rhythm/volume of speech (Increasingly irritable tone over the course of our conversation) Affect: + anxious affect and + irritable affect Patient grew increasingly anxious and irritable over the course of interview Mood: + anxious mood Thought Process: goal directed thought process, clear/coherent thought process and thought association intact Thought Content: + preoccupation (With medication changes and requests for lorazepam) and reality based without delusions Suicidal Thoughts: denies suicidal thoughts and denies suicidal intent Patient did verbalize a statement that "I feel like I could jump out the window". Statement was evaluated further, and patient denied suicidal meaning behind this statement. She is reporting situational anxiety, which she states is making her feel restless. Homicidal Thoughts: denies homicidal thoughts Hallucinations: no auditory hallucinations and no visual hallucinations Cognition: attention grossly intact and language grossly intact Insight: + fair insight Judgement: + fair judgement Vital Signs (Past 24 Hours) Last Vital Signs Temp 36.4 C L 10/09/19 07:48 Pulse 77 10/09/19 07:48 Resp 16 10/09/19 07:48 BP 144/90 H 10/09/19 07:48 Pulse Ox 98 10/09/19 07:48 Results & Data Current Inpatient Medications Current Inpatient Medications: Current Inpatient Medications Acetaminophen (Tylenol) 650 mg PO Q4H PRN PRN Reason: pain/fever Stop: 11/02/19 22:14 Last Admin: 10/04/19 20:01 Dose: 650 mg Documented by: Albuterol (Duoneb) 3 ml NEB BIDR [facility] Stop: 11/06/19 18:59 Last Admin: 10/09/19 07:20 Dose: 3 ml Documented by: Amlodipine Besylate (Norvasc) 5 mg PO HS [facility] Stop: 11/02/19 22:14 Last Admin: 10/08/19 21:04 Dose: 5 mg Documented by: Nystatin 30 ml/ Dexamethasone 3.75 mg/ Diphenhydramine HCl 300 mg/ Sucrose 45 ml/Microcrystalline Cellulose 45 ml/ BARCODE IDENTIFIER 1 ea 0 ml PO Q4H PRN PRN Reason: MOUTH PAIN Stop: 11/03/19 19:35 Last Admin: 10/05/19 20:53 Dose: 5 ml Documented by: Enoxaparin Sodium (Lovenox) 40 mg SQ DAILY@2100 [facility] Stop: 11/02/19 20:59 Last Admin: 10/08/19 21:04 Dose: 40 mg Documented by: Ergocalciferol (Vitamin D2) 50,000 units PO We@0900 [facility] Stop: 11/08/19 08:59 Last Admin: 10/09/19 07:52 Dose: 50,000 units Documented by: Gabapentin (Neurontin) 100 mg PO TID [facility] Stop: 11/03/19 20:59 Last Admin: 10/09/19 12:50 Dose: 100 mg Documented by: Hydroxyzine HCl (Vistaril) 25 mg PO TID PRN PRN Reason: Anxiety Stop: 11/08/19 10:31 Last Admin: 10/09/19 12:50 Dose: 25 mg Documented by: Levothyroxine Sodium (Synthroid) 50 mcg PO DAILYBB [facility] Stop: 11/07/19 06:29 Last Admin: 10/09/19 05:20 Dose: 50 mcg Documented by: Lorazepam (Ativan) 1 mg PO BID PRN PRN Reason: Anxiety Stop: 11/02/19 22:25 Last Admin: 10/09/19 07:52 Dose: 1 mg Documented by: Magnesium Hydroxide (Milk Of Magnesia) 30 ml PO Q6H PRN PRN Reason: Constipation Stop: 11/05/19 12:24 Metoprolol Succinate (Toprol Xl) 25 mg PO DAILY [facility] Stop: 11/03/19 08:59 Last Admin: 10/09/19 07:51 Dose: 25 mg Documented by: Mirtazapine (Remeron) 15 mg PO HS [facility] Stop: 11/05/19 20:59 Last Admin: 10/08/19 21:04 Dose: 15 mg Documented by: Nicotine (Nicoderm Cq) 14 mg TD DAILY [facility] Stop: 11/02/19 22:59 Last Admin: 10/09/19 07:52 Dose: 14 mg Documented by: Pantoprazole Sodium (Protonix) 40 mg PO DAILYBB [facility] Stop: 11/03/19 06:29 Last Admin: 10/09/19 05:20 Dose: 40 mg Documented by: Fluticasone/Salmeterol (Advair Diskus 250/50) 1 puffs INH BID [facility] Stop: 11/02/19 22:14 Last Admin: 10/09/19 07:52 Dose: 1 puffs Documented by: Sodium Chloride (Sodium Chloride) 1 gm PO TID ALAN Stop: 11/02/19 22:14 Last Admin: 10/09/19 12:50 Dose: 1 gm Documented by:
--- NOTE | 2019-10-09 18:11 | Hospitalist Progress Note ---
Date of Service October 09, 2019 Assessment & Plan (1) COPD exacerbation: -Resolved - seems she has been more hypoxic on previous admissions but seems to be doing well currently - possibly chronic hypoxic resp. failure vs just poorly controlled lung disease at the time - remains on RA -CXR without acute process, shows emphysema. Flu swab negative. -Change nebulizer to twice daily - seems this helped reduce tremors -Completed Azithromycin 250 mg -Discontinue further steroids on 10/07 -Originally set up for pulmonary rehab but she ultimately canceled-does report some transportation issues (2) SIADH (syndrome of inappropriate ADH production): -Sodium level stable -Continue sodium tablets 3 times daily -May improve with removal of SSRI; will continue to monitor (3) Anxiety: -At this current time, seems to be her main complaint as it seems to be more driving her respiratory status then underlining pulmonary disease -Patient reports running out of gabapentin and lorazepam and due to noncompl iance with follow-up appointments and requesting early refills of lorazepam, currently not being prescribed benzodiazepines -Reports her fluoxetine was increased from 20 mg to 80 mg when her lorazepam was discontinued -Tapered Prozac off and increasing Remeron to 30 mg nightly; Add Vistaril 25-50 mg Q6H PRN -Psychiatry following-appreciate assistance and working on outpatient establishment/follow-up - discussed with Deandra Wiseman PA-C today who went to discuss with the patient as well (4) Hypertension: -Stable -Continue amlodipine 5 mg daily and metoprolol succinate 25 mg daily (5) Hypothyroidism: -TSH on 10/06 at 0.122 with free T4 1.49 -Given worsening anxiety and symptoms will reduce levothyroxine to 50 mcg daily and recommend repeat TSH/T4 in 6 weeks --Patient reports being on her normal home dose for a long time and typically does not require adjustments (6) DVT prophylaxis: Lovenox Disposition: Medications adjusted today to assist with anxiety; awaiting outpatient F/U and she feels she should be able to get to the appointments? Patient is medically stable for discharge however reporting her anxiety is worse today and will try some medication adjustments, may be difficult as who main request is Ativan which will not be prescribed at this time Subjective Reports she is having more anxiety today. States she just wants to have Ativan. Asks multiple times why she cannot have more of it. Also gets more agitated when talking about Ativan. Explained that this medication will not be prescribed on discharge and currently she does not have any providers that would be prescribing this as an outpatient. She just wants to have enough to get her to her next appointment which hasn't been established yet. She is willing to try other options however is fixated on only Ativan working for her. She states she cannot leave with anxiety like this because she will be right back in the ER. She feels she can only function on Ativan. She does appear more anxious today compared to yesterday and is more irritable. She states she will go to her follow-up appointments yet she then states that she is pretty sure she will have transportation but can't guarantee it. Review of Systems Constitutional: no fever and no chills Respiratory: + dyspnea (During increased levels of anxiety); no cough Cardiovascular: + palpitations (with anxiety); no chest pain and no edema Gastrointestinal: no abdominal pain, no nausea, no vomiting and no constipation Genitourinary: no dysuria Psychiatric: + anhedonia, + abnormal sleep pattern, + anxiety and + panic attacks Physical Exam Constitutional: well developed and well nourished; no acute distress Eyes: + anicteric sclerae ENMT: Ears: no hearing impairment Neck: trachea midline Respiratory: normal respiratory effort, lungs clear to auscultation Cardiovascular: RRR, no murmur, no edema Gastrointestinal (Abdomen): Inspection/Auscultation: normal bowel sounds Percussion/Palpation: abdomen soft; abdomen nontender Skin: no rashes, warm and dry Neurologic: moves all extremities Psychiatric: Orientation: alert and oriented x 3 Eye Contact: good eye cont act Motor Behavior: n tremor Affect: + anxious affect Mood: + anxious mood Thought Content: + preoccupation (fixated on ativan) Suicidal Thoughts: denies suicidal thoughts and denies suicidal plan Insight: + fair insight Judgement: + fair judgement Results & Data Vital Signs (Past 12 Hours) Vital Signs Temp Pulse Resp BP Pulse Ox Pulse Ox 10/09/19 16:49 36.6 C 80 17 154/62 H 91 10/09/19 07:48 36.4 C L 77 16 144/90 H 98 10/09/19 07:28 94 10/09/19 07:22 69 18 91 PG Care Time/CCT Total # of Minutes Spent Total Time Spent with Patient: Total time spent is greater than 50% in coordination of care (as documented) at patient's floor/unit and/or counseling patient: (1) Hypertension Hypertension type: essential hypertension Qualified Code(s): I10 - Essential (primary) hypertension (2) Hypothyroidism Hypothyroidism type: acquired Qualified Code(s): E03.9 - Hypothyroidism, unspecified
[2019-10-09] MEDS: AMLODIPINE BESYLATE 5 MG TAB PO SCH (21:25)
[2019-10-09] MEDS: MIRTAZAPINE TAB 15 MG TAB PO SCH (21:25)
[2019-10-09] MEDS: ENOXAPARIN INJ 40 MG/0.4 ML SYR SQ SCH (21:26)
[2019-10-09] MEDS: Magic Mouthwash 240mL PO PRN (22:14)
[2019-10-10] MEDS: ACETAMINOPHEN 325 MG TAB PO PRN ×2 (00:25→16:03)
[2019-10-10] MEDS: PANTOprazole 40 MG TAB PO SCH (06:10)
[2019-10-10] MEDS: LEVOTHYROXINE SODIUM 50 MCG TABLET PO SCH (06:10)
[2019-10-10] MEDS: ALBUT/IPRATROP 3MG/0.5MG NEB 3 ML VIAL NEB SCH ×2 (07:04→20:11)
[2019-10-10] MEDS: NICOTINE 14 MG/24 HR PATCH TD SCH (07:42)
[2019-10-10] MEDS: FLUTICASONE/SALMETEROL 250/50 (ADVAIR) 14 PUFF/1 INHALER INH SCH ×2 (07:42→21:21)
[2019-10-10] MEDS: METOPROLOL SUCC 25MG EXT REL TAB PO SCH (07:43)
[2019-10-10] MEDS: GABAPENTIN 100 MG CAP PO SCH ×3 (07:43→21:21)
[2019-10-10] MEDS: SODIUM CHLORIDE 1 GM TABLET PO SCH ×3 (07:43→21:21)
--- NOTE | 2019-10-10 17:06 | Hospitalist Progress Note ---
Date of Service October 10, 2019 Assessment & Plan (1) COPD exacerbation: -Resolved - seems she has been more hypoxic on previous admissions but seems to be doing well currently - possibly chronic hypoxic resp. failure vs just poorly controlled lung disease at the time - remains on RA -CXR without acute process, shows emphysema. Flu swab negative. -Change nebulizer to twice daily - seems this helped reduce tremors -Completed Azithromycin 250 mg -Discontinue further steroids on 10/07 -Originally set up for pulmonary rehab but she ultimately canceled-does report some transportation issues (2) SIADH (syndrome of inappropriate ADH production): -Sodium level stable -Continue sodium tablets 3 times daily -May improve with removal of SSRI; will continue to monitor (3) Anxiety: -At this current time, seems to be her main complaint as it seems to be more driving her respiratory status then underlining pulmonary disease -Patient reports running out of gabapentin and lorazepam and due to noncompl iance with follow-up appointments and requesting early refills of lorazepam, currently not being prescribed benzodiazepines -Reports her fluoxetine was increased from 20 mg to 80 mg when her lorazepam was discontinued -Tapered Prozac off and increasing Remeron to 30 mg nightly; Add Vistaril 25-50 mg Q6H PRN -reporting benefit from Vistaril use and may be a good alternative on discharge -Ultimately patient should be weaned from benzodiazepines -given misuse, limited outpatient follow-up, respiratory disease, and other risks these medication should be avoided -doing several reviews of studies the suggestion is relatively long slow tapers to include good report/establishment with the psychiatric provider --It may be in the patient's best interest to continue to slowly taper benzodiazepines however she is at risk for misuse and running out of medications due to not always following up with her providers -Psychiatry following-appreciate assistance and working on outpatient establishment/follow-up - discussed with David [facility] nurse liaison (4) Hypertension: -Stable -Continue amlodipine 5 mg daily and metoprolol succinate 25 mg daily (5) Hypothyroidism: -TSH on 10/06 at 0.122 with free T4 1.49 -Given worsening anxiety and symptoms have reduced levothyroxine to 50 mcg daily and recommend repeat TSH/T4 in 6 weeks --Patient reports being on her normal home dose for a long time and typically does not require adjustments (6) DVT prophylaxis: Lovenox Disposition: Medications adjusted yesterday to assist with anxiety and monitoring for stability today; awaiting outpatient F/U and she feels she should be able to get to the appointments? Patient is medically stable for discharge however given her significant degree of anxiety, it may be best to make sure she has a stable as possible --Again many studies suggest a very slow long taper of benzodiazepines given her 30-year usage however she is not the ideal candidate for this at this time due to currently no established psychiatric provider she is willing to see Subjective Patient reports having a better day today. She objectively looks better today compared to yesterday. Her mood seems to be more calm. Had a long conversation with her today in regards to coping mechanisms and medication use. She feels that the Vistaril may be helping her. As well, the increased dose of Remeron seems to have helped her sleep. She feels with better sleep it is making her day better. Did discuss continue to monitor today given her better control of her anxiety. Still awaiting callback for follow-up appointment as she currently has no behavioral health doctor as an outpatient. Verbalizes no new complaints. Review of Systems Constitutional: no fever, no chills and no fatigue Respiratory: no cough and no dyspnea Cardiovascular: no chest pain, no palpitations and no edema Gastrointestinal: no abdominal pain, no nausea, no vomiting, no constipation and no diarrhea/loose stools Genitourinary: no dysuria Integumentary: no rash Psychiatric: + abnormal sleep pattern (However slept well last night) and + anxiety (Better controlled today) Physical Exam Constitutional: well developed and well nourished; no acute distress Eyes: + anicteric sclerae ENMT: Ears: no hearing impairment Neck: trachea midline Respiratory: normal respiratory effort, lungs clear to auscultation Cardiovascular: RRR, no murmur, no edema Gastrointestinal (Abdomen): Inspection/Auscultation: normal bowel sounds Percussion/Palpation: abdomen soft; abdomen nontender Skin: no rashes, warm and dry Neurologic: moves all extremities Psychiatric: Orientation: alert and oriented x 3 Eye Contact: good eye contact Motor Behavior: n tremor Speech: normal rate/rhythm/volume of speech Results & Data Vital Signs (Past 12 Hours) Vital Signs Temp Pulse Resp BP Pulse Ox Pulse Ox 10/10/19 15:45 36.3 C L 75 18 161/84 H 93 10/10/19 08:04 98 10/10/19 07:10 36.3 C L 73 16 144/77 H 100 10/10/19 07:06 89 14 95 PG Care Time/CCT Total # of Minutes Spent Total Time Spent with Patient: Total time spent is greater than 50% in coordination of care (as documented) at patient's floor/unit and/or counseling patient: (1) Hypertension Hypertension type: essential hypertension Qualified Code(s): I10 - Essential (primary) hypertension (2) Hypothyroidism Hypothyroidism type: acquired Qualified Code(s): E03.9 - Hypothyroidism, unspecified
[2019-10-10] MEDS: AMLODIPINE BESYLATE 5 MG TAB PO SCH (21:21)
[2019-10-10] MEDS: MIRTAZAPINE TAB 15 MG TAB PO SCH (21:21)
[2019-10-10] MEDS: ENOXAPARIN INJ 40 MG/0.4 ML SYR SQ SCH (21:21)
[2019-10-11] MEDS: ACETAMINOPHEN 325 MG TAB PO PRN (04:07)
[2019-10-11] MEDS: LEVOTHYROXINE SODIUM 50 MCG TABLET PO SCH (05:58)
[2019-10-11] MEDS: PANTOprazole 40 MG TAB PO SCH (05:58)
[2019-10-11] MEDS: ALBUT/IPRATROP 3MG/0.5MG NEB 3 ML VIAL NEB SCH ×2 (07:24→19:25)
[2019-10-11] MEDS: FLUTICASONE/SALMETEROL 250/50 (ADVAIR) 14 PUFF/1 INHALER INH SCH ×2 (08:50→20:32)
[2019-10-11] MEDS: GABAPENTIN 100 MG CAP PO SCH ×3 (08:50→20:32)
[2019-10-11] MEDS: SODIUM CHLORIDE 1 GM TABLET PO SCH ×3 (08:50→20:34)
[2019-10-11] MEDS: METOPROLOL SUCC 25MG EXT REL TAB PO SCH (08:50)
[2019-10-11] MEDS: NICOTINE 14 MG/24 HR PATCH TD SCH (08:51)
[2019-10-11] MEDS ORDERED: LORazepam 1 MG TAB PO PRN (16:50)
--- NOTE | 2019-10-11 18:19 | Hospitalist Progress Note ---
Date of Service October 11, 2019 Assessment & Plan (1) COPD exacerbation: -Resolved - seems she has been more hypoxic on previous admissions but seems to be doing well currently - possibly chronic hypoxic resp. failure vs just poorly controlled lung disease at the time - remains on RA -CXR without acute process, shows emphysema. Flu swab negative. -Nebulizers twice daily - seems this helped reduce tremors -Completed Azithromycin 250 mg -Discontinue further steroids on 10/07 -Originally set up for pulmonary rehab but she ultimately canceled-does report some transportation issues (2) SIADH (syndrome of inappropriate ADH production): -Sodium level stable -Continue sodium tablets 3 times daily -May improve with removal of SSRI; will continue to monitor (3) Anxiety: -At this current time, seems to be her main complaint as it seems to be more driving her respiratory status then underlining pulmonary disease -Patient reports running out of gabapentin and lorazepam and due to noncompliance with follow-up appointments and requesting early refills of lorazepam, currently not being prescribed benzodiazepines -Reports her fluoxetine was increased from 20 mg to 80 mg when her lorazepam was discontinued -Tapered Prozac off and increased Remeron to 30 mg nightly and tolerating; Vistaril 25-50 mg Q6H PRN -reporting benefit from Vistaril use and may be a good alternative on discharge --Ultimately patient should be weaned from benzodiazepines -given misuse, limited outpatient follow-up, respiratory disease, and other risks these medication should be avoided -doing several reviews of studies the suggestion is relatively long slow tapers to include good rapport/establishment with the psychiatric provider --It may be in the patient's best interest to continue to slowly taper benzodiazepines however she is at risk for misuse and running out of medications due to not always following up with her providers --However it appears Vistaril seems to be assisting her -granted this medication still has the potential for misuse however does present somewhat safer risks -Psychiatry following-discussed with Deandra Wiseman PA-C -plan as above and appointment with [facility] set for November 16 (4) Hypertension: -Stable -Continue amlodipine 5 mg daily and metoprolol succinate 25 mg daily (5) Hypothyroidism: -TSH on 10/06 at 0.122 with free T4 1.49 -Given worsening anxiety and symptoms have reduced levothyroxine to 50 mcg daily and recommend repeat TSH/T4 in 6 weeks --Patient reports being on her normal home dose for a long time and typically does not require adjustments (6) DVT prophylaxis: Lovenox Disposition: Psychiatric and family practice follow-up appointments established; patient is medically stable for discharge and has a ride home tomorrow --Again many studies suggest a very slow long taper of benzodiazepines given her 30-year usage however she is not the ideal candidate for this at this time due to currently no established psychiatric provider she is willing to see; Vistaril seems to be assisting with acute anxiety and will continue on discharge Subjective Patient continues to report feeling extremely well. For the past 2 days she seems to be the least anxious since I met her. She is using her Vistaril routinely but has not required Ativan in 2 days. She continues to get good sleep with the increased dose of Remeron. She feels her anxiety is stable enough that she will function outside the hospital. Unfortunately she is not able to get a ride until tomorrow morning. She continues to report ease of breathing and remains on room air and no wheezing. She has an appointment with [facility] mid-October. In a follow-up PCP appointment in the coming week. She verbalizes no new complaints at this time. Review of Systems Constitutional: no fever and no chills Ear, Nose, Mouth, Throat: Respiratory: no cough and no dyspnea Cardiovascular: no chest pain, no palpitations, no lightheadedness and no edema Gastrointestinal: no abdominal pain, no nausea, no vomiting, no constipation and no diarrhea/loose stools Genitourinary: no dysuria Integumentary: no rash Psychiatric: + anxiety (Minimal today) Physical Exam Constitutional: well developed and well nourished; no acute distress Eyes: + anicteric sclerae ENMT: Ears: no hearing impairment Neck: trachea midline Respiratory: normal respiratory effort, lungs clear to auscultation Cardiovascular: RRR, no murmur, no edema Gastrointestinal (Abdomen): Inspection/Auscultation: normal bowel sounds Percussion/Palpation: abdomen soft; abdomen nontender Skin: no rashes, warm and dry Neurologic: moves all extremities Psychiatric: Orientation: alert and oriented x 3 Eye Contact: good eye contact Motor Behavior: n tremor Speech: normal rate/rhythm/volume of speech Affect: + anxious affect (Very mild today) Results & Data Vital Signs (Past 12 Hours) Vital Signs Temp Pulse Resp BP Pulse Ox Pulse Ox 10/11/19 15:04 36.4 C L 76 16 157/88 H 95 10/11/19 07:26 75 16 96 10/11/19 07:20 36.4 C L 66 12 139/77 91 10/11/19 07:03 93 93 PG Care Time/CCT Total # of Minutes Spent Total Time Spent with Patient: Total time spent is greater than 50% in coordination of care (as documented) at patient's floor/unit and/or counseling patient: (1) Hypertension Hypertension type: essential hypertension Qualified Code(s): I10 - Essential (primary) hypertension (2) Hypothyroidism Hypothyroidism type: acquired Qualified Code(s): E03.9 - Hypothyroidism, unspecified
[2019-10-11] MEDS: AMLODIPINE BESYLATE 5 MG TAB PO SCH (20:33)
[2019-10-11] MEDS: MIRTAZAPINE TAB 15 MG TAB PO SCH (20:33)
[2019-10-11] MEDS: ENOXAPARIN INJ 40 MG/0.4 ML SYR SQ SCH (20:36)
--- NOTE | 2019-10-11 20:36 | Discharge Summary ---
Date of Service October 11, 2019 Admission HPI Per Admitting Provider reportedly on long standing neurontin and lorazepam rxs until recently, PCP declined to prescribe reportedly as taking extra and requesting early fills. She refuses to return to see a psychiatric provider at [facility] as they also will not rx ATivan and is tremulous during interview with liaison due to upset around this. Her Prozac was reportedly increased from 20 mg directly to 80 mg (2 of 40 mg capsules) with ongoing breakthrough. In the setting of higher end dosing of SSRI is appears that she has developed low sodium (128) and is currently on fluid restriction. She does report some jitteriness after losing inhalers. QTc is also prolonged at 515. She states that her breathinig issues make it difficult to have interest in things and energy. She states she can't eat due to anxiety due to poor appetite. She is having a harder time falling asleep. Principal Diagnosis COPD exacerbation; anxiety Discharge Exam Constitutional well developed and well nourished; no acute distress Eyes + anicteric sclerae ENMT Ears: no hearing impairment Neck trachea midline Respiratory normal respiratory effort, lungs clear to auscultation Cardiovascular RRR, no murmur, no edema Gastrointestinal (Abdomen) Inspection/Auscultation: normal bowel sounds Percussion/Palpation: abdomen soft; abdomen nontender Skin no rashes, warm and dry Neurologic moves all extremities Psychiatric Orientation: alert and oriented x 3 Eye Contact: good eye contact Motor Behavior: n tremor Speech: normal rate/rhythm/volume of speech Suicidal Thoughts: denies suicidal thoughts and denies suicidal plan Discharge Data Allergies Allergy/AdvReac Type Severity Reaction Status Date / Time No Known Allergies Allergy Verified 10/03/19 16:56 Consultations 10/03/19 19:45 ED Decision to Admit Stat 10/03/19 22:15 Consult Case Management - Discharge Planning Routine 10/05/19 14:28 Consult Psychiatry Routine 10/06/19 12:33 Consult Case Management - Discharge Planning Routine Hospital Course (1) COPD exacerbation: -Resolved - seems she has been more hypoxic on previous admissions but seems to be doing well currently - possibly chronic hypoxic resp. failure vs just poorly controlled lung disease at the time - remains on RA -CXR without acute process, shows emphysema. Flu swab negative. -Continue nebs and inhalers as needed at home -Completed Azithromycin 250 mg -Discontinue further steroids on 10/07 -Originally set up for pulmonary rehab but she ultimately canceled-does report some transportation issues (2) SIADH (syndrome of inappropriate ADH production): -Sodium level stable -Continue sodium tablets 3 times daily -May improve with removal of SSRI; will continue to monitor (3) Anxiety: -At this current time, seems to be her main complaint as it seems to be more driving her respiratory status then underlining pulmonary disease -Patient reports running out of gabapentin and lorazepam and due to noncompliance with follow-up appointments and requesting early refills of lorazepam, currently not being prescribed benzodiazepines -Reports her fluoxetine was increased from 20 mg to 80 mg when her lorazepam was discontinued -Tapered Prozac off and increased Remeron to 30 mg nightly and tolerating; Vistaril 25-50 mg Q6H PRN -reporting benefit from Vistaril use and may be a good alternative on discharge --Patient was utilizing 50 mg during hospital stay which did not promote any drowsiness --Several literature reviews completed which almost all suggest long-term slow tapering of benzodiazepines given her 30+ year history of use however she is not an ideal candidate for this at this time. She states she does not want to see her current psychiatric provider due to them not providing her lorazepam at this time. Again she does express good results on Vistaril and therefore did not prescribe Ativan on discharge. Vistaril can be misused as well however has a safer risk profile compared to Ativan -If PCP feels comfortable continuing these medications would recommend continuing Remeron and Vistaril until follow-up appointment with [facility] on November 16. Patient does not drive and does rely on others for transportation and is also setting up transportation through [employer]. Did explain the importance of ongoing appointment checks in order to continue treatment (4) Hypertension: -Stable -Continue amlodipine 5 mg daily and metoprolol succinate 25 mg daily (5) Hypothyroidism: -TSH on 10/06 at 0.122 with free T4 1.49 -Given worsening anxiety and symptoms have reduced levothyroxine to 50 mcg daily and recommend repeat TSH/T4 in 5 weeks --Patient reports being on her normal home dose for a long time and typically does not require adjustments (6) DVT prophylaxis: Lovenox Disposition: Psychiatric and family practice follow-up appointments established --Again many studies suggest a very slow long taper of benzodiazepines given her 30-year usage however she is not the ideal candidate for this at this time due to currently no established psychiatric provider she is willing to see; Vistaril seems to be assisting with acute anxiety and have continued on discharge. Patient was discharged by night team as she initially did not have a ride during my shift and her initial plan was to remain in hospital until Monday. She was only prescribed Vistaril 25 mg as needed but did add to her instructions she could take 50 mg. Again the 50 mg dose did not seem to cause drowsiness or ill effect at this time but will need continue monitoring. Total Time Total Time Spent Total Time Spent (In Minutes): Greater than 30 minutes Discharge Plan Discharge Items Patient Disposition: Home - Home Health Services Reason For Visit: COPD EXACERBATION,SIADH Discharge Diagnosis: COPD EXACERBATION, SIADH Activity: As commented below Lifting: Gradually increase as tolerated Sexual Activity: When tolerated Exercise/Sports: Gradually increase as tolerated Non-emergency contact: Primary Care Provider, Psychiatrist and Therapist Call non-emergency contact if: you have any medication questions Follow-up/Referrals: [facility] [Outside] - 11/14/19 1:00 pm (Appt with Carissa Kinsey for med management) Olivia Gomez, [Primary Care Provider] - 10/16/19 3:15 pm (Please, follow up at Dr. Gomez's office with her associate, Jeannine Denson PA-C, on MondayOctober 16 at 3:15 pm. *If you need to change this appointment, call their office at [phone].) Diet: Regular Addtl Attending Provider Instructions: You were admitted due to 1. breathing problems, called COPD exacerbation: you completed antibiotics, breathing treatments and a course of steroids. Please continue your inhalers as prescribed. 2. SIADH (syndrome of inappropriate ADH production): which is a condition that affects your sodium levels - this has resolved. Please continue sodium tablets. Your prozac was CANCELLED, for this reason. 3. Anxiety:as discussed with your hospitalist, you will need to continue management of this with your psychiatrist. While here, your Prozac was tapered, then discontinued, and Remeron was added. Continue this new medicine, as well as the vistaril for as needed anxiety. Please keep your Psychiatry follow up with [facility] set for November 16 -- Can use Vistaril 25 mg for milder anxiety but if needed may use 50 mg at one time. Only use this every six hours as needed. If your anxiety is doing well hopefully you can go longer then every 6 hours 4. Hypertension: -Stable -Continue amlodipine 5 mg daily and metoprolol succinate 25 mg daily 5. Hypothyroidism: -TSH on 10/06 at 0.122 with free T4 1.49 -Given worsening anxiety and symptoms -- Your thyroid supplementation was reduced to 50 mcg daily - a script has been sent. - and recommend your PCP repeat TSH/T4 in 6 weeks. You have an appointment with Jeannine Denson on October [address] Gomez, but She is a PA in Dr. Gomez's office. She can assist with medical management until you get to your psychiatric appointment. I will touch base with her to discuss what we have talked about during your hospital stay. I think you will really like her! Be well Pending Studies at Discharge: No Stand-Alone Forms: [facility], Smoking Cessation Medications and DC Order Prescriptions: New hydroxyzine HCl 25 mg Tablet 25 mg PO Q6H PRN (Reason: anxiety) Qty: 30 RF: 0 mirtazapine 15 mg Tablet 30 mg PO HS Qty: 60 RF: 0 levothyroxine [Synthroid] 50 mcg Tablet 50 mcg PO DAILYBB 30 Days Qty: 30 RF: 0 Continued amlodipine 5 mg tablet 5 mg PO HS Qty: 90 RF: 3 (DME) Oxygen Home Liters Per Minute See Dose Instructions .ROUTE .MEDSUPPLY Qty: 1 RF: 0 (DME) Oxygen Home Liters Per Minute See Rx Instructions .ROUTE .MEDSUPPLY Qty: 1 RF: 0 nicotine 14 mg/24 hr patch 24 hour 1 patch TD DAILY Qty: 28 RF: 0 gabapentin 100 mg capsule 100 mg PO TID RF: 0 ipratropium-albuterol 0.5 mg-3 mg(2.5 mg base)/3 mL Solution For Nebulization 3 ml NEB QID Qty: 180 RF: 0 sodium chloride 1 gram tablet 1,000 mg PO TID Qty: 30 RF: 0 fluticasone propion-salmeterol [Advair Diskus] 250-50 mcg/dose blister with device 1 inh INHALATION BID RF: 0 pantoprazole 40 mg tablet,delayed release (DR/EC) 40 mg PO DAILYBB RF: 0 metoprolol succinate 25 mg tablet extended release 24 hr 25 mg PO DAILY RF: 0 cholecalciferol (vitamin D3) 50,000 unit capsule 50,000 units PO WE RF: 0 Discontinued lorazepam 1 mg tablet 1 mg PO BID Qty: 60 RF: 0 fluoxetine 40 mg capsule 80 mg PO QAM RF: 0 levothyroxine 75 mcg tablet 75 mcg PO QAM RF: 0 Discharge Orders: Discharge Order (Routine); Ordered 10/11/19 Ordered By: Orquidea Gomez/Other Patient Handouts: Hyponatremia Dc Admission Data Admit Date/Time: 10/05/19 14:45 Attending Provider: Royal Simon Admit Provider: Kenn Rodriguez Primary Care Provider: Olivia Gomez Other Providers: Carlitos Hoffmann ; Nell Chowdary Other Interventions: Discharge Summary Assessment (RN) Last Done: 10/11/19 20:29 DC Date/Time DO NOT enter until pt leaves facility: 10/11/19 20:55
== END 2019-10-11 20:55 | disposition home health service (06) | DRG 191 ==
LOC: ED 15:44 → 3E 15:44 → SUATTDRO 20:40 → 3E 22:05

== ENCOUNTER 2019-10-29 14:49 | Inpatient (IN) ==
[2019-10-29] MEDS ORDERED: ALBUTEROL 0.5% NEB SOLN 2.5 MG/0.5 ML VIAL NEB PRN (16:08)
[2019-10-29] MEDS ORDERED: MoRPHine SULFATE 10 MG/0.5 ML UDP PO PRN (16:17)
[2019-10-29] MEDS ORDERED: MoRPHine SULFATE 5 MG/0.25 ML UDP PO PRN (16:20)
[2019-10-29] MEDS ORDERED: ACETAMINOPHEN 325 MG TAB PO PRN (16:24)
[2019-10-29] MEDS ORDERED: LORazepam 1 MG/2 ML VIAL IV PRN (16:25)
[2019-10-29] MEDS ORDERED: NYSTATIN 30 ML, DEXAMETHASONE CONC 3.75 MG, DiphenhydrAMINE Syrup 300 MG, ORA-SWEET SYR... PO PRN (16:25)
[2019-10-29] MEDS ORDERED: MoRPHine SULF/NSS 250 MG/250 ML BTL IV SCH (16:30)
[2019-10-29] MEDS: LORazepam 0.5 MG TAB SL PRN (17:11)
[2019-10-29] MEDS: FLUTICASONE/SALMETEROL 250/50 (ADVAIR) 14 PUFF/1 INHALER INH SCH (20:36)
[2019-10-29] MEDS: GABAPENTIN 600 MG TAB PO SCH (20:37)
[2019-10-29] MEDS ORDERED: AMLODIPINE BESYLATE 5 MG TAB PO SCH (21:00)
[2019-10-29] MEDS ORDERED: METOPROLOL SUCC 25MG EXT REL TAB PO SCH (21:00)
[2019-10-29] MEDS ORDERED: MIRTAZAPINE TAB 15 MG TAB PO SCH (21:00)
[2019-10-29] MEDS ORDERED: MoRPHine SULFATE 10 MG/0.5 ML UDP PO SCH (21:00)
[2019-10-29] MEDS: ACETYLCYSTEINE 20% INHAL SOLN 4ML ***DISPENSED BY RESP. INH SCH (21:24)
--- NOTE | 2019-10-29 23:16 | Hospitalist Progress Note ---
Date of Service October 29, 2019 Assessment & Plan (1) Comfort measures only status: (2) Acute on chronic diastolic (congestive) heart failure: (3) COPD exacerbation: (4) Hypoxia: (5) Hypertension: PG Care Time/CCT Total # of Minutes Spent Total Time Spent with Patient: Total time spent is greater than 50% in coordination of care (as documented) at patient's floor/unit and/or counseling patient: (1) Hypertension Hypertension type: essential hypertension Qualified Code(s): I10 - Essential (primary) hypertension
[2019-10-30] MEDS: LORazepam 0.5 MG TAB SL PRN (01:53)
[2019-10-30] MEDS ORDERED: LEVOTHYROXINE SODIUM 50 MCG TABLET PO SCH (06:30)
[2019-10-30] MEDS: ACETYLCYSTEINE 20% INHAL SOLN 4ML ***DISPENSED BY RESP. INH SCH (07:12)
--- NOTE | 2019-10-30 07:23 | Communication Note ---
Date of Service: October 29, 2019 Patient admitted under inpatient hospice. Please refer to previous charts discharge summary.
[2019-10-30 07:39] VITALS: BP 149/93; PULSE 74; TEMP 97.5; O2SAT 79
--- NOTE | 2019-10-30 07:42 | History & Physical Report ---
Date of Service October 29, 2019 Assessment & Plan (1) Comfort measures only status: Patient with long-standing history of tobacco use, approximately 50 pack years. She continues to smoke 3-4 cigarettes daily prior to admission. CXR consistent with severe emphysema. She has home oxygen and uses it PRN. Has never had PFTs for formal diagnosis. - Pulm consulted - Appreciate recs: Continue steroids, Duonebs, NAC, and doxycycline--solumedrol 40mg Q8 continue this dose for now, plan for Prednisone on discharge - Requested cardiology consult for her right -> left interatrial shunt seen on echo. - Will benefit from pulmonary rehab and smoking cessation - Consulted palliative care on 10/22 as the patient reports wanting to go home and and being "tired of this." The patient unfortunately is a poor hospice candidate as she refused to give the palliative MAINSPRING STRIP GAUGER any POAs or anyone who could handle controlled medications for her at home. Because we have a high concern for misuse/abuse, she cannot be sent home with control of her own substances. Hospice can work with this situation, but needs a reliable caregiver who can maintain control of substances. For the time being, the patient is not cooperating with these requirements. On 10/28, patient was agreeable to titrating off high flow oxygen and understanding that this may lead to her demise. She states she has no quality of life and would like to transition to comfort measures. Patient will gradually have her high flow oxygen slowly tapered. On 10/29, admitted him to inpatient hospice, titrated to oxymask 15/L. Previously on highflow. Started morphine for comfort. On roxanol, but requires more. -hospice physician recommended continuous morphine infusion. -Start infusion at 2mg/hr, titrate by 1mg/hr Q15min PRN pain or SOB. (2) Acute on chronic diastolic (congestive) heart failure: (3) COPD exacerbation: (4) Hypoxia: (5) Hypertension: History of Present Illness Chief Complaint: Inpatient hospice Primary Care Provider: DO Chaparro Rangel, a pleasant 64 yo C female presented with a history of COPD, HTN, GERD, Depression/Anxiety and PTSD. She was recently admitted to [facility] from 10/03/19 - 10/11/19 with an acute exacerbation of COPD. She was treated successfully with steroids, Azithromycin and nebs. She was evaluated by Pulmonary services during that time and was set up for outpatient followup and Pulmonary rehab. She reports feeling great at the time of discharge. She reports that her breathing was doing very well, she was taking only one nebulizer treatment per day and that she felt much better. She continued to do well until the day prior to her admission, she became acutely short of breath while doing some shopping. She had to sit down and rest. She reports that her shortness of breath persisted throughout the day and night, she couldn't sleep and "felt like someone was drowning" her. She placed her oxygen on last night. Today her home nurse came in and was helping her get ready for a doctor's appointment. Patient was unable to get into the car due to SOB therefore came to [facility]. Additionally she describes chills, palpitations During hospital stay, patient did not improve, palliative care was consulted, patient agreed to be placed on hospice as she has required large amounts of oxygen requirements. She was accepted as inpatient hospice on 10/29 Allergies Allergy/AdvReac Type Severity Reaction Status Date / Time No Known Allergies Allergy Verified 10/03/19 16:56 Home Medications Home Medications Medication Instructions Recorded Confirmed Type amlodipine 5 mg tablet 5 mg PO HS #90 tab 08/06/19 10/16/19 Rx Oxygen Home #1 ea 09/05/19 Rx nicotine 14 mg/24 hr daily 1 patch TD DAILY #28 ea 09/12/19 10/16/19 Rx transdermal patch Oxygen Home #1 ea 09/13/19 09/13/19 Rx fluticasone propion-salmeterol 1 inh INHALATION BID 10/03/19 10/16/19 History [Advair Diskus] metoprolol succinate 25 mg PO HS 10/03/19 10/16/19 History levothyroxine [Synthroid] 50 mcg PO DAILYBB 30 Days #30 tab 10/11/19 10/16/19 Rx mirtazapine 30 mg PO HS #60 tab 10/11/19 10/16/19 Rx albuterol sulfate 2.5 mg NEB Q2H PRN #0 ea 10/29/19 Rx gabapentin 600 mg PO TID #10 cap 10/29/19 Rx hydroxyzine HCl 50 mg PO Q4 PRN #10 tab 10/29/19 Rx sertraline 25 mg PO QAM #30 tab 10/29/19 Rx tiotropium bromide [Spiriva with 1 puff INHALATION QAM #0 inh 10/29/19 Rx HandiHaler] Past Med/Surg History Medical History Anxiety Arthritis Cheilitis Chronic pain COPD (chronic obstructive pulmonary disease) (Acute) Depression GERD without esophagitis Goals of care, counseling/discussion Hypertension (Chronic) Insomnia Overweight POD (perioral dermatitis) Pulmonary hypertension Renal insufficiency Vitamin D deficiency Surgical History History of knee replacement Status post cholecystectomy Status post tubal ligation Family History Unknown Hypertension Mother Cancer Depression Gallbladder disease Father Alcohol abuse Sister Leukemia Colon cancer Social History Preferred Language: Pry[place]in[place] Communication Ability: Effective Temple Marker Required: No Beliefs That Will Affect Care: None marital status: Current Living Situation: Alone Feels Safe at Home: Yes Smoking Status: Current some day smoker Tobacco Type: cigarettes ; Cigarettes Per Day: Patient stated 12 cigarettes every other day. ; Second Hand Exposure: No ; Hx Alcohol Use: Yes Alcohol type: wine Hx Substance Use: Yes Substance Use Type Other:: pt reports abusing ativan in past. Last Used Substance: Days (ago) Review of Systems Constitutional: + fatigue Eyes: no diplopia and no decreased night vision Ear, Nose, Mouth, Throat: no tinnitus and no nasal discharge Respiratory: + dyspnea; no change in sputum Gastrointestinal: no vomiting and no pain with swallowing Genitourinary: no dysuria and no urinary hesitancy Musculoskeletal: no back pain and no loss of height Integumentary: no acne and no lesions Neurologic: no gait abnormality Psychiatric: no behavioral changes and no anhedonia Hematologic / Lymphatic: no easy bleeding Physical Exam Physical Exam: Constitutional: WD/WN, vitals as above + ill appearing but in no acute distress. Eyes: PERRL, conjunctivae normal, anicteric sclerae ENMT: external ear and nose normal, oropharynx normal Neck: trachea midline, no thyromegaly Respiratory: + respiratory distress and + uses accessory muscles Auscultation: + diminished lung sounds; no crackles, no rales and no wheezes Cardiovascular: RRR, no murmur, no edema Gastrointestinal (Abdomen): normal bowel sounds, soft, nontender, no hepatosplenomegaly Musculoskeletal: no cyanosis or clubbing, extremities motor strength 5/5 Skin: no rashes, warm and dry Neurologic: patellar DTR's 2+ bilat, sensation intact and PERRL, EOMI, accommodation nl, no face palsy, no dysarthria Psychiatric: Orientation: alert and oriented x 3 Affect: + anxious affect Lymphatic: no cervical or axillary lymphadenopathy Results & Data Vital Signs (Past 12 Hours) Vital Signs Temp Pulse Resp BP Pulse Ox 10/30/19 07:36 36.4 C L 74 20 149/93 H 79 L PG Care Time/CCT Total # of Minutes Spent Total Time Spent with Patient: Total time spent is greater than 50% in coordination of care (as documented) at patient's floor/unit and/or counseling patient: (1) Hypertension Hypertension type: essential hypertension Qualified Code(s): I10 - Essential (primary) hypertension
[2019-10-30] MEDS: GABAPENTIN 600 MG TAB PO SCH ×2 (08:25→13:35)
[2019-10-30] MEDS: FLUTICASONE/SALMETEROL 250/50 (ADVAIR) 14 PUFF/1 INHALER INH SCH (08:25)
[2019-10-30] MEDS ORDERED: SERTRALINE HCL 50 MG TABLET PO SCH (09:00)
[2019-10-30] MEDS ORDERED: TIOTROPIUM BROMIDE 5 PUFF/90 MCG INH INH SCH (09:00)
[2019-10-30] MEDS ORDERED: NICOTINE 14 MG/24 HR PATCH TD SCH (09:00)
--- NOTE | 2019-10-30 09:57 | Hospitalist Progress Note ---
Date of Service October 30, 2019 Assessment & Plan (1) Comfort measures only status: Patient with long-standing history of tobacco use, approximately 50 pack years. She continues to smoke 3-4 cigarettes daily prior to admission. CXR consistent with severe emphysema. She has home oxygen and uses it PRN. Has never had PFTs for formal diagnosis. - Pulm consulted - Appreciate recs: Continue steroids, Duonebs, NAC, and doxycycline--solumedrol 40mg Q8 continue this dose for now, plan for Prednisone on discharge - Requested cardiology consult for her right -> left interatrial shunt seen on echo. - Will benefit from pulmonary rehab and smoking cessation - Consulted palliative care on 10/22 as the patient reports wanting to go home and and being "tired of this." The patient unfortunately is a poor hospice candidate as she refused to give the palliative TELEPHONE ANSWERER any POAs or anyone who could handle controlled medications for her at home. Because we have a high concern for misuse/abuse, she cannot be sent home with control of her own substances. Hospice can work with this situation, but needs a reliable caregiver who can maintain control of substances. For the time being, the patient is not cooperating with these requirements. On 10/28, patient was agreeable to titrating off high flow oxygen and understanding that this may lead to her demise. She states she has no quality of life and would like to transition to comfort measures. Patient will gradually have her high flow oxygen slowly tapered. On 10/29, admitted her to inpatient hospice, titrated to oxymask 15/L. Previously on highflow. Started morphine for comfort. On roxanol, but requires more. -hospice physician recommended continuous morphine infusion. -Start infusion at 2mg/hr, titrate by 1mg/hr Q15min PRN pain or SOB. 10/30/19: patient comfortable on Morphine drip, can increase if needed not eating much if anything at all appropriate for inpatient hospice, will likely pass away in a few days (2) Acute on chronic diastolic (congestive) heart failure: (3) COPD exacerbation: (4) Hypoxia: (5) Hypertension: Subjective patient resting comfortably on morphine drip sleeping when I checked on her no issues per RN not eating much at all removed some of her medications Review of Systems Review of Systems: Unobtainable due to cognitive status (lethargic, sleepy) Physical Exam Constitutional: + ill appearing; no acute distress Neck: trachea midline, no thyromegaly Respiratory: + labored breathing; no respiratory distress Auscultation: + diminished lung sounds, + rhonchi and + wheezes Cardiovascular: RRR, no murmur, no edema Gastrointestinal (Abdomen): normal bowel sounds, soft, nontender, no hepatosplenomegaly Musculoskeletal: no cyanosis or clubbing, extremities motor strength 5/5 Skin: no rashes, warm and dry Results & Data Vital Signs (Past 12 Hours) Vital Signs Temp Pulse Resp BP Pulse Ox 10/30/19 07:36 36.4 C L 74 20 149/93 H 79 L PG Care Time/CCT Total # of Minutes Spent Total Time Spent with Patient: Total time spent is greater than 50% in coordination of care (as documented) at patient's floor/unit and/or counseling patient: (1) Hypertension Hypertension type: essential hypertension Qualified Code(s): I10 - Essential (primary) hypertension
--- NOTE | 2019-10-30 16:10 | Death Summary ---
Date of Service October 30, 2019 Pronouncement Note Date and Time of Date of : 10/30/19 Time of : 15:51 PCOD Preliminary cause of : Acute respiratory failure with hypoxia Contributing Factors (1) Comfort measures only status: (2) Acute on chronic diastolic (congestive) heart failure: (3) COPD exacerbation: (4) Hypoxia: (5) Hypertension: Summary Additional details: Patient with long-standing history of tobacco use, approximately 50 pack years. She continues to smoke 3-4 cigarettes daily prior to admission. CXR consistent with severe emphysema. She has home oxygen and uses it PRN. Has never had PFTs for formal diagnosis. - Pulm consulted - Appreciate recs: Continue steroids, Duonebs, NAC, and doxycycline--solumedrol 40mg Q8 continue this dose for now, plan for Prednisone on discharge - Requested cardiology consult for her right -> left interatrial shunt seen on echo. - Will benefit from pulmonary rehab and smoking cessation - Consulted palliative care on 10/22 as the patient reports wanting to go home and and being "tired of this." The patient unfortunately is a poor hospice candidate as she refused to give the palliative EQUITY HOLDER any POAs or anyone who could handle controlled medications for her at home. Because we have a high concern for misuse/abuse, she cannot be sent home with control of her own substances. Hospice can work with this situation, but needs a reliable caregiver who can maintain control of substances. For the time being, the patient is not cooperating with these requirements. On 10/28, patient was agreeable to titrating off high flow oxygen and understanding that this may lead to her demise. She states she has no quality of life and would like to transition to comfort measures. Patient will gradually have her high flow oxygen slowly tapered. On 10/29, admitted her to inpatient hospice, titrated to oxymask 15/L. Previously on highflow. Started morphine for comfort. On roxanol, but requires more. -hospice physician recommended continuous morphine infusion. -Start infusion at 2mg/hr, titrate by 1mg/hr Q15min PRN pain or SOB. 10/30/19: patient comfortable on Morphine drip not eating much if anything at all appropriate for inpatient hospice at 1551 with family at the bedside Additional Data Confirmation of : no pulse, no respirations, no heart sounds and pupils fixed and dilated Family: at bedside Attending/PCP notified?: Yes Attending physician: Royal Simon, DO Was code activated?: No Autopsy requested?: No land leasing examiner notified?: No Organ bank notified?: No Advance directives: No
== END 2019-10-30 17:50 | disposition expired | DRG 951 ==
LOC: SUATTDRO 14:49 → 3N 14:49